=== PATIENT | male | born 1935 | race Caucasian/White ===

== ENCOUNTER 2017-11-11 23:19 | Emergency (ER) | payer MEDICARE, OTHER ==
--- NOTE | 2017-11-12 00:19 | EDM.PDOC ---
ED HPI GENERAL MEDICAL PROBLEM - General Chief Complaint: Abdominal Pain Stated Complaint: LOWER ABDOMINAL PAIN AND CONSTIPATION Time Seen by Provider: 11/11/17 23:34 Source of Information: Reports: Patient, Family () History Limitations: Reports: No Limitations - History of Present Illness INITIAL COMMENTS - FREE TEXT/NARRATIVE: The patient states he has had constipation on and off for several weeks. He used a saline Fleet enema yesterday, producing a small bowel movement, and another Fleet enema today, again producing a small bowel movement, also with some bright red blood per rectum. The patient had a fever and aches around 2016. He says when he developed oral pain, then was seen in early September by Shaun Sweet. The patient' s states that no tests were done, but he was given an oral rinse. It did not help, therefore he followed up with Gloria Wild about a week later. Blood work was ordered, and the patient was prescribed nystatin swish and swallow, and refer the patient to the ENT Dr. Meier. The patient saw Dr. Meier on 10/07/2017. The patient was prescribed Diflucan and clotrimazole troches. On follow-up with Dr. Meier in early October, the clotrimazole was stopped, the Diflucan continued, and the nystatin restarted. The patient's states that the thrush is suspected to have occurred from unsanitary denture cleaning. Because of the patient's constipation, the patient's took the patient off all medications 2 days ago, although the patient still has some thrush symptoms. Review of potential adverse effects of nystatin, Diflucan, and clotrimazole finds that constipation is not a known adverse effect of any of them. Rectal Pain Score (Numeric/FACES): 8 - Related Data Allergies Allergy/AdvReac Type Severity Reaction Status Date / Time Penicillins Allergy Rash Verified 11/11/17 23:34 Home Meds: Home Meds Clotrimazole [Mycelex] 11/11/17 [History] Fluconazole [Diflucan] 11/11/17 [History] Nystatin [Nystatin] 11/11/17 [History] Past Medical History - Past Surgical History HEENT Surgical History: Reports: Tonsillectomy GI Surgical History: Reports: Appendectomy (1968), Cholecystectomy (1968) Social & Family History - Tobacco Use Smoking Status *Q: Former Smoker - Alcohol Use Alcohol Use History: No - Recreational Drug Use Recreational Drug Use: No - Living Situation & Occupation Living situation: Reports: , with Spouse Occupation: Retired ED ROS GENERAL - Review of Systems Review Of Systems: ROS reveals no pertinent complaints other than HPI. ED EXAM, GENERAL - Physical Exam Exam: See Below Exam Limited By: No Limitations General Appearance: Alert, WD/WN, No Apparent Distress Eye Exam: Bilateral Eye: Normal Inspection Ears: Normal External Exam, Hearing Grossly Normal Nose: Normal Inspection, No Blood Throat/Mouth: Normal Inspection, Normal Lips, Normal Teeth, Normal Gums, Normal Oropharynx (no thrush seen), Normal Voice, No Airway Compromise Head: Atraumatic, Normocephalic Neck: Normal Inspection, Full Range of Motion Respiratory/Chest: No Respiratory Distress, Lungs Clear, Normal Breath Sounds, No Accessory Muscle Use Cardiovascular: Normal Peripheral Pulses, Regular Rate, Rhythm, No Edema, No Gallop, No JVD, No Murmur, No Rub Peripheral Pulses: 4+: Radial (L), Radial (R) GI/Abdominal: Normal Bowel Sounds, Soft, Non-Tender, No Organomegaly, No Distention, No Abnormal Bruit, No Mass (Male) Exam: Deferred Rectal (Males) Exam: Deferred Back Exam: Normal Inspection, Full Range of Motion, NT Extremities: Normal Inspection, Normal Range of Motion, No Pedal Edema, Normal Capillary Refill Neurological: Alert, Oriented, Normal Cognition, No Motor/Sensory Deficits Psychiatric: Normal Affect Skin Exam: Warm, Dry, Intact, Normal Color, No Rash Course - Vital Signs Last Recorded V/S: Last Vital Signs Temp 37.0 C 11/11/17 23:30 Pulse 68 11/11/17 23:30 Resp 18 11/11/17 23:30 BP 147/84 H 11/11/17 23:30 Pulse Ox 100 11/11/17 23:30 - Orders/Labs/Meds Orders: Active Orders 24 hr Category Date Time Status Nur Catheter Insertion [Insert Urinary Catheter] [OM. Care 11/12/17 00:30 Ordered PC] Q24H Urinary Catheter Assessment [RC] ASDIRECTED Care 11/12/17 00:18 Active Abdomen 1V Upright [CR] Stat Exams 11/11/17 23:59 Taken Labs: Laboratory Tests 11/12/17 Range/Units 00:06 Urine Color Yellow (Yellow) Urine Appearance Clear (Clear) Urine pH 7.0 (5.0-8.0) Ur Specific [place] 1.015 (1.005-1.030) Urine Protein Negative (Negative) Urine Glucose (UA) Negative (Negative) Urine Ketones 1+ H (Negative) Urine Occult Blood Negative (Negative) Urine Nitrite Negative (Negative) Urine Bilirubin Negative (Negative) Urine Urobilinogen 0.2 (0.2-1.0) Ur Leukocyte Esterase Negative (Negative) Urine RBC 0-5 (0-5) /hpf Urine WBC 0-5 (0-5) /hpf Ur Epithelial Cells Not seen (0-5) /hpf Urine Bacteria Not seen (FEW) /hpf Urine Mucus Few (FEW) /hpf Meds: Medications Discontinued Medications Generic Name Dose Route Start Last Admin Trade Name Yvette PRN Reason Stop Dose Admin Lidocaine HCl Confirm 11/12/17 01:07 11/12/17 01:14 Xylocaine 2% Jelly Administered 11/12/17 01:08 Not Given Dose 10 ml .ROUTE .STK-MED ONE Lidocaine HCl 10 ml 11/12/17 01:10 11/12/17 01:14 Xylocaine 2% Jelly MUCMEM 11/12/17 01:11 10 ml ONETIME STA Administration - Re-Assessments/Exams Free Text/Narrative Re-Assessment/Exam: 11/12/17 00:19 Notified that the post-void bladder scan demonstrated 400 mL of retained urine. I have ordered a Nur catheter to a leg bag, and a urinalysis has already been ordered. 11/12/17 00:57 Upright abdominal radiograph appears to demonstrate a considerable amount of stool in the right colon, but not much distal to the hepatic flexure. Formal read per the Radiologist pending. 11/12/17 01:33 Once the Nur was placed, it drained 800 mL of clear urine, and is still draining. The urinalysis is normal. The patient will be discharged home with a Nur to leg bag and a referral to Dr. June. Departure - Departure Time of Disposition: 01:35 Disposition: Home, Self-Care 01 Condition: Good Clinical Impression: Urinary retention - Discharge Information Referrals: PCP,None [Primary Care Provider] - Kemar June MD [Ordering Only Provider] - Forms: ED Department Discharge Additional Instructions: You were seen in the emergency room for feeling constipated for the past few weeks. Workup in the ER included an x-ray of your abdomen, a bladder scan, and a urinalysis. The bladder scan indicated a large volume of urine. A Nur catheter drained over 800 mL of urine. The x-ray of your abdomen showed some stool in the right colon, but no significant constipation. You MOST LIKELY have an enlarged prostate, preventing you from draining your bladder adequately. Maintain the Nur catheter as instructed by the nurse. When sleeping, make sure that the leg bag is lower than your body, to prevent backflow of urine. To prevent constipation, we recommend that you take [id number] Metamucil or MiraLAX. Follow-up with the Urologist Dr. June at the next available appointment. If any other problems, please do not hesitate to return to the ER. - My Orders Last 24 Hours: My Active Orders 11/11/17 23:59 Abdomen 1V Upright [CR] Stat 11/12/17 00:18 Urinary Catheter Assessment [RC] ASDIRECTED 11/12/17 00:30 Nur Catheter Insertion [Insert Urinary Catheter] [OM.PC] Q24H - Assessment/Plan Last 24 Hours: My Active Orders 11/11/17 23:59 Abdomen 1V Upright [CR] Stat 11/12/17 00:18 Urinary Catheter Assessment [RC] ASDIRECTED 11/12/17 00:30 Nur Catheter Insertion [Insert Urinary Catheter] [OM.PC] Q24H
[2017-11-12] MEDS ORDERED: Lidocaine 2% Jelly 10 ML Urojet ONE (01:07)
[2017-11-12] MEDS ORDERED: Lidocaine 2% Jelly 10 ML Urojet MUCMEM STA (01:10)
--- NOTE | 2017-11-12 07:42 | CR ---
Abdomen: Supine view of the abdomen was obtained. Comparison: No previous study. Slight increased stool is seen throughout the colon. Bowel gas pattern is otherwise unremarkable. Bony structures are within normal limits for age. No abnormal calcifications or soft tissue abnormality is seen. Impression: 1. Mild increased stool throughout the colon. Other incidental findings. Diagnostic code #2
== END 2017-11-12 02:00 | disposition home or self-care (01) ==
LOC: JD.ED 23:19
DX: R33.9 Retention of urine, unspecified (principal); Z88.0 Allergy status to penicillin; Z87.891 Personal history of nicotine dependence
CPT/HCPCS: 51702; 74018; 74018-26; 81001; 99283; 99284-25

== ENCOUNTER 2017-11-12 15:28 | Emergency (ER) | payer MEDICARE, OTHER ==
--- NOTE | 2017-11-12 18:09 | EDM.PDOC ---
ED HPI GENERAL MEDICAL PROBLEM - General Chief Complaint: Genitourinary Problem Stated Complaint: BLEEDING IN CATHETER Time Seen by Provider: 11/12/17 17:55 Source of Information: Reports: Patient, Old Records (ER visit last night) History Limitations: Reports: No Limitations - History of Present Illness INITIAL COMMENTS - FREE TEXT/NARRATIVE: 81-year-old male presents for evaluation treatment hematuria. Reportedly the patient had a Nur catheter placed last night will ER for urinary retention likely due to prostate hypertrophy. He followed up in the clinic today. Patient states he arrived for his clinic appointment early. Made a remark to the nursing staff that he noticed some blood in his Nur catheter. He was instructed to come to us for further management and care. Reports he has some pain associated with the Nur catheter but no other symptoms. No fevers, chills , nausea or vomiting. No abdominal pain. Patient is an appointment with urology, Dr. Hill, scheduled for November 19. Onset: Today Penis Pain Score (Numeric/FACES): 3 - Related Data Allergies Allergy/AdvReac Type Severity Reaction Status Date / Time Penicillins Allergy Rash Verified 11/12/17 15:49 Home Meds: Home Meds Clotrimazole [Mycelex] 11/11/17 [History] Fluconazole [Diflucan] 11/11/17 [History] Nystatin [Nystatin] 11/11/17 [History] Past Medical History - Past Health History Medical/Surgical History: Denies Medical/Surgical History Genitourinary History: Reports: Retention, Urinary Other Genitourinary History: Enlarged prostate? Following up. Nur placed. - Past Surgical History HEENT Surgical History: Reports: Tonsillectomy GI Surgical History: Reports: Appendectomy, Cholecystectomy Social & Family History - Family History Family Medical History: Noncontributory - Tobacco Use Smoking Status *Q: Former Smoker - Recreational Drug Use Recreational Drug Use: No - Living Situation & Occupation Living situation: Reports: , with Spouse Occupation: Retired ED ROS GENERAL - Review of Systems Review Of Systems: See Below Constitutional: Denies: Fever, Chills GI/Abdominal: Denies: Abdominal Pain, Nausea, Vomiting : Reports: Hematuria, Pain (associated with cathater placement). Denies: Dysuria ED EXAM, RENAL/ - Physical Exam Exam: See Below Exam Limited By: No Limitations General Appearance: Alert, WD/WN, No Apparent Distress Throat/Mouth: Normal Inspection, Normal Voice, No Airway Compromise Respiratory/Chest: No Respiratory Distress, Lungs Clear, Normal Breath Sounds Cardiovascular: Normal Peripheral Pulses, Regular Rate, Rhythm, No Murmur GI/Abdominal: Normal Bowel Sounds, Soft, Non-Tender (Male) Exam: Normal Inspection, Other (cathater in place, leg bag has some red urine, urine in tubing is light yellow, no blood at the penile meatus) Neurological: Alert, Oriented, Normal Cognition Psychiatric: Normal Affect, Normal Mood Skin Exam: Warm, Dry, Normal Color Course - Vital Signs Last Recorded V/S: Last Vital Signs Temp 36.5 C 11/12/17 15:44 Pulse 70 11/12/17 15:44 Resp 18 11/12/17 15:44 BP 131/84 11/12/17 15:44 Pulse Ox 98 11/12/17 15:44 - Orders/Labs/Meds Labs: Laboratory Tests 11/12/17 Range/Units 17:39 Urine Color Yellow (Yellow) Urine Appearance Clear (Clear) Urine pH 6.0 (5.0-8.0) Ur Specific [place] 1.010 (1.005-1.030) Urine Protein Negative (Negative) Urine Glucose (UA) Negative (Negative) Urine Ketones 1+ H (Negative) Urine Occult Blood 3+ H (Negative) Urine Nitrite Negative (Negative) Urine Bilirubin Negative (Negative) Urine Urobilinogen 0.2 (0.2-1.0) Ur Leukocyte Esterase Negative (Negative) Urine RBC 20-30 H (0-5) /hpf Urine WBC 0-5 (0-5) /hpf Ur Epithelial Cells Not seen (0-5) /hpf Urine Bacteria Not seen (FEW) /hpf Urine Mucus Not seen (FEW) /hpf - Re-Assessments/Exams Free Text/Narrative Re-Assessment/Exam: 11/12/17 18:23 reviewed urine results with the patient. Will have him follow-up with PCP tomorrow to have the catheter removed. Discharge instructions as documented. Departure - Departure Time of Disposition: 18:30 Disposition: Home, Self-Care 01 Condition: Fair Clinical Impression: Urinary retention, Nur catheter in place - Discharge Information Instructions: Nur Catheter Care, Adult, [id number], Acute Urinary Retention , Male, [id number] Referrals: PCP,Unknown [Ordering Only Provider] - Danisha Almaguer [Physician] - Forms: ED Department Discharge Additional Instructions: Continue with your current plan of care. Follow-up in the clinic tomorrow. Recommend follow-up with either Dr. Barney, Dr. Pelaez or Gloria Garcia. Call [phone] schedule one of these providers. Please return to the ER if your symptoms change or worsen. Tylenol every 4-6 hours as needed for discomfort. Take 650 mg or 2 of the 325 mg capsule every 4-6 hours.
== END 2017-11-12 19:05 | disposition home or self-care (01) ==
LOC: JD.ED 15:28
DX: R33.9 Retention of urine, unspecified (principal); Z96.0 Presence of urogenital implants; Z88.0 Allergy status to penicillin; Z87.891 Personal history of nicotine dependence
CPT/HCPCS: 81001; 99283; 99284

== ENCOUNTER 2017-11-17 00:52 | Emergency (ER) | payer MEDICARE, OTHER ==
--- NOTE | 2017-11-17 01:11 | EDM.PDOC ---
ED HPI GENERAL MEDICAL PROBLEM - General Chief Complaint: Allergic Reaction Stated Complaint: [facility] Time Seen by Provider: 11/17/17 01:00 Source of Information: Reports: Family (spouse) History Limitations: Reports: Altered Mental Status (patient is very drowsy from the Benadryl he recieved IV by paramedics enroute to [place]. ) - History of Present Illness INITIAL COMMENTS - FREE TEXT/NARRATIVE: 81-year-old male primarily presents the ED per ambulance with a very painful sore tongue. He's been taking nystatin on a sporadic basis 5 mils of suspension once or twice a daily for the last 2-3 weeks. He been off of it for the last 3 days took it again tonight and felt that it irritated his tongue to the point of severe sensitivity. Apparently when the paramedics arrived he was very flushed in his head and face suggesting an allergic response but this would be highly unlikely due to the nature of nystatin itself. Laying with stomatitis in particular a painful tongue for several months. He has been seen by ENT in [place] on multiple occasions. No pathology has been identified. Similarly he' s had recent prongs with acute urinary retention with over 800 mils retained in his urinary bladder. Nur catheter was placed in the ED to provide adequate drainage. The following day he returned because of pinkish discharge in the urine which is simply due to Nur catheter irritating the bladder wall. The catheter was subsequently removed the next day and apparently he's been voiding fairly normally since. He has appoint with Dr. Hill urologist on this week. He was prescribed atenolol some of which he took one tablet on Thursday , November 13 and again, really bad headache and therefore he has not taken any further tablets. This could've happened due to the alpha reyna component of the medication. He uses dentures only for eating and then takes them out. They are soaked in an equate brand of cleansing solution. He is on no other medications that would cause severe dryness of his oral cavity. Onset: Sudden (Acute sawn onset of suspect allergic symptoms to nystatin swished in his mouth earlier tonight. It seemed to aggravate his current stomatitis and particularly his tongue was burning and painful. 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 Receive Benadryl 50 mg IV en route to [place] by paramedics.) - Related Data Allergies Allergy/AdvReac Type Severity Reaction Status Date / Time Penicillins Allergy Rash Verified 11/12/17 15:49 Home Meds: Home Meds Nystatin [Nystatin] 5 ml PO TID 11/11/17 [History] Tamsulosin [Flomax] 1 cap PO DAILY 11/17/17 [History] Past Medical History - Past Health History Medical/Surgical History: Denies Medical/Surgical History Genitourinary History: Reports: Retention, Urinary Other Genitourinary History: Enlarged prostate? Following up. Nur placed. - Past Surgical History HEENT Surgical History: Reports: Tonsillectomy GI Surgical History: Reports: Appendectomy, Cholecystectomy Social & Family History - Family History Family Medical History: Noncontributory - Tobacco Use Smoking Status *Q: Former Smoker - Recreational Drug Use Recreational Drug Use: No - Living Situation & Occupation Living situation: Reports: , with Spouse Occupation: Retired ED ROS ALLERGIC REACTION - Review of Systems Review Of Systems: See Below Constitutional: Reports: Malaise, Weakness, Fatigue, Decreased Appetite, Weight Loss. Denies: Fever, Chills HEENT: Reports: Other (Glossitis/painful tongue.) Respiratory: Reports: No Symptoms Cardiovascular: Reports: No Symptoms ( Nothing going on for many months.) Endocrine: Reports: No Symptoms GI/Abdominal: Reports: No Symptoms : Reports: Other (Presented to the ED last week November 12 with acute urinary retention. Nur catheter placed for drainage of over 800 mils of urine. Nur catheter was removed 2 days later. Urinalysis did not grow out any pathogens. For acute urinary retention is unclear although felt to be due to prostatism.) Musculoskeletal: Reports: Back Pain, Joint Pain (Some low back pain and knee pain.) Skin: Reports: No Symptoms Neurological: Reports: No Symptoms Psychiatric: Reports: No Symptoms Hematologic/Lymphatic: Reports: No Symptoms Immunologic: Reports: No Symptoms ED EXAM GENERAL NO PERIP PULSE - Physical Exam Exam: See Below Exam Limited By: Altered Mental Status (Patient is very obtunded and somnolent from having been given Benadryl 50 mg IV. His provides most of the history. ) General Appearance: No Apparent Distress, Thin, Other (Patient has been losing weight gradually over the last several years.) Eye Exam: Bilateral Eye: Normal Inspection Ears: Normal TMs, Other (Seborrheic dermatitis in her upper right ear.) Throat/Mouth: Other (There are oropharynx I found to be very dry particular the soft palate and the tongue itself is slightly yellow in color and coated. Prominence of the taste buds evident on the posterior aspect of the tongue. No pathology in the floor the mouth. There is no sign of oral candidiasis.) Head: Atraumatic, Normocephalic Neck: Normal Inspection, Supple, Non-Tender, Full Range of Motion. No: Carotid Bruit, Lymphadenopathy (L), Lymphadenopathy (R) Respiratory/Chest: No Respiratory Distress, Lungs Clear, Normal Breath Sounds, Chest Non-Tender Cardiovascular: Regular Rate, Rhythm, No Edema, No Gallop, No Murmur, No Rub GI/Abdominal: Normal Bowel Sounds, Soft, Non-Tender, No Organomegaly, Other ( There is a fullness to his lower abdomen. But no dullness to percussion) Back Exam: Normal Inspection, Full Range of Motion. No: CVA Tenderness (L), CVA Tenderness (R) Extremities: Normal Inspection, Normal Range of Motion, Non-Tender, No Pedal Edema Neurological: Other (Hypersomnolent but is able to answer some questions. This is secondary to Benadryl given intravenously en route to [place]) Skin Exam: Warm, Dry, Intact, Normal Color, No Rash Course - Vital Signs Last Recorded V/S: Last Vital Signs Temp 35.8 C 11/17/17 00:57 Pulse 69 11/17/17 00:57 Resp 20 11/17/17 00:57 BP 149/84 H 11/17/17 00:57 Pulse Ox 99 11/17/17 00:57 - Orders/Labs/Meds Orders: Active Orders 24 hr Category Date Time Status CELIAC PANEL, BASIC [REF] Stat Lab 03/06/18 01:25 Received Labs: Laboratory Tests 11/17/17 11/17/1718 Range/Units 01:25 01:25 01:25 WBC 9.80 H (4.23-9.07) K/mm3 RBC 4.97 (4.63-6.08) M/mm3 Hgb 14.2 (13.7-17.5) gm/L Hct 40.1 (40.1-51.0) % MCV 80.7 (79.0-92.2) fl MCH 28.6 (25.7-32.2) pg MCHC 35.4 (32.2-35.5) g/dl RDW Std Deviation 42.0 (35.1-43.9) fL Plt Count 245 (163-337) K/mm3 MPV 10.6 (9.4-12.3) fl Neutrophils % (Manual) 72 H (40-60) % Band Neutrophils % 0 (0-10) % Lymphocytes % (Manual) 21 (20-40) % Atypical Lymphs % 0 % Monocytes % (Manual) 5 (2-10) % Eosinophils % (Manual) 2 (0.8-7.0) % Basophils % (Manual) 0 L (0.2-1.2) Platelet Estimate Adequate RBC Morph Comment Normal ESR (0-15) mm/hr Sodium 131 L (136-145) mEq/L Potassium 3.7 (3.5-5.1) mEq/L Chloride 94 L (98-107) mEq/L Carbon Dioxide 28 (21-32) mEq/L Anion Gap 12.7 (5-15) BUN 9 (7-18) mg/dL Creatinine 0.8 (0.7-1.3) mg/dL Est Cr Clr Drug Dosing 63.14 mL/min Estimated GFR (MDRD) > 60 (>60) mL/min BUN/Creatinine Ratio 11.3 L (14-18) Glucose 102 (83-115) mg/dL Calcium 8.5 (8.5-10.1) mg/dL Total Bilirubin 1.4 H (0.2-1.0) mg/dL AST 23 (15-37) U/L ALT 23 (16-63) U/L Alkaline Phosphatase 50 (46-116) U/L C-Reactive Protein < 0.2 (<1.0) mg/dL Total Protein 6.8 (6.4-8.2) g/dl Albumin 3.9 (3.4-5.0) g/dl Globulin 2.9 gm/dL Albumin/Globulin Ratio 1.3 (1-2) Vitamin B12 427 (193-986) pg/ml Folate 8.5 L (8.6-58.9) ng/mL TSH 3rd Generation 1.918 (0.358-3.74) uIU/mL 11/17/17 Range/Units 01:25 WBC (4.23-9.07) K/mm3 RBC (4.63-6.08) M/mm3 Hgb (13.7-17.5) gm/L Hct (40.1-51.0) % MCV (79.0-92.2) fl MCH (25.7-32.2) pg MCHC (32.2-35.5) g/dl RDW Std Deviation (35.1-43.9) fL Plt Count (163-337) K/mm3 MPV (9.4-12.3) fl Neutrophils % (Manual) (40-60) % Band Neutrophils % (0-10) % Lymphocytes % (Manual) (20-40) % Atypical Lymphs % % Monocytes % (Manual) (2-10) % Eosinophils % (Manual) (0.8-7.0) % Basophils % (Manual) (0.2-1.2) Platelet Estimate RBC Morph Comment ESR 6 (0-15) mm/hr Sodium (136-145) mEq/L Potassium (3.5-5.1) mEq/L Chloride (98-107) mEq/L Carbon Dioxide (21-32) mEq/L Anion Gap (5-15) BUN (7-18) mg/dL Creatinine (0.7-1.3) mg/dL Est Cr Clr Drug Dosing mL/min Estimated GFR (MDRD) (>60) mL/min BUN/Creatinine Ratio (14-18) Glucose (83-115) mg/dL Calcium (8.5-10.1) mg/dL Total Bilirubin (0.2-1.0) mg/dL AST (15-37) U/L ALT (16-63) U/L Alkaline Phosphatase (46-116) U/L C-Reactive Protein (<1.0) mg/dL Total Protein (6.4-8.2) g/dl Albumin (3.4-5.0) g/dl Globulin gm/dL Albumin/Globulin Ratio (1-2) Vitamin B12 (193-986) pg/ml Folate (8.6-58.9) ng/mL TSH 3rd Generation (0.358-3.74) uIU/mL - Radiology Interpretation Free Text/Narrative:: 81-year-old male presents to the ED with apparent reaction or at least irritation of his tongue and mouth with a severe burning quality after using nystatin 5 mils suspension orally. This been used intermittently for stomatitis which was felt to possibly be be due to candidiasis in origin. Patient is not immunocompromised nor does he have HIV. Not receiving any chemotherapy. He's been complaining of burning tongue and dry mouth for greater than 6 months. He has seen multiple providers with no treatment options otherwise available to him. It's unclear how much investigations have been done in terms of vitamin B12 folic acid thyroid function ,celiac disease rule out etc. He has apparently on no medications would dry out his mouth( xerostomia) . He does use dentures only T10 and puts him back in a equally brand of denture shield cleaner. Possibility of developing an allergy to this does exist. On my assessment there is no evidence of oral candidiasis. His oropharynx is extremely dry. Tongue is a slight yellowish coating and is dry. No other oral pathology identified. Plan routine labs to include folic acid B12 and TSH to be done. At present he states the burning is. Will gone there is certainly no evidence of a severe acute allergic reaction going on at this time. Patient be localized irritation of his tongue from the nystatin suspension. Of note is appreciated that the Benadryl given intravenously to relieve his acute oral symptoms may well precipitate acute urinary retention since he just had a Nur catheter placed last week for acute urinary retention of unclear etiology. - Re-Assessments/Exams Free Text/Narrative Re-Assessment/Exam: 11/17/17 02:33 White count is 9.80 with 72% neutrophils and no bands hemoglobin is 14.2 with hematocrit of 40.1. Platelets are normal 245,000. Sodium is mildly low at 131 able leave from excessive take intake of water. Potassium is 3.7 chloride is 94 bicarbonate is 28. Anion gap is 12.7. BUNs 19 creatinine 0.8. Glucose 102. Calcium is 8.5. Total bilirubin is 1.4. AST is 23 with a tip 23. CRP is less than 0.2. Protein is normal at 6.8 with an albumin fraction of 3.9. Vitamin B-12 level is low normal at 427. Serum folic acid is 8.5 i.e. below normal. TSH is normal at 1.91. Patient will be discharged to home in care of his family. 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 Celiac screen will hopefully be available within the next 4-5 days. Departure - Departure Time of Disposition: 02:33 Disposition: Home, Self-Care 01 Condition: Fair Clinical Impression: Atrophic glossitis, Folic acid deficiency (non anemic) Adverse effects of medication Qualifiers: Encounter type: initial encounter Qualified Code(s): T88.7XXA - Unspecified adverse effect of drug or medicament, initial encounter - Discharge Information Instructions: Glossitis Referrals: Zayda Torres PA-C [Primary Care Provider] - Forms: ED Department Discharge Additional Instructions: Evaluation the emergent tonight due to adverse effect to medication taken earlier in the evening. History suggests oral nystatin suspension 5 mils by mouth set off a tremendous amount of inflammation of the tongue with severe burning and inflammation. There is some suggestion that there is inflammation of his face head and neck when paramedics arrived. Concern therefore for a significant allergic response was evident and he was therefore given intravenous dose of Benadryl 50 mg. This created a good deal of sedation and therefore history was obtained mostly through family members. History is that of gradually losing weight for no apparent reason. Difficulty eating due to painful mouth and tongue. Nystatin was being utilized to see if it would make any difference for inflammation of the tongue. Nystatin is used to treat oral candidiasis which I found no evidence of. My investigations in the ED identified one folic acid deficiency. The vitamin B12 level BXII levels came back low normal. It is likely that he is not absorbing his vitamin B's` and out of 20 different vitamin B's nikolai of them if they are deficient could contribute to inflammation of the tongue or glossitis. I also sent away blood for a celiac disease panel as celiac's disease in the adult can cause inflammation of the tongue as well. These results will hopefully be available within the next week. In the meantime I would suggest artificial saliva with the use of biotin directions or on the bottle. This can be used as often as felt needed to try and lubricate the mouth and tongue. No further use of nystatin. Still take a daily vitamin such as Centrum Silver which contains at least 1 mg of folic acid daily. This should start to help the tongue within about 3-4 weeks time. Follow-up with personal care physician in 10-14 days time. Also of note suggest stopping any cinnamon supplements as these are known to cause tongue irritation. - My Orders Last 24 Hours: My Active Orders 11/17/17 01:25 CELIAC PANEL, BASIC [REF] Stat - Assessment/Plan Last 24 Hours: My Active Orders 11/17/17 01:25 CELIAC PANEL, BASIC [REF] Stat
== END 2017-11-17 02:44 | disposition home or self-care (01) ==
LOC: JD.ED 00:52
DX: K14.4 Atrophy of tongue papillae (principal); E53.8 Deficiency of other specified B group vitamins; T36.7X5A Adverse effect of antifungal antibiotics, systemically used, initial encounter; Z88.0 Allergy status to penicillin; Z79.899 Other long term (current) drug therapy; Z87.891 Personal history of nicotine dependence
CPT/HCPCS: 36415; 80053; 82607; 82746; 83516; 84443; 85025; 85652; 86140; 99283; 99284

== ENCOUNTER 2017-11-29 02:00 | Emergency (ER) | payer MEDICARE, OTHER ==
[2017-11-29] MEDS ORDERED: Meperidine PF 50 MG/ML Syringe IVPUSH ONE (02:26)
--- NOTE | 2017-11-29 02:53 | EDM.PDOC ---
<Chuck Haley - Last Filed: 11/29/17 12:06> ED HPI GENERAL MEDICAL PROBLEM - General Chief Complaint: Chest Pain Stated Complaint: [facility] Time Seen by Provider: 11/29/17 02:10 - Related Data Allergies Allergy/AdvReac Type Severity Reaction Status Date / Time Penicillins Allergy Rash Verified 11/29/17 09:38 nystatin Allergy Mouth Sores Uncoded 11/29/17 09:38 Home Meds: Home Meds Tamsulosin [Flomax] 1 cap PO DAILY 11/17/17 [History] Acetaminophen 500 mg PO Q6H PRN 11/29/17 [History] Jfcso-H-Tqqesfwqrycpa [Beano] 2 each PO ASDIRECTED PRN 11/29/17 [History] Cyanocobalamin (Vitamin B-12) [B-12] 1,000 mcg PO DAILY 11/29/17 [History] Dandelion 3 tab PO DAILY 11/29/17 [History] Excedrin Pm 1 tab PO BEDTIME PRN 11/29/17 [History] Folic Acid 1 mg PO DAILY 11/29/17 [History] Glycerin 1 each RC DAILY PRN 11/29/17 [History] L. Acidophilus/Pectin, [place] [Acidophilus Probiotic] 1 each PO DAILY 11/29/17 [ History] Multivitamin [Multivitamins] 1 each PO DAILY 11/29/17 [History] Polyethylene Glycol 3350 [MiraLAX] 17 gm PO BID 11/29/17 [History] Saw [place] 500 mg PO TID 11/29/17 [History] Vitamin B Complex 1 each PO DAILY 11/29/17 [History] Vitamin Code 50 & Wiser Men 1 tab PO DAILY 11/29/17 [History] Zinc 50 mg PO DAILY 11/29/17 [History] ED CENTRAL LINE INSERTION - Central Line Insertion Central Line Indication: IV access, medication administration Site: internal jugular (R) Prep: CDC/MBT Guidelines, Sterile Drapes, Chlorhexidine Lumen: triple Gauge: 14Fr Local Anesthesia - Lidocaine (Xylocaine): 1% with EPI Local Anesthetic Volume: 2cc Ultrasound guided: Yes Guidewire and dilator removed intact: Yes Micropuncture kit used: Yes Complications: No Secured with suture: Yes Post placement confirmation: CXR, all ports aspirated, all ports flushed CXR post-procedure: no pneumothorax, no hemothorax Dressing applied: by provider Course - Vital Signs Last Recorded V/S: Last Vital Signs Temp 40.0 C H 11/29/17 09:25 Pulse 114 H 11/29/17 06:29 Resp 16 11/29/17 05:16 BP 121/57 L 11/29/17 05:16 Pulse Ox 90 L 11/29/17 06:29 - Orders/Labs/Meds Labs: Laboratory Tests 11/29/17 11/29/17 11/29/17 Range/Units 02:15 02:20 02:20 WBC 14.78 H (4.23-9.07) K/mm3 RBC 5.09 (4.63-6.08) M/mm3 Hgb 14.6 (13.7-17.5) gm/L Hct 41.8 (40.1-51.0) % MCV 82.1 (79.0-92.2) fl MCH 28.7 (25.7-32.2) pg MCHC 34.9 (32.2-35.5) g/dl RDW Std Deviation 44.6 H (35.1-43.9) fL Plt Count 270 (163-337) K/mm3 MPV 9.9 (9.4-12.3) fl Neut % (Auto) (34.0-67.9) % Lymph % (Auto) (21.8-53.1) % [place] % (Auto) (5.3-12.2) % Eos % (Auto) (0.8-7.0) Baso % (Auto) (0.1-1.2) % Neut # (Auto) (1.78-5.38) K/mm3 Lymph # (Auto) (1.32-3.57) K/mm3 [place] # (Auto) (0.30-0.82) K/mm3 Eos # (Auto) (0.04-0.54) K/mm3 Baso # (Auto) (0.01-0.08) K/mm3 Neutrophils % (Manual) 88 H (40-60) % Band Neutrophils % 0 (0-10) % Lymphocytes % (Manual) 6 L (20-40) % Atypical Lymphs % 0 % Monocytes % (Manual) 2 (2-10) % Eosinophils % (Manual) 4 (0.8-7.0) % Basophils % (Manual) 0 L (0.2-1.2) Manual Slide Review Platelet Estimate Increased RBC Morph Comment Normal PT 11.2 (8.0-13.0) SECONDS INR 1.05 APTT 32 (22-36) SECONDS D-Dimer, Quantitative 0.43 (0.19-0.59) mg/L Sodium (136-145) mEq/L Potassium (3.5-5.1) mEq/L Chloride (98-107) mEq/L Carbon Dioxide (21-32) mEq/L Anion Gap (5-15) BUN (7-18) mg/dL Creatinine (0.7-1.3) mg/dL Est Cr Clr Drug Dosing mL/min Estimated GFR (MDRD) (>60) mL/min BUN/Creatinine Ratio (14-18) Glucose (83-115) mg/dL Lactic Acid (0.4-2.0) mmol/L Calcium (8.5-10.1) mg/dL Total Bilirubin (0.2-1.0) mg/dL AST (15-37) U/L ALT (16-63) U/L Alkaline Phosphatase (46-116) U/L Troponin I (0.00-0.056) ng/mL NT-Pro-B Natriuret Pep (0-450) pg/mL Total Protein (6.4-8.2) g/dl Albumin (3.4-5.0) g/dl Globulin gm/dL Albumin/Globulin Ratio (1-2) Urine Color Yellow (Yellow) Urine Appearance Clear (Clear) Urine pH 6.5 (5.0-8.0) Ur Specific [place] 1.010 (1.005-1.030) Urine Protein Negative (Negative) Urine Glucose (UA) Negative (Negative) Urine Ketones 1+ H (Negative) Urine Occult Blood Negative (Negative) Urine Nitrite Negative (Negative) Urine Bilirubin Negative (Negative) Urine Urobilinogen 0.2 (0.2-1.0) Ur Leukocyte Esterase 2+ H (Negative) Urine RBC 0-5 (0-5) /hpf Urine WBC 20-30 H (0-5) /hpf Ur Epithelial Cells Not seen (0-5) /hpf Urine Bacteria Many H (FEW) /hpf Urine Mucus Not seen (FEW) /hpf 11/29/17 11/29/17 11/29/17 Range/Units 02:20 02:20 08:45 WBC (4.23-9.07) K/mm3 RBC (4.63-6.08) M/mm3 Hgb (13.7-17.5) gm/L Hct (40.1-51.0) % MCV (79.0-92.2) fl MCH (25.7-32.2) pg MCHC (32.2-35.5) g/dl RDW Std Deviation (35.1-43.9) fL Plt Count (163-337) K/mm3 MPV (9.4-12.3) fl Neut % (Auto) (34.0-67.9) % Lymph % (Auto) (21.8-53.1) % [place] % (Auto) (5.3-12.2) % Eos % (Auto) (0.8-7.0) Baso % (Auto) (0.1-1.2) % Neut # (Auto) (1.78-5.38) K/mm3 Lymph # (Auto) (1.32-3.57) K/mm3 [place] # (Auto) (0.30-0.82) K/mm3 Eos # (Auto) (0.04-0.54) K/mm3 Baso # (Auto) (0.01-0.08) K/mm3 Neutrophils % (Manual) (40-60) % Band Neutrophils % (0-10) % Lymphocytes % (Manual) (20-40) % Atypical Lymphs % % Monocytes % (Manual) (2-10) % Eosinophils % (Manual) (0.8-7.0) % Basophils % (Manual) (0.2-1.2) Manual Slide Review Platelet Estimate RBC Morph Comment PT (8.0-13.0) SECONDS INR APTT (22-36) SECONDS D-Dimer, Quantitative (0.19-0.59) mg/L Sodium 127 L (136-145) mEq/L Potassium 4.6 (3.5-5.1) mEq/L Chloride 93 L (98-107) mEq/L Carbon Dioxide 28 (21-32) mEq/L Anion Gap 10.6 (5-15) BUN 17 (7-18) mg/dL Creatinine 0.9 (0.7-1.3) mg/dL Est Cr Clr Drug Dosing 48.03 mL/min Estimated GFR (MDRD) > 60 (>60) mL/min BUN/Creatinine Ratio 18.9 H (14-18) Glucose 105 (83-115) mg/dL Lactic Acid (0.4-2.0) mmol/L Calcium 8.8 (8.5-10.1) mg/dL Total Bilirubin 1.9 H (0.2-1.0) mg/dL AST 17 (15-37) U/L ALT 26 (16-63) U/L Alkaline Phosphatase 53 (46-116) U/L Troponin I < 0.017 0.565 H* (0.00-0.056) ng/mL NT-Pro-B Natriuret Pep 374 (0-450) pg/mL Total Protein 7.1 (6.4-8.2) g/dl Albumin 3.9 (3.4-5.0) g/dl Globulin 3.2 gm/dL Albumin/Globulin Ratio 1.2 (1-2) Urine Color (Yellow) Urine Appearance (Clear) Urine pH (5.0-8.0) Ur Specific [place] (1.005-1.030) Urine Protein (Negative) Urine Glucose (UA) (Negative) Urine Ketones (Negative) Urine Occult Blood (Negative) Urine Nitrite (Negative) Urine Bilirubin (Negative) Urine Urobilinogen (0.2-1.0) Ur Leukocyte Esterase (Negative) Urine RBC (0-5) /hpf Urine WBC (0-5) /hpf Ur Epithelial Cells (0-5) /hpf Urine Bacteria (FEW) /hpf Urine Mucus (FEW) /hpf 18 11/29/17 Range/Units 08:45 08:45 WBC 13.43 H (4.23-9.07) K/mm3 RBC 4.42 L (4.63-6.08) M/mm3 Hgb 12.8 L (13.7-17.5) gm/L Hct 36.7 L (40.1-51.0) % MCV 83.0 (79.0-92.2) fl MCH 29.0 (25.7-32.2) pg MCHC 34.9 (32.2-35.5) g/dl RDW Std Deviation 44.6 H (35.1-43.9) fL Plt Count 187 (163-337) K/mm3 MPV 10.1 (9.4-12.3) fl Neut % (Auto) 95.5 H (34.0-67.9) % Lymph % (Auto) 1.1 L (21.8-53.1) % [place] % (Auto) 1.2 L (5.3-12.2) % Eos % (Auto) 0.2 L (0.8-7.0) Baso % (Auto) 0.4 (0.1-1.2) % Neut # (Auto) 12.83 H (1.78-5.38) K/mm3 Lymph # (Auto) 0.15 L (1.32-3.57) K/mm3 [place] # (Auto) 0.16 L (0.30-0.82) K/mm3 Eos # (Auto) 0.03 L (0.04-0.54) K/mm3 Baso # (Auto) 0.05 (0.01-0.08) K/mm3 Neutrophils % (Manual) (40-60) % Band Neutrophils % (0-10) % Lymphocytes % (Manual) (20-40) % Atypical Lymphs % % Monocytes % (Manual) (2-10) % Eosinophils % (Manual) (0.8-7.0) % Basophils % (Manual) (0.2-1.2) Manual Slide Review Abnormal smear Platelet Estimate RBC Morph Comment PT (8.0-13.0) SECONDS INR APTT (22-36) SECONDS D-Dimer, Quantitative (0.19-0.59) mg/L Sodium (136-145) mEq/L Potassium (3.5-5.1) mEq/L Chloride (98-107) mEq/L Carbon Dioxide (21-32) mEq/L Anion Gap (5-15) BUN (7-18) mg/dL Creatinine (0.7-1.3) mg/dL Est Cr Clr Drug Dosing mL/min Estimated GFR (MDRD) (>60) mL/min BUN/Creatinine Ratio (14-18) Glucose (83-115) mg/dL Lactic Acid 2.3 H (0.4-2.0) mmol/L Calcium (8.5-10.1) mg/dL Total Bilirubin (0.2-1.0) mg/dL AST (15-37) U/L ALT (16-63) U/L Alkaline Phosphatase (46-116) U/L Troponin I (0.00-0.056) ng/mL NT-Pro-B Natriuret Pep (0-450) pg/mL Total Protein (6.4-8.2) g/dl Albumin (3.4-5.0) g/dl Globulin gm/dL Albumin/Globulin Ratio (1-2) Urine Color (Yellow) Urine Appearance (Clear) Urine pH (5.0-8.0) Ur Specific [place] (1.005-1.030) Urine Protein (Negative) Urine Glucose (UA) (Negative) Urine Ketones (Negative) Urine Occult Blood (Negative) Urine Nitrite (Negative) Urine Bilirubin (Negative) Urine Urobilinogen (0.2-1.0) Ur Leukocyte Esterase (Negative) Urine RBC (0-5) /hpf Urine WBC (0-5) /hpf Ur Epithelial Cells (0-5) /hpf Urine Bacteria (FEW) /hpf Urine Mucus (FEW) /hpf Meds: Medications Discontinued Medications Generic Name Dose Route Start Last Admin Trade Name Freq PRN Reason Stop Dose Admin Acetaminophen 650 mg 11/29/17 08:41 11/29/17 10:52 Tylenol PO 11/29/17 08:42 Not Given NOW ONE Acetaminophen Confirm 11/29/17 09:24 11/29/17 09:26 Tylenol Administered 11/29/17 09:25 Not Given Dose 650 mg .ROUTE .STK-MED ONE Acetaminophen 650 mg 11/29/17 09:25 11/29/17 09:25 Tylenol RECTAL 11/29/17 09:26 650 mg NOW ONE Administration Sodium Chloride 1,000 mls @ 150 mls/hr 11/29/17 03:30 11/29/17 03:44 Normal Saline IV 150 mls/hr ASDIRECTED RAFAT Administration Sodium Chloride 100 mls @ 75 mls/hr 11/29/17 03:45 11/29/17 04:15 Normal Saline IV 75 mls/hr ASDIRECTED RAFAT Administration Cefepime HCl 2 gm/ Premix 50 mls @ 100 mls/hr 11/29/17 08:26 11/29/17 09:05 IV 11/29/17 08:55 100 mls/hr ONETIME ONE Administration Norepinephrine Bitartrate 4 mg 250 mls @ 7.5 mls/hr 11/29/17 09:30 11/29/17 09:50 / Dextrose/Water IV 2 mcg/min TITRATE RAFAT 7.5 mls/hr Protocol Administration 2 MCG/MIN Sodium Chloride Confirm 11/29/17 09:23 11/29/17 10:52 Normal Saline Administered 11/29/17 09:24 Not Given Dose 1,000 mls @ as directed .ROUTE .STK-MED ONE Sodium Chloride Confirm 11/29/17 09:27 11/29/17 10:50 Normal Saline Administered 11/29/17 09:28 Not Given Dose 1,000 mls @ as directed .ROUTE .STK-MED ONE Sodium Chloride Confirm 11/29/17 09:57 11/29/17 10:53 Normal Saline Administered 11/29/17 09:58 Not Given Dose 100 mls @ as directed .ROUTE .STK-MED ONE Vancomycin HCl 1 gm/ Sodium 250 mls @ 250 mls/hr 11/29/17 09:53 11/29/17 10: 57 Chloride IV 11/29/17 10:52 Not Given ONETIME ONE Sodium Chloride Confirm 11/29/17 10:03 11/29/17 11:20 Normal Saline Administered 11/29/17 10:04 Not Given Dose 250 mls @ as directed .ROUTE .STK-MED ONE Epinephrine HCl 1 mg/ Dextrose 100 mls @ 39.73 mls/hr 11/29/17 10:45 /Water IV TITRATE RAFAT Protocol 0.1 MCG/KG/MIN Epinephrine HCl 1 mg/ Dextrose 100 mls @ 39.73 mls/hr 11/29/17 10:45 11:12 /Water IV 0.1 mcg/kg/min TITRATE RAFAT 39.73 mls/hr Protocol Administration 0.1 MCG/KG/MIN Vancomycin HCl 1 gm/ Sodium 250 mls @ 250 mls/hr 11/29/17 11:00 11/29/17 10: 10 Chloride IV 11/29/17 11:59 250 mls/hr ONETIME ONE Administration Sodium Chloride 4,000 mls @ 999 mls/hr 11/29/17 09:15 11/29/17 09:20 Normal Saline IV 11/29/17 13:15 999 mls/hr ONETIME ONE Administration Iopamidol 100 ml 11/29/17 03:45 11/29/17 04:15 Isovue-370 (76%) IVPUSH 11/29/17 03:46 100 ml ONETIME ONE Administration Meperidine HCl 50 mg 11/29/17 02:26 11/29/17 02:41 Demerol IVPUSH 11/29/17 02:27 50 mg ONETIME ONE Administration Ondansetron HCl 4 mg 11/29/17 03:48 11/29/17 03:52 Zofran IVPUSH 11/29/17 03:49 4 mg ONETIME ONE Administration Sodium Chloride 10 ml 11/29/17 03:45 11/29/17 04:15 Saline Flush FLUSH 10 ml ONETIME PRN Administration IV FLUSH Trimethoprim/Sulfamethoxazole 1 tab 11/29/17 03:17 11/29/17 06:35 Septra Ds PO 11/29/17 03:18 1 tab ONETIME ONE Administration Trimethoprim/Sulfamethoxazole Confirm 11/29/17 06:38 11/29/17 06:59 Septra Ds Administered 11/29/17 06:39 Not Given Dose 1 tab .ROUTE .STK-MED ONE Vancomycin HCl 1,000 mg 11/29/17 08:30 11/29/17 09:58 Vancomycin IV Not Given Q12H RAFAT Vancomycin HCl Confirm 11/29/17 09:57 11/29/17 10:52 Vancocin Administered 11/29/17 09:58 Not Given Dose 1 gm .ROUTE .STK-MED ONE - Re-Assessments/Exams Free Text/Narrative Re-Assessment/Exam: 11/29/17 08:35 Patient still awaiting admission for hyponatremia and UTI after negative chest pain workup. Patient was signed out awaiting admission. Nurses notified me that his blood pressure was dropping and he is tachycardic. I reevaluated him. He feels hot to the touch, repeat temp is in progress now. Tachycardic with HR 110's. Appears to be NSR on on the monitor. BP 60's/40's. Requested repeat bolus. Review of workup shows elevated WBC. Patient has nonspecific symptoms - malaise, had rigors upon arrival to ED, initially had chest pain as well. I suspect sepsis. Given worsening condition, will broaden abx. Blood cultures, lactate, and influenza screen ordered. BP now 80's/50's, will closely monitor. Patient may need an ICU bed. We currently have no beds. Will monitor him in the ED and see how he responds to fluids before making decision about whether or not to transfer. Dr. Zhou states we have no ICU beds available and doesn't anticipate any availability today. 11/29/17 10:26 Central line placed. Now on levophed, BP at 83/53, will titrate to keep MAP > 65. Has been given 3L IVF. No hx CHF or serious comorbidities. CXR shows termination of central line near the R atria. No pulmonary edema. Discussed with Dr. Boswell, critical care attending at [facility], who accepts the patient for transfer. CT a/p shows mild sigmoid colitis, otherwise normal study. 11/29/17 11:17 Helicopter crew was unable to fly due to fog. EMS has been at the bedside since around 10:30 but there has been a delay in them leaving due to needing to bring in an extra fire crew worker given how sick our patient is. Meanwhile, still hyoptensive on maxed out levophed so epi drip ordered. This is being initiated now. Current BP is 78/52 ( MAP 61). Patient continues to be alert, oriented, and able to converse. SpO2 in low 90's on NC, no respiratory distress. 11/29/17 12:06 Departure - Departure Time of Disposition: 10:29 Disposition: DC/Tfer to [facility] 02 Clinical Impression: Hyponatremia, Urinary retention, Oral candidiasis, Gilbert syndrome, Sepsis associated hypotension, Elevated troponin, Non-ST elevation [place] (NSTEMI) Urinary tract infection Qualifiers: Urinary tract infection type: acute pyelonephritis Qualified Code(s): N10 - Acute pyelonephritis Sepsis Qualifiers: Sepsis type: sepsis due to unspecified organism Qualified Code(s): A41.9 - Sepsis, unspecified organism - Discharge Information Referrals: Samira Pelaez MD [Primary Care Provider] - Critical Care Note - Critical Care Note Total Time (mins): 75 <Rosalio Flores - Last Filed: 11/30/17 19:27> ED HPI GENERAL MEDICAL PROBLEM - General Source of Information: Reports: Patient, Family () History Limitations: Reports: Other (Neither the patient nor his want to answer any questions, and became angry when I asked too many. The patient's suggested I read the patient's chart.) - History of Present Illness INITIAL COMMENTS - FREE TEXT/NARRATIVE: The patient is brought by EMS for left-sided chest pain that began suddenly around 01:00 this morning. He describes the pain as a throbbing sensation. It is a pain, not a discomfort. It is unclear if the patient has any associated symptoms, such as dyspnea, nausea, diaphoresis, or sense of impending doom. The patient has difficulty discerning his chest pain from his other pains, including his chronic oral pain and bladder pain, and when asking about his chest pain, he repeatedly talks about his oral pain. The patient has an over six-month history of stomatitis/glossitis. He has seen the ENT Dr. Meier on 10/07/2017, 10/13/2017, and 10/22/2017. The patient was initially prescribed Diflucan and clotrimazole oral troches, which he took sporadically, secondary to oral pain and stomach upset. The patient's oral pain initially improved, only to worsen again. According to the patient's , no immunodeficiency workup has been performed, and the patient has never undergone an EGD. The patient also has an approximately one month history of urinary retention, first diagnosed by me on 11/11/2017. At that time, a Nur catheter was placed to a leg bag. This was removed on 11/13/2017 at the office of Zayda Torres. The patient and followed up with Dr. Hill on 11/19/2017, or he was again found to have urinary retention. A cystoscopy was performed, confirming BPH. The Nur catheter was replaced, and the patient started on Flomax. The patient and followed up with Dr. Hill on 11/26/2017. The catheter was removed, and the patient taught how to self catheterize, which he has been doing since then. The patient's is to call Dr. Hill's office this coming 11/30/2017, and the patient is scheduled to follow-up with Dr. Hill on 12/10/2017. When evaluated in the ER [facility], the patient had rigors, which apparently began around the time he arrived to the ED. He denied feeling cold, and did not have a fever. Past Medical History Genitourinary History: Reports: BPH, Retention, Urinary - Infectious Disease History Infectious Disease History: Reports: Other (See Below) (Oral candidiasis) - Past Surgical History HEENT Surgical History: Reports: Tonsillectomy GI Surgical History: Reports: Appendectomy (1968), Cholecystectomy (1968) Social & Family History - Family History Family Medical History: Noncontributory - Tobacco Use Smoking Status *Q: Never Smoker - Caffeine Use Caffeine Use: Reports: Tea - Recreational Drug Use Recreational Drug Use: No - Living Situation & Occupation Living situation: Reports: , with Spouse Occupation: Retired ED ROS GENERAL - Review of Systems Review Of Systems: ROS reveals no pertinent complaints other than HPI. ED EXAM, GENERAL - Physical Exam Exam: See Below Exam Limited By: Physical Impairment General Appearance: Alert, WD/WN, Moderate Distress (rigors, confusion) Eye Exam: Bilateral Eye: Normal Inspection Ears: Normal External Exam, Hearing Grossly Normal Nose: Normal Inspection, No Blood Throat/Mouth: Normal Inspection, Normal Lips, Normal Gums, Normal Voice, No Airway Compromise, Other (Edentulous. The tongue is somewhat dry, but the oral mucosa appears otherwise normal, with only a few spots of (likely) thrush) Head: Atraumatic, Normocephalic Neck: Normal Inspection, Supple, Non-Tender, Full Range of Motion Respiratory/Chest: No Respiratory Distress, Lungs Clear, Normal Breath Sounds, No Accessory Muscle Use, Chest Non-Tender (Including the left chest, where the patient is complaining of pain) Cardiovascular: Normal Peripheral Pulses, Regular Rate, Rhythm, No Edema, No Gallop, No JVD, No Murmur, No Rub Peripheral Pulses: 4+: Radial (L), Radial (R) GI/Abdominal: Normal Bowel Sounds, Soft, Non-Tender, No Organomegaly, No Distention, No Abnormal Bruit, No Mass (Male) Exam: Deferred Rectal (Males) Exam: Deferred Back Exam: Normal Inspection, Full Range of Motion, NT Extremities: Normal Inspection, Normal Range of Motion, No Pedal Edema, Normal Capillary Refill Neurological: Alert, No Motor/Sensory Deficits, Confused Psychiatric: Other (Unable to assess) Skin Exam: Warm, Dry, Intact, Normal Color, No Rash EKG INTERPRETATION EKG Date: 11/29/17 Time: 02:11 Rhythm: NSR Rate (Beats/Min): 77 [place]: Normal P-Wave: Present QRS: Normal ST-T: Normal QT: Normal Comparison: NA - No Prior EKG Course - Re-Assessments/Exams Free Text/Narrative Re-Assessment/Exam: 11/29/17 02:48 I treated the patient's rigors with IV Demerol, and they have now ceased. Notified that the patient's post-void bladder scan revealed approximately 700 mL of retained urine. I have ordered a Nur catheter. 11/29/17 03:18 The patient's urinalysis is consistent with a UTI. I have ordered a urine culture, and will start the patient on oral Bactrim. 11/29/17 03:27 Two-view chest radiograph reviewed. Cardiac silhouette is within normal limits , however, there appears to be a widened mediastinum. This could be due to a tortuous aorta or hiatal hernia, however, an aortic aneurysm cannot be ruled out. No pulmonary vascular congestion. No pleural effusions. No focal infiltrate. No pneumothorax. Formal read per the Radiologist pending. 11/29/17 03:28 Based on the chest x-ray findings, as well as the patient's report of his left- sided chest pain being "throbbing" in character, sudden in onset, and a pain, not a discomfort, I am concerned about an aortic aneurysm or dissection. I therefore ordered a CT angiogram of the chest. The patient's sodium was found to be depressed at 127. Etiology at this time is unclear. The patient's total bilirubin is elevated at 1.9. It was 1.5 on 10/20/2017, and 1.4 on 11/17/2017. The patient likely has Gilbert syndrome. 11/29/17 03:33 Notified by Daily VALENTIN that the patient was unable to stand for the chest x- ray. It was unclear if this was due to confusion or lower extremity weakness. When the patient originally arrived to the ED, he was able to run to the bathroom, however, he since received Demerol. I evaluated the patient. I find that his lower extremities are well-perfused bilaterally, and while he has some confusion and difficulty following commands, he does not appear to have any weakness of the lower extremities, at least on examination in bed. 11/29/17 05:19 CT of the chest with IV contrast is read by virtual radiology as: 1. No acute intrathoracic finding. 2. No thoracic aortic aneurysm or dissection. 11/29/17 06:10 Test results discussed at length with the patient, his , and son. Essentially, there are 3 issues: 1. The patient's stomatitis and glossitis, which appears to be due to oral candidiasis, per Dr. Meier, according to the patient's . According to the patient's , no workup has been done regarding immunodeficiency underpinning the candidiasis. The patient presented today with chest pain which I suspect is due to esophageal candidiasis. 2. Urinary retention and urinary tract infection. As above, the patient has been started on oral Bactrim, and the urine culture will need to be checked. A Nur catheter has been placed. 3. Hyponatremia, etiology unclear. The patient's sodium was 139 on 10/20/2017, 131 on 11/17/2017, and 127 today. This would have to be considered chronic hyponatremia, and therefore cannot be corrected rapidly, and will therefore require hospitalization. The etiology will have to be determined - it could be due to inadequate salt intake/excessive free water intake, secondary to his urinary retention, or related to one of the many vitamins/minerals/supplements that the patient is taking. I strongly recommended to the patient's that she stop giving him these immediately, as the safety and efficacy of them has not been established. I recommended that patient be hospitalized permanently for the hyponatremia, with the other 2 issues being addressed as well. The patient's and son agreed. The above was then discussed with Dr. Zhou, who agreed to admit the patient to the general medical floor. Departure - Departure Time of Disposition: 06:10 Condition: Fair
[2017-11-29] MEDS ORDERED: Sulfamethoxazole/Trimethoprim 800-160 MG Tab PO ONE (03:17)
[2017-11-29] MEDS ORDERED: Sodium Chloride 0.9% 1,000 ML IV SCH (03:30)
[2017-11-29] MEDS ORDERED: Iopamidol 755 Mg/ML 100 ML Bottle IVPUSH ONE (03:45)
[2017-11-29] MEDS ORDERED: Sodium Chloride 0.9% 10 ML Syringe FLUSH PRN (03:45)
[2017-11-29] MEDS ORDERED: Sodium Chloride 0.9% 100 ML IV SCH (03:45)
[2017-11-29] MEDS ORDERED: Ondansetron 4 MG/2 ML SDV IVPUSH ONE (03:48)
[2017-11-29] MEDS ORDERED: Sulfamethoxazole/Trimethoprim 800-160 MG Tab ONE (06:38)
--- NOTE | 2017-11-29 06:54 | PCM.HP ---
H&P History of Present Illness - General Date of Service: 11/29/17 Source of Information: Patient, Family, Old Records, Provider, RN Notes Reviewed History Limitations: Reports: No Limitations - Related Data Allergies/Adverse Reactions: Allergies Allergy/AdvReac Type Severity Reaction Status Date / Time Penicillins Allergy Rash Verified 11/29/17 02:14 nystatin Allergy Mouth Sores Uncoded 11/29/17 02:22 Home Medications: Home Meds Tamsulosin [Flomax] 1 cap PO DAILY 11/17/17 [History] Acetaminophen 500 mg PO Q6H PRN 11/29/17 [History] Xqkmy-R-Lsdywahrxefpb [Beano] 2 each PO ASDIRECTED PRN 11/29/17 [History] Cyanocobalamin (Vitamin B-12) [B-12] 1,000 mcg PO DAILY 11/29/17 [History] Dandelion 3 tab PO DAILY 11/29/17 [History] Excedrin Pm 1 tab PO BEDTIME PRN 11/29/17 [History] Folic Acid 1 mg PO DAILY 11/29/17 [History] Glycerin 1 each RC DAILY PRN 11/29/17 [History] L. Acidophilus/Pectin, [place] [Acidophilus Probiotic] 1 each PO DAILY 11/29/17 [ History] Multivitamin [Multivitamins] 1 each PO DAILY 11/29/17 [History] Polyethylene Glycol 3350 [MiraLAX] 17 gm PO BID 11/29/17 [History] Saw [place] 500 mg PO TID 11/29/17 [History] Vitamin B Complex 1 each PO DAILY 11/29/17 [History] Vitamin Code 50 & Wiser Men 1 tab PO DAILY 11/29/17 [History] Zinc 50 mg PO DAILY 11/29/17 [History] Past Medical History - Past Health History Medical/Surgical History: Denies Medical/Surgical History Gastrointestinal History: Reports: Chronic Constipation Genitourinary History: Reports: BPH, Retention, Urinary Other Genitourinary History: Enlarged prostate? Following up. Nur placed. - Infectious Disease History Infectious Disease History: Reports: Other (See Below) (Oral candidiasis) - Past Surgical History HEENT Surgical History: Reports: Tonsillectomy GI Surgical History: Reports: Appendectomy (1968), Cholecystectomy (1968) Social & Family History - Family History Family Medical History: Noncontributory - Tobacco Use Smoking Status *Q: Never Smoker - Caffeine Use Caffeine Use: Reports: Tea - Recreational Drug Use Recreational Drug Use: No - Living Situation & Occupation Living situation: Reports: , with Spouse Occupation: Retired H&P Review of Systems - Review of Systems: Review Of Systems: See Below Exam - Exam Exam: See Below - Vital Signs Vital Signs: Last Vital Signs Temp 36.3 C 11/29/17 02:10 Pulse 114 H 11/29/17 06:29 Resp 16 11/29/17 05:16 BP 121/57 L 11/29/17 05:16 Pulse Ox 90 L 11/29/17 06:29 Weight: 66.224 kg - Patient Data Lab Results Last 24 hrs: Laboratory Results - last 24 hr 11/29/17 11/29/17 11/29/17 Range/Units 02:15 02:20 02:20 WBC 14.78 H (4.23-9.07) K/mm3 RBC 5.09 (4.63-6.08) M/mm3 Hgb 14.6 (13.7-17.5) gm/L Hct 41.8 (40.1-51.0) % MCV 82.1 (79.0-92.2) fl MCH 28.7 (25.7-32.2) pg MCHC 34.9 (32.2-35.5) g/dl RDW Std Deviation 44.6 H (35.1-43.9) fL Plt Count 270 (163-337) K/mm3 MPV 9.9 (9.4-12.3) fl Neutrophils % (Manual) 88 H (40-60) % Band Neutrophils % 0 (0-10) % Lymphocytes % (Manual) 6 L (20-40) % Atypical Lymphs % 0 % Monocytes % (Manual) 2 (2-10) % Eosinophils % (Manual) 4 (0.8-7.0) % Basophils % (Manual) 0 L (0.2-1.2) Platelet Estimate Increased RBC Morph Comment Normal PT 11.2 (8.0-13.0) SECONDS INR 1.05 APTT 32 (22-36) SECONDS D-Dimer, Quantitative 0.43 (0.19-0.59) mg/L Sodium (136-145) mEq/L Potassium (3.5-5.1) mEq/L Chloride (98-107) mEq/L Carbon Dioxide (21-32) mEq/L Anion Gap (5-15) BUN (7-18) mg/dL Creatinine (0.7-1.3) mg/dL Est Cr Clr Drug Dosing mL/min Estimated GFR (MDRD) (>60) mL/min BUN/Creatinine Ratio (14-18) Glucose (83-115) mg/dL Calcium (8.5-10.1) mg/dL Total Bilirubin (0.2-1.0) mg/dL AST (15-37) U/L ALT (16-63) U/L Alkaline Phosphatase (46-116) U/L Troponin I (0.00-0.056) ng/mL NT-Pro-B Natriuret Pep (0-450) pg/mL Total Protein (6.4-8.2) g/dl Albumin (3.4-5.0) g/dl Globulin gm/dL Albumin/Globulin Ratio (1-2) Urine Color Yellow (Yellow) Urine Appearance Clear (Clear) Urine pH 6.5 (5.0-8.0) Ur Specific [place] 1.010 (1.005-1.030) Urine Protein Negative (Negative) Urine Glucose (UA) Negative (Negative) Urine Ketones 1+ H (Negative) Urine Occult Blood Negative (Negative) Urine Nitrite Negative (Negative) Urine Bilirubin Negative (Negative) Urine Urobilinogen 0.2 (0.2-1.0) Ur Leukocyte Esterase 2+ H (Negative) Urine RBC 0-5 (0-5) /hpf Urine WBC 20-30 H (0-5) /hpf Ur Epithelial Cells Not seen (0-5) /hpf Urine Bacteria Many H (FEW) /hpf Urine Mucus Not seen (FEW) /hpf 11/29/17 11/29/17 Range/Units 02:20 02:20 WBC (4.23-9.07) K/mm3 RBC (4.63-6.08) M/mm3 Hgb (13.7-17.5) gm/L Hct (40.1-51.0) % MCV (79.0-92.2) fl MCH (25.7-32.2) pg MCHC (32.2-35.5) g/dl RDW Std Deviation (35.1-43.9) fL Plt Count (163-337) K/mm3 MPV (9.4-12.3) fl Neutrophils % (Manual) (40-60) % Band Neutrophils % (0-10) % Lymphocytes % (Manual) (20-40) % Atypical Lymphs % % Monocytes % (Manual) (2-10) % Eosinophils % (Manual) (0.8-7.0) % Basophils % (Manual) (0.2-1.2) Platelet Estimate RBC Morph Comment PT (8.0-13.0) SECONDS INR APTT (22-36) SECONDS D-Dimer, Quantitative (0.19-0.59) mg/L Sodium 127 L (136-145) mEq/L Potassium 4.6 (3.5-5.1) mEq/L Chloride 93 L (98-107) mEq/L Carbon Dioxide 28 (21-32) mEq/L Anion Gap 10.6 (5-15) BUN 17 (7-18) mg/dL Creatinine 0.9 (0.7-1.3) mg/dL Est Cr Clr Drug Dosing 48.03 mL/min Estimated GFR (MDRD) > 60 (>60) mL/min BUN/Creatinine Ratio 18.9 H (14-18) Glucose 105 (83-115) mg/dL Calcium 8.8 (8.5-10.1) mg/dL Total Bilirubin 1.9 H (0.2-1.0) mg/dL AST 17 (15-37) U/L ALT 26 (16-63) U/L Alkaline Phosphatase 53 (46-116) U/L Troponin I < 0.017 (0.00-0.056) ng/mL NT-Pro-B Natriuret Pep 374 (0-450) pg/mL Total Protein 7.1 (6.4-8.2) g/dl Albumin 3.9 (3.4-5.0) g/dl Globulin 3.2 gm/dL Albumin/Globulin Ratio 1.2 (1-2) Urine Color (Yellow) Urine Appearance (Clear) Urine pH (5.0-8.0) Ur Specific [place] (1.005-1.030) Urine Protein (Negative) Urine Glucose (UA) (Negative) Urine Ketones (Negative) Urine Occult Blood (Negative) Urine Nitrite (Negative) Urine Bilirubin (Negative) Urine Urobilinogen (0.2-1.0) Ur Leukocyte Esterase (Negative) Urine RBC (0-5) /hpf Urine WBC (0-5) /hpf Ur Epithelial Cells (0-5) /hpf Urine Bacteria (FEW) /hpf Urine Mucus (FEW) /hpf Result Diagrams: 11/29/17 02:20 11/29/17 02:20 *Q Meaningful Use (ADM) - VTE *Q VTE Criteria *Q: - Stroke *Q Stroke Criteria *Q: - AMI *Q AMI Criteria *Q: Problem List Initiated/Reviewed/Updated: Yes Orders Last 24hrs: Active Orders 24 hr Category Date Time Status EKG Documentation Completion [RC] STAT Care 11/29/17 02:05 Active Ang Chest [CT] Stat Exams 11/29/17 03:49 Taken Chest 2V [CR] Stat Exams 11/29/17 02:05 Taken CULTURE URINE [RM] Stat Lab 11/29/17 02:55 Received Sodium Chloride 0.9% [Normal Saline] 1,000 ml Med 11/29/17 03:30 Active IV ASDIRECTED Sodium Chloride 0.9% [Normal Saline] 100 ml Med 11/29/17 03:45 Active IV ASDIRECTED Sodium Chloride 0.9% [Saline Flush] Med 11/29/17 03:45 Active 10 ml FLUSH ONETIME PRN Medication Orders Sodium Chloride (Normal Saline) 1,000 mls @ 150 mls/hr IV ASDIRECTED RAFAT Last Admin: 11/29/17 03:44 Dose: 150 mls/hr Sodium Chloride (Normal Saline) 100 mls @ 75 mls/hr IV ASDIRECTED RAFAT Last Admin: 11/29/17 04:15 Dose: 75 mls/hr Sodium Chloride (Saline Flush) 10 ml FLUSH ONETIME PRN PRN Reason: IV FLUSH Last Admin: 11/29/17 04:15 Dose: 10 ml
[2017-11-29] MEDS ORDERED: Cefepime 2 GM in Premix Bag 1 BAG IV ONE (08:26)
[2017-11-29] MEDS ORDERED: Vancomycin 500 MG SDV IV SCH (08:30)
[2017-11-29] MEDS ORDERED: Acetaminophen 325 MG Tab PO ONE (08:41)
[2017-11-29] MEDS ORDERED: Sodium Chloride 0.9% 1,000 ML ONE ×2 (09:23→09:27)
[2017-11-29] MEDS ORDERED: Acetaminophen 650 MG Supp ONE (09:24)
[2017-11-29] MEDS ORDERED: Acetaminophen 650 MG Supp RECTAL ONE (09:25)
--- NOTE | 2017-11-29 09:25 | CT ---
CT abdomen and pelvis Technique: Multiple axial sections were obtained from above the dome of the diaphragm inferiorly through the pubic symphysis. Intravenous contrast was utilized. No oral contrast has been given which limits details of the study. Comparison: Prior abdominal x-ray of 11/12/17. Findings: Atelectasis is noted within both lung bases. Noncontrast appearance of the liver appears within normal limits. Spleen appears within normal limits. Adrenal glands show no nodule. Pancreas appears within normal limits. Kidneys show symmetric contrast enhancement. Multiple small low-density lesions are seen within the left kidney most likely due to minimal cysts. Small area of calcification most likely due to small calcified cyst is seen within the upper left kidney. These findings all measure less than 1 cm. Aorta shows atherosclerotic change without aneurysmal dilatation. No retroperitoneal adenopathy or mesenteric abnormalities are seen. Increased stool is noted within the descending colon and rectosigmoid regions. Bowel wall thickening is seen within portions of the sigmoid colon and rectum. Appendix not visualized with certainty. No free fluid is seen. Scattered degenerative change is noted within the spine. Nur catheter is noted within the bladder. Impression: 1. Mild bowel wall thickening within the rectosigmoid region presumably due to mild colitis. 2. Increased stool is seen within the left colon and rectosigmoid region particularly within the rectum. 3. Other incidental findings as noted above. Diagnostic code #3
[2017-11-29] MEDS ORDERED: Norepinephrine 4 MG in Dextrose 5% in Water 246 ML IV SCH ×2 (09:30)
[2017-11-29] MEDS ORDERED: Sodium Chloride 0.9% 100 ML ONE (09:57)
[2017-11-29] MEDS ORDERED: Sodium Chloride 0.9% 250 ML ONE (10:03)
[2017-11-29] MEDS: Vancomycin 1 GM AdvVial ONE ×2 (10:05→10:52)
[2017-11-29] MEDS ORDERED: EPINEPHrine 1 MG in Dextrose 5% in Water 99 ML IV SCH ×4 (10:45)
--- NOTE | 2017-11-29 16:52 | CR ---
Chest: Portable view of the chest was obtained. Comparison: Prior chest x-ray 11/29/17. Heart size is normal. Mild tortuosity of the thoracic aorta is seen. Right jugular line appears to be present. Tip lies within the superior vena cava. Lungs are clear. Mild degenerative change is seen within the spine. Impression: 1. Incidental findings. Nothing acute is appreciated. Diagnostic code #2
--- NOTE | 2017-11-29 16:52 | CT ---
CT chest Technique: Multiple axial sections through the chest were obtained. Intravenous contrast was not utilized. Comparison: No previous study. Findings: Visualized pulmonary arteries show no filling defects to indicate pulmonary embolism. Aorta shows no aneurysmal dilatation. No dissection is seen. 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 This involves the superior renal artery and a second more distal left renal artery is seen (2 left renal arteries are present). Single right renal artery is noted. Mediastinum and hilar regions show no adenopathy or mass. Mild coronary artery calcification is seen. Small portion of the visualized upper abdominal structures appear within normal limits. Lungs show no acute parenchymal change. Impression: 1. No findings of pulmonary embolism. No thoracic aorta aneurysm or dissection is seen. 2. 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 Two left renal arteries are seen. 3. Other incidental findings. Diagnostic code #3 Agree with preliminary report issued by [employer] ([employer] preliminary report dictated on 11/29/17, 6:10 AM Central Time)
--- NOTE | 2017-11-29 16:52 | CR ---
Chest: Two views of the chest were obtained. Comparison: No prior study. Heart size is normal. Tortuous thoracic aorta is seen. Lungs are clear. Degenerative spurring is noted within the spine with scattered disc space narrowing. Impression: 1. Incidental findings. Nothing acute is appreciated. Diagnostic code #2
== END 2017-11-29 11:38 ==
LOC: JD.ED 02:00
DX: A41.9 Sepsis, unspecified organism (principal); I95.9 Hypotension, unspecified; I21.4 Non-ST elevation (NSTEMI) myocardial infarction; E80.4 Gilbert syndrome; E87.1 Hypo-osmolality and hyponatremia; N10 Acute pyelonephritis; B37.0 Candidal stomatitis; Z90.49 Acquired absence of other specified parts of digestive tract; Z88.0 Allergy status to penicillin; Z88.8 Allergy status to other drugs, medicaments and biological substances; Z79.899 Other long term (current) drug therapy
CPT/HCPCS: 36415; 36556; 51702; 51798; 71045; 71046; 71275; 74176; 80053; 81001; 83605; 83880; 84484; 85025; 85379; 85610; 85730; 87040; 87077; 87086; 87088; 87186; 87804; 93005; 96361; 96365; 96366; 96367; 96368; 96375; 99285; A9270; J0171; J0692; J2175; J2405; J3370; J7030; J7040; J7050; J7060; Q9967; 99291; 99292

== ENCOUNTER 2017-12-24 11:17 | Emergency (ER) | payer MEDICARE, OTHER ==
[2017-12-24] MEDS ORDERED: Lidocaine 2% Jelly 10 ML Urojet MUCMEM ONE (11:41)
--- NOTE | 2017-12-24 11:52 | EDM.PDOC ---
ED HPI GENERAL MEDICAL PROBLEM - General Chief Complaint: Genitourinary Problem Stated Complaint: CATHETER ISSUES Time Seen by Provider: 12/24/17 11:52 Source of Information: Reports: Old Records (recent ER visits, clinic notes, urology notes) History Limitations: Reports: No Limitations - History of Present Illness INITIAL COMMENTS - FREE TEXT/NARRATIVE: 82-year-old male presents for a Nur catheter insertion. Reportedly patient has a home health nurse who comes and replaces the catheter periodically. She presented to their home today and had difficulty replacing the catheter. Had 3 attempts without success therefore they decided to present to the ER. Patient is currently complaining of pain to the area. No fevers or chills. Review of the patient's ER and clinic records show he's had this catheter placed initially in late October. In mid-November she was seen in the ER and found to be uroseptic. Sent to [facility] in [place]. He since followed up with his primary care provider. He also sees Dr. Hill, urology. Plan is to have a TURP procedure once his strength has returned from his urosepsis. He is not currently on any antibiotics, finished his antibiotic course about one week after his hospitalization. Patient reports today he feels good other than the pain associated with the catheter placement. No fevers or chills. Treatments [employer]: Reports: Other (see below) Other Treatments [employer]IED [employer]: unsure Penis Pain Score (Numeric/FACES): 2 - Related Data Allergies Allergy/AdvReac Type Severity Reaction Status Date / Time biotin Allergy Burning Verified 12/24/17 11:34 Penicillins Allergy Rash Verified 11/29/17 09:38 nystatin Allergy Mouth Sores Uncoded 11/29/17 09:38 Home Meds: Home Meds Tamsulosin [Flomax] 1 cap PO DAILY 11/17/17 [History] Acetaminophen 500 mg PO Q6H PRN 11/29/17 [History] Uxozh-G-Exfxbdqxsczwo [Beano] 2 each PO ASDIRECTED PRN 11/29/17 [History] Cyanocobalamin (Vitamin B-12) [B-12] 1,000 mcg PO DAILY 11/29/17 [History] Dandelion 3 tab PO DAILY 11/29/17 [History] Excedrin Pm 1 tab PO BEDTIME PRN 11/29/17 [History] Folic Acid 1 mg PO DAILY 11/29/17 [History] Glycerin 1 each RC DAILY PRN 11/29/17 [History] L. Acidophilus/Pectin, [place] [Acidophilus Probiotic] 1 each PO DAILY 11/29/17 [ History] Multivitamin [Multivitamins] 1 each PO DAILY 11/29/17 [History] Polyethylene Glycol 3350 [MiraLAX] 17 gm PO BID 11/29/17 [History] Saw [place] 500 mg PO TID 11/29/17 [History] Vitamin B Complex 1 each PO DAILY 11/29/17 [History] Vitamin Code 50 & Wiser Men 1 tab PO DAILY 11/29/17 [History] Zinc 50 mg PO DAILY 11/29/17 [History] Past Medical History - Past Health History Medical/Surgical History: Denies Medical/Surgical History Gastrointestinal History: Reports: Chronic Constipation Genitourinary History: Reports: BPH, Prostate Disorder, Retention, Urinary Other Genitourinary History: Enlarged prostate? Following up. Nur placed. - Infectious Disease History Infectious Disease History: Reports: Other (See Below) - Past Surgical History HEENT Surgical History: Reports: Tonsillectomy GI Surgical History: Reports: Appendectomy, Cholecystectomy Social & Family History - Family History Family Medical History: Noncontributory - Tobacco Use Smoking Status *Q: Never Smoker - Caffeine Use Caffeine Use: Reports: None - Recreational Drug Use Recreational Drug Use: No - Living Situation & Occupation Living situation: Reports: , with Spouse Occupation: Retired ED ROS GENERAL - Review of Systems Review Of Systems: ROS reveals no pertinent complaints other than HPI. Constitutional: Denies: Fever, Chills ED EXAM, RENAL/ - Physical Exam Exam: See Below Exam Limited By: No Limitations General Appearance: Alert, WD/WN, No Apparent Distress Respiratory/Chest: No Respiratory Distress, Lungs Clear, Normal Breath Sounds Cardiovascular: Normal Peripheral Pulses, Regular Rate, Rhythm, No Murmur Neurological: Alert, Oriented, Normal Cognition Psychiatric: Normal Affect, Normal Mood Skin Exam: Warm, Dry, Normal Color Course - Vital Signs Last Recorded V/S: Last Vital Signs Temp 36.7 C 12/24/17 11:27 Pulse 99 12/24/17 11:27 Resp 20 12/24/17 11:27 BP 105/71 12/24/17 11:27 Pulse Ox 100 12/24/17 11:27 - Orders/Labs/Meds Orders: Active Orders 24 hr Category Date Time Status Nur Catheter Insertion [Insert Urinary Catheter] [OM. Care 12/24/17 12:15 Ordered PC] Q24H Urinary Catheter Assessment [RC] ASDIRECTED Care 12/24/17 12:12 Active Meds: Medications Discontinued Medications Generic Name Dose Route Start Last Admin Trade Name Yvette PRN Reason Stop Dose Admin Lidocaine HCl 10 ml 12/24/17 11:41 12/24/17 11:52 Xylocaine 2% Jelly MUCMEM 12/24/17 11:42 10 ml ONETIME ONE Administration - Re-Assessments/Exams Free Text/Narrative Re-Assessment/Exam: 12/24/17 12:30 Nursing staff inserted the Nur catheter without any problems. Clear yellow urine is currently draining. No blood appreciated. Warned him he may have a small amount of blood and possibly small clots due to the traumatic catheters attempts earlier. Discharge instructions as documented. Departure - Departure Time of Disposition: 12:38 Disposition: Home, Self-Care 01 Condition: Good Clinical Impression: Urinary retention, Nur catheter in place - Discharge Information Referrals: Samira Pelaez MD [Primary Care Provider] - Srinath Hill MD [Physician] - Forms: ED Department Discharge Additional Instructions: Continue with your current plan of care and see your family medicine provider and urologist as needed. Please return to the ERif your symptoms change or worsen. - My Orders Last 24 Hours: My Active Orders 12/24/17 12:12 Urinary Catheter Assessment [RC] ASDIRECTED 12/24/17 12:15 Nur Catheter Insertion [Insert Urinary Catheter] [OM.PC] Q24H - Assessment/Plan Last 24 Hours: My Active Orders 12/24/17 12:12 Urinary Catheter Assessment [RC] ASDIRECTED 12/24/17 12:15 Nur Catheter Insertion [Insert Urinary Catheter] [OM.PC] Q24H
== END 2017-12-24 12:51 | disposition home or self-care (01) ==
LOC: JD.ED 11:17
DX: R33.9 Retention of urine, unspecified (principal); Z88.0 Allergy status to penicillin; Z88.8 Allergy status to other drugs, medicaments and biological substances; Z79.899 Other long term (current) drug therapy
CPT/HCPCS: 51702; 99283; 99283-25

== ENCOUNTER 2018-01-22 17:47 | Emergency (ER) | payer MEDICARE, OTHER ==
[2018-01-22] MEDS ORDERED: Lidocaine 2% Jelly 10 ML Urojet ONE (18:11)
--- NOTE | 2018-01-22 18:41 | EDM.PDOC ---
ED HPI GENERAL MEDICAL PROBLEM - General Chief Complaint: Genitourinary Problem Stated Complaint: CATHETER CAME OUT Time Seen by Provider: 01/22/18 18:20 Source of Information: Reports: Patient History Limitations: Reports: No Limitations - History of Present Illness INITIAL COMMENTS - FREE TEXT/NARRATIVE: 82-year-old male presents for management of his urinary catheter. Patient reports that his catheter fell out prior to arrival in the ER. Patient was seen by his primary care provider. You had labs drawn which not show any abnormalities. He did appreciate some pressure in his bladder. They irrigated his catheter and he was sent home. Bedtime here at home from his appointment the catheter had fallen out. He denies any current fevers, chills, nausea or vomiting. Patient reports last time his catheter was changed was January 12. A smaller than normal catheter was reportedly placed. patient has a catheter placed since the end of October due to prostate hypertrophy. His plan is to have a procedure done at [facility] to help with his prostate and hopefully have the catheter removed. At this time he is requesting that we replace the catheter. Right Lower Abdomen Pain Score (Numeric/FACES): 8 - Related Data Allergies Allergy/AdvReac Type Severity Reaction Status Date / Time biotin Allergy Burning Verified 01/22/18 18:58 Penicillins Allergy Rash Verified 01/22/18 18:58 nystatin Allergy Mouth Sores Uncoded 01/22/18 18:58 Home Meds: Home Meds Tamsulosin [Flomax] 1 cap PO DAILY 11/17/17 [History] Acetaminophen 500 mg PO Q6H PRN 11/29/17 [History] Xkxqm-Q-Nnugrznsikzjd [Beano] 2 each PO ASDIRECTED PRN 11/29/17 [History] Cyanocobalamin (Vitamin B-12) [B-12] 1,000 mcg PO DAILY 11/29/17 [History] [place]andel[place] 3 tab PO DAILY 11/29/17 [History] Excedrin Pm 1 tab PO BEDTIME PRN 11/29/17 [History] Folic Acid 1 mg PO DAILY 11/29/17 [History] Glycerin 1 each RC DAILY PRN 11/29/17 [History] L. Acidophilus/Pectin, [place] [Acidophilus Probiotic] 1 each PO DAILY 11/29/17 [ History] Multivitamin [Multivitamins] 1 each PO DAILY 11/29/17 [History] Polyethylene Glycol 3350 [MiraLAX] 17 gm PO BID 11/29/17 [History] Saw [place] 500 mg PO TID 11/29/17 [History] Vitamin B Complex 1 each PO DAILY 11/29/17 [History] Vitamin Code 50 & Wiser Men 1 tab PO DAILY 11/29/17 [History] Zinc 50 mg PO DAILY 11/29/17 [History] Past Medical History - Past Health History Medical/Surgical History: Denies Medical/Surgical History Gastrointestinal History: Reports: Chronic Constipation Genitourinary History: Reports: BPH, Prostate Disorder, Retention, Urinary Other Genitourinary History: Enlarged prostate? Following up. Nur placed. - Infectious Disease History Infectious Disease History: Reports: Other (See Below) - Past Surgical History HEENT Surgical History: Reports: Tonsillectomy GI Surgical History: Reports: Appendectomy, Cholecystectomy Social & Family History - Family History Family Medical History: Noncontributory - Tobacco Use Smoking Status *Q: Former Smoker Used Tobacco, but Quit: Yes Month/Year Tobacco Last Used: 1959 - Caffeine Use Caffeine Use: Reports: None - Living Situation & Occupation Living situation: Reports: , with Spouse Occupation: Retired ED ROS GENERAL - Review of Systems Review Of Systems: See Below Constitutional: Denies: Fever, Chills GI/Abdominal: Denies: Nausea, Vomiting : Denies: Dysuria, Hematuria ED EXAM, RENAL/ - Physical Exam Exam: See Below Exam Limited By: No Limitations General Appearance: Alert, WD/WN, No Apparent Distress Respiratory/Chest: No Respiratory Distress Neurological: Alert, Oriented, Normal Cognition Psychiatric: Normal Affect, Normal Mood Skin Exam: Warm, Dry, Normal Color Course - Vital Signs Last Recorded V/S: Last Vital Signs Temp 37.0 C 01/22/18 18:18 Pulse 62 01/22/18 18:18 Resp 20 01/22/18 18:18 BP 128/76 01/22/18 18:18 Pulse Ox 99 01/22/18 18:18 - Orders/Labs/Meds Orders: Active Orders 24 hr Category Date Time Status Insert Nur Catheter [Insert Urinary Catheter] [OM.PC] Care 01/22/18 19:15 Ordered Q24H Urinary Catheter Assessment [RC] ASDIRECTED Care 01/22/18 19:06 Active Meds: Medications Discontinued Medications Generic Name Dose Route Start Last Admin Trade Name Yvette PRN Reason Stop Dose Admin Lidocaine HCl Confirm 01/22/18 18:11 01/22/18 18:59 Xylocaine 2% Jelly Administered 01/22/18 18:12 Not Given Dose 10 ml .ROUTE .STK-MED ONE Lidocaine HCl 10 ml 01/22/18 18:58 01/22/18 18:15 Xylocaine 2% Jelly MUCMEM 01/22/18 18:59 10 ml ONETIME STA Administration - Re-Assessments/Exams Free Text/Narrative Re-Assessment/Exam: 01/22/18 18:33 Nursing staff successfully changed his catheter with no complications. cathater is draining a clear yellow urine. No blood noted. No sediment or cloudiness noted. liam discharge home at this time. Discharge instructions as documented. Departure - Departure Time of Disposition: 18:40 Disposition: Home, Self-Care 01 Condition: Good Clinical Impression: Nur catheter in place - Discharge Information Instructions: Indwelling Urinary Catheter Care, Adult, [id number] Referrals: Samira Pelaez MD [Primary Care Provider] - Forms: ED Department Discharge Additional Instructions: continue with your current plan of care. Follow-up with your primary care provider as needed. Please return to the ER if your symptoms change or worsen. - My Orders Last 24 Hours: My Active Orders 01/22/18 19:06 Urinary Catheter Assessment [RC] ASDIRECTED 01/22/18 19:15 Insert Nur Catheter [Insert Urinary Catheter] [OM.PC] Q24H - Assessment/Plan Last 24 Hours: My Active Orders 01/22/18 19:06 Urinary Catheter Assessment [RC] ASDIRECTED 01/22/18 19:15 Insert Nur Catheter [Insert Urinary Catheter] [OM.PC] Q24H
[2018-01-22] MEDS ORDERED: Lidocaine 2% Jelly 10 ML Urojet MUCMEM STA (18:58)
== END 2018-01-22 19:00 | disposition home or self-care (01) ==
LOC: JD.ED 17:47
DX: T83.091A Other mechanical complication of indwelling urethral catheter, initial encounter (principal); Z88.0 Allergy status to penicillin; Z88.8 Allergy status to other drugs, medicaments and biological substances; Z79.899 Other long term (current) drug therapy; Z87.891 Personal history of nicotine dependence
CPT/HCPCS: 51702; 99283; 99283-25

== ENCOUNTER 2018-02-24 12:21 | Emergency (ER) | payer MEDICARE, OTHER ==
--- NOTE | 2018-02-24 12:59 | EDM.PDOC ---
ED HPI GENERAL MEDICAL PROBLEM - General Chief Complaint: Genitourinary Problem Stated Complaint: CATHETER ISSUES Time Seen by Provider: 02/24/18 12:59 Source of Information: Reports: Patient - History of Present Illness INITIAL COMMENTS - FREE TEXT/NARRATIVE: Patient is here for evaluation of difficulty with his Nur catheter. Sees Dr June for urology. Patient states that his catheter has come loose feels it has come out and he is having some dripping around it. He is here for requesting catheter change. He presented to the clinic for this earlier today, he was told that they're unable to do that in the clinic. - Related Data Allergies Allergy/AdvReac Type Severity Reaction Status Date / Time biotin Allergy Burning Verified 02/24/18 12:44 Penicillins Allergy Rash Verified 02/24/18 12:44 nystatin Allergy Mouth Sores Uncoded 02/24/18 12:44 Home Meds: Home Meds Tamsulosin [Flomax] 1 cap PO DAILY 11/17/17 [History] Acetaminophen 500 mg PO Q6H PRN 11/29/17 [History] Utasv-V-Kgktgpdwivueo [Beano] 2 each PO ASDIRECTED PRN 11/29/17 [History] Cyanocobalamin (Vitamin B-12) [B-12] 1,000 mcg PO DAILY 11/29/17 [History] Folic Acid 1 mg PO DAILY 11/29/17 [History] Glycerin 1 each RC DAILY PRN 11/29/17 [History] L. Acidophilus/Pectin, [place] [Acidophilus Probiotic] 1 each PO DAILY 11/29/17 [ History] Multivitamin [Multivitamins] 1 each PO DAILY 11/29/17 [History] Polyethylene Glycol 3350 [MiraLAX] 17 gm PO BID 11/29/17 [History] Saw [place] 500 mg PO TID 11/29/17 [History] Vitamin B Complex 1 each PO DAILY 11/29/17 [History] Zinc 50 mg PO DAILY 11/29/17 [History] Past Medical History - Past Health History Medical/Surgical History: Denies Medical/Surgical History Gastrointestinal History: Reports: Chronic Constipation Genitourinary History: Reports: BPH, Prostate Disorder, Retention, Urinary Other Genitourinary History: Enlarged prostate? Following up. Nur placed. - Infectious Disease History Infectious Disease History: Reports: Other (See Below) - Past Surgical History HEENT Surgical History: Reports: Tonsillectomy GI Surgical History: Reports: Appendectomy, Cholecystectomy Social & Family History - Family History Family Medical History: Noncontributory - Caffeine Use Caffeine Use: Reports: None - Living Situation & Occupation Living situation: Reports: , with Spouse Occupation: Retired ED ROS GENERAL - Review of Systems Review Of Systems: See Below Constitutional: Reports: No Symptoms Respiratory: Reports: No Symptoms Cardiovascular: Reports: No Symptoms GI/Abdominal: Reports: No Symptoms : Reports: Other (Leaking around urinary catheter). Denies: Discharge, Dysuria ED EXAM, RENAL/ - Physical Exam Exam: See Below Exam Limited By: No Limitations General Appearance: Alert, WD/WN, No Apparent Distress Respiratory/Chest: No Respiratory Distress, Lungs Clear, Normal Breath Sounds Cardiovascular: Regular Rate, Rhythm, No Murmur GI/Abdominal: Normal Bowel Sounds, Soft, Non-Tender (Male) Exam: Other (Nur catheter in place). No: Urethral Discharge Course - Vital Signs Last Recorded V/S: Last Vital Signs Temp 97.9 F 02/24/18 12:38 Pulse 69 02/24/18 12:38 Resp 18 02/24/18 12:38 BP 109/68 02/24/18 12:38 Pulse Ox 98 02/24/18 12:38 - Orders/Labs/Meds Orders: Active Orders 24 hr Category Date Time Status Nur Catheter Insertion [Insert Urinary Catheter] [OM. Care 02/24/18 13:15 Ordered PC] Q24H Urinary Catheter Assessment [RC] ASDIRECTED Care 02/24/18 13:09 Active Meds: Medications Discontinued Medications Generic Name Dose Route Start Last Admin Trade Name Yvette PRN Reason Stop Dose Admin Lidocaine HCl Confirm 02/24/18 14:48 Xylocaine 2% Jelly Administered 02/24/18 14:49 Dose 10 ml .ROUTE .STK-MED ONE Lidocaine HCl 10 ml 02/24/18 14:51 02/24/18 14:56 Xylocaine 2% Jelly MUCMEM 02/24/18 14:52 10 ml ONETIME ONE Administration - Re-Assessments/Exams Free Text/Narrative Re-Assessment/Exam: Patient's catheter was removed and a 14 [place] Nur catheter inserted by nursing. There is very light urine draining from this. Patient states that it feels much more comfortable and he is not having any leaking or discomfort with a new catheter. Patient will be discharged. He will follow up with his PCP next week and urology as previously scheduled. 02/24/18 20:13 Departure - Departure Time of Disposition: 16:15 Disposition: Home, Self-Care 01 Condition: Good Clinical Impression: Prostate hypertrophy, Urinary catheter (Nur) change required - Discharge Information Instructions: Indwelling Urinary Catheter Care, Adult Referrals: Samira Pelaez MD [Primary Care Provider] - Forms: ED Department Discharge Additional Instructions: Keep your appointment with her PCP on Thursday as scheduled, follow-up with urology as previously scheduled on March 19 or return to emergency room if needed. - My Orders Last 24 Hours: My Active Orders 02/24/18 13:09 Urinary Catheter Assessment [RC] ASDIRECTED 02/24/18 13:15 Nur Catheter Insertion [Insert Urinary Catheter] [OM.PC] Q24H - Assessment/Plan Last 24 Hours: My Active Orders 02/24/18 13:09 Urinary Catheter Assessment [RC] ASDIRECTED 02/24/18 13:15 Nur Catheter Insertion [Insert Urinary Catheter] [OM.PC] Q24H
[2018-02-24] MEDS ORDERED: Lidocaine 2% Jelly 10 ML Urojet ONE (14:48)
[2018-02-24] MEDS ORDERED: Lidocaine 2% Jelly 10 ML Urojet MUCMEM ONE (14:51)
== END 2018-02-24 16:25 | disposition home or self-care (01) ==
LOC: JD.ED 12:21
DX: Z46.6 Encounter for fitting and adjustment of urinary device (principal); N40.0 Benign prostatic hyperplasia without lower urinary tract symptoms; Z88.0 Allergy status to penicillin; Z88.8 Allergy status to other drugs, medicaments and biological substances; Z91.018 Allergy to other foods; Z79.899 Other long term (current) drug therapy
CPT/HCPCS: 51702; 99283-25

== ENCOUNTER 2019-12-21 13:07 | Emergency (ER) | payer MEDICARE, OTHER ==
--- NOTE | 2019-12-21 13:52 | EDM.PDOC ---
ED HPI GENERAL MEDICAL PROBLEM - General Chief Complaint: Gastrointestinal Problem Stated Complaint: SYNCOPE,DIZZY Time Seen by Provider: 12/21/19 13:20 Source of Information: Reports: Patient History Limitations: Reports: No Limitations - History of Present Illness INITIAL COMMENTS - FREE TEXT/NARRATIVE: Patient is an 83-year-old male who presents to the emergency department with complaints of rectal pain and occasional dizziness. He states that the rectal pain has been an ongoing issue for him. He had surgery with Dr. Rankin approximately 1 month ago for an external thrombosed hemorrhoid. He has had a number of follow-up appointments with Dr. Rankin as well as his primary care provider, Dr. Pelaez. His most recent visit with Dr. Pelaez was yesterday for the same complaints that he presents with today. She encouraged to increase his oral fluid intake because he was orthostatic. Patient does state that his dizziness occurs when he goes from a sitting to a standing position. He states "it seems to be a little bit better because I was able to walk to the room without getting dizzy ". He has not had any syncopal episodes. He is a fairly poor historian states that his would know more about the stuff that he does. Rectal Pain Score (Numeric/FACES): 9 - Related Data Allergies Allergy/AdvReac Type Severity Reaction Status Date / Time biotin Allergy Burning Verified 12/21/19 13:26 Penicillins Allergy Rash Verified 12/21/19 13:26 nystatin Allergy Mouth Sores Uncoded 12/21/19 13:26 Home Meds: Home Meds Tamsulosin [Flomax] 1 cap PO DAILY 11/17/17 [History] Acetaminophen 500 mg PO Q6H PRN 11/29/17 [History] Wtdgo-F-Jghxmjwmjbzor [Beano] 2 each PO ASDIRECTED PRN 11/29/17 [History] Cyanocobalamin (Vitamin B-12) [B-12] 1,000 mcg PO DAILY 11/29/17 [History] Folic Acid 1 mg PO DAILY 11/29/17 [History] Glycerin 1 each RC DAILY PRN 11/29/17 [History] L. Acidophilus/Pectin, [place] [Acidophilus Probiotic] 1 each PO DAILY 11/29/17 [ History] Multivitamin [Multivitamins] 1 each PO DAILY 11/29/17 [History] [place] 500 mg PO TID 11/29/17 [History] Vitamin B Complex 1 each PO DAILY 11/29/17 [History] Zinc 50 mg PO DAILY 11/29/17 [History] polyethylene glycoL 3350 [MiraLAX] 17 gm PO BID 11/29/17 [History] Past Medical History - Past Health History Medical/Surgical History: Denies Medical/Surgical History HEENT History: Reports: Cataract Gastrointestinal History: Reports: Chronic Constipation, Hemorrhoids Genitourinary History: Reports: BPH, Prostate Disorder, Retention, Urinary Other Genitourinary History: Enlarged prostate 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 ED EXAM, GENERAL - Physical Exam Exam: See Below Exam Limited By: No Limitations General Appearance: Alert, WD/WN, No Apparent Distress Ears: Normal External Exam, Normal Canal, Hearing Grossly Normal Ear Exam: Bilateral Ear: Other (TM fluid) Throat/Mouth: Normal Inspection, Normal Lips, Normal Teeth, Normal Gums, Normal Oropharynx, Normal Voice, No Airway Compromise Head: Atraumatic, Normocephalic Respiratory/Chest: No Respiratory Distress, Lungs Clear, Normal Breath Sounds, No Accessory Muscle Use, Chest Non-Tender Cardiovascular: Normal Peripheral Pulses, Regular Rate, Rhythm, No Edema, No Gallop, No JVD, No Murmur, No Rub GI/Abdominal: Normal Bowel Sounds, Soft, Non-Tender, No Organomegaly, No Distention, No Abnormal Bruit, No Mass Rectal (Males) Exam: Normal Exam, Normal Rectal Tone, Other (Slight tenderness to internal exam.). No: Decreased Rectal Tone, Fecal Impaction, Hemorrhoids, Perirectal Abscess, Rectal Fissure Neurological: Alert, Oriented, CN II-XII Intact, Normal Cognition, Normal Gait, Normal Reflexes, No Motor/Sensory Deficits Psychiatric: Normal Affect, Normal Mood Skin Exam: Warm, Dry, Intact, Normal Color, No Rash Course - Vital Signs Last Recorded V/S: Last Vital Signs Temp 97.3 F 12/21/19 13:14 Pulse 67 12/21/19 13:14 Resp 16 12/21/19 13:14 BP 137/71 12/21/19 13:14 Pulse Ox 98 12/21/19 13:14 Orthostatic Blood Pressure [ 131/85 Standing] Orthostatic Blood Pressure [ 126/69 Sitting] Orthostatic Blood Pressure [ 126/71 Supine] - Orders/Labs/Meds Orders: Active Orders 24 hr Category Date Time Status Orthostatic Vital Signs [RC] ASDIRECTED Care 12/21/19 13:21 Active Labs: Laboratory Tests 12/21/19 12/21/19 Range/Units 13:58 13:58 WBC 4.55 (4.23-9.07) K/mm3 RBC 4.53 L (4.63-6.08) M/mm3 Hgb 13.2 L D (13.7-17.5) gm/dl Hct 40.4 (40.1-51.0) % MCV 89.2 (79.0-92.2) fl MCH 29.1 (25.7-32.2) pg MCHC 32.7 (32.2-35.5) g/dl RDW Std Deviation 47.4 H (35.1-43.9) fL Plt Count 168 D (163-337) K/mm3 MPV 10.7 (9.4-12.3) fl Neut % (Auto) 65.9 (34.0-67.9) % Lymph % (Auto) 19.8 L (21.8-53.1) % [place] % (Auto) 11.0 (5.3-12.2) % Eos % (Auto) 2.6 (0.8-7.0) Baso % (Auto) 0.7 (0.1-1.2) % Neut # (Auto) 3.00 (1.78-5.38) K/mm3 Lymph # (Auto) 0.90 L (1.32-3.57) K/mm3 [place] # (Auto) 0.50 (0.30-0.82) K/mm3 Eos # (Auto) 0.12 (0.04-0.54) K/mm3 Baso # (Auto) 0.03 (0.01-0.08) K/mm3 Sodium 139 (136-145) mEq/L Potassium 4.3 (3.5-5.1) mEq/L Chloride 103 (98-107) mEq/L Carbon Dioxide 30 (21-32) mEq/L Anion Gap 10.3 (5-15) BUN 21 H (7-18) mg/dL Creatinine 0.8 (0.7-1.3) mg/dL Est Cr Clr Drug Dosing 56.31 mL/min Estimated GFR (MDRD) > 60 (>60) mL/min BUN/Creatinine Ratio 26.3 H (14-18) Glucose 120 H (83-115) mg/dL Calcium 8.1 L (8.5-10.1) mg/dL Total Bilirubin 0.9 (0.2-1.0) mg/dL AST 22 (15-37) U/L ALT 32 (16-63) U/L Alkaline Phosphatase 40 L (46-116) U/L Total Protein 6.4 (6.4-8.2) g/dl Albumin 3.7 (3.4-5.0) g/dl Globulin 2.7 gm/dL Albumin/Globulin Ratio 1.4 (1-2) - Re-Assessments/Exams Free Text/Narrative Re-Assessment/Exam: 12/21/19 1615 Patient's blood work was grossly unremarkable. Rectal exam was negative for any thrombosed hemorrhoids. Patient was not found to be orthostatic in his hydration and electrolytes were normal. Spoke with the patient's who states that he has been using a number of cwlk-ikn-bulnzwr hemorrhoid treatments as well as lidocaine. She states that Preparation H suppositories have been working the best for him. The lidocaine burned so he has not been using that. She states that Tylenol does help his pain, however he has been somewhat hesitant to take it because he is worried that it may damage his liver. She states that he has been told by numerous providers that he would have to take fairly high doses of Tylenol in order to damage his liver but he is still apprehensive. After review of the patient's records, it appears that this is a chronic rectal pain that he has been having and he has seen Dr. Rankin and Dr. Pelaez on numerous occasions with regards to this. We attempted to call to schedule a follow-up appointment with Dr. Rankin and Dr. Pelaez for his ongoing rectal pain. auction clerk was advised that Dr. Pelaez will visit with Dr. Rankin and him tomorrow to discuss subsequent treatment plan. Patient and are in agreement with this plan. I will recommend that he takes Tylenol routinely and continue to use the Preparation H suppositories as they seem to be of the most benefit to him. I also discussed the importance of him making position changes slowly and ensuring that he has adequate fluid intake. Discharge instructions as documented. Departure - Departure Time of Disposition: 16:09 Disposition: Home, Self-Care 01 Condition: Fair Clinical Impression: Rectal pain, Dizziness - Discharge Information *PRESCRIPTION DRUG MONITORING PROGRAM REVIEWED*: No *COPY OF PRESCRIPTION DRUG MONITORING REPORT IN PATIENT DANO: No Instructions: Near-Syncope, Uptb-zb-Oate Referrals: Samira Pelaez MD [Primary Care Provider] - Akash Rankin MD [Physician] - Forms: ED Department Discharge Additional Instructions: You were seen in the emergency department today for chronic rectal pain, as well as intermittent dizziness. Blood work and orthostatic vital signs were completed and found to be normal. As we discussed, you do have some fluid behind your ears which could be contributing to your dizziness. Also, standing up too quickly can also result in dizziness. Recommend that you maintain adequate fluid intake. Use ywms-[id number]-xozgdhd Flonase at least for the next few days to try to help drain the fluid from your ears. Also recommend that you take Tylenol 650 mg every 4 hours as needed for your rectal pain. You may continue to use the rsmu-bml-vvguxxe hemorrhoid medications that you have been using. You should receive a call from Dr. Pelaez's and Dr. Rankin's office tomorrow to discuss further treatment of your chronic rectal pain. If anything should worsen, please do not hesitate to return to the emergency department. Sepsis Event Note - Evaluation Sepsis Screening Result: No Definite Risk - Focused Exam Vital Signs: Vital Signs Temp Pulse Resp BP Pulse Ox 12/21/19 13:14 97.3 F 67 16 137/71 98 Date Exam was Performed: 12/21/19 Time Exam was Performed: 19:40 - My Orders Last 24 Hours: My Active Orders 12/21/19 13:21 Orthostatic Vital Signs [RC] ASDIRECTED - Assessment/Plan Last 24 Hours: My Active Orders 12/21/19 13:21 Orthostatic Vital Signs [RC] ASDIRECTED
== END 2019-12-21 16:30 | disposition home or self-care (01) ==
LOC: JD.ED 13:07
DX: K62.89 Other specified diseases of anus and rectum (principal); R42 Dizziness and giddiness; Z90.49 Acquired absence of other specified parts of digestive tract; Z88.8 Allergy status to other drugs, medicaments and biological substances; Z88.0 Allergy status to penicillin; Z79.899 Other long term (current) drug therapy
CPT/HCPCS: 36415; 80053; 85025; 99282; 99284

== ENCOUNTER 2019-12-27 07:49 | Day surgery (SDC) | payer MEDICARE, OTHER ==
[~2019-12-27 07:49] MED LIST: Lactated Ringers 1,000 ML IV SCH; Lidocaine 1% 6 ML ONE; Lidocaine 1%/Sod Bicarbonate in NS 8.4% 1 ML Syringe IDERM PRN; Propofol 200 MG/20 ML SDV ONE; Sodium Chloride 0.9% 10 ML Syringe FLUSH PRN
[2019-12-27] MEDS ORDERED: Bupivacaine 0.5%/EPINEPHrine 1:200,000 50 ML MDV ONE (08:16)
--- NOTE | 2019-12-27 08:43 | PCM.PREANE ---
Preanesthetic Assessment - Anesthesia/Transfusion/Family Hx Anesthesia History: Prior Anesthesia Without Reaction Type of Anesthesia Reaction: Other (see below) (disorientated) Family History of Anesthesia Reaction: No Transfusion History: No Prior Transfusion(s) Intubation History: Unknown - Review of Systems General: No Symptoms Pulmonary: No Symptoms Cardiovascular: Orthopnea Gastrointestinal: No Symptoms, Constipation, Difficulty Swallowing Neurological: Dizziness (on standing), Numbness (Right sided ischial pain/ bilateral feet.) Other: Reports: None (Renal insufficiency/Thrush on his tongue.), Easy Bruising - Physical Assessment NPO Status Date: 12/27/19 NPO Status Time: 04:30 Vital Signs: HR: 58 BP:118/71 Temp: 97.9 Sat: 98% Resp:16 Height: 1.6 m Weight: 54 kg ASA Class: 2 Mental Status: Alert & Oriented x3 Airway Class: Mallampati = 2 Dentition: Reports: Dentures Thyro-Mental Finger Breadths: 3 Mouth Opening Finger Breadths: 3 ROM/Head Extension: Full Lungs: Clear to Auscultation, Normal Respiratory Effort Cardiovascular: Regular Rate, Regular Rhythm, No Murmurs - Allergies Allergies/Adverse Reactions: Allergies Allergy/AdvReac Type Severity Reaction Status Date / Time Penicillins Allergy Rash Verified 12/26/19 12:08 nystatin Allergy Mouth Sores Uncoded 12/26/19 12:08 - Anesthesia Plan Pre-Op Medication Ordered: None - Acknowledgements Anesthesia Type Planned: MAC Pt an Appropriate Candidate for the Planned Anesthesia: Yes Alternatives and Risks of Anesthesia Discussed w Pt/Guardian: Yes Pt/Guardian Understands and Agrees with Anesthesia Plan: Yes PreAnesthesia Questionnaire - Past Health History Medical/Surgical History: Denies Medical/Surgical History HEENT History: Reports: Cataract, Other (See Below) Other HEENT History: chronic ear pain, geographic tongue, thrush, left ear lesion with freezing x 3, mouth sores/ulcers Cardiovascular History: Reports: None Respiratory History: Reports: None Gastrointestinal History: Reports: Chronic Constipation, Hemorrhoids, Other ( See Below) Other Gastrointestinal History: elevated bilirubin, hemorrhoids, anal fissure, rectal pain, abdominal pain Genitourinary History: Reports: BPH, Prostate Disorder, Retention, Urinary, UTI , Recurrent Other Genitourinary History: Enlarged prostate, epididymitis, flank pain, prostatism, renal insufficiency, scrotal pain RN CARDIOVASCULAR ICU History: Reports: None Musculoskeletal History: Reports: Other (See Below) Other Musculoskeletal History: ischial pain Neurological History: Reports: Other (See Below) Other Neuro History: dizziness Psychiatric History: Reports: Other (See Below) Other Psychiatric History: insomnia Endocrine/Metabolic History: Reports: Vitamin D Deficiency, Other (See Below) Other Endocrine/Metabolic History: ndqcqv-g40-pbmd deficiency Hematologic History: Reports: Other (See Below) Other Hematologic History: hypokalemia Immunologic History: Reports: None Oncologic (Cancer) History: Reports: None 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 Dermatologic History: Reports: Other (See Below) Other Dermatologic History: left ear lesion - Infectious Disease History Infectious Disease History: Reports: Other (See Below) Other Infectious Disease History: sepsis - Past Surgical History Head Surgeries/Procedures: Reports: None HEENT Surgical History: Reports: Tonsillectomy Cardiovascular Surgical History: Reports: None Respiratory Surgical History: Reports: None GI Surgical History: Reports: Appendectomy, Cholecystectomy, Colonoscopy Male Surgical History: Reports: Other (See Below) Other Male Surgeries/Procedures: prostate surgery with steam peformed Endocrine Surgical History: Reports: None Neurological Surgical History: Reports: None Oncologic Surgical History: Reports: None - SUBSTANCE USE Smoking Status *Q: Never Smoker Recreational Drug Use History: No - HOME MEDS Home Medications: Home Meds Acetaminophen [Tylenol Arthritis] 650 mg PO Q4H PRN 12/26/19 [History] Cannabidiol (Cbd) Extract [CBD Oil] 1 dose TOP DAILY 12/26/19 [History] Cantil Oil 1 dose PO DAILY PRN 12/26/19 [History] Coconut Oil 1 dose TOP BID 12/26/19 [History] Cyanocobalamin (Vitamin B-12) [Vitamin B-12] 5,000 mcg PO DAILY 12/26/19 [ History] Docusate Sodium/Sennosides [Senokot-S] 1 tab PO BID 12/26/19 [History] Echinacea 1,200 mg PO TID PRN 12/26/19 [History] Fluticasone Propionate [Flonase] 1 dose NASBOTH DAILY PRN 12/26/19 [History] Frankincense Oil 1 dose TOP DAILY PRN 12/26/19 [History] Magnesium Citrate 400 Mg 1,200 mg PO QPM 12/26/19 [History] Magnesium L-Threonate 3 cap PO QAM 12/26/19 [History] Phenylephrine HCl/[place] Butter [Preparation H Suppository] 1 dose RECTAL DAILY PRN 12/26/19 [History] Pseudoephedrine HCl [Sudafed] 30 mg PO DAILY 12/26/19 [History] Resvertrol 400 Mg 800 mg PO DAILY 12/26/19 [History] Selenium 200 mcg PO DAILY 12/26/19 [History] Ubidecarenone [Coq-10] 100 mg PO DAILY 12/26/19 [History] Vitality 500 Mg 500 mg PO BID 12/26/19 [History] Vitamin A 2500 Unit 2,500 unit PO DAILY 12/26/19 [History] Vitamin B Complex [B Complex] 1 tab PO DAILY 12/26/19 [History] Vitamin D3/Vitamin K2 (Mk4) [K2 Plus D3 Tablet] 1,000 unit PO DAILY 12/26/19 [ History] Vitamin E 400 unit PO DAILY 12/26/19 [History] Zinc Gluconate [Zinc] 50 mg PO DAILY 12/26/19 [History] witch [place] [Witch [place]] 1 dose RECTAL DAILY PRN 12/26/19 [History] - CURRENT (IN HOUSE) MEDS Current Meds: Current Medications Lactated Ringer's (Ringers, Lactated) 1,000 mls @ 125 mls/hr IV ASDIRECTED RAFAT Last Admin: 12/27/19 08:20 Dose: 125 mls/hr Lidocaine/Sodium Bicarbonate (Buffered Lidocaine 1% In Ns 8.4%) 0.25 ml IDERM ONETIME PRN PRN Reason: Prior to IV Start Sodium Chloride (Saline Flush) 10 ml FLUSH ASDIRECTED PRN PRN Reason: Keep Vein Open Discontinued Medications Bupivacaine HCl/Epinephrine Bitart (Marcaine 0.5%/Epinephrine 1:200,000) Confirm Administered Dose 50 ml .ROUTE .STK-MED ONE Stop: 12/27/19 08:17 Lidocaine HCl (Xylocaine-Mpf 1%) Confirm Administered Dose 6 mls @ as directed .ROUTE .STK-MED ONE Stop: 12/27/19 07:33 Propofol (Diprivan 20 Ml) Confirm Administered Dose 200 mg .ROUTE .STK-MED ONE Stop: 12/27/19 07:33
[2019-12-27] MEDS ORDERED: fentaNYL 100 MCG/2 ML SDV ONE (08:59)
[2019-12-27] MEDS ORDERED: Bacitracin Oint 15 GM Tube ONE (08:59)
--- NOTE | 2019-12-27 10:02 | PCM48HPAN ---
Post Anesthesia Note - EVALUATION WITHIN 48HRS OF ANESTHETIC Vital Signs in Normal Range: Yes Patient Participated in Evaluation: Yes Respiratory Function Stable: Yes Airway Patent: Yes Cardiovascular Function Stable: Yes Hydration Status Stable: Yes Pain Control Satisfactory: Yes Nausea and Vomiting Control Satisfactory: Yes Mental Status Recovered: Yes Vital Signs: Last Vital Signs Temp 36.7 C 12/27/19 09:51 Pulse 53 L 12/27/19 09:55 Resp 12 12/27/19 09:55 BP 105/63 12/27/19 09:55 Pulse Ox 96 12/27/19 09:55
--- NOTE | 2019-12-27 10:28 | PCM.PRNOTE ---
- Free Text/Narrative Note: Date: 12/27/2019 Procedure: anorectal examination under anesthesia Surgeon: Akash Rankin MD Findings: copious clear-white mucus in rectum. No palpable mass, no visible mucosal abnormality, no fistulous opening identified at dentate line. Rigid proctoscopy was unrevealing. Detailed Report: The patient was taken to the operating room and placed in supine position. Monitored anesthesia care was initiated, and timeout was performed. With adequate sedation on board, the patient was then positioned in high lithotomy. The perineum was prepped and draped in sterile fashion. A digital rectal exam was performed, which was unremarkable. If anything, the sphincter complex was hypotonic. The anal speculum was then lubricated and inserted. The dentate line was carefully inspected circumferentially, no fistulous opening was identified. No visible mucosal abnormality or mass was visualized. The speculum was then inserted further into the rectum, and on opening, a copious amount of clear white odorless mucus filled the speculum. Did not appear to be any mucosal defect from which the mucus was draining. The patient did administer 2 fleets enemas prior to the exam, and I suspect this may be the source. There was no stool otherwise, and the mucosa was well visualized. Minimal internal hemorrhoidal disease was appreciated. Given the patient's complaint of anal pain, and the mucus seen in the rectum, for completeness sake a rigid proctoscope was then set up and inserted to 15 cm proximal to the verge. The scope was slowly withdrawn and mucosal surfaces inspected, and no abnormality was appreciated. The patient tolerated the procedure well. Akash Rankin MD General Surgery
== END 2019-12-27 11:40 | disposition home or self-care (01) ==
LOC: JD.SDS 07:49
PROVIDERS: ATTEND Surgery
DX: K64.8 Other hemorrhoids (principal); Z88.0 Allergy status to penicillin; Z88.8 Allergy status to other drugs, medicaments and biological substances; Z79.899 Other long term (current) drug therapy
CPT/HCPCS: 45300; J2001; J2704; J3010; J7120; 00811; A9270-GY; J3490

== ENCOUNTER 2019-12-28 07:23 | Emergency (ER) | payer MEDICARE, OTHER | END 2019-12-28 07:36 | disposition left against medical advice (07) | LOC: JD.ED 07:23 | DX: Z53.21 Procedure and treatment not carried out due to patient leaving prior to being seen by health care provider (principal) ==

== ENCOUNTER 2019-12-31 10:57 | Emergency (ER) | payer MEDICARE, OTHER ==
[2019-12-31] MEDS ORDERED: Acetaminophen 325 MG Tab PO ONE (11:33)
--- NOTE | 2019-12-31 11:49 | EDM.PDOC ---
ED HPI GENERAL MEDICAL PROBLEM - General Chief Complaint: ENT Problem Stated Complaint: EAR PAIN, RECTAL PAIN Time Seen by Provider: 12/31/19 11:11 Source of Information: Reports: Patient History Limitations: Reports: No Limitations - History of Present Illness INITIAL COMMENTS - FREE TEXT/NARRATIVE: Patient is an 84-year-old male who presents to the ER with complaints of left ear pain, mouth pain as well as rectal pain. Patient verbalized that these have been chronic issues for him. Patient is a poor historian. He saw Dr. Pelaez, his primary care provider, yesterday with similar complaints. Yesterday he had also complained of possible UTI symptoms. A urinalysis was done and found to be negative. With regard to his rectal pain, patient did see Dr. Rankin on December 22 and had a rectal exam completed under anesthesia with nothing significant found. Patient states that he has been using an a rectal rocket suppository, as well as Preparation H ointment to his rectum. This has been helping, however today he does not feel that it helped as well. With regards to his ear, patient had cryotherapy completed in the past to remove skin lesions, and since that time he has been having pain to the area. He has been using aloe vera gel which she states does help. After calling and speaking with the patient's , she states that he has been taking Tylenol arthritis 650 mg every 4 hours but refuses to take any more than that because reads the insert of warnings with regards to liver damage from Tylenol and becomes anxious. Patient has been using aloe vera gel to his left ear for some time which overall does have states that he drank some cranberry juice last night and after that time started having pain in his mouth , worsening ear pain, and worsening rectal pain. Patient does have an appointment with a holistic doctor, Dr. Roy, on Thursday in [place]. Left Ear Pain Score (Numeric/FACES): 10 - Related Data Allergies Allergy/AdvReac Type Severity Reaction Status Date / Time lidocaine Allergy Burning Verified 12/31/19 11:15 Penicillins Allergy Rash Verified 12/31/19 11:14 nystatin Allergy Mouth Sores Uncoded 12/31/19 11:14 Home Meds: Home Meds Acetaminophen [Tylenol Arthritis] 650 mg PO Q4H PRN 12/26/19 [History] Cannabidiol (Cbd) Extract [CBD Oil] 1 dose TOP DAILY 12/26/19 [History] [place] Oil 1 dose PO DAILY PRN 12/26/19 [History] Coconut Oil 1 dose TOP BID 12/26/19 [History] Cyanocobalamin (Vitamin B-12) [Vitamin B-12] 5,000 mcg PO DAILY 12/26/19 [ History] Docusate Sodium/Sennosides [Senokot-S] 1 tab PO BID 12/26/19 [History] Echinacea 1,200 mg PO TID PRN 12/26/19 [History] Fluticasone Propionate [Flonase] 1 dose NASBOTH DAILY PRN 12/26/19 [History] Frankincense Oil 1 dose TOP DAILY PRN 12/26/19 [History] Magnesium Citrate 400 Mg 1,200 mg PO QPM 12/26/19 [History] Magnesium L-Threonate 3 cap PO QAM 12/26/19 [History] Phenylephrine HCl/[place] Butter [Preparation H Suppository] 1 dose RECTAL DAILY PRN 12/26/19 [History] Pseudoephedrine HCl [Sudafed] 30 mg PO DAILY 12/26/19 [History] Resvertrol 400 Mg 800 mg PO DAILY 12/26/19 [History] Selenium 200 mcg PO DAILY 12/26/19 [History] Ubidecarenone [Coq-10] 100 mg PO DAILY 12/26/19 [History] Vitality 500 Mg 500 mg PO BID 12/26/19 [History] Vitamin A 2500 Unit 2,500 unit PO DAILY 12/26/19 [History] Vitamin B Complex [B Complex] 1 tab PO DAILY 12/26/19 [History] Vitamin D3/Vitamin K2 (Mk4) [K2 Plus D3 Tablet] 1,000 unit PO DAILY 12/26/19 [ History] Vitamin E 400 unit PO DAILY 12/26/19 [History] Zinc Gluconate [Zinc] 50 mg PO DAILY 12/26/19 [History] witch [place] [Witch [place]] 1 dose RECTAL DAILY PRN 12/26/19 [History] [place] Oil 1 applic PO ASDIRECTED PRN 12/27/19 [History] Past Medical History - Past Health History Medical/Surgical History: Denies Medical/Surgical History HEENT History: Reports: Cataract, Other (See Below) Other HEENT History: chronic ear pain, geographic tongue, thrush, left ear lesion with freezing x 3, mouth sores/ulcers Cardiovascular History: Reports: None Respiratory History: Reports: None Gastrointestinal History: Reports: Chronic Constipation, Hemorrhoids, Other ( See Below) Other Gastrointestinal History: elevated bilirubin, hemorrhoids, anal fissure, rectal pain, abdominal pain Genitourinary History: Reports: BPH, Prostate Disorder, Retention, Urinary, UTI , Recurrent Other Genitourinary History: Enlarged prostate, epididymitis, flank pain, prostatism, renal insufficiency, scrotal pain 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 Musculoskeletal History: Reports: Other (See Below) Other Musculoskeletal History: ischial pain Neurological History: Reports: Other (See Below) Other Neuro History: dizziness Psychiatric History: Reports: Other (See Below) Other Psychiatric History: insomnia Endocrine/Metabolic History: Reports: Vitamin D Deficiency, Other (See Below) Other Endocrine/Metabolic History: [id number] deficiency Hematologic History: Reports: Other (See Below) Other Hematologic History: hypokalemia Immunologic History: Reports: None Oncologic (Cancer) History: Reports: None 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 Dermatologic History: Reports: Other (See Below) Other Dermatologic History: left ear lesion - Infectious Disease History Infectious Disease History: Reports: Other (See Below) Other Infectious Disease History: sepsis - Past Surgical History Head Surgeries/Procedures: Reports: None HEENT Surgical History: Reports: Tonsillectomy Cardiovascular Surgical History: Reports: None Respiratory Surgical History: Reports: None GI Surgical History: Reports: Appendectomy, Cholecystectomy, Colonoscopy Male Surgical History: Reports: Other (See Below) Other Male Surgeries/Procedures: prostate surgery with steam peformed Endocrine Surgical History: Reports: None Neurological Surgical History: Reports: None Oncologic Surgical History: Reports: None Social & Family History - Family History Family Medical History: Noncontributory - Tobacco Use Smoking Status *Q: Former Smoker Used Tobacco, but Quit: Yes Month/Year Tobacco Last Used: 1957 - Caffeine Use Caffeine Use: Reports: None - Living Situation & Occupation Living situation: Reports: , with Spouse Occupation: Retired ED ROS GENERAL - Review of Systems Review Of Systems: See Below Constitutional: Reports: Decreased Appetite. Denies: Fever, Chills, Weakness HEENT: Reports: Ear Pain, Other (Mouth pain). Denies: Ear Discharge Respiratory: Reports: No Symptoms. Denies: Shortness of Breath, Wheezing, Cough Cardiovascular: Reports: No Symptoms. Denies: Chest Pain, Lightheadedness, Syncope Endocrine: Reports: Fatigue GI/Abdominal: Reports: Decreased Appetite, Other (Rectal pain). Denies: Abdominal Pain, Black Stool, Bloody Stool, Nausea, Vomiting : Reports: No Symptoms Musculoskeletal: Reports: No Symptoms Skin: Reports: No Symptoms Neurological: Reports: No Symptoms. Denies: Confusion, Dizziness, Headache Psychiatric: Reports: Anxiety. Denies: Confusion, Hallucinations, Suicidal Ideation Hematologic/Lymphatic: Reports: No Symptoms Immunologic: Reports: No Symptoms ED EXAM, GENERAL - Physical Exam Exam: See Below Exam Limited By: No Limitations General Appearance: Alert, WD/WN, No Apparent Distress Throat/Mouth: Normal Inspection, Normal Lips, Normal Teeth, Normal Gums, Normal Oropharynx, Normal Voice, No Airway Compromise Respiratory/Chest: No Respiratory Distress, Lungs Clear, Normal Breath Sounds, No Accessory Muscle Use, Chest Non-Tender Cardiovascular: Normal Peripheral Pulses, Regular Rate, Rhythm, No Edema, No Gallop, No JVD, No Murmur, No Rub GI/Abdominal: Normal Bowel Sounds, Soft, Non-Tender, No Organomegaly, No Distention, No Abnormal Bruit, No Mass Neurological: Alert, Oriented, CN II-XII Intact, Normal Cognition, Normal Gait, Normal Reflexes, No Motor/Sensory Deficits Psychiatric: Normal Affect, Normal Mood Skin Exam: Warm, Dry, Intact, Normal Color, No Rash Course - Vital Signs Last Recorded V/S: Last Vital Signs Temp 97.5 F 12/31/19 11:10 Pulse 64 12/31/19 11:10 Resp 16 12/31/19 11:10 BP 122/65 12/31/19 11:10 Pulse Ox 100 12/31/19 11:10 - Orders/Labs/Meds Labs: Laboratory Tests 12/31/19 12/31/19 Range/Units 11:46 11:46 WBC 5.23 (4.23-9.07) K/mm3 RBC 4.61 L (4.63-6.08) M/mm3 Hgb 13.5 L (13.7-17.5) gm/dl Hct 40.8 (40.1-51.0) % MCV 88.5 (79.0-92.2) fl MCH 29.3 (25.7-32.2) pg MCHC 33.1 (32.2-35.5) g/dl RDW Std Deviation 48.7 H (35.1-43.9) fL Plt Count 215 (163-337) K/mm3 MPV 10.2 (9.4-12.3) fl Neut % (Auto) 71.3 H (34.0-67.9) % Lymph % (Auto) 16.4 L (21.8-53.1) % [place] % (Auto) 8.8 (5.3-12.2) % Eos % (Auto) 2.7 (0.8-7.0) Baso % (Auto) 0.6 (0.1-1.2) % Neut # (Auto) 3.73 (1.78-5.38) K/mm3 Lymph # (Auto) 0.86 L (1.32-3.57) K/mm3 [place] # (Auto) 0.46 (0.30-0.82) K/mm3 Eos # (Auto) 0.14 (0.04-0.54) K/mm3 Baso # (Auto) 0.03 (0.01-0.08) K/mm3 Sodium 139 (136-145) mEq/L Potassium 4.0 (3.5-5.1) mEq/L Chloride 103 (98-107) mEq/L Carbon Dioxide 30 (21-32) mEq/L Anion Gap 10.0 (5-15) BUN 17 (7-18) mg/dL Creatinine 0.8 (0.7-1.3) mg/dL Est Cr Clr Drug Dosing 53.34 mL/min Estimated GFR (MDRD) > 60 (>60) mL/min BUN/Creatinine Ratio 21.3 H (14-18) Glucose 112 (83-115) mg/dL Calcium 8.5 (8.5-10.1) mg/dL Total Bilirubin 1.2 H (0.2-1.0) mg/dL AST 29 (15-37) U/L ALT 35 (16-63) U/L Alkaline Phosphatase 36 L (46-116) U/L Total Protein 6.4 (6.4-8.2) g/dl Albumin 3.7 (3.4-5.0) g/dl Globulin 2.7 gm/dL Albumin/Globulin Ratio 1.4 (1-2) Meds: Medications Discontinued Medications Generic Name Dose Route Start Last Admin Trade Name Yvette PRMihai Reason Stop Dose Admin Acetaminophen 650 mg 12/31/19 11:33 12/31/19 12:00 Tylenol PO 12/31/19 11:34 650 mg NOW ONE Administration - Re-Assessments/Exams Free Text/Narrative Re-Assessment/Exam: 12/31/19 11:52 Patient presents with multiple complaints which have been discussed with his primary care provider and general surgeon on numerous occasions. On exam, there are no lesions, redness, or plaques on his oral mucosa. He does have some slight redness to his left external ear, however the internal exam was normal. I did have a discussion with the patient's and based on what she is relating and what I get from the patient, I feel like anxiety is likely manifesting or exacerbating his symptoms. Patient is hesitant to take more than 650 mg of the extended release Tylenol . I discussed with the and the patient that I would recommend that he begin taking regular Tylenol 650 mg every 4 hours to get the full benefit of the medication immediately as opposed to using the extended release. 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 While awaiting, I will give him a dose of Tylenol and complete some basic blood work including a CBC and a CMP. Discussed with that I would recommend that he keep his appointment with Dr. Roy and then follow-up with Dr. Pelaez after this appointment. Dr. Pelaez does have some notes regarding possibly starting the patient on Remeron to help with anxiety and sleep. I feel that this would likely be beneficial for the patient. Patient's is in agreement with this plan. 12/31/19 12:27 Hematology was found to be normal. Patient's called back and stated that she was only able to find Tylenol 500 mg. I will recommend that he take Tylenol 1000 mg every 6-8 hours as needed. Discharge instructions as documented. Departure - Departure Time of Disposition: 12:27 Disposition: Home, Self-Care 01 Condition: Fair Clinical Impression: Rectal pain, chronic Chronic ear pain Qualifiers: Laterality: left Qualified Code(s): H92.02 - Otalgia, left ear - Discharge Information *PRESCRIPTION DRUG MONITORING PROGRAM REVIEWED*: No *COPY OF PRESCRIPTION DRUG MONITORING REPORT IN PATIENT DANO: No Instructions: Chronic Pain, Adult Referrals: Samira Pelaez MD [Primary Care Provider] - Forms: ED Department Discharge Additional Instructions: You were seen in the emergency department today for chronic rectal pain, mouth pain, and left ear pain. Blood work was completed and found to be normal. I would recommend that you take regular Tylenol 1000 mg every 6-8 hours to treat the pain. Continue to use your rectal suppository and rectal cream as needed. Continue to apply aloe vera ointment to your left ear. Recommend that you avoid spicy or acidic foods as this will aggravate your mouth pain. Keep your appointment with Dr. Roy on Thursday in [place]. Recommend that you follow- up with your primary care provider after this appointment for ongoing management. Return to the ER as needed. Sepsis Event Note - Evaluation Sepsis Screening Result: No Definite Risk - Focused Exam Vital Signs: Vital Signs Temp Pulse Resp BP Pulse Ox 12/31/19 11:10 97.5 F 64 16 122/65 100 Date Exam was Performed: 12/31/19 Time Exam was Performed: 12:55
== END 2019-12-31 13:30 | disposition home or self-care (01) ==
LOC: JD.ED 10:57
DX: H92.02 Otalgia, left ear (principal); K62.89 Other specified diseases of anus and rectum; Z87.891 Personal history of nicotine dependence; Z88.0 Allergy status to penicillin; Z88.8 Allergy status to other drugs, medicaments and biological substances; Z79.899 Other long term (current) drug therapy
CPT/HCPCS: 36415; 80053; 85025; 99283; A9270; 99282

== ENCOUNTER 2020-01-03 06:13 | Emergency (ER) | payer MEDICARE, OTHER ==
--- NOTE | 2020-01-03 06:54 | EDM.PDOC ---
ED HPI GENERAL MEDICAL PROBLEM - General Chief Complaint: General Stated Complaint: [facility] Time Seen by Provider: 01/03/20 06:40 - History of Present Illness INITIAL COMMENTS - FREE TEXT/NARRATIVE: 84-year-old male presents the emergency room left ear pain and rectal pain. The patient has had several procedures on his left ear starting with cryotherapy dating back a couple of years ago and had an excisional biopsy probably a year or slightly more ago. Since that time has had significant discomfort with the pain. The pain seems to be worse first thing in the morning he has a hard time describing the pain. Patient has had rectal pain for some time. They understand that he had several procedures done to his prostate and he developed some external hemorrhoids. He underwent a hemorrhoidectomy and continue to have pain Dr. Rankin, our local surgeon, did look at it and thought everything looked pretty good he is tried multiple topical treatments for this without any success lidocaine did make it worse caused a burning sensation. At present he is on it topical that has 2 medications in it but he is not sure which in the pharmacy is not open at this time. The patient is a poor historian. From what I learned from the patient I also obtained some information from the patient's over the phone. Generalized Pain Score (Numeric/FACES): 10 - Related Data Allergies Allergy/AdvReac Type Severity Reaction Status Date / Time lidocaine Allergy Burning Verified 01/03/20 06:21 Penicillins Allergy Rash Verified 01/03/20 06:21 nystatin Allergy Mouth Sores Uncoded 01/03/20 06:21 Home Meds: Home Meds Acetaminophen [Tylenol Arthritis] 650 mg PO Q4H PRN 12/26/19 [History] Cannabidiol (Cbd) Extract [CBD Oil] 1 dose TOP DAILY 12/26/19 [History] [place] Oil 1 dose PO DAILY PRN 12/26/19 [History] Coconut Oil 1 dose TOP BID 12/26/19 [History] Cyanocobalamin (Vitamin B-12) [Vitamin B-12] 5,000 mcg PO DAILY 12/26/19 [ History] Docusate Sodium/Sennosides [Senokot-S] 1 tab PO BID 12/26/19 [History] Echinacea 1,200 mg PO TID PRN 12/26/19 [History] Fluticasone Propionate [Flonase] 1 dose NASBOTH DAILY PRN 12/26/19 [History] Frankincense Oil 1 dose TOP DAILY PRN 12/26/19 [History] Magnesium Citrate 400 Mg 1,200 mg PO QPM 12/26/19 [History] Magnesium L-Threonate 3 cap PO QAM 12/26/19 [History] Phenylephrine HCl/[place] Butter [Preparation H Suppository] 1 dose RECTAL DAILY PRN 12/26/19 [History] Pseudoephedrine HCl [Sudafed] 30 mg PO DAILY 12/26/19 [History] Resvertrol 400 Mg 800 mg PO DAILY 12/26/19 [History] Selenium 200 mcg PO DAILY 12/26/19 [History] Ubidecarenone [Coq-10] 100 mg PO DAILY 12/26/19 [History] Vitality 500 Mg 500 mg PO BID 12/26/19 [History] Vitamin A 2500 Unit 2,500 unit PO DAILY 12/26/19 [History] Vitamin B Complex [B Complex] 1 tab PO DAILY 12/26/19 [History] Vitamin D3/Vitamin K2 (Mk4) [K2 Plus D3 Tablet] 1,000 unit PO DAILY 12/26/19 [ History] Vitamin E 400 unit PO DAILY 12/26/19 [History] Zinc Gluconate [Zinc] 50 mg PO DAILY 12/26/19 [History] witch [place] [Witch [place]] 1 dose RECTAL DAILY PRN 12/26/19 [History] [place] Oil 1 applic PO ASDIRECTED PRN 12/27/19 [History] Past Medical History - Past Health History Medical/Surgical History: Denies Medical/Surgical History HEENT History: Reports: Cataract, Other (See Below) Other HEENT History: chronic ear pain, geographic tongue, thrush, left ear lesion with freezing x 3, mouth sores/ulcers Cardiovascular History: Reports: None Respiratory History: Reports: None Gastrointestinal History: Reports: Chronic Constipation, Hemorrhoids, Other ( See Below) Other Gastrointestinal History: elevated bilirubin, hemorrhoids, anal fissure, rectal pain, abdominal pain Genitourinary History: Reports: BPH, Prostate Disorder, Retention, Urinary, UTI , Recurrent Other Genitourinary History: Enlarged prostate, epididymitis, flank pain, prostatism, renal insufficiency, scrotal pain 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 Musculoskeletal History: Reports: Other (See Below) Other Musculoskeletal History: ischial pain Neurological History: Reports: Other (See Below) Other Neuro History: dizziness Psychiatric History: Reports: Other (See Below) Other Psychiatric History: insomnia Endocrine/Metabolic History: Reports: Vitamin D Deficiency, Other (See Below) Other Endocrine/Metabolic History: [id number] deficiency Hematologic History: Reports: Other (See Below) Other Hematologic History: hypokalemia Immunologic History: Reports: None Oncologic (Cancer) History: Reports: None 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 Dermatologic History: Reports: Other (See Below) Other Dermatologic History: left ear lesion - Infectious Disease History Infectious Disease History: Reports: None Other Infectious Disease History: sepsis - Past Surgical History Head Surgeries/Procedures: Reports: None HEENT Surgical History: Reports: Tonsillectomy Cardiovascular Surgical History: Reports: None Respiratory Surgical History: Reports: None GI Surgical History: Reports: Appendectomy, Cholecystectomy, Colonoscopy Male Surgical History: Reports: Other (See Below) Other Male Surgeries/Procedures: prostate surgery with steam peformed Endocrine Surgical History: Reports: None Neurological Surgical History: Reports: None Oncologic Surgical History: Reports: None Social & Family History - Family History Family Medical History: Noncontributory - Tobacco Use Smoking Status *Q: Never Smoker - Caffeine Use Caffeine Use: Reports: None - Recreational Drug Use Recreational Drug Use: No - Living Situation & Occupation Living situation: Reports: , with Spouse Occupation: Retired ED ROS GENERAL - Review of Systems Review Of Systems: See Below Constitutional: Reports: No Symptoms HEENT: Reports: Ear Pain Respiratory: Reports: No Symptoms Cardiovascular: Reports: No Symptoms GI/Abdominal: Reports: Other (He has some rectal pain). 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 No: Normal Teeth Head: Atraumatic, Normocephalic Neck: Normal Inspection, Supple, Non-Tender, Full Range of Motion Respiratory/Chest: No Respiratory Distress, Lungs Clear, Normal Breath Sounds Cardiovascular: Regular Rate, Rhythm, No Edema, No Murmur GI/Abdominal: Normal Bowel Sounds, Soft, Non-Tender Rectal (Males) Exam: Normal Rectal Tone. No: Tenderness (No tenderness noted with rectal exam) Back Exam: Normal Inspection, Full Range of Motion. No: CVA Tenderness (L), CVA Tenderness (R) Extremities: Normal Inspection, Normal Range of Motion, Non-Tender Neurological: Alert Psychiatric: Normal Affect, Normal Mood Skin Exam: Warm, Dry, Intact Lymphatic: No Adenopathy Course - Vital Signs Last Recorded V/S: Last Vital Signs Temp 36.9 C 01/03/20 06:16 Pulse 66 01/03/20 06:16 Resp 16 01/03/20 06:16 BP 127/75 01/03/20 06:16 Pulse Ox 95 01/03/20 06:16 - Re-Assessments/Exams Free Text/Narrative Re-Assessment/Exam: 01/03/20 07:45 After I talked to the patient's the patient signed out AMA I did explain to the that I did not have much to offer at this point and I think he should give it some time with regards to his ear for his rectum he needs to follow-up with Dr. Rankin Departure - Departure Time of Disposition: 07:47 Disposition: Against Medical Advice 07 Clinical Impression: Ear pain, left, Proctodynia - Discharge Information Referrals: Samira Pelaez MD [Primary Care Provider] - Sepsis Event Note - Evaluation Sepsis Screening Result: No Definite Risk - Focused Exam Vital Signs: Vital Signs Temp Pulse Resp BP Pulse Ox 01/03/20 06:16 36.9 C 66 16 127/75 95 Date Exam was Performed: 01/03/20 Time Exam was Performed: 06:43
== END 2020-01-03 07:25 | disposition left against medical advice (07) ==
LOC: JD.ED 06:13
DX: H92.02 Otalgia, left ear (principal); K62.89 Other specified diseases of anus and rectum; Z88.0 Allergy status to penicillin; Z88.8 Allergy status to other drugs, medicaments and biological substances; Z79.899 Other long term (current) drug therapy
CPT/HCPCS: 99282; 99284

== ENCOUNTER 2020-01-12 13:14 | Emergency (ER) | payer MEDICARE, OTHER | END 2020-01-12 13:37 | disposition left against medical advice (07) | LOC: JD.ED 13:14 | DX: Z53.21 Procedure and treatment not carried out due to patient leaving prior to being seen by health care provider (principal) ==

== ENCOUNTER 2020-01-24 10:35 | Emergency (ER) | payer MEDICARE, OTHER ==
[2020-01-24] MEDS ORDERED: Dextrose 5%-0.9% NaCl 1,000 ML IV SCH (10:45)
--- NOTE | 2020-01-24 10:48 | EDM.PDOC ---
ED HPI GENERAL MEDICAL PROBLEM - General Chief Complaint: Neurological Problem Stated Complaint: [facility] Time Seen by Provider: 01/24/20 10:35 Source of Information: Reports: EMS History Limitations: Reports: Altered Mental Status (Patient is nonverbal.) - History of Present Illness INITIAL COMMENTS - FREE TEXT/NARRATIVE: 84-year-old male presents to the ED from [place] where he resides. He was last known to be well around 0400 hrs. this morning when he is up to void according to his which was provided secondhand to paramedics. He was found in bed this morning unresponsive to you verbal stimuli and minimally responsive even to painful stimuli. No known history of fall or trauma. Patient does not take any blood thinners. Apparently he is only on medication for glaucoma i.e. eyedrops. There is no history of previous CVA. And is totally unresponsive. He does not open his eyes spontaneously but does not make any eye contact. Pupils are 3 to 4 mm in size and minimally reactive to light. He has no spontaneous movement of any of his extremities. He does appear quite thin as if he is lost some weight recently. His med list does not show any toxic medications he is on a host of [id number] vitamins and supplements. Onset: Today Onset Date: 01/24/20 Onset Time: 09:30 (Unresponsive in his bed by his at 0930 hrs. this morning ) Duration: Hour(s):, Other (Larry is been unchanged since time paramedics arrived on scene.) Location: Reports: Other (Patient is unresponsive to verbal stimuli and minimally responsive to painful stimuli. Spontaneous movement of any of his limbs.) Quality: Reports: Other Severity: Severe (Altered level of consciousness) Improves with: Reports: None Worsens with: Reports: None Context: Reports: Other (Apparently spontaneous occurrence overnight. Found in bed this morning at 0930 hrs. unresponsive to verbal stimuli and minimally responsive to painful stimuli.). 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 (see below) (Her knowledge no medications have been administered.) - Related Data Allergies Allergy/AdvReac Type Severity Reaction Status Date / Time lidocaine Allergy Burning Verified 01/03/20 06:21 Penicillins Allergy Rash Verified 01/03/20 06:21 nystatin Allergy Mouth Sores Uncoded 04/21/20 06:21 Home Meds: Home Meds Acetaminophen [Tylenol Arthritis] 650 mg PO Q4H PRN 12/26/19 [History] Cannabidiol (Cbd) Extract [CBD Oil] 1 dose TOP DAILY 12/26/19 [History] Holman Oil 1 dose PO DAILY PRN 12/26/19 [History] Coconut Oil 1 dose TOP BID 12/26/19 [History] Cyanocobalamin (Vitamin B-12) [Vitamin B-12] 5,000 mcg PO DAILY 12/26/19 [ History] Docusate Sodium/Sennosides [Senokot-S] 1 tab PO BID 12/26/19 [History] Echinacea 1,200 mg PO TID PRN 12/26/19 [History] Fluticasone Propionate [Flonase] 1 dose NASBOTH DAILY PRN 12/26/19 [History] Frankincense Oil 1 dose TOP DAILY PRN 12/26/19 [History] Magnesium Citrate 400 Mg 1,200 mg PO QPM 12/26/19 [History] Magnesium L-Threonate 3 cap PO QAM 12/26/19 [History] Phenylephrine HCl/[place] Butter [Preparation H Suppository] 1 dose RECTAL DAILY PRN 12/26/19 [History] Pseudoephedrine HCl [Sudafed] 30 mg PO DAILY 12/26/19 [History] Resvertrol 400 Mg 800 mg PO DAILY 12/26/19 [History] Selenium 200 mcg PO DAILY 12/26/19 [History] Ubidecarenone [Coq-10] 100 mg PO DAILY 12/26/19 [History] Vitality 500 Mg 500 mg PO BID 12/26/19 [History] Vitamin A 2500 Unit 2,500 unit PO DAILY 12/26/19 [History] Vitamin B Complex [B Complex] 1 tab PO DAILY 12/26/19 [History] Vitamin D3/Vitamin K2 (Mk4) [K2 Plus D3 Tablet] 1,000 unit PO DAILY 12/26/19 [ History] Vitamin E 400 unit PO DAILY 12/26/19 [History] Zinc Gluconate [Zinc] 50 mg PO DAILY 12/26/19 [History] witch Kinsey [Witch Kinsey] 1 dose RECTAL DAILY PRN 12/26/19 [History] Gillespie Oil 1 applic PO ASDIRECTED PRN 12/27/19 [History] Past Medical History - Past Health History Medical/Surgical History: Denies Medical/Surgical History HEENT History: Reports: Cataract, Other (See Below) Other HEENT History: chronic ear pain, geographic tongue, thrush, left ear lesion with freezing x 3, mouth sores/ulcers Cardiovascular History: Reports: None Respiratory History: Reports: None Gastrointestinal History: Reports: Chronic Constipation, Hemorrhoids, Other ( See Below) Other Gastrointestinal History: elevated bilirubin, hemorrhoids, anal fissure, rectal pain, abdominal pain Genitourinary History: Reports: BPH, Prostate Disorder, Retention, Urinary, UTI , Recurrent Other Genitourinary History: Enlarged prostate, epididymitis, flank pain, prostatism, renal insufficiency, scrotal pain 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 Musculoskeletal History: Reports: Other (See Below) Other Musculoskeletal History: ischial pain Neurological History: Reports: Other (See Below) Other Neuro History: dizziness Psychiatric History: Reports: Other (See Below) Other Psychiatric History: insomnia Endocrine/Metabolic History: Reports: Vitamin D Deficiency, Other (See Below) Other Endocrine/Metabolic History: [id number] deficiency Hematologic History: Reports: Other (See Below) Other Hematologic History: hypokalemia Immunologic History: Reports: None Oncologic (Cancer) History: Reports: None 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 Dermatologic History: Reports: Other (See Below) Other Dermatologic History: left ear lesion - Infectious Disease History Infectious Disease History: Reports: None Other Infectious Disease History: sepsis - Past Surgical History Head Surgeries/Procedures: Reports: None HEENT Surgical History: Reports: Tonsillectomy Cardiovascular Surgical History: Reports: None Respiratory Surgical History: Reports: None GI Surgical History: Reports: Appendectomy, Cholecystectomy, Colonoscopy Male Surgical History: Reports: Other (See Below) Other Male Surgeries/Procedures: prostate surgery with steam peformed Endocrine Surgical History: Reports: None Neurological Surgical History: Reports: None Oncologic Surgical History: Reports: None Social & Family History - Family History Family Medical History: Noncontributory - Caffeine Use Caffeine Use: Reports: None - Living Situation & Occupation Living situation: Reports: , with Spouse Occupation: Retired ED ROS GENERAL - Review of Systems Review Of Systems: Unable To Obtain (And is nonverbal and therefore unable to obtain any history from the patient. The little bit of history we did obtain was secondhand through the paramedics from his . His is not present in the ED.) Reason Not Obtained: Is unresponsive ED EXAM, NEURO - Physical Exam Exam: See Below Exam Limited By: Altered Mental Status (Patient has unresponsive. He lies perfectly still with no movement of any of his extremities. His eyes are open but he makes no eye contact. Pupils are 3 to 4 mm in size and minimally react to light. There is no gaze palsy) General Appearance: No Apparent Distress, Thin (Appears thin and rather cachectic.), Other (Signs show temperature of 36.2 which is likely not accurate. Heart rate is 61 respiratory it was 20 and shallow. BP 10/03/1975 O2 sats 99% on room air.) Eye Exam: Right Eye: PERRL (Pupils are 3 to 4 mm in size and minimally responsive to), Bilateral Eye: Normal Inspection Ears: Other (Evidence of previous surgery to left ear pinna apparently resection of basal cell carcinoma) Throat/Mouth: Other (Oropharynx is dry and tongue is shriveled. No active infection) Head Exam: Atraumatic, Normocephalic, Other (There are no outward signs of head or facial trauma.) Neck: No: Lymphadenopathy (L), Lymphadenopathy (R) Respiratory/Chest: No Respiratory Distress, Lungs Clear, Respiratory Distress, Decreased Breath Sounds. No: Rales, Rhonchi, Wheezing (He is experiencing shallow respirations and therefore there is decreased breath sounds of lower 50 % of his lung cabrera posteriorly.) Cardiovascular: Regular Rate, Rhythm, No Edema, No Gallop, No Murmur, No Rub. No: Normal Peripheral Pulses GI/Abdominal: Normal Bowel Sounds, Soft, Non-Tender, No Organomegaly, No Mass, Pelvis Stable, Other (Nodularities appreciated in the right jo ann-abdominal wall likely due to weight loss.) Neurological: Withdraws to Pain, Other. No: Normal Reflexes, Oriented x 3, Babinski, Tremor, Straight Leg Raise (L), Straight Leg Raise (R) DTR: 0: Bicep (R), Bicep (L), Patella (R), Patella (L), Achilles (R), Achilles ( L) Back Exam: Normal Inspection Extremities: Normal Inspection, Other (No spontaneous movement of any of his extremities.) Psychiatric: Other (Unable to ascertain.) Skin Exam: Dry, Intact, Normal Color, No Rash, Cool EKG INTERPRETATION EKG Date: 01/24/20 Time: 10:57 Rhythm: Other (Sinus bradycardia) Rate (Beats/Min): 58 [place]: LAD-Left [place] Deviation (Minimal left axis deviation at -2 degrees) P-Wave: Present QRS: Other (Early R wave transition consider right ventricular hypertrophy versus septal hypertrophy pattern) ST-T: Normal QT: Normal EKG Interpretation Comments: Borderline ECG Course - Vital Signs Last Recorded V/S: Last Vital Signs Temp 36.2 C 01/24/20 10:51 Pulse 61 01/24/20 10:51 Resp 20 01/24/20 10:51 BP 120/76 01/24/20 10:51 Pulse Ox 99 01/24/20 10:51 - Orders/Labs/Meds Orders: Active Orders 24 hr Category Date Time Status EKG Documentation Completion [RC] STAT Care 01/24/20 10:44 Active Insert Nur Catheter [Insert Urinary Catheter] [OM.PC] Care 01/24/20 11:15 Ordered Q24H Insert Nur Catheter [Insert Urinary Catheter] [OM.PC] Care 01/24/20 11:15 Ordered Q24H Urinary Catheter Assessment [RC] ASDIRECTED Care 01/24/20 11:11 Active Urinary Catheter Assessment [RC] ASDIRECTED Care 01/24/20 11:11 Active MAGNESIUM [CHEM] AM Lab 01/25/20 05:11 Ordered MAGNESIUM [CHEM] AM Lab 01/26/20 05:11 Ordered MAGNESIUM [CHEM] AM Lab 01/27/20 05:11 Ordered Dextrose 5%-0.9% NaCl [Dextrose 5%-Normal Saline] 1,000 Med 01/24/20 10:45 Active ml IV ASDIRECTED Medication Orders Dextrose/Sodium Chloride (Dextrose 5%-Normal Saline) 1,000 mls @ 150 mls/hr IV ASDIRECTED RAFAT Last Admin: 01/24/20 11:09 Dose: 150 mls/hr Labs: Laboratory Tests 01/24/20 01/24/20 01/24/20 Range/Units 10:55 10:55 10:55 WBC 5.05 (4.23-9.07) K/mm3 RBC 4.14 L (4.63-6.08) M/mm3 Hgb 12.1 L D (13.7-17.5) gm/dl Hct 37.3 L (40.1-51.0) % MCV 90.1 (79.0-92.2) fl MCH 29.2 (25.7-32.2) pg MCHC 32.4 (32.2-35.5) g/dl RDW Std Deviation 47.4 H (35.1-43.9) fL Plt Count 206 (163-337) K/mm3 MPV 10.4 (9.4-12.3) fl Neutrophils % (Manual) 75 H (40-60) % Band Neutrophils % 2 (0-10) % Lymphocytes % (Manual) 16 L (20-40) % Atypical Lymphs % 0 % Monocytes % (Manual) 6 (2-10) % Eosinophils % (Manual) 1 (0.8-7.0) % Basophils % (Manual) 0 L (0.2-1.2) Platelet Estimate Adequate RBC Morph Comment Normal ESR 9 (0-15) mm/hr PT 11.9 (9.7-12.0) SECONDS INR 1.10 APTT 29 (22-31) SECONDS Puncture Site ABG pH (7.35-7.45) ABG pCO2 (35.0-45.0) mmHg ABG pO2 (80.0-100.0) mmHg ABG HCO3 (22.0-26.0) meq/L ABG O2 Saturation (96.0-97.0) % ABG Base Excess (-2-2.0) A-a Gradient mmHg O2 Delivery Device FiO2 (21.00-100.00) % Sodium (136-145) mEq/L Potassium (3.5-5.1) mEq/L Chloride (98-107) mEq/L Carbon Dioxide (21-32) mEq/L Anion Gap (5-15) BUN (7-18) mg/dL Creatinine (0.7-1.3) mg/dL Est Cr Clr Drug Dosing mL/min Estimated GFR (MDRD) (>60) mL/min BUN/Creatinine Ratio (14-18) Glucose (83-115) mg/dL Calcium (8.5-10.1) mg/dL Total Bilirubin (0.2-1.0) mg/dL AST (15-37) U/L ALT (16-63) U/L Alkaline Phosphatase (46-116) U/L Troponin I (0.00-0.056) ng/mL C-Reactive Protein (<1.0) mg/dL NT-Pro-B Natriuret Pep (0-450) pg/mL Total Protein (6.4-8.2) g/dl Albumin (3.4-5.0) g/dl Globulin gm/dL Albumin/Globulin Ratio (1-2) Urine Color (Yellow) Urine Appearance (Clear) Urine pH (5.0-8.0) Ur Specific Rice (1.005-1.030) Urine Protein (Negative) Urine Glucose (UA) (Negative) Urine Ketones (Negative) Urine Occult Blood (Negative) Urine Nitrite (Negative) Urine Bilirubin (Negative) Urine Urobilinogen (0.2-1.0) Ur Leukocyte Esterase (Negative) Urine RBC (0-5) /hpf Urine WBC (0-5) /hpf Ur Squamous Epith Cells (0-5) /hpf Amorphous Sediment (NOT SEEN) /hpf Urine Bacteria (FEW) /hpf Urine Mucus (FEW) /hpf Urine Opiates Screen (CCCNDT=844) Ur Buprenorphine Scrn (CUTOFF=10) Ur Oxycodone Screen (MWK1FS=958) Urine Methadone Screen (SSR8QU=873) Ur Propoxyphene Screen (KNIXJV=125) Ur Barbiturates Screen (ZLTWAA=498) Ur Tricyclics Screen (THJPGJ=563) Ur Phencyclidine Scrn (CUTOFF=25) Ur Amphetamine Screen (KJPCHL=627) U Methamphetamines Scrn (RLYCMA=364) U Benzodiazepines Scrn (MDGUII=613) U Cocaine Metab Screen (AHHIJY=849) U Marijuana (THC) Screen (CUTOFF=50) Ethyl Alcohol (0.00) gm% 01/24/20 01/24/20 01/24/20 Range/Units 10:55 10:55 11:30 WBC (4.23-9.07) K/mm3 RBC (4.63-6.08) M/mm3 Hgb (13.7-17.5) gm/dl Hct (40.1-51.0) % MCV (79.0-92.2) fl MCH (25.7-32.2) pg MCHC (32.2-35.5) g/dl RDW Std Deviation (35.1-43.9) fL Plt Count (163-337) K/mm3 MPV (9.4-12.3) fl Neutrophils % (Manual) (40-60) % Band Neutrophils % (0-10) % Lymphocytes % (Manual) (20-40) % Atypical Lymphs % % Monocytes % (Manual) (2-10) % Eosinophils % (Manual) (0.8-7.0) % Basophils % (Manual) (0.2-1.2) Platelet Estimate RBC Morph Comment ESR (0-15) mm/hr PT (9.7-12.0) SECONDS INR APTT (22-31) SECONDS Puncture Site ABG pH (7.35-7.45) ABG pCO2 (35.0-45.0) mmHg ABG pO2 (80.0-100.0) mmHg ABG HCO3 (22.0-26.0) meq/L ABG O2 Saturation (96.0-97.0) % ABG Base Excess (-2-2.0) A-a Gradient mmHg O2 Delivery Device FiO2 (21.00-100.00) % Sodium 143 (136-145) mEq/L Potassium 3.3 L (3.5-5.1) mEq/L Chloride 105 (98-107) mEq/L Carbon Dioxide 33 H (21-32) mEq/L Anion Gap 8.3 (5-15) BUN 22 H (7-18) mg/dL Creatinine 0.8 (0.7-1.3) mg/dL Est Cr Clr Drug Dosing 66.28 mL/min Estimated GFR (MDRD) > 60 (>60) mL/min BUN/Creatinine Ratio 27.5 H (14-18) Glucose 111 (83-115) mg/dL Calcium 8.3 L (8.5-10.1) mg/dL Total Bilirubin 1.1 H (0.2-1.0) mg/dL AST 23 (15-37) U/L ALT 38 (16-63) U/L Alkaline Phosphatase 35 L (46-116) U/L Troponin I < 0.017 (0.00-0.056) ng/mL C-Reactive Protein <0.2 (<1.0) mg/dL NT-Pro-B Natriuret Pep 432 (0-450) pg/mL Total Protein 6.1 L (6.4-8.2) g/dl Albumin 3.4 (3.4-5.0) g/dl Globulin 2.7 gm/dL Albumin/Globulin Ratio 1.3 (1-2) Urine Color Yellow (Yellow) Urine Appearance Slt cloudy H (Clear) Urine pH 7.5 (5.0-8.0) Ur Specific Rice 1.025 (1.005-1.030) Urine Protein Negative (Negative) Urine Glucose (UA) Negative (Negative) Urine Ketones Trace H (Negative) Urine Occult Blood Negative (Negative) Urine Nitrite Negative (Negative) Urine Bilirubin Negative (Negative) Urine Urobilinogen 0.2 (0.2-1.0) Ur Leukocyte Esterase Negative (Negative) Urine RBC 0-5 (0-5) /hpf Urine WBC Not seen (0-5) /hpf Ur Squamous Epith Cells Not seen (0-5) /hpf Amorphous Sediment Moderate H (NOT SEEN) /hpf Urine Bacteria Not seen (FEW) /hpf Urine Mucus Not seen (FEW) /hpf Urine Opiates Screen (TZDFYU=379) Ur Buprenorphine Scrn (CUTOFF=10) Ur Oxycodone Screen (XTD5RS=748) Urine Methadone Screen (BJS0YL=335) Ur Propoxyphene Screen (VMWJHV=169) Ur Barbiturates Screen (SCQIBM=724) Ur Tricyclics Screen (BLBZJZ=028) Ur Phencyclidine Scrn (CUTOFF=25) Ur Amphetamine Screen (YMFUEJ=740) U Methamphetamines Scrn (WRFQHI=975) U Benzodiazepines Scrn (FIBNIT=401) U Cocaine Metab Screen (LKUPXF=656) U Marijuana (THC) Screen (CUTOFF=50) Ethyl Alcohol 0.00 (0.00) gm% 01/24/20 01/24/20 Range/Units 11:30 12:24 WBC (4.23-9.07) K/mm3 RBC (4.63-6.08) M/mm3 Hgb (13.7-17.5) gm/dl Hct (40.1-51.0) % MCV (79.0-92.2) fl MCH (25.7-32.2) pg MCHC (32.2-35.5) g/dl RDW Std Deviation (35.1-43.9) fL Plt Count (163-337) K/mm3 MPV (9.4-12.3) fl Neutrophils % (Manual) (40-60) % Band Neutrophils % (0-10) % Lymphocytes % (Manual) (20-40) % Atypical Lymphs % % Monocytes % (Manual) (2-10) % Eosinophils % (Manual) (0.8-7.0) % Basophils % (Manual) (0.2-1.2) Platelet Estimate RBC Morph Comment ESR (0-15) mm/hr PT (9.7-12.0) SECONDS INR APTT (22-31) SECONDS Puncture Site Lt radial ABG pH 7.46 H (7.35-7.45) ABG pCO2 42.2 (35.0-45.0) mmHg ABG pO2 82.0 (80.0-100.0) mmHg ABG HCO3 29.3 H (22.0-26.0) meq/L ABG O2 Saturation 96.9 (96.0-97.0) % ABG Base Excess 5.3 H (-2-2.0) A-a Gradient 16 mmHg O2 Delivery Device Room air FiO2 21.00 (21.00-100.00) % Sodium (136-145) mEq/L Potassium (3.5-5.1) mEq/L Chloride (98-107) mEq/L Carbon Dioxide (21-32) mEq/L Anion Gap (5-15) BUN (7-18) mg/dL Creatinine (0.7-1.3) mg/dL Est Cr Clr Drug Dosing mL/min Estimated GFR (MDRD) (>60) mL/min BUN/Creatinine Ratio (14-18) Glucose (83-115) mg/dL Calcium (8.5-10.1) mg/dL Total Bilirubin (0.2-1.0) mg/dL AST (15-37) U/L ALT (16-63) U/L Alkaline Phosphatase (46-116) U/L Troponin I (0.00-0.056) ng/mL C-Reactive Protein (<1.0) mg/dL NT-Pro-B Natriuret Pep (0-450) pg/mL Total Protein (6.4-8.2) g/dl Albumin (3.4-5.0) g/dl Globulin gm/dL Albumin/Globulin Ratio (1-2) Urine Color (Yellow) Urine Appearance (Clear) Urine pH (5.0-8.0) Ur Specific Rice (1.005-1.030) Urine Protein (Negative) Urine Glucose (UA) (Negative) Urine Ketones (Negative) Urine Occult Blood (Negative) Urine Nitrite (Negative) Urine Bilirubin (Negative) Urine Urobilinogen (0.2-1.0) Ur Leukocyte Esterase (Negative) Urine RBC (0-5) /hpf Urine WBC (0-5) /hpf Ur Squamous Epith Cells (0-5) /hpf Amorphous Sediment (NOT SEEN) /hpf Urine Bacteria (FEW) /hpf Urine Mucus (FEW) /hpf Urine Opiates Screen Negative (JBAEHH=726) Ur Buprenorphine Scrn Negative (CUTOFF=10) Ur Oxycodone Screen Negative (VCQ3LM=057) Urine Methadone Screen Negative (HJZ1ZK=610) Ur Propoxyphene Screen Negative (MAHBQJ=376) Ur Barbiturates Screen Negative (EWOPKO=720) Ur Tricyclics Screen Negative (BBEYVS=160) Ur Phencyclidine Scrn Negative (CUTOFF=25) Ur Amphetamine Screen Negative (NJDVJQ=005) U Methamphetamines Scrn Negative (AFVLMZ=872) U Benzodiazepines Scrn Negative (GBROWU=434) U Cocaine Metab Screen Negative (NOCEVE=152) U Marijuana (THC) Screen Negative (CUTOFF=50) Ethyl Alcohol (0.00) gm% Meds: Medications Generic Name Dose Route Start Last Admin Trade Name Freq PRN Reason Stop Dose Admin Dextrose/Sodium Chloride 1,000 mls @ 150 mls/hr 01/24/20 10:45 01/24/20 11:09 Dextrose 5%-Normal Saline IV 150 mls/hr ASDIRECTED RAFAT Administration - Radiology Interpretation Free Text/Narrative:: 84-year-old male presents to the ED per [place] ambulance. Patient apparently resides in [facility] with his . Was last known to be well around 0400 hrs. this morning when he got up to void. He was found unresponsive in his bed by his this morning at 0930 hrs. He was unresponsive to verbal stimuli and minimally responsive to painful stimuli. Vital signs were otherwise stable. On arrival the patient makes no eye contact. He is eyes are open spontaneously. Pupils are 3 to 4 mm in size and minimally responsive to light. He has no movement of any of his extremities spontaneously. He is completely areflexic. 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 Peers quite thin and cachectic question is whether he suffers from an underlying malignancy. Apparently his only medications are drops for glaucoma. Plan CT head. Routine labs. ECG and portable chest x-ray. - Re-Assessments/Exams Free Text/Narrative Re-Assessment/Exam: 01/24/20 10:58 CT of the brain reveals bilaterally. Prominent dural ventricles with some anterior horn encephalomalacia. Minimal diminished density is noted within portions of the periventricular white matter compatible with small vessel ischemic demyelination change. No obvious intracranial hemorrhage or bleed. No midline shift. No obvious ischemic change. 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 His presentation would suggest a brainstem infarct. Evidence of degenerative changes with prominent sulci. Lateral atherosclerotic changes noted within the vertebral vessels. Will proceed with MRI of the brain without contrast. We will chest x-ray reveals shows thoracic aorta. Cardiac silhouette is normal. There is a lucency seen along the lower left chest wall believed to be artifact. Lungs are otherwise clear. 01/24/20 12:08 It is normal at 5.05 with 75% neutrophils and 2% bands cells. Hemoglobin is 12.1 with hematocrit of 37.3. Platelet count 206,000. Sed rate was 9. PT is 11.9 with an INR elevated at 1.10. PTT is 29. Sodium was 143. Potassium slightly low at 3.3. Chloride 105 with a bicarb elevated at 33. Anion gap is 8.3. BUN is 22 with a creatinine of 0.8. GFR is greater than 60. Glucose is 111 with a calcium of 8.3. Total bilirubin is 1.1 AST is 23 with an ALT of 38. Alk phos stays normal at 35. Troponin I is less than 0.017. C- reactive protein is less than 0.2. BNP is mildly elevated at 432. Total protein low at 6.1 with an albumin fraction of 3.4. Analysis was slightly cloudy trace of ketones appreciated moderate amorphous sediment but no signs of infection. Urine drug screen is completely negative. Blood alcohol is 0.00. 01/24/20 12:42 of the brain has been completed. Ventricles along with basal cisterns and sulci over the convexities are mildly prominent. Mild areas of increased signal are scattered within the periventricular white matter most likely due to small vessel ischemic demyelination changes. No acute diffusion abnormalities are appreciated. No midline shift or mass-effect is appreciated. Normal signal void is seen within the major cerebral arteries within the skull base. 01/24/20 12:46 BG's reveal a pH of 7.46. PCO2 was 42.2. PO2 was 82. O2 sats are 97% on room air. When I went back into check on the patient he is alert oriented and able to express himself completely normally. A indicates that he is got a pass his bowels. Asked him if he took any medication to help sleep last night and he states he does not remember. Will get him up to bedside commode and see how he ambulates. 01/24/20 13:15 relates around the room with no problems. I spoke at length to his and son. It appears that his symptom complex was that of a autonomic nervous system dysfunction. This is most likely related to underlying dementia. Advised the family that this is likely to occur in the future. At this time he will be discharged in care of his family back to [facility]. 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 Apparently he was last known to be well around 0400 hrs. this morning when he got up to void. Is found in bed 0930 hrs. this morning and found to be unresponsive to both verbal and physical stimulation. Paramedics were summoned. They to found him to be relatively unresponsive even to painful stimuli with very minimal withdrawal symptoms. Complete work-up in the ED for stroke in particular was carried out with CT of the brain and MRI of the brain with concerns of possible brainstem infarct. These tests were proved to be normal. Also all of his other lab tests including urinalysis revealed no signs of infection or other abnormalities. At approximately 1250 hrs. he spontaneously awoke and could speak normally and asked if he could use the bathroom. He did get him up to the bedside commode and he can walk and talk normally. Therefore his symptom complex is due to something called autonomic nervous system dysfunction which is a part of her nervous system of which we have no control. It controls things like our heart rate, how fast we breathe, how deep we sleep, opening and closing of blood vessels and blood pressure control etc. It is usually related to age degenerative changes in the brain. It is likely to happen again in the future. Time his nutritional status and fluid status is normal. As we discussed he is reluctant to drink anything other than water but he appears to be adequately hydrated. Time I would not change any of his medications or [id number] meds. With personal care physician if any further problems occur. Sepsis Event Note - Focused Exam Vital Signs: Vital Signs Temp Pulse Resp BP Pulse Ox 01/24/20 10:51 36.2 C 61 20 120/76 99 Date Exam was Performed: 01/24/20 Time Exam was Performed: 13:15 - My Orders Last 24 Hours: My Active Orders 01/24/20 10:44 EKG Documentation Completion [RC] STAT 01/24/20 10:45 Dextrose 5%-0.9% NaCl [Dextrose 5%-Normal Saline] 1,000 ml IV ASDIRECTED 01/24/20 11:11 Urinary Catheter Assessment [RC] ASDIRECTED Urinary Catheter Assessment [RC] ASDIRECTED 01/24/20 11:15 Insert Nur Catheter [Insert Urinary Catheter] [OM.PC] Q24H Insert Nur Catheter [Insert Urinary Catheter] [OM.PC] Q24H 01/25/20 05:11 MAGNESIUM [CHEM] AM 01/26/20 05:11 MAGNESIUM [CHEM] AM 01/27/20 05:11 MAGNESIUM [CHEM] AM - Assessment/Plan Last 24 Hours: My Active Orders 01/24/20 10:44 EKG Documentation Completion [RC] STAT 01/24/20 10:45 Dextrose 5%-0.9% NaCl [Dextrose 5%-Normal Saline] 1,000 ml IV ASDIRECTED 01/24/20 11:11 Urinary Catheter Assessment [RC] ASDIRECTED Urinary Catheter Assessment [RC] ASDIRECTED 01/24/20 11:15 Insert Nur Catheter [Insert Urinary Catheter] [OM.PC] Q24H Insert Nur Catheter [Insert Urinary Catheter] [OM.PC] Q24H 01/25/20 05:11 MAGNESIUM [CHEM] AM 01/26/20 05:11 MAGNESIUM [CHEM] AM 01/27/20 05:11 MAGNESIUM [CHEM] AM
--- NOTE | 2020-01-24 11:03 | CT ---
Head CT Technique: Multiple axial sections through the brain were obtained. Intravenous contrast was not utilized. Comparison: No prior intracranial imaging is available. Findings: Ventricles along with basal cisterns and sulci over the convexities are mildly prominent. Minimal diminished density is noted within portions of the periventricular white matter which is compatible with small vessel ischemic demyelination change. 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 No other abnormal parenchymal densities are seen. No evidence of intracranial hemorrhage. No midline shift or mass-effect is seen. Atherosclerotic change is noted within the vertebral vessels. Visualized mastoid and paranasal sinuses show nothing acute. No acute calvarial abnormality is appreciated. Impression: 1. Mild senescent change. 2. Nothing acute is appreciated on noncontrast head CT exam. Note: Please correlate if patient's symptoms warrant further evaluation by MRI. Diagnostic code #2 This report was dictated in MDT
--- NOTE | 2020-01-24 11:21 | CR ---
Chest: Portable view of the chest was obtained. Comparison: Prior chest x-ray of 11/29/17. Heart size is normal. Tortuous thoracic aorta is noted. Lucency is seen along the lower left chest wall believed to be artifact. No acute parenchymal change is seen. Bony structures are grossly intact. Impression: 1. Lucency along the lateral left chest most likely artifact. Recommend repeat study in 4 hours to confirm. 2. Other findings as noted above. Nothing acute is suspected. Diagnostic code #3 This report was dictated in MDT
--- NOTE | 2020-01-24 12:21 | MR ---
MRI brain Technique: T1 and T2 gradient echo coronal; T1 sagittal; T2, T2 FLAIR, T1 and diffusion axial. Comparison: Prior head CT study performed earlier on the same day (10:42 AM). Findings: Ventricles along with basal cisterns and sulci over the convexities are mildly prominent. Mild areas of increased signal are scattered within the periventricular white matter most likely due to small vessel ischemic demyelination change. No acute diffusion abnormalities are appreciated. No midline shift or mass-effect is appreciated. Normal signal void is seen within the major cerebral arteries within the skull base. Impression: 1. Mild senescent change as noted above. 2. No acute diffusion abnormalities are appreciated. Diagnostic code #2 This report was dictated in MDT
== END 2020-01-24 15:45 | disposition home or self-care (01) ==
LOC: JD.ED 10:35
DX: R55 Syncope and collapse (principal); G30.0 Alzheimer's disease with early onset; F02.80 Dementia in other diseases classified elsewhere, unspecified severity, without behavioral disturbance, psychotic disturbance, mood disturbance, and anxiety; G90.8 Other disorders of autonomic nervous system; Z88.0 Allergy status to penicillin; Z88.8 Allergy status to other drugs, medicaments and biological substances; Z79.899 Other long term (current) drug therapy
CPT/HCPCS: 36415; 36600; 70450; 70551; 71045; 80053; 80306; 80307; 81001; 82803; 82962; 83880; 84484; 85007; 85027; 85610; 85652; 85730; 86140; 93005; 96365; 96366; 99285; J7042; 93010

== ENCOUNTER 2020-01-24 21:32 | Emergency (ER) | payer MEDICARE, OTHER ==
--- NOTE | 2020-01-24 22:17 | EDM.PDOC ---
ED HPI GENERAL MEDICAL PROBLEM - General Chief Complaint: Genitourinary Problem Stated Complaint: CATHED TODAY AND CAN'T URINATE Time Seen by Provider: 01/24/20 22:07 - History of Present Illness INITIAL COMMENTS - FREE TEXT/NARRATIVE: 84-year-old male presents the emergency room unable to void. Apparently the patient was seen here earlier today somewhat unresponsive. He had a catheter placed. And he has not been able to void since that time. Patient denies any abdominal pain and really does not hurt he is just concerned because he cannot void. His labs and urinalysis looked okay this morning. He was thought to have some autonomic dysfunction and early Alzheimer's. Yesterday the patient was seen in [place] to have a skin cancer treated discussed situation with patient's and the patient at this point we will give him oral fluids and see if he voids on his own. He had a normal UA earlier today. Bladder Pain Score (Numeric/FACES): 8 - Related Data Allergies Allergy/AdvReac Type Severity Reaction Status Date / Time lidocaine Allergy Severe Burning Verified 01/24/20 21:49 Penicillins Allergy Severe Rash Verified 01/24/20 21:49 nystatin Allergy Severe Mouth Sores Uncoded 01/24/20 21:49 Home Meds: Home Meds Acetaminophen [Tylenol Arthritis] 650 mg PO Q4H PRN 12/26/19 [History] Cannabidiol (Cbd) Extract [CBD Oil] 1 dose TOP DAILY 12/26/19 [History] [place] Oil 1 dose PO DAILY PRN 12/26/19 [History] Coconut Oil 1 dose TOP BID 12/26/19 [History] Cyanocobalamin (Vitamin B-12) [Vitamin B-12] 5,000 mcg PO DAILY 12/26/19 [ History] Docusate Sodium/Sennosides [Senokot-S] 1 tab PO BID 12/26/19 [History] Echinacea 1,200 mg PO TID PRN 12/26/19 [History] Fluticasone Propionate [Flonase] 1 dose NASBOTH DAILY PRN 12/26/19 [History] Frankincense Oil 1 dose TOP DAILY PRN 12/26/19 [History] Magnesium Citrate 400 Mg 1,200 mg PO QPM 12/26/19 [History] Magnesium L-Threonate 3 cap PO QAM 12/26/19 [History] Phenylephrine HCl/[place] Butter [Preparation H Suppository] 1 dose RECTAL DAILY PRN 12/26/19 [History] Pseudoephedrine HCl [Sudafed] 30 mg PO DAILY 12/26/19 [History] Resvertrol 400 Mg 800 mg PO DAILY 12/26/19 [History] Selenium 200 mcg PO DAILY 12/26/19 [History] Ubidecarenone [Coq-10] 100 mg PO DAILY 12/26/19 [History] Vitality 500 Mg 500 mg PO BID 12/26/19 [History] Vitamin A 2500 Unit 2,500 unit PO DAILY 12/26/19 [History] Vitamin B Complex [B Complex] 1 tab PO DAILY 12/26/19 [History] Vitamin D3/Vitamin K2 (Mk4) [K2 Plus D3 Tablet] 1,000 unit PO DAILY 12/26/19 [ History] Vitamin E 400 unit PO DAILY 12/26/19 [History] Zinc Gluconate [Zinc] 50 mg PO DAILY 12/26/19 [History] witch Belgica [Witch Belgica] 1 dose RECTAL DAILY PRN 12/26/19 [History] [place] Oil 1 applic PO ASDIRECTED PRN 12/27/19 [History] Past Medical History - Past Health History Medical/Surgical History: Denies Medical/Surgical History HEENT History: Reports: Cataract, Other (See Below) Other HEENT History: chronic ear pain, geographic tongue, thrush, left ear lesion with freezing x 3, mouth sores/ulcers Cardiovascular History: Reports: None Respiratory History: Reports: None Gastrointestinal History: Reports: Chronic Constipation, Hemorrhoids, Other ( See Below) Other Gastrointestinal History: elevated bilirubin, hemorrhoids, anal fissure, rectal pain, abdominal pain Genitourinary History: Reports: BPH, Prostate Disorder, Retention, Urinary, UTI , Recurrent Other Genitourinary History: Enlarged prostate, epididymitis, flank pain, prostatism, renal insufficiency, scrotal pain [employer] History: Reports: None Musculoskeletal History: Reports: Other (See Below) Other Musculoskeletal History: ischial pain Neurological History: Reports: Other (See Below) Other Neuro History: dizziness Psychiatric History: Reports: Other (See Below) Other Psychiatric History: insomnia Endocrine/Metabolic History: Reports: Vitamin D Deficiency, Other (See Below) Other Endocrine/Metabolic History: [id number] deficiency Hematologic History: Reports: Other (See Below) Other Hematologic History: hypokalemia Immunologic History: Reports: None Oncologic (Cancer) History: Reports: None 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 Dermatologic History: Reports: Other (See Below) Other Dermatologic History: left ear lesion - Infectious Disease History Infectious Disease History: Reports: None Other Infectious Disease History: sepsis - Past Surgical History Head Surgeries/Procedures: Reports: None HEENT Surgical History: Reports: Tonsillectomy Cardiovascular Surgical History: Reports: None Respiratory Surgical History: Reports: None GI Surgical History: Reports: Appendectomy, Cholecystectomy, Colonoscopy Male Surgical History: Reports: Other (See Below) Other Male Surgeries/Procedures: prostate surgery with steam peformed Endocrine Surgical History: Reports: None Neurological Surgical History: Reports: None Oncologic Surgical History: Reports: None Social & Family History - Family History Family Medical History: Noncontributory - Tobacco Use Smoking Status *Q: Former Smoker Used Tobacco, but Quit: Yes Month/Year Tobacco Last Used: 50 yrs - Caffeine Use Caffeine Use: Reports: None Other Caffeine Use: not responding - Recreational Drug Use Recreational Drug Use: No - Living Situation & Occupation Living situation: Reports: , with Spouse Occupation: Retired ED ROS GENERAL - Review of Systems Review Of Systems: See Below Constitutional: Reports: No Symptoms HEENT: Reports: No Symptoms Respiratory: Reports: No Symptoms Cardiovascular: Reports: No Symptoms : Reports: Other (He cannot void). Denies: Dysuria, Flank Pain, Urgency Musculoskeletal: Reports: No Symptoms Skin: Reports: No Symptoms ED EXAM, RENAL/ - Physical Exam Exam: See Below Exam Limited By: No Limitations General Appearance: Alert, No Apparent Distress Ears: Normal TMs, Other (Left external ear is tender it sounds like he just had recent treatment to this) Throat/Mouth: Normal Inspection, Normal Lips, Normal Gums, Normal Oropharynx, Normal Voice, No Airway Compromise Head: Atraumatic, Normocephalic Neck: Normal Inspection, Supple, Non-Tender, Full Range of Motion Respiratory/Chest: No Respiratory Distress, Lungs Clear, Normal Breath Sounds Cardiovascular: Regular Rate, Rhythm, No Edema, No Murmur GI/Abdominal: Normal Bowel Sounds, Soft, Non-Tender Course - Vital Signs Last Recorded V/S: Last Vital Signs Temp 36.3 C 01/24/20 21:52 Pulse 118 H 01/24/20 21:52 Resp 20 01/24/20 21:52 BP 115/70 01/24/20 21:52 Pulse Ox 98 01/24/20 21:52 - Orders/Labs/Meds Orders: Active Orders 24 hr Category Date Time Status Bladder Scan [RC] ASDIRECTED Care 01/24/20 22:15 Active - Re-Assessments/Exams Free Text/Narrative Re-Assessment/Exam: 01/24/20 23:29 Was seen here this morning had quite extensive work-up. His main complaint is he cannot void we bladder scanned in here multiple times and only find small volumes in the bladder. I do not see much point repeat urine and labs on him at this point we had him drink some water and then he voided 100 cc. At this point he like to go home we will have him increase his fluid intake. Case discussed with his who is in agreement to this. Departure - Departure Time of Disposition: 23:29 Disposition: Home, Self-Care 01 Clinical Impression: Urinary problem in male - Discharge Information Referrals: Samira Pelaez MD [Primary Care Provider] - Forms: ED Department Discharge Additional Instructions: Return to the emergency room with any questions problems or worsening symptoms. Push lots of fluids. Follow-up with your regular healthcare providers as scheduled Sepsis Event Note - Evaluation Sepsis Screening Result: No Definite Risk - Focused Exam Vital Signs: Vital Signs Temp Pulse Resp BP Pulse Ox 01/24/20 21:52 36.3 C 118 H 20 115/70 98 Date Exam was Performed: 01/24/20 Time Exam was Performed: 23:29 - My Orders Last 24 Hours: My Active Orders 01/24/20 22:15 Bladder Scan [RC] ASDIRECTED - Assessment/Plan Last 24 Hours: My Active Orders 01/24/20 22:15 Bladder Scan [RC] ASDIRECTED
== END 2020-01-24 23:36 | disposition home or self-care (01) ==
LOC: JD.ED 21:32
DX: N40.1 Benign prostatic hyperplasia with lower urinary tract symptoms (principal); R33.8 Other retention of urine; G30.0 Alzheimer's disease with early onset; F02.80 Dementia in other diseases classified elsewhere, unspecified severity, without behavioral disturbance, psychotic disturbance, mood disturbance, and anxiety; Z88.6 Allergy status to analgesic agent; Z88.0 Allergy status to penicillin; Z88.1 Allergy status to other antibiotic agents; Z91.09 Other allergy status, other than to drugs and biological substances; Z79.899 Other long term (current) drug therapy; Z87.891 Personal history of nicotine dependence
CPT/HCPCS: 51798; 99282; 99283

== ENCOUNTER 2020-01-26 09:45 | Emergency (ER) | payer MEDICARE, OTHER ==
--- NOTE | 2020-01-26 09:58 | EDM.PDOC ---
ED HPI GENERAL MEDICAL PROBLEM - General Chief Complaint: Neuro Symptoms/Deficits Stated Complaint: [facility] Time Seen by Provider: 01/26/20 09:51 Source of Information: Reports: EMS History Limitations: Reports: Altered Mental Status - History of Present Illness INITIAL COMMENTS - FREE TEXT/NARRATIVE: 84-year-old male who once again presents to the ED per [facility]. He was found once again this morning by his . He is unresponsive to verbal and physical stimuli. No response even to fairly physical stimuli by sternal rub etc. Presented to the ED 2 days ago in a similar fashion and was worked up to rule out a brainstem infarct. He had a normal CT scan per stroke protocol and then had an MRI which did not reveal any abnormalities either. The patient awoke spontaneously about 2 hours after arrival in the ED and spoke to me in a normal fashion. He was aided to the bedside commode because he had to pass his bowels. After this he was able to walk with 2 person assist. The medications that he had received the night before was melatonin 5 mg x 2 tablets as he had not been sleeping well for 2 days prior to that. He once again became quite obtunded and with simply left him rest and sleep in bed as he has normal vital signs. Approximately 2-1/2 hours later he was able to get up walk talk and was discharged back to his home in the care of his and son. Return to the ED yesterday believing that he may be in urinary retention as he knows he has prostatism. We have placed a Nur catheter the yesterday which was removed at the time of his discharge. He had very little urine in his bladder on bladder scan and with oral fluids he finally did void 100 mils and was discharged back home. Apparently had no hypersomnolent episodes yesterday. The etiology of these hypersomnolent events is unclear. There is no evidence of obvious seizure disorder but this remains in the differential. Also been receiving some codeine tablets on a intermittent basis for chronic pain involving his left ear back shoulders and knees but he had not received the medication for 2 days prior to my assessment on January 23. Onset: Today, Unknown/Unsure Onset Date: 01/26/20 (Currently was up once during the night to void but since then apparently has been fast asleep in bed.) Duration: Hour(s):, Constant Location: Reports: Generalized Quality: Reports: Other (Unresponsive to verbal and physical stimuli) Severity: Severe Improves with: Reports: None Worsens with: Reports: None Context: Reports: Other (Tenuous occurrence). Denies: Activity, Exercise, Lifting, Sick Contact, Trauma Associated Symptoms: Reports: Other (Unable to ascertain as he is obtunded. Vital signs are all normal.) Treatments MANAGER WIND: Reports: Other (see below) (None that we can ascertain) - Related Data Allergies Allergy/AdvReac Type Severity Reaction Status Date / Time lidocaine Allergy Severe Burning Verified 01/24/20 21:49 Penicillins Allergy Severe Rash Verified 01/24/20 21:49 nystatin Allergy Severe Mouth Sores Uncoded 01/24/20 21:49 Home Meds: Home Meds Acetaminophen [Tylenol Arthritis] 650 mg PO Q4H PRN 12/26/19 [History] Cannabidiol (Cbd) Extract [CBD Oil] 1 dose TOP DAILY 12/26/19 [History] [place] Oil 1 dose PO DAILY PRN 12/26/19 [History] Coconut Oil 1 dose TOP BID 12/26/19 [History] Cyanocobalamin (Vitamin B-12) [Vitamin B-12] 5,000 mcg PO DAILY 12/26/19 [ History] Docusate Sodium/Sennosides [Senokot-S] 1 tab PO BID 12/26/19 [History] Echinacea 1,200 mg PO TID PRN 12/26/19 [History] Fluticasone Propionate [Flonase] 1 dose NASBOTH DAILY PRN 12/26/19 [History] Frankincense Oil 1 dose TOP DAILY PRN 12/26/19 [History] Magnesium Citrate 400 Mg 1,200 mg PO QPM 12/26/19 [History] Magnesium L-Threonate 3 cap PO QAM 12/26/19 [History] Phenylephrine HCl/[place] Butter [Preparation H Suppository] 1 dose RECTAL DAILY PRN 12/26/19 [History] Pseudoephedrine HCl [Sudafed] 30 mg PO DAILY 12/26/19 [History] Resvertrol 400 Mg 800 mg PO DAILY 12/26/19 [History] Selenium 200 mcg PO DAILY 12/26/19 [History] Ubidecarenone [Coq-10] 100 mg PO DAILY 12/26/19 [History] Vitality 500 Mg 500 mg PO BID 12/26/19 [History] Vitamin A 2500 Unit 2,500 unit PO DAILY 12/26/19 [History] Vitamin B Complex [B Complex] 1 tab PO DAILY 12/26/19 [History] Vitamin D3/Vitamin K2 (Mk4) [K2 Plus D3 Tablet] 1,000 unit PO DAILY 12/26/19 [ History] Vitamin E 400 unit PO DAILY 12/26/19 [History] Zinc Gluconate [Zinc] 50 mg PO DAILY 12/26/19 [History] witch Kinsey [Witch Kinsey] 1 dose RECTAL DAILY PRN 12/26/19 [History] [place] Oil 1 applic PO ASDIRECTED PRN 12/27/19 [History] Fluconazole [Diflucan] 100 mg PO ONETIME #1 tablet 01/26/20 [Rx] levoFLOXacin [Levaquin] 250 mg PO DAILY #5 tab 01/26/20 [Rx] Past Medical History - Past Health History Medical/Surgical History: Denies Medical/Surgical History HEENT History: Reports: Cataract, Other (See Below) Other HEENT History: chronic ear pain, geographic tongue, thrush, left ear lesion with freezing x 3, mouth sores/ulcers Cardiovascular History: Reports: None Respiratory History: Reports: None Gastrointestinal History: Reports: Chronic Constipation, Hemorrhoids, Other ( See Below) Other Gastrointestinal History: elevated bilirubin, hemorrhoids, anal fissure, rectal pain, abdominal pain Genitourinary History: Reports: BPH, Prostate Disorder, Retention, Urinary, UTI , Recurrent Other Genitourinary History: Enlarged prostate, epididymitis, flank pain, prostatism, renal insufficiency, scrotal pain MECHANIC/WELDER History: Reports: None Musculoskeletal History: Reports: Other (See Below) Other Musculoskeletal History: ischial pain Neurological History: Reports: Other (See Below) Other Neuro History: dizziness Psychiatric History: Reports: Other (See Below) Other Psychiatric History: insomnia Endocrine/Metabolic History: Reports: Vitamin D Deficiency, Other (See Below) Other Endocrine/Metabolic History: [id number] deficiency Hematologic History: Reports: Other (See Below) Other Hematologic History: hypokalemia Immunologic History: Reports: None Oncologic (Cancer) History: Reports: None 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 Dermatologic History: Reports: Other (See Below) Other Dermatologic History: left ear lesion - Infectious Disease History Infectious Disease History: Reports: None Other Infectious Disease History: sepsis - Past Surgical History Head Surgeries/Procedures: Reports: None HEENT Surgical History: Reports: Tonsillectomy Cardiovascular Surgical History: Reports: None Respiratory Surgical History: Reports: None GI Surgical History: Reports: Appendectomy, Cholecystectomy, Colonoscopy Male Surgical History: Reports: Other (See Below) Other Male Surgeries/Procedures: prostate surgery with steam peformed Endocrine Surgical History: Reports: None Neurological Surgical History: Reports: None Oncologic Surgical History: Reports: None Social & Family History - Family History Family Medical History: Noncontributory - Caffeine Use Caffeine Use: Reports: None Other Caffeine Use: not responding - Living Situation & Occupation Living situation: Reports: , with Spouse Occupation: Retired ED ROS GENERAL - Review of Systems Review Of Systems: Unable To Obtain Reason Not Obtained: Unable to obtain from the patient due to him being spots of to ve Constitutional: Denies: Fever ED EXAM, NEURO - Physical Exam Exam: See Below Exam Limited By: Altered Mental Status (Completely unresponsive to verbal and physical stimuli.) General Appearance: No Apparent Distress, Thin, Other (Signs show temperature of 37.3. Pulse is 63 and sinus. Respiratory to 16 BP 121/74 with a pulse ox of 96%) Eye Exam: Right Eye: Normal Inspection (No gaze palsy. Pupils are 4 to 5 mm in size and react to light) Ears: Normal TMs Throat/Mouth: Normal Lips, Other (Is coated with candidiasis and thickened also. ) Head Exam: Atraumatic, Normocephalic (Is slightly dry.), Other (Are no outward signs of head or neck or facial trauma). No: Facial Swelling, Facial Tenderness Neck: Normal Inspection Respiratory/Chest: No Respiratory Distress, Lungs Clear, Normal Breath Sounds, No Accessory Muscle Use Cardiovascular: Regular Rate, Rhythm, No Edema, No Gallop, No Murmur, No Rub GI/Abdominal: Normal Bowel Sounds, Soft, Non-Tender, No Organomegaly, No Abnormal Bruit, No Mass, Pelvis Stable, Other (Doug Lawsonyd abdomen. He has several nodules on palpation throughout the right jo ann-abdominal wall which appeared to be due to weight loss. I.e. they appear to be lipoma-like) (Male) Exam: No Hernia, Cremasteric Reflex Neurological: No Response to Pain. No: Babinski (Skis are both downgoing) DTR: 0: Bicep (R), Bicep (L), Patella (R), Patella (L), Achilles (R), Achilles ( L) Back Exam: Normal Inspection, Other (Obvious abrasions or contusions to his thoracic or lumbar spine) Extremities: Other (Right forearm is wrapped with a bandage apparently because he has been scratching this area excessively. There is no skin tear or obvious injury. It is mildly erythematous. Evidence of osteoarthritic changes in both knees with limited internal/external rotation of both hips due to arthritis.) Psychiatric: Other (Unresponsive) Skin Exam: Warm, Dry, Intact, Normal Color, Erythema (Erythema of the skin of the right extensor surface of his forearm.) EKG INTERPRETATION EKG Date: 01/26/20 Time: 10:33 Rhythm: NSR Rate (Beats/Min): 65 (There is no PACs) [place]: Normal P-Wave: Present QRS: Other (Early R wave transition consider septal hypertrophy pattern) ST-T: Normal EKG Interpretation Comments: Borderline ECG Course - Vital Signs Last Recorded V/S: Last Vital Signs Temp 37.3 C 01/26/20 09:54 Pulse 63 01/26/20 09:54 Resp 16 01/26/20 09:54 BP 121/74 01/26/20 09:54 Pulse Ox 96 01/26/20 09:54 - Orders/Labs/Meds Orders: Active Orders 24 hr Category Date Time Status EKG Documentation Completion [RC] STAT Care 01/26/20 09:54 Active EKG Documentation Completion [RC] STAT Care 01/26/20 10:37 Inactive CULTURE URINE [RM] Stat Lab 01/26/20 11:10 Received Labs: Laboratory Tests 01/26/20 01/26/20 01/26/20 Range/Units 10:02 10:02 10:02 WBC 8.23 (4.23-9.07) K/mm3 RBC 4.48 L (4.63-6.08) M/mm3 Hgb 13.1 L (13.7-17.5) gm/dl Hct 39.4 L (40.1-51.0) % MCV 87.9 (79.0-92.2) fl MCH 29.2 (25.7-32.2) pg MCHC 33.2 (32.2-35.5) g/dl RDW Std Deviation 46.1 H (35.1-43.9) fL Plt Count 217 (163-337) K/mm3 MPV 10.4 (9.4-12.3) fl Neut % (Auto) 78.2 H (34.0-67.9) % Lymph % (Auto) 12.0 L (21.8-53.1) % Chaves % (Auto) 6.3 (5.3-12.2) % Eos % (Auto) 2.9 (0.8-7.0) Baso % (Auto) 0.5 (0.1-1.2) % Neut # (Auto) 6.43 H (1.78-5.38) K/mm3 Lymph # (Auto) 0.99 L (1.32-3.57) K/mm3 [place] # (Auto) 0.52 (0.30-0.82) K/mm3 Eos # (Auto) 0.24 (0.04-0.54) K/mm3 Baso # (Auto) 0.04 (0.01-0.08) K/mm3 ESR 11 (0-15) mm/hr Sodium 143 (136-145) mEq/L Potassium 3.2 L (3.5-5.1) mEq/L Chloride 104 (98-107) mEq/L Carbon Dioxide 32 (21-32) mEq/L Anion Gap 10.2 (5-15) BUN 23 H (7-18) mg/dL Creatinine 0.8 (0.7-1.3) mg/dL Est Cr Clr Drug Dosing TNP Estimated GFR (MDRD) > 60 (>60) mL/min BUN/Creatinine Ratio 28.8 H (14-18) Glucose 95 (83-115) mg/dL Lactic Acid (0.4-2.0) mmol/L Calcium 8.2 L (8.5-10.1) mg/dL Magnesium 1.9 (1.8-2.4) mg/dl Total Bilirubin 1.3 H (0.2-1.0) mg/dL AST 20 (15-37) U/L ALT 33 (16-63) U/L Alkaline Phosphatase 37 L (46-116) U/L Creatine Kinase 58 (39-308) U/L Troponin I < 0.017 (0.00-0.056) ng/mL C-Reactive Protein <0.2 (<1.0) mg/dL Total Protein 6.4 (6.4-8.2) g/dl Albumin 3.5 (3.4-5.0) g/dl Globulin 2.9 gm/dL Albumin/Globulin Ratio 1.2 (1-2) TSH 3rd Generation 1.203 (0.358-3.74) uIU/mL Urine Color (Yellow) Urine Appearance (Clear) Urine pH (5.0-8.0) Ur Specific Mccune (1.005-1.030) Urine Protein (Negative) Urine Glucose (UA) (Negative) Urine Ketones (Negative) Urine Occult Blood (Negative) Urine Nitrite (Negative) Urine Bilirubin (Negative) Urine Urobilinogen (0.2-1.0) Ur Leukocyte Esterase (Negative) Urine RBC (0-5) /hpf Urine WBC (0-5) /hpf Ur Squamous Epith Cells (0-5) /hpf Amorphous Sediment (NOT SEEN) /hpf Urine Bacteria (FEW) /hpf Urine Mucus (FEW) /hpf 01/26/20 01/26/20 Range/Units 10:12 11:10 WBC (4.23-9.07) K/mm3 RBC (4.63-6.08) M/mm3 Hgb (13.7-17.5) gm/dl Hct (40.1-51.0) % MCV (79.0-92.2) fl MCH (25.7-32.2) pg MCHC (32.2-35.5) g/dl RDW Std Deviation (35.1-43.9) fL Plt Count (163-337) K/mm3 MPV (9.4-12.3) fl Neut % (Auto) (34.0-67.9) % Lymph % (Auto) (21.8-53.1) % Chaves % (Auto) (5.3-12.2) % Eos % (Auto) (0.8-7.0) Baso % (Auto) (0.1-1.2) % Neut # (Auto) (1.78-5.38) K/mm3 Lymph # (Auto) (1.32-3.57) K/mm3 Chaves # (Auto) (0.30-0.82) K/mm3 Eos # (Auto) (0.04-0.54) K/mm3 Baso # (Auto) (0.01-0.08) K/mm3 ESR (0-15) mm/hr Sodium (136-145) mEq/L Potassium (3.5-5.1) mEq/L Chloride (98-107) mEq/L Carbon Dioxide (21-32) mEq/L Anion Gap (5-15) BUN (7-18) mg/dL Creatinine (0.7-1.3) mg/dL Est Cr Clr Drug Dosing Estimated GFR (MDRD) (>60) mL/min BUN/Creatinine Ratio (14-18) Glucose (83-115) mg/dL Lactic Acid 0.5 (0.4-2.0) mmol/L Calcium (8.5-10.1) mg/dL Magnesium (1.8-2.4) mg/dl Total Bilirubin (0.2-1.0) mg/dL AST (15-37) U/L ALT (16-63) U/L Alkaline Phosphatase (46-116) U/L Creatine Kinase (39-308) U/L Troponin I (0.00-0.056) ng/mL C-Reactive Protein (<1.0) mg/dL Total Protein (6.4-8.2) g/dl Albumin (3.4-5.0) g/dl Globulin gm/dL Albumin/Globulin Ratio (1-2) TSH 3rd Generation (0.358-3.74) uIU/mL Urine Color Yellow (Yellow) Urine Appearance Cloudy H (Clear) Urine pH 7.5 (5.0-8.0) Ur Specific Mccune 1.025 (1.005-1.030) Urine Protein Negative (Negative) Urine Glucose (UA) Negative (Negative) Urine Ketones Trace H (Negative) Urine Occult Blood Negative (Negative) Urine Nitrite Positive H (Negative) Urine Bilirubin Negative (Negative) Urine Urobilinogen 0.2 (0.2-1.0) Ur Leukocyte Esterase 1+ H (Negative) Urine RBC 0-5 (0-5) /hpf Urine WBC 20-30 H (0-5) /hpf Ur Squamous Epith Cells Not seen (0-5) /hpf Amorphous Sediment Moderate H (NOT SEEN) /hpf Urine Bacteria Many H (FEW) /hpf Urine Mucus Not seen (FEW) /hpf Meds: Medications Discontinued Medications Generic Name Dose Route Start Last Admin Trade Name Yvette PRN Reason Stop Dose Admin Dextrose/Lactated Ringer's 1,000 mls @ 150 mls/hr 01/26/20 10:00 01/26/20 10: 29 Dextrose 5%-Lactated Ringers IV 150 mls/hr ASDIRECTED RAFAT Administration Levofloxacin 500 mg 01/26/20 12:17 01/26/20 12:39 Levaquin PO 01/26/20 12:18 500 mg ONETIME ONE Administration - Radiology Interpretation Free Text/Narrative:: 84-year-old male once again presents to the ED per ambulance from [facility] where he resides with his .. She found him once again this morning totally unresponsive to verbal and physical stimuli as if deeply asleep. Note he presented to the ED 2 days ago in a similar fashion and over time he awoke on his own volition could speak normally and eventually could walk normally and was discharged home after about 6 hours stay in the ED. Investigations at that time were normal CT of the brain or age-related changes. He had an MRI to rule out a brainstem infarct as as the way he presented. It too was negative. No metabolic abnormalities were identified. He returned to the ED yesterday due to not being able to void but had less than 75 mils of urine in his bladder. He was given oral fluids and eventually did void on his own. He had had a Nur catheter placed the day prior while he was unresponsive. He was removed at the time of discharge. He has a history of prostatism. 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 He had been receiving some codeine tablets a couple of days prior for chronic pain syndrome but had not received any in for 48 hours prior to his presentation 2 days ago. He had not been sleeping for 2 days and had been given melatonin 5 mg tablets x2 the night prior. Has no history of seizure disorder. Will have to be to have a repeat CT of his head repeat laboratory investigations and I will ask for a neurological consult in [place]. - Re-Assessments/Exams Free Text/Narrative Re-Assessment/Exam: 01/26/20 10:56 CT of the brain is essentially unchanged from one done 2 days ago. It reveals age-appropriate degenerative changes with small vessel ischemic changes in both basal ganglia. 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 Also appears to be one in the left cerebellar hemisphere. There is dilatation of the lateral ventricles and slight encephalomalacia at the anterior horns bilaterally. There is no intracranial bleeding or mass- effect. ECG is sinus rhythm with no signs of ischemia. Patient has awoke well in the ED and is able to speak to me completely normally. He is somewhat frustrated as he had blood draw from his right antecubital fossa and states he is got chronic pain in that arm due to cancer. An IV in his left upper extremity which is the reason the lab delfina blood from the opposite side. He is certainly compos mentis. Appears that he was simply again deeply asleep. He did apparently take melatonin tablets last night again to help sleep. has not yet arrived in the ED. 01/26/20 11:22 x-ray does not reveal any abnormalities. Once again he has a tortuous thoracic aorta lungs are clear with no parenchymal changes. Heart size is normal. 01/26/20 12:15 Otology reveals a white count of 8.23 with auto differential showing 78% neutrophils. Hemoglobin is 13.1 with hematocrit of 39.4. Platelet count 217,000. Sed rate is 11. Chemistry shows a sodium of 143 and a potassium slightly low at 3.2. Chloride 104 with a bicarb of 32. Anion gap is 10.2. BUN is 23 with a creatinine of 0.8. GFR remains greater than 60. Glucose is 95 lactic acid is 0.5. Calcium is 8.2. Magnesium is normal at 1.9. Liver function is normal. Total CPK is 58. Troponin is less than 0.017. C- reactive protein less than 0.2. Total protein 6.4 with an albumin fraction of 3.5. TSH is 1.2 urinalysis now is suggesting a low-grade infection with positive nitrates and 1+ leukocyte esterase. Of note the patient did have Nur catheterization 2 days ago. Urine culture was ordered. Patient will be given Levaquin 250 mg once daily for 5 days to clear up UTI. Departure - Departure Time of Disposition: 14:00 Disposition: Home, Self-Care 01 Condition: Fair Clinical Impression: Hypersomnolence disorder, acute, moderate, Lower urinary tract infection, acute , Oral candidiasis - Discharge Information *PRESCRIPTION DRUG MONITORING PROGRAM REVIEWED*: Not Applicable *COPY OF PRESCRIPTION DRUG MONITORING REPORT IN PATIENT DANO: Not Applicable Prescriptions: Fluconazole [Diflucan] 100 mg PO ONETIME #1 tablet levoFLOXacin [Levaquin] 250 mg PO DAILY #5 tab Instructions: Urinary Tract Infection, Adult, Hypersomnia Referrals: Samira Pelaez MD [Primary Care Provider] - Forms: ED Department Discharge Additional Instructions: Reevaluation in the emergency room today in regards to presentation completely unresponsive to physical and verbal stimuli as he presented similarly 2 days ago. This occasion he awoke within an hour of arrival in the ED and could speak normally and converse normally. He could move all limbs and neurological exam was normal. He is presenting with what we call a hypersomnolence state which means he falls deeply asleep and is not arousable. There is no other abnormalities present other than age appropriate degenerative brain disease. His urine today did test positive for some white blood cells which may be secondary to recent catheterization of the urinary tract. He therefore received a dose of antibiotic called Levaquin 500 mg in the ED and he will need to take 250 mg once daily starting tomorrow morning for the next 5 days to clear up infection. Guards to the oral candidiasis or thrush infection meaning involving his tongue suggest Diflucan tablet 100 mg taken only once to help clear up this infection. It usually takes about 3 days to clear up if this occurs again I would simply wait it out and until he wakes up. We discussed there appears to be some underlying anxiety issues as well. Suggest counseling with local hospital cleaner if available. Alternatively counseling services can be set up through [facility]. You can make an appointment by calling [phone]. Sepsis Event Note - Focused Exam Vital Signs: Vital Signs Temp Pulse Resp BP Pulse Ox 01/26/20 09:54 37.3 C 63 16 121/74 96 Date Exam was Performed: 01/26/20 Time Exam was Performed: 14:46 - My Orders Last 24 Hours: My Active Orders 01/26/20 09:54 EKG Documentation Completion [RC] STAT 01/26/20 10:37 EKG Documentation Completion [RC] STAT 01/26/20 11:10 CULTURE URINE [RM] Stat - Assessment/Plan Last 24 Hours: My Active Orders 01/26/20 09:54 EKG Documentation Completion [RC] STAT 01/26/20 10:37 EKG Documentation Completion [RC] STAT 01/26/20 11:10 CULTURE URINE [RM] Stat
[2020-01-26] MEDS ORDERED: Dextrose 5%-Lactated Ringers 1,000 ML IV SCH (10:00)
--- NOTE | 2020-01-26 10:50 | CT ---
Head CT Technique: Multiple axial sections through the brain were obtained. Intravenous contrast was not utilized. Comparison: Prior head CT study of 01/24/20. Findings: Ventricles along with basal cisterns and sulci over the convexities are mildly prominent. Mild diminished density is noted within the periventricular white matter compatible with small vessel ischemic demyelination change. Similar findings are seen within the basal ganglia. No other abnormal parenchymal densities are seen. No evidence of intracranial hemorrhage. No midline shift or mass-effect is seen. Bone window settings were reviewed. No acute calvarial abnormality is seen. Visualized paranasal sinuses and mastoid sinuses show nothing acute. Impression: 1. Senescent change as noted above. 2. No definite acute intracranial abnormality is appreciated. Diagnostic code #2 This report was dictated in MDT
--- NOTE | 2020-01-26 11:04 | CR ---
Chest: AP view of the chest was obtained. Comparison: Prior chest x-ray of 11/29/17. Heart size is normal. Tortuous thoracic aorta is seen. Lungs are clear with no acute parenchymal change. Bony structures are grossly intact. Impression: 1. Nothing acute is seen on AP chest x-ray. Diagnostic code #2 This report was dictated in MDT
[2020-01-26] MEDS ORDERED: Levofloxacin 250 MG Tab PO ONE (12:17)
== END 2020-01-26 13:41 | disposition home or self-care (01) ==
LOC: JD.ED 09:45
DX: G47.10 Hypersomnia, unspecified (principal); N39.0 Urinary tract infection, site not specified; B37.0 Candidal stomatitis; Z88.6 Allergy status to analgesic agent; Z88.0 Allergy status to penicillin; Z88.1 Allergy status to other antibiotic agents; Z79.899 Other long term (current) drug therapy
CPT/HCPCS: 36415; 70450; 70450-26; 71045; 71045-26; 80053; 81001; 82550; 83605; 83735; 84443; 84484; 85025; 85652; 86140; 87086; 87088; 87184; 87186; 93005; 93010; 96360; 96361; 99283; 99285-25; A9270-GY; J7121

== ENCOUNTER 2020-02-09 09:44 | Emergency (ER) | payer MEDICARE, OTHER ==
--- NOTE | 2020-02-09 10:20 | EDM.PDOC ---
ED HPI GENERAL MEDICAL PROBLEM - General Chief Complaint: General Stated Complaint: [facility] Time Seen by Provider: 02/09/20 10:20 - History of Present Illness INITIAL COMMENTS - FREE TEXT/NARRATIVE: 84-year-old male returns to the emergency room with insomnia and behavior changes. Patient has been here multiple times with similar complaints. He is also been seen in the clinic multiple times with the same complaint. The patient probably has advancing dementia. He has ideas that is here cancer is returning this is been evaluated and has not been the case he is returned multiple times with rectal pain, this is been evaluated and no significant causes been found. He has had multiple extensive work-ups for this. Right now the big problem is he just cannot sleep he is failed Remeron and melatonin as an outpatient. - Related Data Allergies Allergy/AdvReac Type Severity Reaction Status Date / Time lidocaine Allergy Severe Burning Verified 01/24/20 21:49 Penicillins Allergy Severe Rash Verified 01/24/20 21:49 nystatin Allergy Severe Mouth Sores Uncoded 01/24/20 21:49 Home Meds: Home Meds Acetaminophen [Tylenol Arthritis] 650 mg PO Q4H PRN 12/26/19 [History] Cannabidiol (Cbd) Extract [CBD Oil] 1 dose TOP DAILY 12/26/19 [History] Joshua Oil 1 dose PO DAILY PRN 12/26/19 [History] Coconut Oil 1 dose TOP BID 12/26/19 [History] Cyanocobalamin (Vitamin B-12) [Vitamin B-12] 5,000 mcg PO DAILY 12/26/19 [ History] Docusate Sodium/Sennosides [Senokot-S] 1 tab PO BID 12/26/19 [History] Echinacea 1,200 mg PO TID PRN 12/26/19 [History] Fluticasone Propionate [Flonase] 1 dose NASBOTH DAILY PRN 12/26/19 [History] Frankincense Oil 1 dose TOP DAILY PRN 12/26/19 [History] Magnesium Citrate 400 Mg 1,200 mg PO QPM 12/26/19 [History] Magnesium L-Threonate 3 cap PO QAM 12/26/19 [History] Phenylephrine HCl/[place] Butter [Preparation H Suppository] 1 dose RECTAL DAILY PRN 12/26/19 [History] Pseudoephedrine HCl [Sudafed] 30 mg PO DAILY 12/26/19 [History] Resvertrol 400 Mg 800 mg PO DAILY 12/26/19 [History] Selenium 200 mcg PO DAILY 12/26/19 [History] Ubidecarenone [Coq-10] 100 mg PO DAILY 12/26/19 [History] Vitality 500 Mg 500 mg PO BID 12/26/19 [History] Vitamin A 2500 Unit 2,500 unit PO DAILY 12/26/19 [History] Vitamin B Complex [B Complex] 1 tab PO DAILY 12/26/19 [History] Vitamin D3/Vitamin K2 (Mk4) [K2 Plus D3 Tablet] 1,000 unit PO DAILY 12/26/19 [ History] Vitamin E 400 unit PO DAILY 12/26/19 [History] Zinc Gluconate [Zinc] 50 mg PO DAILY 12/26/19 [History] witch Kinsey [Witch Kinsey] 1 dose RECTAL DAILY PRN 12/26/19 [History] [place] Oil 1 applic PO ASDIRECTED PRN 12/27/19 [History] Fluconazole [Diflucan] 100 mg PO ONETIME #1 tablet 01/26/20 [Rx] levoFLOXacin [Levaquin] 250 mg PO DAILY #5 tab 01/26/20 [Rx] Potassium Chloride [Klor-Con M10] 10 meq PO Q24H #7 tab.er.prt 02/09/20 [Rx] QUEtiapine Fumarate [Seroquel] 6.25 mg PO ASDIRECTED #10 tablet 02/09/20 [Rx] Past Medical History - Past Health History Medical/Surgical History: Denies Medical/Surgical History HEENT History: Reports: Cataract, Other (See Below) Other HEENT History: chronic ear pain, geographic tongue, thrush, left ear lesion with freezing x 3, mouth sores/ulcers Cardiovascular History: Reports: None Respiratory History: Reports: None Gastrointestinal History: Reports: Chronic Constipation, Hemorrhoids, Other ( See Below) Other Gastrointestinal History: elevated bilirubin, hemorrhoids, anal fissure, rectal pain, abdominal pain Genitourinary History: Reports: BPH, Prostate Disorder, Retention, Urinary, UTI , Recurrent Other Genitourinary History: Enlarged prostate, epididymitis, flank pain, prostatism, renal insufficiency, scrotal pain YARD PILOT History: Reports: None Musculoskeletal History: Reports: Other (See Below) Other Musculoskeletal History: ischial pain Neurological History: Reports: Other (See Below) Other Neuro History: dizziness Psychiatric History: Reports: Other (See Below) Other Psychiatric History: insomnia Endocrine/Metabolic History: Reports: Vitamin D Deficiency, Other (See Below) Other Endocrine/Metabolic History: [id number] deficiency Hematologic History: Reports: Other (See Below) Other Hematologic History: hypokalemia Immunologic History: Reports: None Oncologic (Cancer) History: Reports: None 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 Dermatologic History: Reports: Other (See Below) Other Dermatologic History: left ear lesion - Infectious Disease History Infectious Disease History: Reports: None Other Infectious Disease History: sepsis - Past Surgical History Head Surgeries/Procedures: Reports: None HEENT Surgical History: Reports: Tonsillectomy Cardiovascular Surgical History: Reports: None Respiratory Surgical History: Reports: None GI Surgical History: Reports: Appendectomy, Cholecystectomy, Colonoscopy Male Surgical History: Reports: Other (See Below) Other Male Surgeries/Procedures: prostate surgery with steam peformed Endocrine Surgical History: Reports: None Neurological Surgical History: Reports: None Oncologic Surgical History: Reports: None Social & Family History - Family History Family Medical History: Noncontributory - Caffeine Use Caffeine Use: Reports: None Other Caffeine Use: not responding - Living Situation & Occupation Living situation: Reports: , with Spouse Occupation: Retired ED ROS GENERAL - Review of Systems Review Of Systems: See Below Constitutional: Reports: No Symptoms HEENT: Reports: No Symptoms Respiratory: Reports: No Symptoms Cardiovascular: Reports: No Symptoms GI/Abdominal: Reports: No Symptoms ED EXAM, GENERAL - Physical Exam Exam: See Below Exam Limited By: Other (Patient is very forgetful he will agree to lab work and then when lab comes and refuses it we went through this several times before finally getting some blood work he adamantly refused a head CT and EKG he has had multiple EKGs and had CTs here that have been unrevealing.) General Appearance: Alert, No Apparent Distress Eye Exam: Bilateral Eye: Normal Inspection Ears: Normal External Exam, Normal Canal, Hearing Grossly Normal, Normal TMs Nose: Normal Inspection, Normal Mucosa, No Blood Throat/Mouth: Normal Inspection, Normal Lips, Normal Gums, Normal Oropharynx, Normal Voice, No Airway Compromise, Other (Does not have his dentures in at this time) Head: Atraumatic, Normocephalic Neck: Normal Inspection, Supple, Non-Tender, Full Range of Motion. No: Lymphadenopathy (L), Lymphadenopathy (R) Respiratory/Chest: No Respiratory Distress, Lungs Clear, Normal Breath Sounds Cardiovascular: Regular Rate, Rhythm, No Edema, No Murmur GI/Abdominal: Normal Bowel Sounds, Soft, Non-Tender Back Exam: Normal Inspection. No: CVA Tenderness (L), CVA Tenderness (R) Extremities: Normal Inspection, No Pedal Edema Neurological: Alert, Oriented, Other (He is oriented to person place and time but he is very forgetful) Course - Vital Signs Last Recorded V/S: Last Vital Signs Temp 36.3 C 02/09/20 10:00 Pulse 84 02/09/20 10:00 Resp 16 02/09/20 10:00 BP 131/68 02/09/20 10:00 Pulse Ox 98 02/09/20 10:00 - Orders/Labs/Meds Orders: Active Orders 24 hr Category Date Time Status EKG Documentation Completion [RC] STAT Care 02/09/20 10:43 Active CULTURE URINE [RM] Stat Lab 02/09/20 12:06 Received Labs: Laboratory Tests 02/09/20 02/09/20 02/09/20 Range/Units 11:20 11:20 12:06 WBC 6.31 (4.23-9.07) K/mm3 RBC 3.85 L (4.63-6.08) M/mm3 Hgb 11.2 L D (13.7-17.5) gm/dl Hct 34.0 L (40.1-51.0) % MCV 88.3 (79.0-92.2) fl MCH 29.1 (25.7-32.2) pg MCHC 32.9 (32.2-35.5) g/dl RDW Std Deviation 44.6 H (35.1-43.9) fL Plt Count 232 (163-337) K/mm3 MPV 10.4 (9.4-12.3) fl Neut % (Auto) 76.2 H (34.0-67.9) % Lymph % (Auto) 14.1 L (21.8-53.1) % Coles % (Auto) 7.3 (5.3-12.2) % Eos % (Auto) 1.6 (0.8-7.0) Baso % (Auto) 0.5 (0.1-1.2) % Neut # (Auto) 4.81 (1.78-5.38) K/mm3 Lymph # (Auto) 0.89 L (1.32-3.57) K/mm3 Coles # (Auto) 0.46 (0.30-0.82) K/mm3 Eos # (Auto) 0.10 (0.04-0.54) K/mm3 Baso # (Auto) 0.03 (0.01-0.08) K/mm3 Sodium 144 (136-145) mEq/L Potassium 2.9 L (3.5-5.1) mEq/L Chloride 106 (98-107) mEq/L Carbon Dioxide 36 H (21-32) mEq/L Anion Gap 4.9 L (5-15) BUN 18 (7-18) mg/dL Creatinine 0.7 (0.7-1.3) mg/dL Est Cr Clr Drug Dosing TNP Estimated GFR (MDRD) > 60 (>60) mL/min BUN/Creatinine Ratio 25.7 H (14-18) Glucose 106 (83-115) mg/dL Calcium 8.2 L (8.5-10.1) mg/dL Total Bilirubin 1.2 H (0.2-1.0) mg/dL AST 18 (15-37) U/L ALT 27 (16-63) U/L Alkaline Phosphatase 36 L (46-116) U/L Total Protein 6.2 L (6.4-8.2) g/dl Albumin 3.5 (3.4-5.0) g/dl Globulin 2.7 gm/dL Albumin/Globulin Ratio 1.3 (1-2) TSH 3rd Generation 1.154 (0.358-3.74) uIU/mL Urine Color Yellow (Yellow) Urine Appearance Slt cloudy H (Clear) Urine pH 7.0 (5.0-8.0) Ur Specific [place] 1.025 (1.005-1.030) Urine Protein Negative (Negative) Urine Glucose (UA) Negative (Negative) Urine Ketones Negative (Negative) Urine Occult Blood Negative (Negative) Urine Nitrite Negative (Negative) Urine Bilirubin Negative (Negative) Urine Urobilinogen 0.2 (0.2-1.0) Ur Leukocyte Esterase 2+ H (Negative) Urine RBC 5-10 H (0-5) /hpf Urine WBC >100 H (0-5) /hpf Ur Epithelial Cells Not seen (0-5) /hpf Urine Bacteria Many H (FEW) /hpf Urine Mucus Not seen (FEW) /hpf Meds: Medications Discontinued Medications Generic Name Dose Route Start Last Admin Trade Name Yvette PRN Reason Stop Dose Admin Potassium Chloride 40 meq 02/09/20 13:27 02/09/20 13:52 Klor-Con M20 PO 02/09/20 13:28 40 meq ONETIME ONE Administration - Re-Assessments/Exams Free Text/Narrative Re-Assessment/Exam: 02/09/20 14:13 Patient has had multiple evaluations for this in the past. It is felt that he has significant degree of dementia. He has failed Remeron and melatonin as an outpatient to help him sleep he is not sleeping very good. From early in his ER course today Lanie from social work is been involved thinking longterm placement is more than overdue. However the family is does not want him placed in a longterm however they are comfortable with him being admitted but he has no purpose to be admitted other than getting him placed in a longterm. I talked to Dr. Pelaez a couple of times about his condition and we both have concerns about his overall situation and both feel that he needs to be in a longterm. Discussed the situation with Dr. Miller, our hospitalist, who recommends Seroquel 12.5 mg at 8:00 every evening to help him sleep. We will start him out with a half a tablet at 8:00 every night. And the patient will follow up with Dr. Pelaez early next week preferably Thursday and if he is tolerating the 6.[address]quel then Dr. Pelaez can advance to 12.5 mg if needed also the patient was found to have a low potassium he will be placed on potassium 10 mEq daily to be rechecked early next week. We have run out of options for sleeping. There is a black box warning with Seroquel in people with dementia. I did discuss this black box warning with the specifically stating that it can cause an increased risk of in people with dementia. And her response is she knows he is going to of something but the risk of the medication cannot be nearly as bad as being placed in a longterm. I again voiced my concerns about starting him on Seroquel however she wishes to pursue this option because nothing else is worked so far. And she fully understands the potential side effects and risks. 6.25 mg is a low dose and she understands she will need to get a pill cutter to do this. Departure - Departure Time of Disposition: 14:16 Disposition: Home, Self-Care 01 Clinical Impression: Insomnia, Dementia - Discharge Information Prescriptions: Potassium Chloride [Klor-Con M10] 10 meq PO Q24H #7 tab.er.prt QUEtiapine Fumarate [Seroquel] 6.25 mg PO ASDIRECTED #10 tablet Instructions: Insomnia, Dementia Referrals: Samira Pelaez MD [Primary Care Provider] - Forms: ED Department Discharge Additional Instructions: Return to the emergency room with any questions problems or worsening symptoms. Start the Seroquel 6.25 mg this is going to be one fourth of a tablet. Follow-up with Dr. Pelaez on Thursday. Take the potassium 1 tablet daily and his level should be rechecked again on Thursday Tylenol 650 mg every 4 hours as needed for discomfort Sepsis Event Note - Focused Exam Vital Signs: Vital Signs Temp Pulse Resp BP Pulse Ox 02/09/20 10:00 36.3 C 84 16 131/68 98 Date Exam was Performed: 02/09/20 Time Exam was Performed: 15:09 - My Orders Last 24 Hours: My Active Orders 02/09/20 10:43 EKG Documentation Completion [RC] STAT 02/09/20 12:06 CULTURE URINE [RM] Stat - Assessment/Plan Last 24 Hours: My Active Orders 02/09/20 10:43 EKG Documentation Completion [RC] STAT 02/09/20 12:06 CULTURE URINE [RM] Stat
[2020-02-09] MEDS ORDERED: Potassium Chloride 20 MEQ Tab.ER PO ONE (13:27)
== END 2020-02-09 16:20 | disposition home or self-care (01) ==
LOC: JD.ED 09:44
DX: G47.00 Insomnia, unspecified (principal); F03.90 Unspecified dementia, unspecified severity, without behavioral disturbance, psychotic disturbance, mood disturbance, and anxiety; Z88.6 Allergy status to analgesic agent; Z88.0 Allergy status to penicillin; Z88.1 Allergy status to other antibiotic agents; Z79.899 Other long term (current) drug therapy
CPT/HCPCS: 36415; 80053; 81001; 84443; 85025; 87086; 87088; 87186; 99284; A9270; 99283

== ENCOUNTER 2020-02-15 04:56 | Inpatient (IN) | payer MEDICARE, OTHER ==
--- NOTE | 2020-02-15 05:22 | EDM.PDOC ---
<Srinath Stoll - Last Filed: 02/15/20 06:41> ED HPI GENERAL MEDICAL PROBLEM - General Chief Complaint: General Stated Complaint: DEMENTIA Time Seen by Provider: 02/15/20 05:11 - History of Present Illness INITIAL COMMENTS - FREE TEXT/NARRATIVE: 84-year-old male brought into the emergency room by his with persistent or worsening dementia. This patient has been seen multiple times with the same complaint in this emergency room. I saw him the of last month. The was insistent on trying a sleeping medication to see if getting him some sleep and help. He was started on Seroquel 6.25 mg nightly after discussing all the black box warnings with the . They did follow-up with Dr. Pelaez on Thursday she started some morphine to see if this would help with some of his discomfort he had 1 dose of morphine and actually made him worse. The says she cannot take him home any longer he is too much to try and handle at home. Generalized Pain Score (Numeric/FACES): 8 - Related Data Allergies Allergy/AdvReac Type Severity Reaction Status Date / Time lidocaine Allergy Severe Burning Verified 02/15/20 05:19 Penicillins Allergy Severe Rash Verified 02/15/20 05:19 nystatin Allergy Severe Mouth Sores Uncoded 01/24/20 21:49 Home Meds: Home Meds Acetaminophen [Tylenol Arthritis] 650 mg PO Q4H PRN 12/26/19 [History] Cannabidiol (Cbd) Extract [CBD Oil] 1 dose TOP DAILY 12/26/19 [History] [place] Oil 1 dose PO DAILY PRN 12/26/19 [History] Coconut Oil 1 dose TOP BID 12/26/19 [History] Cyanocobalamin (Vitamin B-12) [Vitamin B-12] 5,000 mcg PO DAILY 12/26/19 [ History] Docusate Sodium/Sennosides [Senokot-S] 1 tab PO BID 12/26/19 [History] Echinacea 1,200 mg PO TID PRN 12/26/19 [History] Fluticasone Propionate [Flonase] 1 dose NASBOTH DAILY PRN 12/26/19 [History] Frankincense Oil 1 dose TOP DAILY PRN 12/26/19 [History] Magnesium Citrate 400 Mg 1,200 mg PO QPM 12/26/19 [History] Magnesium L-Threonate 3 cap PO QAM 12/26/19 [History] Phenylephrine HCl/[place] Butter [Preparation H Suppository] 1 dose RECTAL DAILY PRN 12/26/19 [History] Pseudoephedrine HCl [Sudafed] 30 mg PO DAILY 12/26/19 [History] Resvertrol 400 Mg 800 mg PO DAILY 12/26/19 [History] Selenium 200 mcg PO DAILY 12/26/19 [History] Ubidecarenone [Coq-10] 100 mg PO DAILY 12/26/19 [History] Vitality 500 Mg 500 mg PO BID 12/26/19 [History] Vitamin A 2500 Unit 2,500 unit PO DAILY 12/26/19 [History] Vitamin B Complex [B Complex] 1 tab PO DAILY 12/26/19 [History] Vitamin D3/Vitamin K2 (Mk4) [K2 Plus D3 Tablet] 1,000 unit PO DAILY 12/26/19 [ History] Vitamin E 400 unit PO DAILY 12/26/19 [History] Zinc Gluconate [Zinc] 50 mg PO DAILY 12/26/19 [History] witch Kinsey [Witch Kinsey] 1 dose RECTAL DAILY PRN 12/26/19 [History] Mif[place] Oil 1 applic PO ASDIRECTED PRN 12/27/19 [History] Fluconazole [Diflucan] 100 mg PO ONETIME #1 tablet 01/26/20 [Rx] Potassium Chloride [Klor-Con M10] 10 meq PO Q24H #7 tab.er.prt 02/09/20 [Rx] QUEtiapine Fumarate [Seroquel] 6.25 mg PO ASDIRECTED #10 tablet 02/09/20 [Rx] Morphine PF [Morphine PURCHASING CLERK 150 MG in 30 ML] 1.25 mg PO BID 02/15/20 [History] Past Medical History - Past Health History Medical/Surgical History: Denies Medical/Surgical History HEENT History: Reports: Cataract, Other (See Below) Other HEENT History: chronic ear pain, geographic tongue, thrush, left ear lesion with freezing x 3, mouth sores/ulcers Cardiovascular History: Reports: None Other Cardiovascular History: PT will not respond to any questions Respiratory History: Reports: None Other Respiratory History: PT will not respond to any questions Gastrointestinal History: Reports: Chronic Constipation, Hemorrhoids, Other ( See Below) Other Gastrointestinal History: elevated bilirubin, hemorrhoids, anal fissure, rectal pain, abdominal pain Genitourinary History: Reports: BPH, Prostate Disorder, Retention, Urinary, UTI , Recurrent Other Genitourinary History: Enlarged prostate, epididymitis, flank pain, prostatism, renal insufficiency, scrotal pain [employer] MEMBER History: Reports: None Musculoskeletal History: Reports: Other (See Below) Other Musculoskeletal History: ischial pain Neurological History: Reports: Other (See Below) Other Neuro History: dizziness Psychiatric History: Reports: Other (See Below) Other Psychiatric History: insomnia Endocrine/Metabolic History: Reports: Vitamin D Deficiency, Other (See Below) Other Endocrine/Metabolic History: [id number] deficiency Hematologic History: Reports: Other (See Below) Other Hematologic History: hypokalemia Immunologic History: Reports: None Other Immunologic History: PT will not respond to any questions Oncologic (Cancer) History: Reports: None 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 Dermatologic History: Reports: Other (See Below) Other Dermatologic History: left ear lesion - Infectious Disease History Infectious Disease History: Reports: None Other Infectious Disease History: sepsis - Past Surgical History Head Surgeries/Procedures: Reports: None HEENT Surgical History: Reports: Tonsillectomy Cardiovascular Surgical History: Reports: None Respiratory Surgical History: Reports: None GI Surgical History: Reports: Appendectomy, Cholecystectomy, Colonoscopy Male Surgical History: Reports: Other (See Below) Other Male Surgeries/Procedures: prostate surgery with steam peformed Endocrine Surgical History: Reports: None Neurological Surgical History: Reports: None Oncologic Surgical History: Reports: None Social & Family History - Family History Family Medical History: Noncontributory Other HEENT Family History: PT will not respond to any questions Other Cardiac Family History: PT will not respond to any questions Other Musculoskeletal Family History: PT will not respond to any questions Other Psychiatric Family History: PT will not respond to any questions Other Hematologic Family History: PT will not respond to any questions Other Dermatologic Family History: PT will not respond to any questions Other Oncologic Family History: PT will not respond to any questions - Caffeine Use Caffeine Use: Reports: None Other Caffeine Use: not responding - Living Situation & Occupation Living situation: Reports: , with Spouse Occupation: Retired ED ROS GENERAL - Review of Systems Review Of Systems: See Below Constitutional: Reports: No Symptoms HEENT: Reports: Other (Ear pain chronic) Respiratory: Reports: No Symptoms Cardiovascular: Reports: No Symptoms Endocrine: Reports: No Symptoms GI/Abdominal: Reports: Other (Rectal pain chronic) : Reports: Other (Urinary retention) Musculoskeletal: Reports: No Symptoms Skin: Reports: No Symptoms Neurological: Reports: Other (Show) Psychiatric: Reports: Mood Lability Hematologic/Lymphatic: Reports: No Symptoms Immunologic: Reports: No Symptoms ED EXAM, GENERAL - Physical Exam Exam: See Below Exam Limited By: Other (Irrational sometimes threatening behavior) General Appearance: Alert, No Apparent Distress Eye Exam: Bilateral Eye: Normal Inspection Ears: Normal External Exam, Normal Canal, Hearing Grossly Normal, Normal TMs, Other (Excessive cerumen in the canals but what is visualized is normal) Nose: Normal Inspection, Normal Mucosa, No Blood Throat/Mouth: Normal Inspection, Normal Lips, Normal Gums, Normal Oropharynx, Normal Voice, No Airway Compromise, Other (Dentures are not in place) Head: Atraumatic, Normocephalic Neck: Normal Inspection, Supple, Non-Tender, Full Range of Motion. No: Lymphadenopathy (L), Lymphadenopathy (R) Respiratory/Chest: No Respiratory Distress, Lungs Clear, Normal Breath Sounds Cardiovascular: Regular Rate, Rhythm, No Edema, No Murmur GI/Abdominal: Normal Bowel Sounds, Soft, Non-Tender Extremities: Normal Inspection, No Pedal Edema Course - Vital Signs Last Recorded V/S: Last Vital Signs Temp 36.5 C 02/15/20 10:59 Pulse 63 02/15/20 10:59 Resp 18 02/15/20 10:59 BP 116/70 02/15/20 10:59 Pulse Ox 94 L 02/15/20 10:59 - Orders/Labs/Meds Orders: Active Orders 24 hr Category Date Time Status Consult to Case Management/Supervisor [place] [CONS] Cons 02/15/20 06:13 Active Routine CULTURE URINE [RM] Stat Lab 02/15/20 07:50 Received Medication Orders Acetaminophen (Tylenol) 650 mg PO Q4H PRN PRN Reason: Pain (Mild 1-3)/fever Gabapentin (Neurontin) 100 mg PO BEDTIME RAFAT Lorazepam (Ativan) 1 mg IV Q4H PRN PRN Reason: Anxiety Oxycodone HCl (Oxycodone) 5 mg PO Q4H PRN PRN Reason: Pain (moderate 4-6) Quetiapine Fumarate (Seroquel) 12.5 mg PO BEDTIME RAFAT Sodium Chloride (Saline Flush) 10 ml FLUSH ASDIRECTED PRN PRN Reason: Keep Vein Open Trimethoprim/Sulfamethoxazole (Septra Ds) 1 tab PO DAILY RAFAT Labs: Laboratory Tests 02/15/20 02/15/20 02/15/20 Range/Units 06:17 06:17 07:50 WBC 5.25 (4.23-9.07) K/mm3 RBC 3.71 L (4.63-6.08) M/mm3 Hgb 10.9 L (13.7-17.5) gm/dl Hct 32.3 L (40.1-51.0) % MCV 87.1 (79.0-92.2) fl MCH 29.4 (25.7-32.2) pg MCHC 33.7 (32.2-35.5) g/dl RDW Std Deviation 44.4 H (35.1-43.9) fL Plt Count 221 (163-337) K/mm3 MPV 10.7 (9.4-12.3) fl Neut % (Auto) 64.1 (34.0-67.9) % Lymph % (Auto) 22.5 (21.8-53.1) % [place] % (Auto) 9.3 (5.3-12.2) % Eos % (Auto) 2.7 (0.8-7.0) Baso % (Auto) 0.6 (0.1-1.2) % Neut # (Auto) 3.37 (1.78-5.38) K/mm3 Lymph # (Auto) 1.18 L (1.32-3.57) K/mm3 [place] # (Auto) 0.49 (0.30-0.82) K/mm3 Eos # (Auto) 0.14 (0.04-0.54) K/mm3 Baso # (Auto) 0.03 (0.01-0.08) K/mm3 Sodium 143 (136-145) mEq/L Potassium 3.8 (3.5-5.1) mEq/L Chloride 105 (98-107) mEq/L Carbon Dioxide 29 (21-32) mEq/L Anion Gap 12.8 (5-15) BUN 20 H (7-18) mg/dL Creatinine 0.9 (0.7-1.3) mg/dL Est Cr Clr Drug Dosing 45.36 mL/min Estimated GFR (MDRD) > 60 (>60) mL/min BUN/Creatinine Ratio 22.2 H (14-18) Glucose 92 (83-115) mg/dL Calcium 8.4 L (8.5-10.1) mg/dL Total Bilirubin 0.9 (0.2-1.0) mg/dL AST 21 (15-37) U/L ALT 31 (16-63) U/L Alkaline Phosphatase 38 L (46-116) U/L Total Protein 5.8 L (6.4-8.2) g/dl Albumin 3.5 (3.4-5.0) g/dl Globulin 2.3 gm/dL Albumin/Globulin Ratio 1.5 (1-2) Urine Color Yellow (Yellow) Urine Appearance Slt cloudy H (Clear) Urine pH 7.0 (5.0-8.0) Ur Specific [place] 1.020 (1.005-1.030) Urine Protein Negative (Negative) Urine Glucose (UA) Negative (Negative) Urine Ketones 1+ H (Negative) Urine Occult Blood Negative (Negative) Urine Nitrite Negative (Negative) Urine Bilirubin Negative (Negative) Urine Urobilinogen 0.2 (0.2-1.0) Ur Leukocyte Esterase 3+ H (Negative) Urine RBC 0-5 (0-5) /hpf Urine WBC 40-50 H (0-5) /hpf Ur Epithelial Cells 0-5 (0-5) /hpf Urine Bacteria Many H (FEW) /hpf Urine Mucus Few (FEW) /hpf Meds: Medications Generic Name Dose Route Start Last Admin Trade Name Freq PRN Reason Stop Dose Admin Acetaminophen 650 mg 02/15/20 11:17 Tylenol PO Q4H PRN Pain (Mild 1-3)/fever Gabapentin 100 mg 02/15/20 21:00 Neurontin PO BEDTIME RAFAT Lorazepam 1 mg 02/15/20 11:22 Ativan IV Q4H PRN Anxiety Oxycodone HCl 5 mg 02/15/20 11:17 Oxycodone PO Q4H PRN Pain (moderate 4-6) Quetiapine Fumarate 12.5 mg 02/15/20 21:00 Seroquel PO BEDTIME RAFAT Sodium Chloride 10 ml 02/15/20 11:17 Saline Flush FLUSH ASDIRECTED PRN Keep Vein Open Trimethoprim/Sulfamethoxazole 1 tab 02/15/20 11:30 Septra Ds PO DAILY RAFAT Discontinued Medications Generic Name Dose Route Start Last Admin Trade Name Yvette PRN Reason Stop Dose Admin Lorazepam 1 mg 02/15/20 05:44 02/15/20 05:49 Ativan IM 02/15/20 05:45 1 mg ONETIME ONE Administration Lorazepam 1 mg 02/15/20 11:17 Ativan IV ONETIME PRN Anxiety - Re-Assessments/Exams Free Text/Narrative Re-Assessment/Exam: 02/15/20 05:57 He is pretty worked up at this point we will give him a milligram of IM Ativan to see if this helps his overall situation 02/15/20 06:41 Awaiting labs at this point. The milligram of Ativan really helped calm him down he is much more pleasant and he says his pain is much better. I discussed the situation with Dr. Almaguer, our hospitalist, he would like social work to get involved prior to working on the 3-day stay. Departure - Departure Disposition: Refer to Observation Clinical Impression: Chronic idiopathic pain syndrome Chronic dementia Qualifiers: Dementia behavioral disturbance: with behavioral disturbance Qualified Code(s) : F03.91 - Unspecified dementia with behavioral disturbance - Discharge Information Sepsis Event Note - Focused Exam Vital Signs: Vital Signs Temp Pulse Resp BP Pulse Ox 02/15/20 10:59 36.5 C 63 18 116/70 94 L 02/15/20 05:15 36.1 C 54 L 16 155/81 H 99 Date Exam was Performed: 02/15/20 Time Exam was Performed: 06:41 <Antonio Rivera - Last Filed: 02/15/20 11:49> Course - Re-Assessments/Exams Free Text/Narrative Re-Assessment/Exam: 02/15/20 09:10 child protective services social worker has seen him in consultation. There will be discussion with hospitalist in regards to disposition. 02/15/20 10:38 he the patient has been accepted by Dr. Goel. Dr. Helen Pelaez his primary care physician agrees with admission. The indicates that she is no longer able to care for him. He seems to be suffering from a chronic pain syndrome which is undefined. Morphine given only 1 time liquid morphine morphine I believe 5 mg/tsp. and he received 1.5 teaspoons or 7.5 mg orally on Thursday which seemed to make him worse. This is debatable. It did not seem to have any effect from what I can gather. Case management is looking at the case now. 02/15/20 11:48 care has now been formally accepted by Dr. Goel. Departure - Departure Time of Disposition: 11:49 Condition: Fair Sepsis Event Note - Focused Exam Date Exam was Performed: 02/15/20 Time Exam was Performed: 11:46
[2020-02-15] MEDS ORDERED: LORazepam 2 MG/ML SDV IM ONE (05:44)
[2020-02-15] MEDS ORDERED: LORazepam 2 MG/ML SDV IV PRN ×2 (11:17→11:22)
[2020-02-15] MEDS ORDERED: Acetaminophen 325 MG Tab PO PRN (11:17)
[2020-02-15] MEDS ORDERED: oxyCODONE 5 MG Tab PO PRN (11:17)
[2020-02-15] MEDS ORDERED: Sodium Chloride 0.9% 10 ML Syringe FLUSH PRN (11:17)
--- NOTE | 2020-02-15 11:34 | PCM.HP.2 ---
H&P History of Present Illness - General Date of Service: 02/15/20 Admit Problem/Dx: Admission Diagnosis/Problem Admission Diagnosis/Problem Failure to thrive Source of Information: Patient, Old Records, Provider, RN, RN Notes Reviewed, Significant Other History Limitations: Reports: Altered Mental Status (Baseline dementia ) - History of Present Illness Initial Comments - Free Text/Narative: Poncho Mauricio is an 84-year-old male who presents to ED on 02/15/2020 accompanied by his for worsening dementia. The patient has been to our facility multiple times for multiple pain and dementia related symptoms. Throughout all this the family maintains that they want him to return home with them. His last visit on 02/09/2020 he was started on 6.25 mg nightly of Seroquel after the patient's was insistent on it. does admit that she has been doubling the dose for the last few days. She does feel the Seroquel has improved his symptoms. On 02/13/2020 patient did have an appointment with his primary care provider, Dr. Pelaez. She reports the patient has had multiple pain issues for quite some time. He did have a skin biopsy performed on his left ear and also reportedly had some hemorrhoids that were treated. Since this time patient has been reporting constant pain. She reports she has tried multiple medications including tramadol, which led to urinary issues and now morphine which has made matters worse as well. She did report to the that his dementia may be making his pain recognition worse, he seems to be fixating on this. He does have an appointment scheduled with Dr. Zambrano, psychiatry, this coming Thursday - 02/21/2020. reports patient has seen Dr. Rankin, general surgeon, for this rectal pain in the past. She reports that he suggested a GI follow-up, however the patient's states she has been unable to get him there. reports within the past couple of weeks they have moved from [place] to their son's house in [place]. She reports the patient has not been sleeping. She denies any violent outbursts, however she does report that at times the patient has "flailed around" but this does not appear to be in malice or anger. ED provider notes patient was quite agitated in ED and was irrational. No physical violence. As noted earlier multiple times it has been brought up to the patient may benefit from placement. Per social work patient's is willing to explore this option if we cannot obtain pain control. When asked by provider if she would entertain the idea of placement she reports she will only consider this if the patient becomes violent. was made aware of visiting restrictions implemented in her hospital at this time. He carries a history of cataracts, chronic left ear pain, geographic tongue, chronic constipation, hemorrhoids, anal fissure, rectal pain, BPH, urinary retention, recurrent UTIs, epididymitis, insomnia, vitamin D deficiency, folate deficiency, B12 deficiency, zinc deficiency, hypokalemia. PCP is Dr. Pelaez Generalized Pain Score (Numeric/FACES): 8 - Related Data Allergies/Adverse Reactions: Allergies Allergy/AdvReac Type Severity Reaction Status Date / Time lidocaine Allergy Severe Burning Verified 02/15/20 05:19 Penicillins Allergy Severe Rash Verified 02/15/20 05:19 nystatin Allergy Severe Mouth Sores Uncoded 01/24/20 21:49 Home Medications: Home Meds Acetaminophen [Tylenol Arthritis] 650 mg PO Q4H PRN 12/26/19 [History] Cannabidiol (Cbd) Extract [CBD Oil] 1 dose TOP DAILY 12/26/19 [History] [place] Oil 1 dose PO DAILY PRN 12/26/19 [History] Coconut Oil 1 dose TOP BID 12/26/19 [History] Cyanocobalamin (Vitamin B-12) [Vitamin B-12] 5,000 mcg PO DAILY 12/26/19 [ History] Docusate Sodium/Sennosides [Senokot-S] 1 tab PO BID 12/26/19 [History] Echinacea 1,200 mg PO TID PRN 12/26/19 [History] Fluticasone Propionate [Flonase] 1 dose NASBOTH DAILY PRN 12/26/19 [History] Frankincense Oil 1 dose TOP DAILY PRN 12/26/19 [History] Magnesium Citrate 400 Mg 1,200 mg PO QPM 12/26/19 [History] Magnesium L-Threonate 3 cap PO QAM 12/26/19 [History] Phenylephrine HCl/[place] Butter [Preparation H Suppository] 1 dose RECTAL DAILY PRN 12/26/19 [History] Pseudoephedrine HCl [Sudafed] 30 mg PO DAILY 12/26/19 [History] Resvertrol 400 Mg 800 mg PO DAILY 12/26/19 [History] Selenium 200 mcg PO DAILY 12/26/19 [History] Ubidecarenone [Coq-10] 100 mg PO DAILY 12/26/19 [History] Vitality 500 Mg 500 mg PO BID 12/26/19 [History] Vitamin A 2500 Unit 2,500 unit PO DAILY 12/26/19 [History] Vitamin B Complex [B Complex] 1 tab PO DAILY 12/26/19 [History] Vitamin D3/Vitamin K2 (Mk4) [K2 Plus D3 Tablet] 1,000 unit PO DAILY 12/26/19 [ History] Vitamin E 400 unit PO DAILY 12/26/19 [History] Zinc Gluconate [Zinc] 50 mg PO DAILY 12/26/19 [History] witch Kinsey [Witch Kinsey] 1 dose RECTAL DAILY PRN 12/26/19 [History] [place] Oil 1 applic PO ASDIRECTED PRN 12/27/19 [History] Fluconazole [Diflucan] 100 mg PO ONETIME #1 tablet 01/26/20 [Rx] Potassium Chloride [Klor-Con M10] 10 meq PO Q24H #7 tab.er.prt 02/09/20 [Rx] QUEtiapine Fumarate [Seroquel] 6.25 mg PO ASDIRECTED #10 tablet 02/09/20 [Rx] Morphine PF [Morphine BALLOON SELLER 150 MG in 30 ML] 1.25 mg PO BID 02/15/20 [History] Past Medical History - Past Health History Medical/Surgical History: Denies Medical/Surgical History HEENT History: Reports: Cataract, Other (See Below) Other HEENT History: chronic ear pain, geographic tongue, thrush, left ear lesion with freezing x 3, mouth sores/ulcers Cardiovascular History: Reports: None Other Cardiovascular History: PT will not respond to any questions Respiratory History: Reports: None Other Respiratory History: PT will not respond to any questions Gastrointestinal History: Reports: Chronic Constipation, Hemorrhoids, Other ( See Below) Other Gastrointestinal History: elevated bilirubin, hemorrhoids, anal fissure, rectal pain, abdominal pain Genitourinary History: Reports: BPH, Prostate Disorder, Retention, Urinary, UTI , Recurrent Other Genitourinary History: Enlarged prostate, epididymitis, flank pain, prostatism, renal insufficiency, scrotal pain JACK PRIZER History: Reports: None Musculoskeletal History: Reports: Other (See Below) Other Musculoskeletal History: ischial pain Neurological History: Reports: Other (See Below) Other Neuro History: dizziness Psychiatric History: Reports: Other (See Below) Other Psychiatric History: insomnia Endocrine/Metabolic History: Reports: Vitamin D Deficiency, Other (See Below) Other Endocrine/Metabolic History: [id number] deficiency Hematologic History: Reports: Other (See Below) Other Hematologic History: hypokalemia Immunologic History: Reports: None Other Immunologic History: PT will not respond to any questions Oncologic (Cancer) History: Reports: None 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 Dermatologic History: Reports: Other (See Below) Other Dermatologic History: left ear lesion - Infectious Disease History Infectious Disease History: Reports: None Other Infectious Disease History: sepsis - Past Surgical History Head Surgeries/Procedures: Reports: None HEENT Surgical History: Reports: Tonsillectomy Cardiovascular Surgical History: Reports: None Respiratory Surgical History: Reports: None GI Surgical History: Reports: Appendectomy, Cholecystectomy, Colonoscopy Male Surgical History: Reports: Other (See Below) Other Male Surgeries/Procedures: prostate surgery with steam peformed Endocrine Surgical History: Reports: None Neurological Surgical History: Reports: None Oncologic Surgical History: Reports: None Social & Family History - Family History Family Medical History: Noncontributory Other HEENT Family History: PT will not respond to any questions Other Cardiac Family History: PT will not respond to any questions Other Musculoskeletal Family History: PT will not respond to any questions Other Psychiatric Family History: PT will not respond to any questions Other Hematologic Family History: PT will not respond to any questions Other Dermatologic Family History: PT will not respond to any questions Other Oncologic Family History: PT will not respond to any questions - Tobacco Use Smoking Status *Q: Current Status Unknown - Caffeine Use Caffeine Use: Reports: None Other Caffeine Use: not responding - Living Situation & Occupation Living situation: Reports: , with Spouse Occupation: Retired H&P Review of Systems - Review of Systems: Review Of Systems: See Below General: Reports: No Symptoms, Malaise, Weakness, Fatigue (minimal sleep recently ). Denies: Fever, Chills HEENT: Reports: No Symptoms, Ear Pain (left auricle ) Pulmonary: Reports: No Symptoms. Denies: Shortness of Breath, Wheezing, Pleuritic Chest Pain, Cough, Sputum Cardiovascular: Reports: No Symptoms. Denies: Chest Pain, Dyspnea on Exertion Gastrointestinal: Reports: No Symptoms, Other (reports chronic rectal pain ). Denies: Abdominal Pain, Constipation, Diarrhea, Hematemesis, Hematochezia, Nausea, Vomiting Genitourinary: Reports: Retention (history of ). Denies: Pain Musculoskeletal: Reports: No Symptoms Skin: Reports: No Symptoms. Denies: Cyanosis Psychiatric: Reports: Confusion (baeline ), Mood Lability. Denies: Anxiety, Agitation, Hallucinations (Auditory), Hallucinations (Visual) Neurological: Reports: No Symptoms. Denies: Numbness, Tingling, Difficulty Walking, Weakness, Gait Disturbance Hematologic/Lymphatic: Reports: No Symptoms. Denies: Anemia Immunologic: Reports: No Symptoms Exam - Exam Exam: See Below - Vital Signs Vital Signs: Last Vital Signs Temp 97.7 F 02/15/20 10:59 Pulse 63 02/15/20 10:59 Resp 18 02/15/20 10:59 BP 116/70 02/15/20 10:59 Pulse Ox 94 L 02/15/20 10:59 Weight: 120 lb - Exam Quality Assessment: DVT Prophylaxis General: Alert, Oriented (mostly ), Cooperative (currently ). No: Mild Distress HEENT: Conjunctiva Clear, EACs Clear, Hearing Intact, Mucosa Moist & [place], Normal Nasal Septum, Posterior Pharynx Clear Neck: Supple, Trachea Midline Lungs: Clear to Auscultation, Normal Respiratory Effort Cardiovascular: Regular Rate, Regular Rhythm GI/Abdominal Exam: Normal Bowel Sounds, Soft, Non-Tender, No Distention (Male) Exam: Deferred Rectal (Males) Exam: Deferred Back Exam: Normal Inspection, Full Range of Motion. No: CVA Tenderness (L), CVA Tenderness (R) Extremities: Normal Inspection, Normal Range of Motion, Non-Tender, No Pedal Edema, Normal Capillary Refill Peripheral Pulses: 3+: Radial (L), Radial (R), Dorsalis Pedis (L), Dorsalis Pedis (R) Skin: Warm, Dry, Intact Neurological: Cranial Nerves Intact (Grossly ) Psychiatric: Alert, Other (Somewhat sedated from ativan given earlier ) - Patient Data Lab Results Last 24 hrs: Laboratory Results - last 24 hr 02/15/20 02/15/20 02/15/20 Range/Units 06:17 06:17 07:50 WBC 5.25 (4.23-9.07) K/mm3 RBC 3.71 L (4.63-6.08) M/mm3 Hgb 10.9 L (13.7-17.5) gm/dl Hct 32.3 L (40.1-51.0) % MCV 87.1 (79.0-92.2) fl MCH 29.4 (25.7-32.2) pg MCHC 33.7 (32.2-35.5) g/dl RDW Std Deviation 44.4 H (35.1-43.9) fL Plt Count 221 (163-337) K/mm3 MPV 10.7 (9.4-12.3) fl Neut % (Auto) 64.1 (34.0-67.9) % Lymph % (Auto) 22.5 (21.8-53.1) % [place] % (Auto) 9.3 (5.3-12.2) % Eos % (Auto) 2.7 (0.8-7.0) Baso % (Auto) 0.6 (0.1-1.2) % Neut # (Auto) 3.37 (1.78-5.38) K/mm3 Lymph # (Auto) 1.18 L (1.32-3.57) K/mm3 [place] # (Auto) 0.49 (0.30-0.82) K/mm3 Eos # (Auto) 0.14 (0.04-0.54) K/mm3 Baso # (Auto) 0.03 (0.01-0.08) K/mm3 Sodium 143 (136-145) mEq/L Potassium 3.8 (3.5-5.1) mEq/L Chloride 105 (98-107) mEq/L Carbon Dioxide 29 (21-32) mEq/L Anion Gap 12.8 (5-15) BUN 20 H (7-18) mg/dL Creatinine 0.9 (0.7-1.3) mg/dL Est Cr Clr Drug Dosing 45.36 mL/min Estimated GFR (MDRD) > 60 (>60) mL/min BUN/Creatinine Ratio 22.2 H (14-18) Glucose 92 (83-115) mg/dL Calcium 8.4 L (8.5-10.1) mg/dL Total Bilirubin 0.9 (0.2-1.0) mg/dL AST 21 (15-37) U/L ALT 31 (16-63) U/L Alkaline Phosphatase 38 L (46-116) U/L Total Protein 5.8 L (6.4-8.2) g/dl Albumin 3.5 (3.4-5.0) g/dl Globulin 2.3 gm/dL Albumin/Globulin Ratio 1.5 (1-2) Urine Color Yellow (Yellow) Urine Appearance Slt cloudy H (Clear) Urine pH 7.0 (5.0-8.0) Ur Specific [place] 1.020 (1.005-1.030) Urine Protein Negative (Negative) Urine Glucose (UA) Negative (Negative) Urine Ketones 1+ H (Negative) Urine Occult Blood Negative (Negative) Urine Nitrite Negative (Negative) Urine Bilirubin Negative (Negative) Urine Urobilinogen 0.2 (0.2-1.0) Ur Leukocyte Esterase 3+ H (Negative) Urine RBC 0-5 (0-5) /hpf Urine WBC 40-50 H (0-5) /hpf Ur Epithelial Cells 0-5 (0-5) /hpf Urine Bacteria Many H (FEW) /hpf Urine Mucus Few (FEW) /hpf Result Diagrams: 02/15/20 06:17 02/15/20 06:17 Sepsis Event Note - Evaluation Sepsis Screening Result: No Definite Risk - Focused Exam Vital Signs: Vital Signs Temp Pulse Resp BP Pulse Ox 02/15/20 10:59 97.7 F 63 18 116/70 94 L 02/15/20 05:15 97.0 F 54 L 16 155/81 H 99 Date Exam was Performed: 02/15/20 Time Exam was Performed: 12:22 - Problem List (1) Failure to thrive SNOMED Code(s): 35373942 ICD Code: [id number] - Status: Acute Priority: High Current Visit: Yes Qualifiers: Failure to thrive age range: in adult Qualified Code(s): R62.7 - Adult failure to thrive (2) Pain SNOMED Code(s): 08875995 ICD Code: R52 - PAIN, UNSPECIFIED Status: Chronic Priority: High Current Visit: Yes (3) History of cataract SNOMED Code(s): 334173777 ICD Code: Z86.69 - PERSONAL HISTORY OF DIS OF THE NERVOUS SYS AND SENSE ORGANS Status: Chronic Priority: Low Current Visit: No (4) Chronic constipation SNOMED Code(s): 170868366 ICD Code: K59.09 - OTHER CONSTIPATION Status: Chronic Priority: Medium Current Visit: No (5) Hemorrhoids SNOMED Code(s): 00144259 ICD Code: K64.9 - UNSPECIFIED HEMORRHOIDS Status: Chronic Priority: Medium Current Visit: No Qualifiers: Hemorrhoid type: unspecified Qualified Code(s): K64.9 - Unspecified hemorrhoids (6) History of anal fissures SNOMED Code(s): 821809884 ICD Code: Z87.19 - PERSONAL HISTORY OF OTHER DISEASES OF THE DIGESTIVE SYSTEM Status: Chronic Priority: Low Current Visit: No (7) Recurrent UTI SNOMED Code(s): 752042000 ICD Code: N39.0 - URINARY TRACT INFECTION, SITE NOT SPECIFIED Status: Acute Priority: High Current Visit: Yes (8) History of hypokalemia SNOMED Code(s): 025407888 ICD Code: Z86.39 - PERSONAL HISTORY OF ENDO, NUTRITIONAL AND METABOLIC DISEASE Status: Chronic Priority: Low Current Visit: No (9) Hospital admission due to social situation SNOMED Code(s): 622095125 ICD Code: Z60.9 - PROBLEM RELATED TO SOCIAL ENVIRONMENT, UNSPECIFIED Status : Acute Priority: High Current Visit: Yes (10) Chronic ear pain SNOMED Code(s): 85735612 ICD Code: H92.09 - OTALGIA, UNSPECIFIED EAR; G89.29 - OTHER CHRONIC PAIN Status: Chronic Priority: Medium Current Visit: Yes Qualifiers: Laterality: left Qualified Code(s): H92.02 - Otalgia, left ear; G89.29 - Other chronic pain (11) Dementia SNOMED Code(s): 69409531 ICD Code: F03.90 - UNSPECIFIED DEMENTIA WITHOUT BEHAVIORAL DISTURBANCE Status: Chronic Priority: Medium Current Visit: Yes Qualifiers: Dementia type: unspecified type Dementia behavioral disturbance: without behavioral disturbance Qualified Code(s): F03.90 - Unspecified dementia without behavioral disturbance (12) Folic acid deficiency (non anemic) SNOMED Code(s): 03005431 ICD Code: E53.8 - DEFICIENCY OF OTHER SPECIFIED B GROUP VITAMINS Status: Chronic Priority: Low Current Visit: No (13) Hyponatremia SNOMED Code(s): 14375938 ICD Code: E87.1 - HYPO-OSMOLALITY AND HYPONATREMIA Status: Chronic Priority: Low Current Visit: No (14) Insomnia SNOMED Code(s): 473236544 ICD Code: G47.00 - INSOMNIA, UNSPECIFIED Status: Chronic Priority: Medium Current Visit: No Qualifiers: Insomnia type: unspecified Qualified Code(s): G47.00 - Insomnia, unspecified (15) Prostate hypertrophy SNOMED Code(s): 442997354 ICD Code: N40.0 - BENIGN PROSTATIC HYPERPLASIA WITHOUT LOWER URINRY TRACT SYMP Status: Chronic Priority: Low Current Visit: No (16) Rectal pain, chronic SNOMED Code(s): 98611868 ICD Code: K62.89 - OTHER SPECIFIED DISEASES OF ANUS AND RECTUM; G89.29 - OTHER CHRONIC PAIN Status: Chronic Priority: Medium Current Visit: Yes (17) Urinary retention SNOMED Code(s): 197524444 ICD Code: R33.9 - RETENTION OF URINE, UNSPECIFIED Status: Chronic Priority: Low Current Visit: No (18) Urinary tract infection SNOMED Code(s): 38660771 ICD Code: N39.0 - URINARY TRACT INFECTION, SITE NOT SPECIFIED Status: Acute Priority: High Current Visit: Yes Qualifiers: Urinary tract infection type: acute cystitis (19) Chronic pain syndrome SNOMED Code(s): 311397730 ICD Code: G89.4 - CHRONIC PAIN SYNDROME Status: Acute Priority: High Current Visit: Yes Problem List Initiated/Reviewed/Updated: Yes Orders Last 24hrs: Active Orders 24 hr Category Date Time Status Patient Status [ADT] Routine ADT 02/15/20 11:17 Active Height and Weight [RC] DAILY Care 02/15/20 11:17 Active Intake and Output [RC] QSHIFT Care 02/15/20 11:18 Active Notify Provider Consults [RC] ASDIRECTED Care 02/15/20 11:19 Active Oxygen Therapy [RC] PRN Care 02/15/20 11:17 Active Pulse Oximetry [RC] PRN Care 02/15/20 11:18 Active Up With Assistance [RC] ASDIRECTED Care 02/15/20 11:17 Active VTE/DVT Education [RC] PER UNIT ROUTINE Care 02/15/20 11:17 Active Vital Signs [RC] Q4H Care 02/15/20 11:17 Active Consult to Case Management/Scheme Technician [CONS] Cons 02/15/20 06:13 Active Routine Consult to Physician [CONS] Routine Cons 02/15/20 11:17 Active Consult to Spiritual Care [CONS] Routine Cons 02/15/20 11:17 Active OT Evaluation and Treatment [CONS] Routine Cons 02/15/20 11:17 Active PT Evaluation and Treatment [CONS] Routine Cons 02/15/20 11:17 Active EXPERIMENTAL MACHINING LAB MANAGER Evaluation and Treatment [CONS] Routine Cons 02/15/20 11:17 Active COMPREHENSIVE METABOLIC PN,CMP [CHEM] AM Lab 02/16/20 05:11 Ordered COMPREHENSIVE METABOLIC PN,CMP [CHEM] AM Lab 02/17/20 05:11 Ordered COMPREHENSIVE METABOLIC PN,CMP [CHEM] AM Lab 02/18/20 05:11 Ordered COMPREHENSIVE METABOLIC PN,CMP [CHEM] AM Lab 02/19/20 05:11 Ordered CULTURE URINE [RM] Stat Lab 02/15/20 07:50 Received MAGNESIUM [CHEM] AM Lab 02/16/20 05:11 Ordered MAGNESIUM [CHEM] AM Lab 02/17/20 05:11 Ordered MAGNESIUM [CHEM] AM Lab 02/18/20 05:11 Ordered MAGNESIUM [CHEM] AM Lab 02/19/20 05:11 Ordered Acetaminophen [Tylenol] Med 02/15/20 11:17 Active 650 mg PO Q4H PRN Gabapentin [Neurontin] Med 02/15/20 21:00 Active 100 mg PO BEDTIME LORazepam [Ativan] Med 02/15/20 11:22 Active 1 mg IV Q4H PRN QUEtiapine [SEROqueL] Med 02/15/20 21:00 Active 12.5 mg PO BEDTIME Sodium Chloride 0.9% [Saline Flush] Med 02/15/20 11:17 Active 10 ml FLUSH ASDIRECTED PRN Sulfamethoxazole/Trimethoprim [Septra DS] Med 02/15/20 11:30 Active 1 tab PO DAILY oxyCODONE Med 02/15/20 11:17 Active 5 mg PO Q4H PRN Saline Lock Insert [OM.PC] Routine Oth 02/15/20 11:17 Ordered Medication Orders Acetaminophen (Tylenol) 650 mg PO Q4H PRN PRN Reason: Pain (Mild 1-3)/fever Gabapentin (Neurontin) 100 mg PO BEDTIME RAFAT Lorazepam (Ativan) 1 mg IV Q4H PRN PRN Reason: Anxiety Oxycodone HCl (Oxycodone) 5 mg PO Q4H PRN PRN Reason: Pain (moderate 4-6) Quetiapine Fumarate (Seroquel) 12.5 mg PO BEDTIME RAFAT Sodium Chloride (Saline Flush) 10 ml FLUSH ASDIRECTED PRN PRN Reason: Keep Vein Open Trimethoprim/Sulfamethoxazole (Septra Ds) 1 tab PO DAILY RAFAT Assessment/Plan Comment:: Assessment: Day of admission - Multiple recent ED visits for dementia symptoms and pain - Patient reports chronic rectal pain s/p hemorrhoidectomy and chronic left ear pain resulting since left ear auricle biopsy. - Lives with - recently moved from [place] to son's house in [place] - reports no agitation or anger at home - Has had liable mood in ED - PCP has been working on pain management - Has Dr. Zambrano, psychiatry outpatient appt on 01/21/20 - Given 1mg ativan IM in ED resulting in patient sleeping - Reports significant insomnia for many days - Started on Seroquel at last ED visit - admits she has been doubling dose lately with what she feels are positive effects. - Urine has 3+ kinga esterase, 30-40 WBC and many bacteria - Family refusing SNF or other placement options Plan: Failure to thrive Hospital admission due to social situation Chronic Pain Syndrome Pain Chronic ear pain Dementia Insomnia Folic acid deficiency (non anemic) Patient lives with at son's house in [place] - recently moved from [place] PCP diagnosed with dementia Chronic ear pain 2/2 skin biopsy and chronic rectal pain s/p hemorrhoidectomy Family refusing placement PCP has prescribed patient multiple pain medications all with negative effects PCP requests gabapentin be started for pain control ED provider stared patient on 6.25mg Seroquel daily - admits she has been doubling seroquel dose and feels like it helps Vitamin B12 2232 on 01/04/2020. Vitamin D 37.9 on 01/04/2020 Free T4 1.15 on 01/04/2020 TSH 5.28 on 02/09/2020 Folate 19.7 on 01/23/2020 PLAN: - CM/SW consult - PT/OT - Continue seroquel at 12.5 mg daily - Start nightly gabapentin 100mg - Start oxycodone PRN - Tylenol PRN - Continue home supplementation - Consult Dr. Zambrano for psychiatry - Ativan as needed for anxiety - EXPERIMENTAL MACHINING LAB MANAGER cognitive eval for baseline assessment Urinary tract infection Recurrent UTI Urinary retention Prostate hypertrophy History of recurrent UTIs with mos recent being klebsiella History of urinary retention with prior forde UA in ED shows cloudy urine, 1+ ketones, 3+ leuk esterase, 40-50 WBC, Moderate bacteria Urine culture ordered in ED No WBC PLAN - Start Bactrim DS - Pending urine C/S - Sepsis screen: Positive UA, No fever, No WBC, No tachycardia, No tachypnea -Does not meed criteria - Monitor for fevers Chronic constipation Hemorrhoids History of anal fissures Rectal pain, chronic Reports chronic rectal pain since hemorrhoidectomy Has seen Dr. Rankin who referred onto GI reports patient has not seen GI due to difficulty in timing PSA 1.3 on 01/04/2020 PLAN - Pain management as above - Follow-up with GI/Dr. Rankin History of hypokalemia History of hyponatremia Sodium 143 in ED Potassium 3.8 in ED PLAN - Monitor labs History of cataract No concerns currently DVT prophylaxis: Lovenox GI prophylaxis: Not indicated PCP: Dr. Pelaez Social: Patient lives with . Both recently moved from [facility] in with their son. Family is refusing placement at this time. Disposition: Patient will be admitted inpatient for failure to thrive, pain control, and UTI. Prognosis: Overall prognosis is poor due to age and rapidly worsening dementia symptoms. - Mortality Measure Prognosis:: Poor
[2020-02-15] MEDS ORDERED: Witch Hazel Medicated Pads 40/Jar TOP PRN (12:53)
[2020-02-15] MEDS: Enoxaparin 40 MG/0.4 ML Syringe SUBCUT SCH (15:21)
[2020-02-15] MEDS: Sulfamethoxazole/Trimethoprim 800-160 MG Tab PO SCH (15:21)
[2020-02-15] MEDS: Gabapentin 100 MG Cap PO SCH ×2 (21:22→21:36)
[2020-02-15] MEDS: QUEtiapine 25 MG Tab PO SCH ×2 (21:22→21:36)
--- NOTE | 2020-02-16 07:37 | PCM.PN ---
- General Info Date of Service: 02/16/20 Admission Dx/Problem (Free Text): Admission Diagnosis/Problem Admission Diagnosis/Problem Failure to thrive Subjective Update: In to see [place]. He is lying in bed. Nursing reports he refused most of his medications last night, including the newly started gabapentin. He was reportedly quite upset. He removed his hospital gown and put his street clothes back on. He refused to use the call light and pulled out his IV. He also refused lab draws this am initially but did ultimately agreed later on. He has had a liable mood. Diet was changed to regular due to the patients very specific very specific requests and reported restrictions. He remains confused. We did discuss why he needs to take his medications and especially why we are going him gabapentin. He reports mouth pain and does appear to have some oral thrush so we will start fluconazole. Urine is growing gram negative bacteria. In reviewing prior labs it appears the patients urine grew out klebsiella but it was never treated. Bactrim was started based on this prior sensitivity yesterday pending c/s of this urine. JOANA reports patients is concerned about the patient having flailing episodes and his knees giving out. She is concerned he is having "mini-strokes." Old records show both a brain MRI and head CT scan performed less than 1 month ago with nothing acute and no signs of prior CVAs. Discussed with Dr. Almaguer and we both agree this is likely not the cause of these symptoms and further imaging is not warranted, given his recent scans. Labs reviewed and patient appears to have had a very thorough work-up by PCP recently for things that could cause neurological symptoms. Dr. Zambrano will consult with the patient this evening. He continues to be forgetful and confused. 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 He was educated that all tests show he in-fact does not have any cancer in his ear and he reports "you never can trust those things." His has been updated by JOANA on our concerns. Plan is for a meeting later today to plan disposition. Likely discharge tomorrow or Thursday if agreement is made for placement. Functional Status: Reports: Pain Controlled, Ambulating, Urinating. Denies: Tolerating Diet (very picky - reporting food is very different than what he usually eats. ), New Symptoms - Review of Systems General: Reports: No Symptoms. Denies: Fever, Weakness, Fatigue, Malaise, Chills HEENT: Reports: Ear Pain (left auricle ), Other (Reports tongue and mouth pain ) Pulmonary: Reports: No Symptoms. Denies: Shortness of Breath, Cough, Sputum, Wheezing Cardiovascular: Reports: No Symptoms. Denies: Chest Pain, Palpitations, Dyspnea on Exertion, Edema Gastrointestinal: Reports: No Symptoms, Other (Reports buttocks pain ). Denies : Abdominal Pain, Constipation, Diarrhea, Nausea, Vomiting Genitourinary: Reports: No Symptoms. Denies: Pain Musculoskeletal: Reports: No Symptoms Skin: Reports: No Symptoms. Denies: Cyanosis Neurological: Reports: Confusion (Baseline ). Denies: Headache, Numbness, Tingling, Difficulty Walking, Weakness, Gait Disturbance Psychiatric: Reports: No Symptoms - Patient Data Vitals - Most Recent: Last Vital Signs Temp 97.5 F 02/15/20 20:26 Pulse 66 02/16/20 00:20 Resp 20 02/16/20 00:20 BP 160/70 H 02/16/20 00:20 Pulse Ox 96 02/16/20 00:20 Weight - Most Recent: 109 lb I&O - Last 24 Hours: Intake & Output 02/15/20 02/16/20 02/16/20 22:59 06:59 14:59 Intake Total 120 1100 Output Total 1150 Balance 120 -50 Lab Results Last 24 Hours: Laboratory Results - last 24 hr 02/15/20 Range/Units 07:50 Urine Color Yellow (Yellow) Urine Appearance Slt cloudy H (Clear) Urine pH 7.0 (5.0-8.0) Ur Specific [place] 1.020 (1.005-1.030) Urine Protein Negative (Negative) Urine Glucose (UA) Negative (Negative) Urine Ketones 1+ H (Negative) Urine Occult Blood Negative (Negative) Urine Nitrite Negative (Negative) Urine Bilirubin Negative (Negative) Urine Urobilinogen 0.2 (0.2-1.0) Ur Leukocyte Esterase 3+ H (Negative) Urine RBC 0-5 (0-5) /hpf Urine WBC 40-50 H (0-5) /hpf Ur Epithelial Cells 0-5 (0-5) /hpf Urine Bacteria Many H (FEW) /hpf Urine Mucus Few (FEW) /hpf Med Orders - Current: Current Medications Acetaminophen (Tylenol) 650 mg PO Q4H PRN PRN Reason: Pain (Mild 1-3)/fever Cholecalciferol (Vitamin D3) 25 mcg PO DAILY [facility] Enoxaparin Sodium (Lovenox) 40 mg SUBCUT Q24H [facility] Last Admin: 02/15/20 15:21 Dose: 40 mg Gabapentin (Neurontin) 100 mg PO BEDTIME [facility] Last Admin: 02/15/20 21:36 Dose: Not Given Lorazepam (Ativan) 1 mg IV Q4H PRN PRN Reason: Anxiety Oxycodone HCl (Oxycodone) 5 mg PO Q4H PRN PRN Reason: Pain (moderate 4-6) Quetiapine Fumarate (Seroquel) 12.5 mg PO BEDTIME [facility] Last Admin: 02/15/20 21:36 Dose: Not Given Senna/Docusate Sodium (Senna Plus) 1 tab PO BID [facility] Last Admin: 02/15/20 21:36 Dose: Not Given Sodium Chloride (Saline Flush) 10 ml FLUSH ASDIRECTED PRN PRN Reason: Keep Vein Open Trimethoprim/Sulfamethoxazole (Septra Ds) 1 tab PO DAILY [facility] Last Admin: 02/15/20 15:21 Dose: 1 tab Witch Kinsey (Tucks) 1 pad TOP DAILY PRN PRN Reason: RECTAL PAIN Discontinued Medications Lorazepam (Ativan) 1 mg IM ONETIME ONE Stop: 02/15/20 05:45 Last Admin: 02/15/20 05:49 Dose: 1 mg Lorazepam (Ativan) 1 mg IV ONETIME PRN PRN Reason: Anxiety - Exam Quality Assessment: DVT Prophylaxis General: Alert, No Acute Distress. No: Oriented, Cooperative (at times but mostly not ) HEENT: Pupils Equal, Pupils Reactive, Mucous Membr. Moist/[place] Neck: Supple, Trachea Midline Lungs: Clear to Auscultation, Normal Respiratory Effort Cardiovascular: Regular Rate, Regular Rhythm GI/Abdominal Exam: Normal Bowel Sounds, Soft, Non-Tender, No Distention (Male) Exam: Deferred Back Exam: Normal Inspection, Decreased Range of Motion Extremities: Normal Inspection, Normal Range of Motion, Non-Tender, No Pedal Edema, Normal Capillary Refill Peripheral Pulses: 2+: Radial (L), Radial (R), Dorsalis Pedis (L), Dorsalis Pedis (R) Skin: Warm, Dry, Intact Neurological: No New Focal Deficit Psy/Mental Status: Alert, Normal Affect, Normal Mood Sepsis Event Note - Evaluation Sepsis Screening Result: No Definite Risk - Focused Exam Vital Signs: Vital Signs Temp Pulse Resp BP Pulse Ox 02/16/20 00:20 66 20 160/70 H 96 02/15/20 20:26 97.5 F 54 L 16 131/68 98 Date Exam was Performed: 02/16/20 Time Exam was Performed: 12:10 - Problem List & Annotations (1) Failure to thrive SNOMED Code(s): 64682996 Code(s): HES8074 - Status: Acute Priority: High Current Visit: Yes Qualifiers: Failure to thrive age range: in adult Qualified Code(s): R62.7 - Adult failure to thrive (2) Pain SNOMED Code(s): 57995898 Code(s): R52 - PAIN, UNSPECIFIED Status: Chronic Priority: High Current Visit: Yes (3) History of cataract SNOMED Code(s): 427029244 Code(s): Z86.69 - PERSONAL HISTORY OF DIS OF THE NERVOUS SYS AND SENSE ORGANS Status: Chronic Priority: Low Current Visit: No (4) Chronic constipation SNOMED Code(s): 770940547 Code(s): K59.09 - OTHER CONSTIPATION Status: Chronic Priority: Medium Current Visit: No (5) Hemorrhoids SNOMED Code(s): 29797566 Code(s): K64.9 - UNSPECIFIED HEMORRHOIDS Status: Chronic Priority: Medium Current Visit: No Qualifiers: Hemorrhoid type: unspecified Qualified Code(s): K64.9 - Unspecified hemorrhoids (6) History of anal fissures SNOMED Code(s): 865571742 Code(s): Z87.19 - PERSONAL HISTORY OF OTHER DISEASES OF THE DIGESTIVE SYSTEM Status: Chronic Priority: Low Current Visit: No (7) Recurrent UTI SNOMED Code(s): 157309645 Code(s): N39.0 - URINARY TRACT INFECTION, SITE NOT SPECIFIED Status: Acute Priority: High Current Visit: Yes (8) History of hypokalemia SNOMED Code(s): 644406537 Code(s): Z86.39 - PERSONAL HISTORY OF ENDO, NUTRITIONAL AND METABOLIC DISEASE Status: Chronic Priority: Low Current Visit: No (9) Hospital admission due to social situation SNOMED Code(s): 862496780 Code(s): Z60.9 - PROBLEM RELATED TO SOCIAL ENVIRONMENT, UNSPECIFIED Status : Acute Priority: High Current Visit: Yes (10) Chronic ear pain SNOMED Code(s): 52595690 Code(s): H92.09 - OTALGIA, UNSPECIFIED EAR; G89.29 - OTHER CHRONIC PAIN Status: Chronic Priority: Medium Current Visit: Yes Qualifiers: Laterality: left Qualified Code(s): H92.02 - Otalgia, left ear; G89.29 - Other chronic pain (11) Dementia SNOMED Code(s): 16762205 Code(s): F03.90 - UNSPECIFIED DEMENTIA WITHOUT BEHAVIORAL DISTURBANCE Status: Chronic Priority: Medium Current Visit: Yes Qualifiers: Dementia type: unspecified type Dementia behavioral disturbance: without behavioral disturbance Qualified Code(s): F03.90 - Unspecified dementia without behavioral disturbance (12) Folic acid deficiency (non anemic) SNOMED Code(s): 74646472 Code(s): E53.8 - DEFICIENCY OF OTHER SPECIFIED B GROUP VITAMINS Status: Chronic Priority: Low Current Visit: No (13) Hyponatremia SNOMED Code(s): 11435284 Code(s): E87.1 - HYPO-OSMOLALITY AND HYPONATREMIA Status: Chronic Priority: Low Current Visit: No (14) Insomnia SNOMED Code(s): 539538527 Code(s): G47.00 - INSOMNIA, UNSPECIFIED Status: Chronic Priority: Medium Current Visit: No Qualifiers: Insomnia type: unspecified Qualified Code(s): G47.00 - Insomnia, unspecified (15) Prostate hypertrophy SNOMED Code(s): 672656751 Code(s): N40.0 - BENIGN PROSTATIC HYPERPLASIA WITHOUT LOWER URINRY TRACT SYMP Status: Chronic Priority: Low Current Visit: No (16) Rectal pain, chronic SNOMED Code(s): 74984568 Code(s): K62.89 - OTHER SPECIFIED DISEASES OF ANUS AND RECTUM; G89.29 - OTHER CHRONIC PAIN Status: Chronic Priority: Medium Current Visit: Yes (17) Urinary retention SNOMED Code(s): 936288850 Code(s): R33.9 - RETENTION OF URINE, UNSPECIFIED Status: Chronic Priority : Low Current Visit: No (18) Urinary tract infection SNOMED Code(s): 01489315 Code(s): N39.0 - URINARY TRACT INFECTION, SITE NOT SPECIFIED Status: Acute Priority: High Current Visit: Yes Qualifiers: Urinary tract infection type: acute cystitis (19) Chronic pain syndrome SNOMED Code(s): 946194485 Code(s): G89.4 - CHRONIC PAIN SYNDROME Status: Acute Priority: High Current Visit: Yes - Problem List Review Problem List Initiated/Reviewed/Updated: Yes - My Orders Last 24 Hours: My Active Orders 02/15/20 11:17 Patient Status [ADT] Routine Height and Weight [RC] 04 Oxygen Therapy [RC] PRN Up With Assistance [RC] ASDIRECTED VTE/DVT Education [RC] QSHIFT Vital Signs [RC] Q4HR Consult to Physician [CONS] Routine Consult to Spiritual Care [CONS] Routine OT Evaluation and Treatment [CONS] Routine PT Evaluation and Treatment [CONS] Routine CORE CARRIER Evaluation and Treatment [CONS] Routine Acetaminophen [Tylenol] 650 mg PO Q4H PRN Sodium Chloride 0.9% [Saline Flush] 10 ml FLUSH ASDIRECTED PRN oxyCODONE 5 mg PO Q4H PRN Saline Lock Insert [OM.PC] Routine 02/15/20 11:18 Intake and Output [RC] 04,16 Pulse Oximetry [RC] PRN 02/15/20 11:19 Notify Provider Consults [RC] ASDIRECTED 02/15/20 11:22 LORazepam [Ativan] 1 mg IV Q4H PRN 02/15/20 11:30 Sulfamethoxazole/Trimethoprim [Septra DS] 1 tab PO DAILY 02/15/20 12:53 witch Kinsey [Tucks] 1 pad TOP DAILY PRN 02/15/20 13:06 Code Status [Resuscitation Status] Routine 02/15/20 13:08 Consult to Executive Candidate Developer [CONS] Routine 02/15/20 14:00 Enoxaparin [Lovenox] 40 mg SUBCUT Q24H 02/15/20 21:00 Docusate Sodium/Sennosides [Senna Plus] 1 tab PO BID Gabapentin [Neurontin] 100 mg PO BEDTIME QUEtiapine [SEROqueL] 12.5 mg PO BEDTIME 02/15/20 Dinner Heart Healthy Diet [DIET] 02/16/20 05:11 COMPREHENSIVE METABOLIC PN,CMP [CHEM] AM MAGNESIUM [CHEM] AM 02/16/20 09:00 Cholecalciferol (Vitamin D3) [Vitamin D3] 25 mcg PO DAILY 02/17/20 05:11 COMPREHENSIVE METABOLIC PN,CMP [CHEM] AM MAGNESIUM [CHEM] AM 02/18/20 05:11 COMPREHENSIVE METABOLIC PN,CMP [CHEM] AM MAGNESIUM [CHEM] AM 02/19/20 05:11 COMPREHENSIVE METABOLIC PN,CMP [CHEM] AM MAGNESIUM [CHEM] AM - Plan Plan:: Assessment: Day of admission - Multiple recent ED visits for dementia symptoms and pain - Patient reports chronic rectal pain s/p hemorrhoidectomy and chronic left ear pain resulting since left ear auricle biopsy. - Lives with - recently moved from [place] to son's house in [place] - reports no agitation or anger at home - Has had liable mood in ED - PCP has been working on pain management - Has Dr. Zambrano, psychiatry outpatient appt on 01/21/20 - Given 1mg Ativan IM in ED resulting in patient sleeping - Reports significant insomnia for many days - Started on Seroquel at last ED visit - admits she has been doubling dose lately with what she feels are positive effects. - Urine has 3+ kinga esterase, 30-40 WBC and many bacteria - Family refusing SNF or other placement options Day 1 - Patient refused pain medications last night - Patient remains very confused - Refusing much of our cares, refusing to use call light, refusing to wear hospital gown, refused AM labs initially, pulled out IV - Urine showing gram negative bacteria - Urine from 02/08 grew out klebsiella with good susceptibility to Bactrim - Reports tongue is painful - started on oral fluconazole - Dr. Zambrano consult tonight - Family meeting this afternoon to discuss disposition Plan: Failure to thrive Hospital admission due to social situation Chronic Pain Syndrome Pain Chronic ear pain Dementia Insomnia Folic acid deficiency (non anemic) Oral candidiasis Patient lives with at son's house in [place] - recently moved from [place] PCP diagnosed with dementia Chronic ear pain 2/2 skin biopsy and chronic rectal pain s/p hemorrhoidectomy Family refusing placement PCP has prescribed patient multiple pain medications all with negative effects PCP requests gabapentin be started for pain control ED provider stared patient on 6.25mg Seroquel daily - admits she has been doubling Seroquel dose and feels like it helps Vitamin B12 2232 on 01/04/2020. Vitamin D 37.9 on 01/04/2020 Free T4 1.15 on 01/04/2020 TSH 5.28 on 02/09/2020 Folate 19.7 on 01/23/2020 PLAN: - CM/SW consult - PT/OT - Continue Seroquel at 12.5 mg daily - Start nightly gabapentin 100mg tonight - patient refused last night - Oxycodone PRN - Tylenol PRN - Continue home supplementation - Consult Dr. Zambrano for psychiatry - Ativan as needed for anxiety - CORE CARRIER cognitive eval for baseline assessment - Start fluconazole for oral thrush Urinary tract infection Recurrent UTI Urinary retention Prostate hypertrophy History of recurrent UTIs with mos recent being klebsiella on 02/09/20 History of urinary retention with prior forde UA in ED shows cloudy urine, 1+ ketones, 3+ leuk esterase, 40-50 WBC, Moderate bacteria Urine culture ordered in ED No WBC PLAN - Continue Bactrim DS BID - Culture growing gram negative rods so far - Pending urine C/S - Sepsis screen: Positive UA, No fever, No WBC, No tachycardia, No tachypnea -Does not meed criteria - Monitor for fevers Chronic constipation Hemorrhoids History of anal fissures Rectal pain, chronic Reports chronic rectal pain since hemorrhoidectomy Has seen Dr. Rankin who referred onto GI reports patient has not seen GI due to difficulty in timing PSA 1.3 on 01/04/2020 PLAN - Pain management as above - Follow-up with GI/Dr. Rankin History of hypokalemia History of hyponatremia Sodium 143 in ED-->139 Potassium 3.8 in ED-->4.9 On home potassium supplements PLAN - Monitor labs - Hold home potassium History of cataract No concerns currently DVT prophylaxis: Lovenox GI prophylaxis: Not indicated PCP: Dr. Pelaez Code status: CRP only Social: Patient lives with . Both recently moved from [facility] in with their son. Family is refusing placement at this time. Disposition: Patient will be admitted inpatient for failure to thrive, pain control, and UTI. Family meeting will be held today to discuss disposition. Prognosis: Overall prognosis is poor due to age and rapidly worsening dementia symptoms.
[2020-02-16] MEDS: Cholecalciferol (Vitamin D3) 25 MCG Tab PO SCH (08:48)
[2020-02-16] MEDS: Sulfamethoxazole/Trimethoprim 800-160 MG Tab PO SCH ×2 (08:48→20:23)
[2020-02-16] MEDS ORDERED: Fluconazole 100 MG Tab PO ONE (11:15)
[2020-02-16] MEDS: Enoxaparin 40 MG/0.4 ML Syringe SUBCUT SCH (14:23)
[2020-02-16] MEDS ORDERED: [UNRECOGNIZED DRUG - OTHER] TOP PRN (16:53)
[2020-02-16] MEDS ORDERED: MAGNESIUM TOP PRN (17:24)
[2020-02-16] MEDS: MAGNESIUM TOP SCH ×3 (19:45→21:12)
[2020-02-16] MEDS: Gabapentin 100 MG Cap PO SCH (20:23)
[2020-02-16] MEDS: QUEtiapine 25 MG Tab PO SCH (20:23)
[2020-02-17] MEDS ORDERED: Magnesium Hydroxide 400 MG/5 ML Susp 30 ML Cup PO PRN (03:08)
--- NOTE | 2020-02-17 07:15 | PCM.PN ---
- General Info Date of Service: 02/17/20 Admission Dx/Problem (Free Text): Admission Diagnosis/Problem Admission Diagnosis/Problem Failure to thrive - Patient Data Vitals - Most Recent: Last Vital Signs Temp 96.9 F 02/17/20 06:44 Pulse 86 02/17/20 06:40 Resp 16 02/17/20 06:44 BP 151/75 H 02/17/20 06:44 Pulse Ox 92 L 02/17/20 06:44 Weight - Most Recent: 107 lb 14.4 oz I&O - Last 24 Hours: Intake & Output 02/16/20 02/17/20 02/17/20 22:59 06:59 14:59 Intake Total 420 500 Output Total 700 Balance 420 -200 Lab Results Last 24 Hours: Laboratory Results - last 24 hr 02/16/20 02/17/20 02/17/20 Range/Units 08:05 05:30 05:30 WBC 6.76 (4.23-9.07) K/mm3 RBC 4.36 L (4.63-6.08) M/mm3 Hgb 12.5 L D (13.7-17.5) gm/dl Hct 37.6 L (40.1-51.0) % MCV 86.2 (79.0-92.2) fl MCH 28.7 (25.7-32.2) pg MCHC 33.2 (32.2-35.5) g/dl RDW Std Deviation 45.3 H (35.1-43.9) fL Plt Count 269 (163-337) K/mm3 MPV 10.8 (9.4-12.3) fl Neut % (Auto) 74.3 H (34.0-67.9) % Lymph % (Auto) 15.8 L (21.8-53.1) % [place] % (Auto) 8.0 (5.3-12.2) % Eos % (Auto) 1.5 (0.8-7.0) Baso % (Auto) 0.3 (0.1-1.2) % Neut # (Auto) 5.02 (1.78-5.38) K/mm3 Lymph # (Auto) 1.07 L (1.32-3.57) K/mm3 [place] # (Auto) 0.54 (0.30-0.82) K/mm3 Eos # (Auto) 0.10 (0.04-0.54) K/mm3 Baso # (Auto) 0.02 (0.01-0.08) K/mm3 Sodium 139 137 (136-145) mEq/L Potassium 4.1 3.7 (3.5-5.1) mEq/L Chloride 101 101 (98-107) mEq/L Carbon Dioxide 28 28 (21-32) mEq/L Anion Gap 14.1 11.7 (5-15) BUN 13 18 (7-18) mg/dL Creatinine 0.8 1.1 (0.7-1.3) mg/dL Est Cr Clr Drug Dosing 46.35 33.37 mL/min Estimated GFR (MDRD) > 60 > 60 (>60) mL/min BUN/Creatinine Ratio 16.3 16.4 (14-18) Glucose 84 88 (83-115) mg/dL Calcium 8.8 8.7 (8.5-10.1) mg/dL Magnesium 2.1 2.1 (1.8-2.4) mg/dl Total Bilirubin 1.2 H 1.1 H (0.2-1.0) mg/dL AST 19 19 (15-37) U/L ALT 25 21 (16-63) U/L Alkaline Phosphatase 44 L 41 L (46-116) U/L Total Protein 6.8 6.3 L (6.4-8.2) g/dl Albumin 3.9 3.6 (3.4-5.0) g/dl Globulin 2.9 2.7 gm/dL Albumin/Globulin Ratio 1.3 1.3 (1-2) Paul Results Last 24 Hours: Microbiology 02/15/20 07:50 Urine Culture - Preliminary Urine, Clean Catch Gram Negative Rods Med Orders - Current: Current Medications Acetaminophen (Tylenol) 650 mg PO Q4H PRN PRN Reason: Pain (Mild 1-3)/fever Last Admin: 02/16/20 09:23 Dose: 650 mg Cholecalciferol (Vitamin D3) 25 mcg PO DAILY [facility] Last Admin: 02/16/20 08:48 Dose: 25 mcg Enoxaparin Sodium (Lovenox) 40 mg SUBCUT Q24H [facility] Last Admin: 02/16/20 14:23 Dose: 40 mg Fluconazole (Diflucan) 100 mg PO DAILY [facility] Gabapentin (Neurontin) 100 mg PO BEDTIME [facility] Last Admin: 02/16/20 20:23 Dose: 100 mg Lorazepam (Ativan) 1 mg IV Q4H PRN PRN Reason: Anxiety Magnesium Hydroxide (Milk Of Magnesia) 30 ml PO ONETIME PRN PRN Reason: Constipation Last Admin: 02/17/20 06:42 Dose: 30 ml Magnesium Topical [place] (Pt's Own Medication) 0 spray TOP BID [facility] Last Admin: 02/16/20 21:12 Dose: Not Given Magnesium Topical [place] (Pt's Own Medication) 0 spray TOP BID PRN PRN Reason: ITCHING Oxycodone HCl (Oxycodone) 5 mg PO Q4H PRN PRN Reason: Pain (moderate 4-6) Last Admin: 02/16/20 22:54 Dose: 5 mg Quetiapine Fumarate (Seroquel) 12.5 mg PO BEDTIME [facility] Last Admin: 02/16/20 20:23 Dose: 12.5 mg Senna/Docusate Sodium (Senna Plus) 1 tab PO BID [facility] Last Admin: 02/16/20 20:23 Dose: 1 tab Sodium Chloride (Saline Flush) 10 ml FLUSH ASDIRECTED PRN PRN Reason: Keep Vein Open Trimethoprim/Sulfamethoxazole (Septra Ds) 1 tab PO BID [facility] Last Admin: 02/16/20 20:23 Dose: 1 tab [place] (T[place]) 1 pad TOP DAILY PRN PRN Reason: RECTAL PAIN Discontinued Medications Fluconazole (Diflucan) 200 mg PO ONETIME ONE Stop: 02/16/20 11:16 Last Admin: 02/16/20 12:13 Dose: 200 mg Lorazepam (Ativan) 1 mg IM ONETIME ONE Stop: 02/15/20 05:45 Last Admin: 02/15/20 05:49 Dose: 1 mg Lorazepam (Ativan) 1 mg IV ONETIME PRN PRN Reason: Anxiety Non-Formulary Medication (Non-Formulary Medication [Nf Drug]) 2 spray TOP BID PRN PRN Reason: leg pain Trimethoprim/Sulfamethoxazole (Septra Ds) 1 tab PO DAILY [facility] Last Admin: 02/16/20 08:48 Dose: 1 tab Sepsis Event Note - Evaluation Sepsis Screening Result: No Definite Risk - Focused Exam Vital Signs: Vital Signs Temp Temp Pulse Resp BP BP Pulse Ox 02/17/20 06:44 96.9 F 16 151/75 H 92 L 02/17/20 06:40 97.0 F 86 16 151/75 H 92 L 02/16/20 20:50 97.0 F 38 L 91 L Date Exam was Performed: 02/17/20 Time Exam was Performed: 07:15 - Problem List & Annotations (1) Failure to thrive SNOMED Code(s): 92489321 Code(s): GKH6060 - Status: Acute Priority: High Current Visit: Yes Qualifiers: Failure to thrive age range: in adult Qualified Code(s): R62.7 - Adult failure to thrive (2) Pain SNOMED Code(s): 78262466 Code(s): R52 - PAIN, UNSPECIFIED Status: Chronic Priority: High Current Visit: Yes (3) History of cataract SNOMED Code(s): 085547373 Code(s): Z86.69 - PERSONAL HISTORY OF DIS OF THE NERVOUS SYS AND SENSE ORGANS Status: Chronic Priority: Low Current Visit: No (4) Chronic constipation SNOMED Code(s): 269134407 Code(s): K59.09 - OTHER CONSTIPATION Status: Chronic Priority: Medium Current Visit: No (5) Hemorrhoids SNOMED Code(s): 52192196 Code(s): K64.9 - UNSPECIFIED HEMORRHOIDS Status: Chronic Priority: Medium Current Visit: No Qualifiers: Hemorrhoid type: unspecified Qualified Code(s): K64.9 - Unspecified hemorrhoids (6) History of anal fissures SNOMED Code(s): 846815984 Code(s): Z87.19 - PERSONAL HISTORY OF OTHER DISEASES OF THE DIGESTIVE SYSTEM Status: Chronic Priority: Low Current Visit: No (7) Recurrent UTI SNOMED Code(s): 978329181 Code(s): N39.0 - URINARY TRACT INFECTION, SITE NOT SPECIFIED Status: Acute Priority: High Current Visit: Yes (8) History of hypokalemia SNOMED Code(s): 386805156 Code(s): Z86.39 - PERSONAL HISTORY OF ENDO, NUTRITIONAL AND METABOLIC DISEASE Status: Chronic Priority: Low Current Visit: No (9) Hospital admission due to social situation SNOMED Code(s): 182857506 Code(s): Z60.9 - PROBLEM RELATED TO SOCIAL ENVIRONMENT, UNSPECIFIED Status : Acute Priority: High Current Visit: Yes (10) Chronic ear pain SNOMED Code(s): 48804083 Code(s): H92.09 - OTALGIA, UNSPECIFIED EAR; G89.29 - OTHER CHRONIC PAIN Status: Chronic Priority: Medium Current Visit: Yes Qualifiers: Laterality: left Qualified Code(s): H92.02 - Otalgia, left ear; G89.29 - Other chronic pain (11) Dementia SNOMED Code(s): 85997113 Code(s): F03.90 - UNSPECIFIED DEMENTIA WITHOUT BEHAVIORAL DISTURBANCE Status: Chronic Priority: Medium Current Visit: Yes Qualifiers: Dementia type: unspecified type Dementia behavioral disturbance: without behavioral disturbance Qualified Code(s): F03.90 - Unspecified dementia without behavioral disturbance (12) Folic acid deficiency (non anemic) SNOMED Code(s): 02136329 Code(s): E53.8 - DEFICIENCY OF OTHER SPECIFIED B GROUP VITAMINS Status: Chronic Priority: Low Current Visit: No (13) Hyponatremia SNOMED Code(s): 17629174 Code(s): E87.1 - HYPO-OSMOLALITY AND HYPONATREMIA Status: Chronic Priority: Low Current Visit: No (14) Insomnia SNOMED Code(s): 553291434 Code(s): G47.00 - INSOMNIA, UNSPECIFIED Status: Chronic Priority: Medium Current Visit: No Qualifiers: Insomnia type: unspecified Qualified Code(s): G47.00 - Insomnia, unspecified (15) Prostate hypertrophy SNOMED Code(s): 145757064 Code(s): N40.0 - BENIGN PROSTATIC HYPERPLASIA WITHOUT LOWER URINRY TRACT SYMP Status: Chronic Priority: Low Current Visit: No (16) Rectal pain, chronic SNOMED Code(s): 46434357 Code(s): K62.89 - OTHER SPECIFIED DISEASES OF ANUS AND RECTUM; G89.29 - OTHER CHRONIC PAIN Status: Chronic Priority: Medium Current Visit: Yes (17) Urinary retention SNOMED Code(s): 677983070 Code(s): R33.9 - RETENTION OF URINE, UNSPECIFIED Status: Chronic Priority : Low Current Visit: No (18) Urinary tract infection SNOMED Code(s): 03094890 Code(s): N39.0 - URINARY TRACT INFECTION, SITE NOT SPECIFIED Status: Acute Priority: High Current Visit: Yes Qualifiers: Urinary tract infection type: acute cystitis (19) Chronic pain syndrome SNOMED Code(s): 940461080 Code(s): G89.4 - CHRONIC PAIN SYNDROME Status: Acute Priority: High Current Visit: Yes - My Orders Last 24 Hours: My Active Orders 02/16/20 09:00 Cholecalciferol (Vitamin D3) [Vitamin D3] 25 mcg PO DAILY 02/16/20 11:04 Communication Order [RC] BID 02/16/20 17:00 Non-Formulary Medication [NF Drug] 0 spray TOP BID 02/16/20 17:24 Non-Formulary Medication [NF Drug] 0 spray TOP BID PRN 02/16/20 21:00 Sulfamethoxazole/Trimethoprim [Septra DS] 1 tab PO BID 02/16/20 Lunch Regular Diet [DIET] 02/17/20 09:00 Fluconazole [Diflucan] 100 mg PO DAILY 02/18/20 05:11 CBC WITH AUTO DIFF [HEME] AM COMPREHENSIVE METABOLIC PN,CMP [CHEM] AM MAGNESIUM [CHEM] AM 02/19/20 05:11 CBC WITH AUTO DIFF [HEME] AM COMPREHENSIVE METABOLIC PN,CMP [CHEM] AM MAGNESIUM [CHEM] AM 02/20/20 05:11 CBC WITH AUTO DIFF [HEME] AM - Plan Plan:: Assessment: Day of admission - Multiple recent ED visits for dementia symptoms and pain - Patient reports chronic rectal pain s/p hemorrhoidectomy and chronic left ear pain resulting since left ear auricle biopsy. - Lives with - recently moved from [place] to son's house in [place] - reports no agitation or anger at home - Has had liable mood in ED - PCP has been working on pain management - Has Dr. Zambrano, psychiatry outpatient appt on 01/21/20 - Given 1mg Ativan IM in ED resulting in patient sleeping - Reports significant insomnia for many days - Started on Seroquel at last ED visit - admits she has been doubling dose lately with what she feels are positive effects. - Urine has 3+ kinga esterase, 30-40 WBC and many bacteria - Family refusing SNF or other placement options Day 1 - Patient refused pain medications last night - Patient remains very confused - Refusing much of our cares, refusing to use call light, refusing to wear hospital gown, refused AM labs initially, pulled out IV - Urine showing gram negative bacteria - Urine from 02/08 grew out klebsiella with good susceptibility to Bactrim - Reports tongue is painful - started on oral fluconazole - Dr. Zambrano consult tonight - Family meeting this afternoon to discuss disposition Plan: Failure to thrive Hospital admission due to social situation Chronic Pain Syndrome Pain Chronic ear pain Dementia Insomnia Folic acid deficiency (non anemic) Oral candidiasis Patient lives with at son's house in [place] - recently moved [place] PCP diagnosed with dementia Chronic ear pain 2/2 skin biopsy and chronic rectal pain s/p hemorrhoidectomy Family refusing placement PCP has prescribed patient multiple pain medications all with negative effects PCP requests gabapentin be started for pain control ED provider stared patient on 6.25mg Seroquel daily - admits she has been doubling Seroquel dose and feels like it helps Vitamin B12 2232 on 01/04/2020. Vitamin D 37.9 on 01/04/2020 Free T4 1.15 on 01/04/2020 TSH 5.28 on 02/09/2020 Folate 19.7 on 01/23/2020 PLAN: - CM/SW consult - PT/OT - Continue Seroquel at 12.5 mg daily - Start nightly gabapentin 100mg tonight - patient refused last night - Oxycodone PRN - Tylenol PRN - Continue home supplementation - Consult Dr. 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 - Start fluconazole for oral thrush Urinary tract infection Recurrent UTI Urinary retention Prostate hypertrophy History of recurrent UTIs with mos recent being klebsiella on 02/09/20 History of urinary retention with prior forde UA in ED shows cloudy urine, 1+ ketones, 3+ leuk esterase, 40-50 WBC, Moderate bacteria Urine culture ordered in ED No WBC PLAN - Continue Bactrim DS BID - Culture growing gram negative rods so far - Pending urine C/S - Sepsis screen: Positive UA, No fever, No WBC, No tachycardia, No tachypnea -Does not meed criteria - Monitor for fevers Chronic constipation Hemorrhoids History of anal fissures Rectal pain, chronic Reports chronic rectal pain since hemorrhoidectomy Has seen Dr. Rankin who referred onto GI reports patient has not seen GI due to difficulty in timing PSA 1.3 on 01/04/2020 PLAN - Pain management as above - Follow-up with GI/Dr. Rankin History of hypokalemia History of hyponatremia Sodium 143 in ED-->139 Potassium 3.8 in ED-->4.9 On home potassium supplements PLAN - Monitor labs - Hold home potassium History of cataract No concerns currently DVT prophylaxis: Lovenox GI prophylaxis: Not indicated PCP: Dr. Pelaez Code status: CRP only Social: Patient lives with . Both recently moved from [facility] in with their son. Family is refusing placement at this time. Disposition: Patient will be admitted inpatient for failure to thrive, pain control, and UTI. Family meeting will be held today to discuss disposition. Prognosis: Overall prognosis is poor due to age and rapidly worsening dementia symptoms.
[2020-02-17] MEDS ORDERED: FLUoxetine 20 MG Cap PO SCH (09:00)
[2020-02-17] MEDS ORDERED: Fluconazole 100 MG Tab PO SCH (09:00)
[2020-02-17] MEDS: Cholecalciferol (Vitamin D3) 25 MCG Tab PO SCH (09:47)
[2020-02-17] MEDS: Sulfamethoxazole/Trimethoprim 800-160 MG Tab PO SCH (09:48)
[2020-02-17] MEDS: MAGNESIUM TOP SCH (09:52)
--- NOTE | 2020-02-17 11:53 | PCM.DCSUM1 ---
Discharge Summary - Hospital Course HPI Initial Comments: Poncho Mauricio is an 84-year-old male who presents to ED on 02/15/2020 accompanied by his for worsening dementia. The patient has been to our facility multiple times for multiple pain and dementia related symptoms. Throughout all this the family maintains that they want him to return home with them. His last visit on 02/09/2020 he was started on 6.25 mg nightly of Seroquel after the patient's was insistent on it. does admit that she has been doubling the dose for the last few days. She does feel the Seroquel has improved his symptoms. On 02/13/2020 patient did have an appointment with his primary care provider, Dr. Pelaez. She reports the patient has had multiple pain issues for quite some time. He did have a skin biopsy performed on his left ear and also reportedly had some hemorrhoids that were treated. Since this time patient has been reporting constant pain. She reports she has tried multiple medications including tramadol, which led to urinary issues and now morphine which has made matters worse as well. She did report to the that his dementia may be making his pain recognition worse, he seems to be fixating on this. He does have an appointment scheduled with Dr. Zambrano, psychiatry, this coming Thursday - 02/21/2020. reports patient has seen Dr. Rankin, general surgeon, for this rectal pain in the past. She reports that he suggested a GI follow-up, however the patient's states she has been unable to get him there. reports within the past couple of weeks they have moved from [place] to their son's house in [place]. She reports the patient has not been sleeping. She denies any violent outbursts, however she does report that at times the patient has "flailed around" but this does not appear to be in malice or anger. ED provider notes patient was quite agitated in ED and was irrational. No physical violence. As noted earlier multiple times it has been brought up to the patient may benefit from placement. Per social work patient's is willing to explore this option if we cannot obtain pain control. When asked by provider if she would entertain the idea of placement she reports she will only consider this if the patient becomes violent. was made aware of visiting restrictions implemented in her hospital at this time. He carries a history of cataracts, chronic left ear pain, geographic tongue, chronic constipation, hemorrhoids, anal fissure, rectal pain, BPH, urinary retention, recurrent UTIs, epididymitis, insomnia, vitamin D deficiency, folate deficiency, B12 deficiency, zinc deficiency, hypokalemia. PCP is Dr. Pelaez Diagnosis: Stroke: No - Discharge Data Discharge Date: 02/17/20 (Admit date: 02/15/2020) Discharge Disposition: Home, W Home Health Agency 06 Condition: Fair - Referral to Home Health Date of Face to Face Encounter: 02/17/20 Reason for Homebound Status: See discharge summary Primary Care Physician: Samira Pelaez MD Skilled Need: See discharge summary - Discharge Diagnosis/Problem(s) (1) Failure to thrive SNOMED Code(s): 75131624 ICD Code: [id number] - Status: Acute Priority: High Current Visit: Yes Qualifiers: Failure to thrive age range: in adult Qualified Code(s): R62.7 - Adult failure to thrive (2) Pain SNOMED Code(s): 40472348 ICD Code: R52 - PAIN, UNSPECIFIED Status: Chronic Priority: High Current Visit: Yes (3) History of cataract SNOMED Code(s): 371100605 ICD Code: Z86.69 - PERSONAL HISTORY OF DIS OF THE NERVOUS SYS AND SENSE ORGANS Status: Chronic Priority: Low Current Visit: No (4) Chronic constipation SNOMED Code(s): 792945556 ICD Code: K59.09 - OTHER CONSTIPATION Status: Chronic Priority: Medium Current Visit: No (5) Hemorrhoids SNOMED Code(s): 65723903 ICD Code: K64.9 - UNSPECIFIED HEMORRHOIDS Status: Chronic Priority: Medium Current Visit: No Qualifiers: Hemorrhoid type: unspecified Qualified Code(s): K64.9 - Unspecified hemorrhoids (6) History of anal fissures SNOMED Code(s): 910798751 ICD Code: Z87.19 - PERSONAL HISTORY OF OTHER DISEASES OF THE DIGESTIVE SYSTEM Status: Chronic Priority: Low Current Visit: No (7) Recurrent UTI SNOMED Code(s): 896467015 ICD Code: N39.0 - URINARY TRACT INFECTION, SITE NOT SPECIFIED Status: Acute Priority: High Current Visit: Yes (8) History of hypokalemia SNOMED Code(s): 731159156 ICD Code: Z86.39 - PERSONAL HISTORY OF ENDO, NUTRITIONAL AND METABOLIC DISEASE Status: Chronic Priority: Low Current Visit: No (9) Hospital admission due to social situation SNOMED Code(s): 907392181 ICD Code: Z60.9 - PROBLEM RELATED TO SOCIAL ENVIRONMENT, UNSPECIFIED Status : Acute Priority: High Current Visit: Yes (10) Chronic ear pain SNOMED Code(s): 37102337 ICD Code: H92.09 - OTALGIA, UNSPECIFIED EAR; G89.29 - OTHER CHRONIC PAIN Status: Chronic Priority: Medium Current Visit: Yes Qualifiers: Laterality: left Qualified Code(s): H92.02 - Otalgia, left ear; G89.29 - Other chronic pain (11) Dementia SNOMED Code(s): 07937378 ICD Code: F03.90 - UNSPECIFIED DEMENTIA WITHOUT BEHAVIORAL DISTURBANCE Status: Chronic Priority: Medium Current Visit: Yes Qualifiers: Dementia type: unspecified type Dementia behavioral disturbance: without behavioral disturbance Qualified Code(s): F03.90 - Unspecified dementia without behavioral disturbance (12) Folic acid deficiency (non anemic) SNOMED Code(s): 11051883 ICD Code: E53.8 - DEFICIENCY OF OTHER SPECIFIED B GROUP VITAMINS Status: Chronic Priority: Low Current Visit: No (13) Hyponatremia SNOMED Code(s): 86757872 ICD Code: E87.1 - HYPO-OSMOLALITY AND HYPONATREMIA Status: Chronic Priority: Low Current Visit: No (14) Insomnia SNOMED Code(s): 127373744 ICD Code: G47.00 - INSOMNIA, UNSPECIFIED Status: Chronic Priority: Medium Current Visit: No Qualifiers: Insomnia type: unspecified Qualified Code(s): G47.00 - Insomnia, unspecified (15) Prostate hypertrophy SNOMED Code(s): 397548008 ICD Code: N40.0 - BENIGN PROSTATIC HYPERPLASIA WITHOUT LOWER URINRY TRACT SYMP Status: Chronic Priority: Low Current Visit: No (16) Rectal pain, chronic SNOMED Code(s): 87695779 ICD Code: K62.89 - OTHER SPECIFIED DISEASES OF ANUS AND RECTUM; G89.29 - OTHER CHRONIC PAIN Status: Chronic Priority: Medium Current Visit: Yes (17) Urinary retention SNOMED Code(s): 438266653 ICD Code: R33.9 - RETENTION OF URINE, UNSPECIFIED Status: Chronic Priority: Low Current Visit: No (18) Urinary tract infection SNOMED Code(s): 35816498 ICD Code: N39.0 - URINARY TRACT INFECTION, SITE NOT SPECIFIED Status: Acute Priority: High Current Visit: Yes Qualifiers: Urinary tract infection type: acute cystitis (19) Chronic pain syndrome SNOMED Code(s): 688106548 ICD Code: G89.4 - CHRONIC PAIN SYNDROME Status: Acute Priority: High Current Visit: Yes (20) Malnutrition SNOMED Code(s): 48721718 ICD Code: E46 - UNSPECIFIED PROTEIN-CALORIE MALNUTRITION Status: Chronic Priority: High Current Visit: Yes Qualifiers: Malnutrition type: unspecified type Qualified Code(s): E46 - Unspecified protein-calorie malnutrition - Patient Summary/Data Consults: Consultations 02/15/20 06:13 Consult to Case Management/Lumber Mover [CONS] Routine 02/15/20 11:17 Consult to Physician [CONS] Routine Consult to Spiritual Care [CONS] Routine OT Evaluation and Treatment [CONS] Routine PT Evaluation and Treatment [CONS] Routine BAND SAW OPERATOR CAKE CUTTING Evaluation and Treatment [CONS] Routine 02/15/20 13:08 Consult to Hospice Art Therapist [CONS] Routine Labs Pending at D/C: None Recommended Follow-up Testing/Procedures: Follow-up with Dr. Pelaez within 5-7 days of discharge. Follow-up with Dr. Zambrano, psychiatry, as scheduled next week. Hospital Course: Poncho Mauricio is an 84 yo male who was admitted to the hospital floor for treatment and work-up of his urinary tract infection, failure to thrive, and chronic pain. Initially patient's was willing to explore possible SNF placement however ultimately both her and her backed out of this plan. Patient reported fairly constant 5-6 out of 10 pain however it was noted that he never appeared to be in pain. Questioning possibility of somatic symptoms related to this pain. Nonetheless he was started on gabapentin 100 mg at nighttime. This was discussed with patient's primary care provider as she reports she is tried multiple things with him and he either has adverse effects of the medication or it does not help. Unfortunately the patient initially refused the first dose but did begin taking it thereafter. During discussion with the family it was noted that the patient will often ice his ear in an attempt to decrease the pain. Patient's notes that the patient's ear will become red and appears swollen while icing. We did have a discussion about the risk of this due to low blood flow to the ear and how the patient may actually be causing frostbite. Patient's did note that she was not aware of this and she will address this further. Patient's noted that the patient was having some neurologic symptoms as she stated that he will sometimes become too weak to stand or will have episodes where he flails his arms. Prior work-up from PCP was reviewed including multiple labs and imaging modalities. CT scan and MRI along with multiple labs were obtained within the last month and it is felt that it would not be beneficial to repeat these. Symptoms are likely result of advancing dementia. He does have a long list of supplements that he is taking currently. reports that the patient is very concerned about organic, natural, and homeopathic remedies. We did discuss the risk of interaction with these meds amongst themselves and prescription medications. Patient's reported that she frequently has to lie to the patient and tell him that things are organic or natural to get him to take them. He was started on 5 mg p.o. oxycodone as needed for severe pain and he did take this once while here with good results and no adverse events. Patient was started on 6.25 mg of Seroquel in the ED and the patient's admitted that she has been doubling this dose for several days with what she thinks are good results. Because of this order was placed here for 12.5 mg daily and this will be continued on discharge. Of note discussion was had with both the patient and his about the importance of taking prescription medications as prescribed as increasing the dose on your own may lead to adverse effects or even . Patient did see Dr. Zambrano, psychiatry, via telemedicine while here and was started on 20 mg of Prozac daily. This will be continued at discharge. Patient does have an appointment already scheduled on Thursday to follow-up with Dr. Zambrano and importance of attending this appointment was stressed to the patient and his . BAND SAW OPERATOR CAKE CUTTING did do a cognitive evaluation on him and although the patient was unable to complete the evaluation and requested the examiner leave, she did note a moderate cognitive impairment. Recommend follow-up with Dr. Pelaez within 5 to 7 days of discharge. Recommend discussing patient's supplementation at that appointment. Dietary did see the patient and diagnosed him with malnourishment. He is quite frail and weak. He is very specific on what he will eat but he was willing to take an Ensure shake while here and this was recommended at discharge. He does note occasional faculty eating due to tongue pain and he is noted to have thrush on his tongue currently. PCP reports that they have been battling this for some time. He was started on a one-time 200 mg dose of fluconazole with 100 mg dosing for 2 weeks thereafter. He did work with PT/OT who are recommending SNF placement versus home with home health care. As noted family and patient are refusing SNF placement, however they were given the contact information for [facility] as they noted earlier in the stay that that would be a possibility for placement. Primary care provider, Dr. Pelaez, was involved in decision-making during the patient's stay. She was updated on the patient's progress prior to discharge. He discharged on 5 mg as needed oxycodone as mentioned prior along with 100 mg p.o. gabapentin at bedtime. Home morphine was discontinued. Home Seroquel dose was increased from 6.25 to 12.5 mg daily. Prescription was sent for 20 mg p.o. Prozac as mentioned, along with 100 mg fluconazole as noted. Other home meds were resumed. He was discharged home today. I personally met with Poncho Mauricio and his prior to discharge to discuss his homebound status and need for home health care services. Patient has chronic pain and dementia. He is unable to drive. He has cognitive deficits and is homebound. He cannot leave home without assistance. At this time we are requesting home health services nursing at 2-3 times a week for assistance with pain management, disease management and monitoring of progression, medication education, and vital signs. We are recommending physical therapy for balance training, gait training, neuromuscular reeducation, and therapeutic exercises. We are recommending [facility] services at 2-3 times per week for shower and respite care, and we are also recommending occupational therapy for home safety evaluation to monitor the patient's home for safety. Patient was diagnosed with failure to thrive and malnutrition, chronic pain, and recurrent UTI. He also has dementia with moderate cognitive impairment demonstrated. These services can be monitored by the patient's primary care provider, Dr. Pelaez, and adjusted as she sees fit. - Patient Instructions Diet: Usual Diet as Tolerated Activity: As Tolerated Driving: Do Not Drive Showering/Bathing: May Shower Notify Provider of: Fever, Increased Pain, Nausea and/or Vomiting Other/Special Instructions: Follow-up with primary care provider within 5-7 days of discharge, sooner if needed. Recommend you discuss your supplement use during this appointment. Follow-up with Dr. Zambrano, psychiatry, as scheduled this coming thursday. You were prescribed several new medications. Be sure you take these as directed. All prescription medications should be taken as directed. DO NOT SELF ADJUST THE DOSING OF THESE MEDICATIONS. Doing so without discussing with your medical provider can lead to serious complications or even . Use the oxycodone spairingly and with caution. This is intened for more severe pain. It is an opiate and can lead to addiction, worsening constipation, increased sleepiness, and it can impare your ability to drive or operate machinery. Resume home medications as directed. Again, as we discussed, just because a supplement is natural does not mean it will not interact with other supplements or prescription medications. Recommend you supplement your diet with ensure as noted. As discussed, should you have more difficulty at home you may contact [facility] at the number provider for admission to their facility. Should symptoms return or worsen, contact your primary care provider , Dr. Pelaez, or return to the emergency department. - Discharge Plan *PRESCRIPTION DRUG MONITORING PROGRAM REVIEWED*: No *COPY OF PRESCRIPTION DRUG MONITORING REPORT IN PATIENT DANO: No Prescriptions/Med Rec: Fluconazole [Diflucan] 100 mg PO DAILY #12 tablet FLUoxetine [PROzac] 20 mg PO DAILY #40 tab RX: Gabapentin [Neurontin] 100 mg PO BEDTIME #20 cap RX: oxyCODONE 5 mg PO Q6H PRN #12 tablet PRN Reason: Pain (Moderate 4-6) RX: QUEtiapine [SEROquel] 12.5 mg PO BEDTIME #20 tablet RX: Sulfamethoxazole/Trimethoprim [Septra DS] 1 tab PO BID #7 tablet Home Medications: Home Meds Frankincense Oil 1 dose TOP DAILY PRN 12/26/19 [History] RX: Acetaminophen [Tylenol Arthritis] 650 mg PO Q4H PRN 12/26/19 [History] RX: Cyanocobalamin (Vitamin B-12) [Vitamin B-12] 5,000 mcg PO DAILY 12/26/19 [ History] RX: Docusate Sodium/Sennosides [Senokot-S] 1 tab PO BID 12/26/19 [History] RX: Phenylephrine HCl/[place] Butter [Preparation H Suppository] 1 dose RECTAL DAILY PRN 12/26/19 [History] RX: Pseudoephedrine HCl [Sudafed] 30 mg PO DAILY 12/26/19 [History] RX: Selenium 200 mcg PO DAILY 12/26/19 [History] RX: Ubidecarenone [Coq-10] 100 mg PO DAILY 12/26/19 [History] RX: Vitamin B Complex [B Complex] 1 tab PO DAILY 12/26/19 [History] RX: Vitamin D3/Vitamin K2 (Mk4) [K2 Plus D3 Tablet] 1,000 unit PO DAILY [History] RX: Vitamin E 400 unit PO DAILY 12/26/19 [History] RX: Zinc Gluconate [Zinc] 50 mg PO DAILY 12/26/19 [History] RX: witch Kinsey [Witch Kinsey] 1 dose RECTAL DAILY PRN 12/26/19 [History] Resvertrol 400 Mg 800 mg PO DAILY 12/26/19 [History] Vitality 500 Mg 500 mg PO BID 12/26/19 [History] Vitamin A 2500 Unit 2,500 unit PO DAILY 12/26/19 [History] RX: [place] Oil 1 applic PO ASDIRECTED PRN 12/27/19 [History] RX: Potassium Chloride [Klor-Con M10] 10 meq PO Q24H #7 tab.er.prt 02/09/20 [Rx] [place] Perforatum 4 tab SL Q4H PRN 02/15/20 [History] RX: Ascorbic Acid [Vitamin C] 1,000 mg PO DAILY 02/16/20 [History] RX: Magnesium Oxide 500 mg PO DAILY 02/16/20 [History] RX: Non-Formulary Medication [NF Drug] 2 spray TOP BID PRN 02/16/20 [History] FLUoxetine [PROzac] 20 mg PO DAILY #40 tab 02/17/20 [Rx] Fluconazole [Diflucan] 100 mg PO DAILY #12 tablet 02/17/20 [Rx] RX: Gabapentin [Neurontin] 100 mg PO BEDTIME #20 cap 02/17/20 [Rx] RX: QUEtiapine [SEROquel] 12.5 mg PO BEDTIME #20 tablet 02/17/20 [Rx] RX: Sulfamethoxazole/Trimethoprim [Septra DS] 1 tab PO BID #7 tablet 02/17/20 [ Rx] RX: oxyCODONE 5 mg PO Q6H PRN #12 tablet 02/17/20 [Rx] Oxygen Therapy Mode: Room Air Patient Handouts: Sepsis, Diagnosis, Adult Forms: ED Department Discharge Referrals: Samira Pelaez MD [Primary Care Provider] - 02/23/20 8:45 am (please attend the scheduled follow up appointment with your primary care provider as listed) - Discharge Summary/Plan Comment DC Time >30 min.: Yes (45 mins ) - General Info Date of Service: 02/17/20 Functional Status: Reports: Tolerating Diet (minimal intake), Ambulating, Urinating. Denies: New Symptoms - Review of Systems General: Reports: No Symptoms, Weakness, Fatigue. Denies: Fever, Malaise, Chills HEENT: Reports: No Symptoms, Ear Pain (chronic left ear ), Other (Tongue/mouth pain ). Denies: Headaches, Sore Throat Pulmonary: Reports: No Symptoms. Denies: Shortness of Breath, Cough, Sputum, Wheezing Cardiovascular: Reports: No Symptoms. Denies: Chest Pain, Palpitations, Edema Gastrointestinal: Reports: Other (Buttock pain ). Denies: Abdominal Pain, Constipation, Diarrhea, Nausea, Vomiting Genitourinary: Reports: No Symptoms. Denies: Pain Musculoskeletal: Reports: No Symptoms Skin: Reports: No Symptoms, Cyanosis Neurological: Reports: No Symptoms, Confusion, Difficulty Walking (improving ), Gait Disturbance. Denies: Dizziness, Headache, Numbness, Pre-Existing Deficit, Tingling, Trouble Speaking Psychiatric: Reports: No Symptoms - Patient Data Vitals - Most Recent: Last Vital Signs Temp 97.3 F 02/17/20 11:43 Pulse 70 02/17/20 11:43 Resp 16 02/17/20 11:43 BP 124/77 02/17/20 11:43 Pulse Ox 96 02/17/20 11:43 Weight - Most Recent: 107 lb 14.4 oz I&O - Last 24 hours: Intake & Output 02/16/20 02/17/20 02/17/20 22:59 06:59 14:59 Intake Total 420 500 Output Total 700 Balance 420 -200 Lab Results - Last 24 hrs: Laboratory Results - last 24 hr 02/17/20 02/17/20 Range/Units 05:30 05:30 WBC 6.76 (4.23-9.07) K/mm3 RBC 4.36 L (4.63-6.08) M/mm3 Hgb 12.5 L D (13.7-17.5) gm/dl Hct 37.6 L (40.1-51.0) % MCV 86.2 (79.0-92.2) fl MCH 28.7 (25.7-32.2) pg MCHC 33.2 (32.2-35.5) g/dl RDW Std Deviation 45.3 H (35.1-43.9) fL Plt Count 269 (163-337) K/mm3 MPV 10.8 (9.4-12.3) fl Neut % (Auto) 74.3 H (34.0-67.9) % Lymph % (Auto) 15.8 L (21.8-53.1) % Jack % (Auto) 8.0 (5.3-12.2) % Eos % (Auto) 1.5 (0.8-7.0) Baso % (Auto) 0.3 (0.1-1.2) % Neut # (Auto) 5.02 (1.78-5.38) K/mm3 Lymph # (Auto) 1.07 L (1.32-3.57) K/mm3 Jack # (Auto) 0.54 (0.30-0.82) K/mm3 Eos # (Auto) 0.10 (0.04-0.54) K/mm3 Baso # (Auto) 0.02 (0.01-0.08) K/mm3 Sodium 137 (136-145) mEq/L Potassium 3.7 (3.5-5.1) mEq/L Chloride 101 (98-107) mEq/L Carbon Dioxide 28 (21-32) mEq/L Anion Gap 11.7 (5-15) BUN 18 (7-18) mg/dL Creatinine 1.1 (0.7-1.3) mg/dL Est Cr Clr Drug Dosing 33.37 mL/min Estimated GFR (MDRD) > 60 (>60) mL/min BUN/Creatinine Ratio 16.4 (14-18) Glucose 88 (83-115) mg/dL Calcium 8.7 (8.5-10.1) mg/dL Magnesium 2.1 (1.8-2.4) mg/dl Total Bilirubin 1.1 H (0.2-1.0) mg/dL AST 19 (15-37) U/L ALT 21 (16-63) U/L Alkaline Phosphatase 41 L (46-116) U/L Total Protein 6.3 L (6.4-8.2) g/dl Albumin 3.6 (3.4-5.0) g/dl Globulin 2.7 gm/dL Albumin/Globulin Ratio 1.3 (1-2) FAITH Results - Last 24 hrs: Microbiology 02/15/20 07:50 Urine Culture - Final Urine, Clean Catch Klebsiella Oxytoca Med Orders - Current: Current Medications Acetaminophen (Tylenol) 650 mg PO Q4H PRN PRN Reason: Pain (Mild 1-3)/fever Last Admin: 02/16/20 09:23 Dose: 650 mg Cholecalciferol (Vitamin D3) 25 mcg PO DAILY [facility] Last Admin: 02/17/20 09:47 Dose: 25 mcg Enoxaparin Sodium (Lovenox) 40 mg SUBCUT Q24H [facility] Last Admin: 02/16/20 14:23 Dose: 40 mg Fluconazole (Diflucan) 100 mg PO DAILY [facility] Last Admin: 02/17/20 09:48 Dose: 100 mg Fluoxetine HCl (Prozac) 20 mg PO DAILY [facility] Last Admin: 02/17/20 09:47 Dose: 20 mg Gabapentin (Neurontin) 100 mg PO BEDTIME [facility] Last Admin: 02/16/20 20:23 Dose: 100 mg Lorazepam (Ativan) 1 mg IV Q4H PRN PRN Reason: Anxiety Magnesium Hydroxide (Milk Of Magnesia) 30 ml PO ONETIME PRN PRN Reason: Constipation Last Admin: 02/17/20 06:42 Dose: 30 ml Magnesium Topical [place] (Pt's Own Medication) 0 spray TOP BID [facility] Last Admin: 02/17/20 09:52 Dose: Not Given Magnesium Topical [place] (Pt's Own Medication) 0 spray TOP BID PRN PRN Reason: ITCHING Oxycodone HCl (Oxycodone) 5 mg PO Q4H PRN PRN Reason: Pain (moderate 4-6) Last Admin: 02/16/20 22:54 Dose: 5 mg Quetiapine Fumarate (Seroquel) 12.5 mg PO BEDTIME [facility] Last Admin: 02/16/20 20:23 Dose: 12.5 mg Senna/Docusate Sodium (Senna Plus) 1 tab PO BID [facility] Last Admin: 02/17/20 09:48 Dose: 1 tab Sodium Chloride (Saline Flush) 10 ml FLUSH ASDIRECTED PRN PRN Reason: Keep Vein Open Trimethoprim/Sulfamethoxazole (Septra Ds) 1 tab PO BID [facility] Last Admin: 02/17/20 09:48 Dose: 1 tab Witch Kinsey (Tucks) 1 pad TOP DAILY PRN PRN Reason: RECTAL PAIN Discontinued Medications Fluconazole (Diflucan) 200 mg PO ONETIME ONE Stop: 02/16/20 11:16 Last Admin: 02/16/20 12:13 Dose: 200 mg Lorazepam (Ativan) 1 mg IM ONETIME ONE Stop: 02/15/20 05:45 Last Admin: 02/15/20 05:49 Dose: 1 mg Lorazepam (Ativan) 1 mg IV ONETIME PRN PRN Reason: Anxiety Non-Formulary Medication (Non-Formulary Medication [Nf Drug]) 2 spray TOP BID PRN PRN Reason: leg pain Trimethoprim/Sulfamethoxazole (Septra Ds) 1 tab PO DAILY [facility] Last Admin: 02/16/20 08:48 Dose: 1 tab - Exam Quality Assessment: Reports: DVT Prophylaxis General: Reports: Alert, Cooperative, No Acute Distress. Denies: Oriented HEENT: Reports: Pupils Equal, Pupils Reactive, Mucous Membr. Moist/[place], Other ( Tongue has white coating insistent with Tessa) Neck: Reports: Supple, Trachea Midline Lungs: Reports: Clear to Auscultation, Normal Respiratory Effort Cardiovascular: Reports: Regular Rate, Regular Rhythm GI/Abdominal Exam: Normal Bowel Sounds, Soft, Non-Tender, No Distention (Male) Exam: Deferred Rectal (Males) Exam: Deferred Back Exam: Reports: Normal Inspection, Decreased Range of Motion Extremities: Normal Inspection, Normal Range of Motion, Non-Tender, No Pedal Edema, Normal Capillary Refill Skin: Reports: Warm, Dry, Intact Neurological: Reports: No New Focal Deficit Psy/Mental Status: Reports: Alert
--- NOTE | 2020-02-20 10:26 | CONS ---
CONSULTING PHYSICIAN: Philip Zambrano MD DATE OF CONSULTATION: 02/17/2020 Site where the services are provided are [facility] in [place], [place]. Site where the services are provided from our offices in [facility]. IDENTIFICATION: The patient is an 84-year-old male who was admitted to the Inpatient Med/Surg Unit at [facility] in [place], [place]. He is seen for psychiatric evaluation and consultation per the request of staff attending, Dr. Almaguer, and his treatment team. CHIEF COMPLAINT: "I have a lot of pain. Cancer." HISTORY OF PRESENT ILLNESS: The patient is an 84-year-old male who is admitted to the Med/Surg Unit at [facility] on 02/15/2020, for problems with failure to thrive and possible increased dementia as well as complications from possible skin cancer. The patient is apparently displaying some confusion. On admission, staff is concerned that his dementia may be worsening. On interview, the patient is alert and oriented x2 to person and place, but not to date nor does he know the date of his . He does know his age, however. He endorses symptoms of depression. He also endorses symptoms of insomnia and he has lack of appetite, although staff is reporting that the patient has been eating okay on the unit. The patient is open to trying medication adjustments to see if that will help improve his mood and apparently the treatment team was wanting to send the patient to a structured living situation, but the patient's wants to bring the patient back home when he is medically stabilized. MEDICATIONS: On admission, the patient was takin. Seroquel 6.25 mg at bedtime. 2. Selenium supplements. On the unit, the patient has been gettin. Seroquel 12.5 mg at bedtime. 2. Morphine. 3. OxyContin. 4. Neurontin 100 mg at bedtime. 5. Ativan q.4 hours p.r.n., although the patient has not gotten any doses of the Ativan while on the unit. ALLERGIES: 1. Lidocaine. 2. Penicillin. 3. Nystatin. PAST MEDICAL HISTORY: 1. History of skin cancer. 2. History of migraines. 3. History of BPH. 4. History of chronic renal insufficiency. 5. History of bradycardia. REVIEW OF SYSTEMS: Aside from neuro, genitourinary, dermatologic, renal, and cardiovascular, all other major organ systems are negative at this point in time for acute difficulties or complications. FAMILY PSYCHIATRIC AND CD HISTORY: None reported. PAST PSYCHIATRIC AND CD HISTORY: The patient had been taking Seroquel prior to admission. SOCIAL HISTORY: The patient reports he is born and raised in [place], [place]. 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 MENTAL STATUS EXAM: The patient is an 84-year-old white male, lying in bed, in no apparent distress. Speech is of increased latency of response. In general, shortened duration of utterance. Psychomotor activity is within normal limits. There are no abnormal motor movements or tics observed. Gait and station are not observed as the patient is lying in bed. Mood is depressed. Affect is consistent with stated mood, pretty restricted, but cooperative overall for the purposes of the inpatient consult. There is no behavioral or stated evidence of acute suicidal or homicidal ideation or acute psychotic, delusional, or paranoid symptoms. Thought processes are significant for some possible thought blocking. There are no acute manic symptoms or loose associations evident. Judgment and insight do appear somewhat impaired secondary to the patient's cognitive deficits. Motivation for help appears fair to good. VITAL SIGNS: 160/70, 66, 20, 97.5 degrees. IMPRESSION: [place] I: 1. Major depressive disorder, F32.2. 2. Dementia, not otherwise specified. 3. Rule out pseudodementia. [place] II: None. [place] III: 1. History of skin cancer. 2. History of migraines. 3. History of benign prostatic hyperplasia. 4. History of chronic renal insufficiency. 5. History of bradycardia. [place] IV: Severe. [place] V: 50 to 55. PLAN: 1. Begin trial of Prozac 20 mg q.a.m. for symptoms of depression. 2. Continue Seroquel 12.5 mg at bedtime as currently dosed by the patient's primary inpatient medical treatment team. 3. Other medications as dosed by the patient's primary inpatient medical treatment team. 4. Recommend that the patient follow up with Outpatient Psychiatry when medically stabilized and discharged back to the community to assess his overall function and efficacy of his newly initiated and adjusted psychiatric medication regimen. 5. We will continue to follow up with the patient on an as-needed basis while he remains on the inpatient Med/Surg Unit at [facility] in [place], [place]. 6. We will follow up with the patient sooner if any complications in the interim. 7. Crisis plan is in place. SUAD /[id number]
== END 2020-02-17 12:30 | disposition home health service (06) | DRG 884 ==
LOC: JD.ED 04:56 → JD.MS 11:17
PROVIDERS: ADMIT Family Medicine; ATTEND Family Medicine
DX: F03.90 Unspecified dementia, unspecified severity, without behavioral disturbance, psychotic disturbance, mood disturbance, and anxiety (principal); T33.0 Superficial frostbite of head; N30.00 Acute cystitis without hematuria; E46 Unspecified protein-calorie malnutrition; R62.7 Adult failure to thrive; F03.91 Unspecified dementia, unspecified severity, with behavioral disturbance; Z60.9 Problem related to social environment, unspecified; E53.8 Deficiency of other specified B group vitamins; G89.4 Chronic pain syndrome; N40.0 Benign prostatic hyperplasia without lower urinary tract symptoms; K62.89 Other specified diseases of anus and rectum; R33.9 Retention of urine, unspecified; K59.09 Other constipation; H92.09 Otalgia, unspecified ear; B96.1 Klebsiella pneumoniae [K. pneumoniae] as the cause of diseases classified elsewhere; Z86.69 Personal history of other diseases of the nervous system and sense organs; Z87.19 Personal history of other diseases of the digestive system; Z86.39 Personal history of other endocrine, nutritional and metabolic disease; N40.1 Benign prostatic hyperplasia with lower urinary tract symptoms; R33.8 Other retention of urine; Z87.440 Personal history of urinary (tract) infections; G47.00 Insomnia, unspecified; E55.9 Vitamin D deficiency, unspecified; Z85.828 Personal history of other malignant neoplasm of skin; Z90.49 Acquired absence of other specified parts of digestive tract; Z88.4 Allergy status to anesthetic agent; Z88.0 Allergy status to penicillin; Z88.8 Allergy status to other drugs, medicaments and biological substances; Z79.899 Other long term (current) drug therapy
CPT/HCPCS: 36415; 80053; 81001; 83735; 85025; 87086; 87088; 87186; 96125-GN; 96372; 97110-GP; 97112-GP; 97116-GP; 97129-GN; 97130-GN; 97162-GP; 97165-GO; 97530-GO; 99284; 99285; A9270-GY; J1650; J2060; Q3014

== ENCOUNTER 2020-02-22 05:42 | Emergency (ER) | payer MEDICARE, OTHER ==
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
[2020-02-22] MEDS ORDERED: LORazepam 2 MG/ML SDV IM ONE (08:57)
== END 2020-02-22 15:35 ==
LOC: JD.ED 05:42
DX: G30.1 Alzheimer's disease with late onset (principal); F02.81 Dementia in other diseases classified elsewhere, unspecified severity, with behavioral disturbance; N18.9 Chronic kidney disease, unspecified; G43.909 Migraine, unspecified, not intractable, without status migrainosus; F41.9 Anxiety disorder, unspecified; Z88.0 Allergy status to penicillin; Z88.4 Allergy status to anesthetic agent; Z88.1 Allergy status to other antibiotic agents; Z79.899 Other long term (current) drug therapy
CPT/HCPCS: 36415; 80053; 80306; 80307; 81003; 85007; 85027; 93005; 96372; 99285; J2060; 99283

== ENCOUNTER 2020-03-28 22:59 | Emergency (ER) | payer MEDICARE, OTHER ==
[2020-03-28] MEDS ORDERED: diphenhydrAMINE 50 MG/ML SDV IM ONE (23:26)
--- NOTE | 2020-03-29 00:24 | EDM.PDOC ---
ED HPI GENERAL MEDICAL PROBLEM - General Chief Complaint: Laceration Stated Complaint: EAR LACERATION Time Seen by Provider: 03/28/20 23:11 Source of Information: Reports: Patient, Family History Limitations: Reports: No Limitations - History of Present Illness INITIAL COMMENTS - FREE TEXT/NARRATIVE: The patient presents with a left ear laceration. He lost his balance by the e dge of his bed and slid down and hit his head on the night stand. He cut his left ear. He has no headache and he did not hit his head that hard. He has no neck pain, chest pain, abdominal pain or hip pain. His tetanus is believed to be up to date. Onset: Sudden Duration: Minutes: Location: Reports: Face (left ear) Quality: Reports: Sharp Severity: Mild Improves with: Reports: None Worsens with: Reports: None Associated Symptoms: Reports: No Other Symptoms Left Ear Pain Score (Numeric/FACES): 4 - Related Data Allergies Allergy/AdvReac Type Severity Reaction Status Date / Time lidocaine Allergy Intermediate Burning Verified 03/28/20 23:18 Penicillins Allergy Mild Rash Verified 03/28/20 23:18 nystatin Allergy Intermediate Mouth Sores Uncoded 02/22/20 05:51 Home Meds: Home Meds Acetaminophen [Tylenol Arthritis] 650 mg PO Q4H PRN 12/26/19 [History] Cyanocobalamin (Vitamin B-12) [Vitamin B-12] 5,000 mcg PO DAILY 12/26/19 [History] Docusate Sodium/Sennosides [Senokot-S] 1 tab PO BID 12/26/19 [History] Frankincense Oil 1 dose TOP DAILY PRN 12/26/19 [History] Phenylephrine HCl/[place] Butter [Preparation H Suppository] 1 dose RECTAL DAILY PRN 12/26/19 [History] Pseudoephedrine HCl [Sudafed] 30 mg PO DAILY 12/26/19 [History] Resvertrol 400 Mg 800 mg PO DAILY 12/26/19 [History] Selenium 200 mcg PO DAILY 12/26/19 [History] Ubidecarenone [Coq-10] 100 mg PO DAILY 12/26/19 [History] Vitality 500 Mg 500 mg PO BID 12/26/19 [History] Vitamin A 2500 Unit 2,500 unit PO DAILY 12/26/19 [History] Vitamin B Complex [B Complex] 1 tab PO DAILY 12/26/19 [History] Vitamin D3/Vitamin K2 (Mk4) [K2 Plus D3 Tablet] 1,000 unit PO DAILY 12/26/19 [History] Vitamin E 400 unit PO DAILY 12/26/19 [History] Zinc Gluconate [Zinc] 50 mg PO DAILY 12/26/19 [History] witch Belgica [Witch Belgica] 1 dose RECTAL DAILY PRN 12/26/19 [History] Raphine Oil 1 applic PO ASDIRECTED PRN 12/27/19 [History] Potassium Chloride [Klor-Con M10] 10 meq PO Q24H #7 tab.er.prt 02/09/20 [Rx] [place] Perforatum 4 tab SL Q4H PRN 02/15/20 [History] Ascorbic Acid [Vitamin C] 1,000 mg PO DAILY 02/16/20 [History] Magnesium Oxide 500 mg PO DAILY 02/16/20 [History] Non-Formulary Medication [NF Drug] 2 spray TOP BID PRN 02/16/20 [History] FLUoxetine [PROzac] 20 mg PO DAILY #40 tab 02/17/20 [Rx] Fluconazole [Diflucan] 100 mg PO DAILY #12 tablet 02/17/20 [Rx] Gabapentin [Neurontin] 100 mg PO BEDTIME #20 cap 02/17/20 [Rx] QUEtiapine [SEROquel] 12.5 mg PO BEDTIME #20 tablet 02/17/20 [Rx] Sulfamethoxazole/Trimethoprim [Septra DS] 1 tab PO BID #7 tablet 02/17/20 [Rx] oxyCODONE 5 mg PO Q6H PRN #12 tablet 02/17/20 [Rx] Past Medical History - Past Health History Medical/Surgical History: Denies Medical/Surgical History HEENT History: Reports: Cataract, Other (See Below) Other HEENT History: chronic ear pain, geographic tongue, tongue pain, thrush, left ear lesion with freezing x 3, mouth sores/ulcers Cardiovascular History: Reports: Other (See Below) Other Cardiovascular History: sinus bradycardia Respiratory History: Reports: None Other Respiratory History: PT will not respond to any questions Gastrointestinal History: Reports: Chronic Constipation, Hemorrhoids, Other (See Below) Other Gastrointestinal History: elevated bilirubin, anal fissure, rectal pain, abdominal pain Genitourinary History: Reports: BPH, Chronic Renal Insuffiency, Retention, Urinary, UTI, Recurrent Other Genitourinary History: epididymitis, flank pain, prostatism, scrotal pain [employer]IST History: Reports: None Musculoskeletal History: Reports: Other (See Below) Other Musculoskeletal History: ischial pain, weakness Neurological History: Reports: Concussion, Migraines, Other (See Below) Other Neuro History: dizziness Psychiatric History: Reports: Aggressive/Hostile Behaviors, Anxiety, Dementia, Other (See Below) Other Psychiatric History: age-related cognitive decline, insomnia Endocrine/Metabolic History: Reports: Hypokalemia, Vitamin D Deficiency, Other (See Below) Other Endocrine/Metabolic History: [id number] deficiency, hypoalbuminemia, hypocalcemia Hematologic History: Reports: Other (See Below) Other Hematologic History: sepsis Immunologic History: Reports: None Other Immunologic History: PT will not respond to any questions Oncologic (Cancer) History: Reports: Other (See Below) 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 Dermatologic History: Reports: Other (See Below) Other Dermatologic History: left ear lesion, rash, skin tag - Infectious Disease History Infectious Disease History: Reports: None Other Infectious Disease History: sepsis - Past Surgical History Head Surgeries/Procedures: Reports: None Respiratory Surgical History: Reports: None GI Surgical History: Reports: Appendectomy, Cholecystectomy, Colonoscopy, Other (See Below) Other Male Surgeries/Procedures: rezum prostate ablation Social & Family History - Family History Family Medical History: Noncontributory Other HEENT Family History: PT will not respond to any questions Other Cardiac Family History: PT will not respond to any questions Other Musculoskeletal Family History: PT will not respond to any questions Other Psychiatric Family History: PT will not respond to any questions Other Hematologic Family History: PT will not respond to any questions Other Dermatologic Family History: PT will not respond to any questions Other Oncologic Family History: PT will not respond to any questions - Tobacco Use Smoking Status *Q: Never Smoker - Caffeine Use Caffeine Use: Reports: None Other Caffeine Use: not responding - Living Situation & Occupation Living situation: Reports: , with Spouse Occupation: Retired ED ROS GENERAL - Review of Systems Review Of Systems: See Below Constitutional: Reports: No Symptoms HEENT: Reports: Other (Left ear lacration) Respiratory: Reports: No Symptoms Cardiovascular: Reports: No Symptoms Endocrine: Reports: No Symptoms GI/Abdominal: Reports: No Symptoms ED EXAM, SKIN/RASH Exam: See Below Exam Limited By: No Limitations General Appearance: Alert, No Apparent Distress Ears: Other (0.5cm laceration to the outer ear) Nose: Normal Inspection Throat/Mouth: Normal Inspection Head: Normocephalic Neck: Normal Inspection Respiratory/Chest: No Respiratory Distress ED SKIN PROCEDURES - Laceration/Wound Repair Left Ear Appearance: Superficial Distal NVT: Neuro & Vascular Intact Anesthetic Type: Local Local Anesthesia - Lidocaine (Xylocaine): Other (benadryl) Skin Prep: Saline Exploration/Debridement/Repair: Wound Explored, In a Bloodless Field, Explored to Base Closed with: Sutures Lac/Wound length In cm: 0.5 Suture Size: 5-0 # of Sutures: 3 Suture Type: Nylon, Interrupted, Simple Tetanus Status Addressed: Yes Complications: No Course - Vital Signs Last Recorded V/S: Last Vital Signs Temp 98.1 F 03/28/20 23:15 Pulse 86 03/28/20 23:15 Resp 16 03/28/20 23:15 BP 103/76 03/28/20 23:15 Pulse Ox 98 03/28/20 23:15 - Orders/Labs/Meds Meds: Medications Discontinued Medications Generic Name Dose Route Start Last Admin Trade Name Freq PRN Reason Stop Dose Admin Diphenhydramine HCl 25 mg 03/28/20 23:26 Benadryl IM 03/28/20 23:27 ONETIME ONE - Re-Assessments/Exams Free Text/Narrative Re-Assessment/Exam: 03/29/20 00:22 I sutured the laceration. I will discharge him home. Departure - Departure Time of Disposition: 00:25 Disposition: Home, Self-Care 01 Condition: Good Clinical Impression: Laceration of left ear Qualifiers: Encounter type: initial encounter Qualified Code(s): S01.312A - Laceration without foreign body of left ear, initial encounter - Discharge Information *PRESCRIPTION DRUG MONITORING PROGRAM REVIEWED*: Not Applicable *COPY OF PRESCRIPTION DRUG MONITORING REPORT IN PATIENT DANO: Not Applicable Additional Instructions: Clean the wound with warm soapy water 2 times per day and apply antibiotics after. Have the sutures removed in 7 days. Look for any signs of infection such as redness, swelling, pain or drainage. If you see any of these signs please return or see your doctor. You may need oral antibiotics. Sepsis Event Note (ED) - Evaluation Sepsis Screening Result: No Definite Risk - Focused Exam Vital Signs: Vital Signs Temp Pulse Resp BP Pulse Ox 03/28/20 23:15 98.1 F 86 16 103/76 98
== END 2020-03-29 01:16 | disposition home or self-care (01) ==
LOC: JD.ED 22:59
DX: S01.312A Laceration without foreign body of left ear, initial encounter (principal); F03.90 Unspecified dementia, unspecified severity, without behavioral disturbance, psychotic disturbance, mood disturbance, and anxiety; F41.9 Anxiety disorder, unspecified; Z88.6 Allergy status to analgesic agent; Z88.0 Allergy status to penicillin; Z88.1 Allergy status to other antibiotic agents; Z79.899 Other long term (current) drug therapy; W01.198A Fall on same level from slipping, tripping and stumbling with subsequent striking against other object, initial encounter; F03.91 Unspecified dementia, unspecified severity, with behavioral disturbance; R41.81 Age-related cognitive decline; H92.09 Otalgia, unspecified ear
CPT/HCPCS: 12011; 96372; 99215; 99282; J1200

== ENCOUNTER 2020-04-09 14:17 | Emergency (ER) | payer MEDICARE, OTHER ==
[2020-04-09] MEDS ORDERED: Sodium Chloride 0.9% 10 ML Syringe FLUSH PRN (15:16)
[2020-04-09] MEDS ORDERED: Sodium Chloride 0.9% 1,000 ML IV ONE (15:17)
--- NOTE | 2020-04-09 15:37 | EDM.PDOC ---
ED HPI GENERAL MEDICAL PROBLEM - General Chief Complaint: General Stated Complaint: UNCONTROLLABLE BOWEL MOVEMENT/NEED SUTURE REMOVED Time Seen by Provider: 04/09/20 14:34 Source of Information: Reports: Patient, RN Notes Reviewed History Limitations: Reports: No Limitations, Altered Mental Status (Pt has dementia, most of the history is provided by .) - History of Present Illness INITIAL COMMENTS - FREE TEXT/NARRATIVE: Patient is a 84-year-old male who presents to the ED for the evaluation of his generalized weakness, and uncontrolled bowel movements. notes that she has been having increased difficulties taking care of her at home, as he has been having increased weakness, increased falls, and he has not been able to hold his bowels, she states that he has been soiling himself regularly at home. states that the patient has not been taking his prescribed medications at home, as he refuses to do such. does note that they do have home health nursing staff; and have also been doctoring for this, but it is not noted to be red or inflamed. He did have a fall recently, and does have sutures to his left ear that need to be removed. The also characterizes that he has a small bedsore on his tailbone area, that the home health nurse has been watching. The denies any fever/chills, cough/shortness of breath, nausea/vomiting/diar tarik, but she states that he is losing weight, is not eating or drinking much, and she appreciates that his urine is cloudy and more concentrated or foul- smelling than it normally is. Patient does have a Nur catheter indwelling in place for kidney issues. The patient's primary care provider is Dr. Pelaez, but the patient does have a referral to Dr. Santana for possible snf placement into [facility], and this appointment is April 16. The states that she does not think that she could be able to take care of the patient until then. The patient himself states that he has generalized pain all over, but he is demented, and does not offer a lot for exam or history otherwise. Generalized Pain Score (Numeric/FACES): 5 - Related Data Allergies Allergy/AdvReac Type Severity Reaction Status Date / Time lidocaine Allergy Intermediate Burning Verified 04/09/20 14:32 Penicillins Allergy Mild Rash Verified 04/09/20 14:32 nystatin Allergy Intermediate Mouth Sores Uncoded 04/09/20 14:32 Home Meds: Home Meds Acetaminophen [Tylenol Arthritis] 650 mg PO Q4H PRN 12/26/19 [History] Cyanocobalamin (Vitamin B-12) [Vitamin B-12] 5,000 mcg PO DAILY 12/26/19 [History] Docusate Sodium/Sennosides [Senokot-S] 1 tab PO BID 12/26/19 [History] Frankincense Oil 1 dose TOP DAILY PRN 12/26/19 [History] Phenylephrine HCl/[place] Butter [Preparation H Suppository] 1 dose RECTAL DAILY PRN 12/26/19 [History] Pseudoephedrine HCl [Sudafed] 30 mg PO DAILY 12/26/19 [History] Resvertrol 400 Mg 800 mg PO DAILY 12/26/19 [History] Selenium 100 mcg PO DAILY 12/26/19 [History] Ubidecarenone [Coq-10] 100 mg PO DAILY 12/26/19 [History] Vitality 500 Mg 500 mg PO BID 12/26/19 [History] Vitamin A 2500 Unit 2,500 unit PO DAILY 12/26/19 [History] Vitamin B Complex [B Complex] 1 tab PO BID 12/26/19 [History] Vitamin D3/Vitamin K2 (Mk4) [K2 Plus D3 Tablet] 1,000 unit PO DAILY 12/26/19 [History] Vitamin E 400 unit PO DAILY 12/26/19 [History] Zinc Gluconate [Zinc] 25 mg PO DAILY 12/26/19 [History] witch Kinsey [Witch Kinsey] 1 dose RECTAL DAILY PRN 12/26/19 [History] Logan Oil 1 applic PO ASDIRECTED PRN 12/27/19 [History] Potassium Chloride [Klor-Con M10] 10 meq PO Q24H #7 tab.er.prt 02/09/20 [Rx] Dequincy Perforatum 4 tab SL Q4H PRN 02/15/20 [History] Ascorbic Acid [Vitamin C] 1,000 mg PO DAILY 02/16/20 [History] Magnesium Oxide 500 mg PO BID 02/16/20 [History] Non-Formulary Medication [NF Drug] 2 spray TOP BID PRN 02/16/20 [History] Fluconazole [Diflucan] 100 mg PO DAILY #12 tablet 02/17/20 [Rx] Gabapentin [Neurontin] 100 mg PO BEDTIME #20 cap 02/17/20 [Rx] Sulfamethoxazole/Trimethoprim [Septra DS] 1 tab PO BID #7 tablet 02/17/20 [Rx] oxyCODONE 5 mg PO Q6H PRN #12 tablet 02/17/20 [Rx] Bisacodyl [Laxative Suppository] 1 supp RECTAL DAILY PRN 04/09/20 [History] Cannabidiol (Cbd) Extract [CBD Oil] 1 drop PO ASDIRECTED 04/09/20 [History] Carboxymethylcellulose Sodium [Artificial Tears] 1 drop EYEBOTH ASDIRECTED 04/09/20 [History] Cholecalciferol (Vitamin D3) [Vitamin D3] 2,000 units PO DAILY 04/09/20 [History] FLUoxetine [PROzac] 40 mg PO DAILY 04/09/20 [History] LORazepam [Ativan] 1 mg PO BID PRN #20 tab 04/09/20 [Rx] LORazepam [Ativan] 1 mg PO Q4H PRN 04/09/20 [History] Mag Hydrox/Aluminum Hyd/Simeth [Mylanta Maximum Strength Liq] 1 dose PO ASDIRECTED 04/09/20 [History] Mirtazapine [Remeron] 15 mg PO BEDTIME 04/09/20 [History] Multivitamin [Multivitamins] 1 cap PO DAILY 04/09/20 [History] QUEtiapine [SEROquel] 50 mg PO BEDTIME 04/09/20 [History] Tamsulosin [Flomax] 0.4 mg PO DAILY 04/09/20 [History] Triamcinolone Acetonide [Triamcinolone Acetonide 0.1% Crm] 1 gm TOP BID 04/09/20 [History] oxyCODONE HCl/Acetaminophen [Oxycodone-Acetaminophen 5-325] 1 tab PO Q6H PRN 04/09/20 [History] polyethylene glycoL 3350 [Miralax] 17 gm PO BID 04/09/20 [History] Past Medical History HEENT History: Reports: Cataract, Other (See Below) Other HEENT History: chronic ear pain, geographic tongue, tongue pain, thrush, left ear lesion with freezing x 3, mouth sores/ulcers Cardiovascular History: Reports: Other (See Below) Other Cardiovascular History: sinus bradycardia, dizziness with standing Gastrointestinal History: Reports: Chronic Constipation, Hemorrhoids, Other (See Below) Other Gastrointestinal History: elevated bilirubin, anal fissure, rectal pain, abdominal pain, poor appetite Genitourinary History: Reports: BPH, Chronic Renal Insuffiency, Retention, Urinary, UTI, Recurrent Other Genitourinary History: epididymitis, flank pain, prostatism, scrotal pain, dysuria Musculoskeletal History: Reports: Other (See Below) Other Musculoskeletal History: ischial pain, weakness Neurological History: Reports: Concussion, Migraines, Other (See Below) Other Neuro History: dizziness, neuropathic pain Psychiatric History: Reports: Aggressive/Hostile Behaviors, Anxiety, Dementia, Other (See Below) Other Psychiatric History: age-related cognitive decline, insomnia, hypersomnolence Endocrine/Metabolic History: Reports: Hypokalemia, Vitamin D Deficiency, Other (See Below) Other Endocrine/Metabolic History: [id number] deficiency, hypoalbuminemia, hypocalcemia, low zinc level Immunologic History: Reports: Other (See Below) Other Immunologic History: immune disorder Oncologic (Cancer) History: Reports: Other (See Below) 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 Dermatologic History: Reports: Other (See Below) Other Dermatologic History: left ear lesion, rash, skin tag - Infectious Disease History Other Infectious Disease History: sepsis - Past Surgical History GI Surgical History: Reports: Appendectomy, Cholecystectomy, Colonoscopy Male Surgical History: Reports: Other (See Below) Other Male Surgeries/Procedures: rezum prostate ablation Social & Family History - Family History Family Medical History: Noncontributory Other HEENT Family History: PT will not respond to any questions Other Cardiac Family History: PT will not respond to any questions Other Musculoskeletal Family History: PT will not respond to any questions Other Psychiatric Family History: PT will not respond to any questions Other Hematologic Family History: PT will not respond to any questions Other Dermatologic Family History: PT will not respond to any questions Other Oncologic Family History: PT will not respond to any questions - Tobacco Use Smoking Status *Q: Never Smoker - Caffeine Use Caffeine Use: Reports: None Other Caffeine Use: not responding - Recreational Drug Use Recreational Drug Use: No - Living Situation & Occupation Living situation: Reports: , with Spouse Occupation: Retired ED ROS GENERAL - Review of Systems Review Of Systems: See Below Constitutional: Reports: Malaise (generalized), Weakness (generalized), Decreased Appetite, Weight Loss. Denies: Fever, Chills Respiratory: Denies: Shortness of Breath, Cough Cardiovascular: Denies: Chest Pain GI/Abdominal: Reports: Stool Incontinence. Denies: Abdominal Pain, Black Stool, Bloody Stool, Constipation, Diarrhea, Nausea : Denies: Dysuria Psychiatric: Reports: Agitation (pt does get hostile from time to time), Other (dementia) ED EXAM, GENERAL - Physical Exam Exam: See Below Exam Limited By: No Limitations General Appearance: Alert, WD/WN, No Apparent Distress Eye Exam: Bilateral Eye: Normal Inspection, PERRL Head: Atraumatic, Normocephalic Neck: Normal Inspection Respiratory/Chest: No Respiratory Distress, Lungs Clear, Normal Breath Sounds, No Accessory Muscle Use, Chest Non-Tender Cardiovascular: Normal Peripheral Pulses, Regular Rate, Rhythm, No Murmur GI/Abdominal: Normal Bowel Sounds, Soft, Non-Tender, No Distention, No Mass Extremities: Normal Inspection, Normal Capillary Refill Neurological: Alert, Oriented, No Motor/Sensory Deficits Psychiatric: Normal Affect, Normal Mood Skin Exam: Warm, Dry, Intact, Normal Color, No Rash EKG INTERPRETATION EKG Date: 04/09/20 Time: 17:37 Rhythm: NSR Rate (Beats/Min): 61 [place]: Normal P-Wave: Present QRS: Normal ST-T: Normal QT: Normal Comparison: No Change EKG Interpretation Comments: No obvious ischemia or acute ST changes noted, reviewed by myself and Dr. Rivera. Course - Vital Signs Last Recorded V/S: Last Vital Signs Temp 97.3 F 04/09/20 14:27 Pulse 71 04/09/20 14:27 Resp 18 04/09/20 14:27 BP 107/56 L 04/09/20 14:27 Pulse Ox 99 04/09/20 14:27 - Orders/Labs/Meds Orders: Active Orders 24 hr Category Date Time Status EKG Documentation Completion [RC] STAT Care 04/09/20 15:16 Active Insert Urinary Catheter [OM.PC] Q24H Care 04/09/20 20:15 Ordered Peripheral IV Care [RC] . DIRECTED Care 04/09/20 15:16 Active Urinary Catheter Assessment [RC] ASDIRECTED Care 04/09/20 20:05 Active CULTURE URINE [RM] Routine Lab 04/09/20 16:50 Received Peripheral IV Insertion Adult [OM.PC] Routine Oth 04/09/20 15:16 Ordered [place] Sutures Removal [RC] Click to Edit Oth 04/09/20 20:04 Active Labs: Laboratory Tests 04/09/20 04/09/20 04/09/20 Range/Units 16:40 16:40 16:40 WBC 4.55 (4.23-9.07) K/mm3 RBC 3.79 L (4.63-6.08) M/mm3 Hgb 11.5 L (13.7-17.5) gm/dl Hct 35.7 L (40.1-51.0) % MCV 94.2 H D (79.0-92.2) fl MCH 30.3 (25.7-32.2) pg MCHC 32.2 (32.2-35.5) g/dl RDW Std Deviation 55.4 H (35.1-43.9) fL Plt Count 175 (163-337) K/mm3 MPV 10.7 (9.4-12.3) fl Neut % (Auto) 76.0 H (34.0-67.9) % Lymph % (Auto) 16.3 L (21.8-53.1) % Alcorn % (Auto) 5.7 (5.3-12.2) % Eos % (Auto) 0.9 (0.8-7.0) Baso % (Auto) 0.9 (0.1-1.2) % Neut # (Auto) 3.46 (1.78-5.38) K/mm3 Lymph # (Auto) 0.74 L (1.32-3.57) K/mm3 [place] # (Auto) 0.26 L (0.30-0.82) K/mm3 Eos # (Auto) 0.04 (0.04-0.54) K/mm3 Baso # (Auto) 0.04 (0.01-0.08) K/mm3 Sodium 142 (136-145) mEq/L Potassium 3.9 (3.5-5.1) mEq/L Chloride 105 (98-107) mEq/L Carbon Dioxide 33 H (21-32) mEq/L Anion Gap 7.9 (5-15) BUN 38 H (7-18) mg/dL Creatinine 0.8 (0.7-1.3) mg/dL Est Cr Clr Drug Dosing 41.67 mL/min Estimated GFR (MDRD) > 60 (>60) mL/min BUN/Creatinine Ratio 47.5 H (14-18) Glucose 113 (83-115) mg/dL Calcium 8.3 L (8.5-10.1) mg/dL Magnesium 2.1 (1.8-2.4) mg/dl Total Bilirubin 0.9 (0.2-1.0) mg/dL AST 20 (15-37) U/L ALT 29 (16-63) U/L Alkaline Phosphatase 30 L (46-116) U/L Troponin I < 0.017 (0.00-0.056) ng/mL NT-Pro-B Natriuret Pep 640 H (0-450) pg/mL Total Protein 5.9 L (6.4-8.2) g/dl Albumin 3.2 L (3.4-5.0) g/dl Globulin 2.7 gm/dL Albumin/Globulin Ratio 1.2 (1-2) Urine Color (Yellow) Urine Appearance (Clear) Urine pH (5.0-8.0) Ur Specific [place] (1.005-1.030) Urine Protein (Negative) Urine Glucose (UA) (Negative) Urine Ketones (Negative) Urine Occult Blood (Negative) Urine Nitrite (Negative) Urine Bilirubin (Negative) Urine Urobilinogen (0.2-1.0) Ur Leukocyte Esterase (Negative) Urine RBC (0-5) /hpf Urine WBC (0-5) /hpf Urine WBC Clumps (NOT SEEN) /hpf Ur Squamous Epith Cells (0-5) /hpf Urine Bacteria (FEW) /hpf Urine Mucus (FEW) /hpf COVID-19 (KATELIN) (NEGATIVE) 04/09/20 04/09/20 Range/Units 16:50 18:00 WBC (4.23-9.07) K/mm3 RBC (4.63-6.08) M/mm3 Hgb (13.7-17.5) gm/dl Hct (40.1-51.0) % MCV (79.0-92.2) fl MCH (25.7-32.2) pg MCHC (32.2-35.5) g/dl RDW Std Deviation (35.1-43.9) fL Plt Count (163-337) K/mm3 MPV (9.4-12.3) fl Neut % (Auto) (34.0-67.9) % Lymph % (Auto) (21.8-53.1) % [place] % (Auto) (5.3-12.2) % Eos % (Auto) (0.8-7.0) Baso % (Auto) (0.1-1.2) % Neut # (Auto) (1.78-5.38) K/mm3 Lymph # (Auto) (1.32-3.57) K/mm3 [place] # (Auto) (0.30-0.82) K/mm3 Eos # (Auto) (0.04-0.54) K/mm3 Baso # (Auto) (0.01-0.08) K/mm3 Sodium (136-145) mEq/L Potassium (3.5-5.1) mEq/L Chloride (98-107) mEq/L Carbon Dioxide (21-32) mEq/L Anion Gap (5-15) BUN (7-18) mg/dL Creatinine (0.7-1.3) mg/dL Est Cr Clr Drug Dosing mL/min Estimated GFR (MDRD) (>60) mL/min BUN/Creatinine Ratio (14-18) Glucose (83-115) mg/dL Calcium (8.5-10.1) mg/dL Magnesium (1.8-2.4) mg/dl Total Bilirubin (0.2-1.0) mg/dL AST (15-37) U/L ALT (16-63) U/L Alkaline Phosphatase (46-116) U/L Troponin I (0.00-0.056) ng/mL NT-Pro-B Natriuret Pep (0-450) pg/mL Total Protein (6.4-8.2) g/dl Albumin (3.4-5.0) g/dl Globulin gm/dL Albumin/Globulin Ratio (1-2) Urine Color Yellow (Yellow) Urine Appearance Cloudy H (Clear) Urine pH 6.5 (5.0-8.0) Ur Specific [place] 1.025 (1.005-1.030) Urine Protein 1+ H (Negative) Urine Glucose (UA) Negative (Negative) Urine Ketones Negative (Negative) Urine Occult Blood 2+ H (Negative) Urine Nitrite Positive H (Negative) Urine Bilirubin Negative (Negative) Urine Urobilinogen 0.2 (0.2-1.0) Ur Leukocyte Esterase 3+ H (Negative) Urine RBC 10-20 H (0-5) /hpf Urine WBC 40-50 H (0-5) /hpf Urine WBC Clumps Few (NOT SEEN) /hpf Ur Squamous Epith Cells 0-5 (0-5) /hpf Urine Bacteria Many H (FEW) /hpf Urine Mucus Few (FEW) /hpf COVID-19 (KATELIN) Negative (NEGATIVE) Meds: Medications Discontinued Medications Generic Name Dose Route Start Last Admin Trade Name Freq PRN Reason Stop Dose Admin Sodium Chloride 1,000 mls @ 150 mls/hr 04/09/20 15:17 04/09/20 17:18 Normal Saline IV 04/09/20 21:56 150 mls/hr ONETIME ONE Administration Ceftriaxone Sodium 1 gm/ 100 mls @ 200 mls/hr 04/09/20 17:56 04/09/20 18:17 Sodium Chloride IV 04/09/20 18:25 200 mls/hr ONETIME ONE Administration Lorazepam 1 mg 04/09/20 15:48 04/09/20 16:11 Ativan IM 04/09/20 15:49 1 mg ONETIME ONE Administration Sodium Chloride 10 ml 04/09/20 15:16 04/09/20 17:19 Saline Flush FLUSH 10 ml ASDIRECTED PRN Administration Keep Vein Open - Re-Assessments/Exams Free Text/Narrative Re-Assessment/Exam: 04/09/20 15:39 Patient presents to the ED for the evaluation of his general well-being. Have ordered basic labs at this time to check for any obvious abnormalities, however I do believe that the patient does meet failure to thrive criteria at this time. The does have an application for [facility], and is supposed to have an evaluation with Dr. Santana on April 16 for further management, but the can just not take care of her at home any longer. I have been in contact with Lanie Hill our social services analyst, she states that if the patient does need admission, that they can work on getting him into the snf. We will see what labs show, to determine disposition and further management. 04/09/20 16:50 Patient was slightly combative with staff, I did order 1 mg IM Ativan to help calm him down, we were able to get some labs at this time. These are still pen ding at this time. 04/09/20 17:39 Patient's laboratory evaluation has returned, white blood cell count is within normal limits, patient is not anemic by our lab standards today. Metabolic panel is essentially unremarkable, chest x-ray is negative for any acute findings. Urinalysis is impressive for positive nitrites, 3+ leukocyte Estrace, 10-20 red blood cells/hpf, and 40-50 white blood cells/hpf, BNP is elevated at 640. Patient will be screened for coronavirus, for tentative hospital admission for UTI and failure to thrive. Not been able to talk with hospitalist at this point in time, but will likely start the patient on Rocephin, and try to get him admitted for the above afflictions. 04/09/20 18:58 I was able to talk with Dr. Miller, our hospitalist, and she does not believe he is fit for admission at this time, she does not deny that he probably needs admission to the snf, but believes that the urinalysis due to the Nur in nature, and she suggest waiting for the culture results. However due to his foul-smelling urine, with it being cloudy we did give him 1 g Rocephin in the ER. Patient did do well with the 1 mg Ativan he was given in the ER, he did eat a pretty good meal, and seems to be much more calm, and follows directions better with this. I did offer to give the a few tablets of this, so she can crush it up into his food so that she can work with him at home, until she can get him into the snf, she is okay with this plan at this time. I did however tell her if it anytime he becomes aggressive, or things worsen that she should bring him straight back to the ER, as he would be a danger to her and her wellbeing. She does agree, and will do as such if he becomes unruly. Otherwise she will try to wait until the third, so they can get him placed into the snf. The coronavirus test was negative. Departure - Departure Time of Disposition: 18:51 Disposition: Home, Self-Care 01 Condition: Good Clinical Impression: Encounter for removal of sutures, Weakness Dementia Qualifiers: Dementia type: unspecified type Dementia behavioral disturbance: with behavioral disturbance Qualified Code(s): F03.91 - Unspecified dementia with behavioral disturbance - Discharge Information *PRESCRIPTION DRUG MONITORING PROGRAM REVIEWED*: Yes *COPY OF PRESCRIPTION DRUG MONITORING REPORT IN PATIENT DANO: No Prescriptions: LORazepam [Ativan] 1 mg PO BID PRN #20 tab PRN Reason: Anxiety Instructions: Dementia, [id number] Referrals: Samira Pelaez MD [Primary Care Provider] - Forms: ED Department Discharge Additional Instructions: Your was evaluated in the ER today regarding his weakness, and the need to have his suture removed. He did have laboratory evaluation done at today's visit, and does demonstrate a possible UTI, but he does have a Nur placed, so this could be normal emiliana for the Nur, urine culture was sent for analysis, he was given 1 dose of Rocephin in the ER for this, if you should require further antibiotics, you will get a prescription for these, in roughly 48 to 72 hours when culture results have been obtained. His behaviors were slightly aggressive in the ER, he did receive 1 mg Ativan, which seemed to help calm him down quite a bit, and he was very amenable or more calm after this medication, he ate a pretty good meal, and seemed to do fairly well on this medication. Unfortunately he does not meet hospital admission criteria at this time, you were given a prescription for Ativan, please use 1 tablet in the morning, crushed with oatmeal and his first bite, and another tablet crushed up closer to bedtime with oatmeal, juice, or food of choice. If he gets agitated in the afternoon, you can do one more tablet, to equate to 3 times daily as needed. If you are having any sort of issues with him, if he becomes unruly, or starts to become aggressive with you, please do not hesitate him to return to the ER for further psychiatric management or otherwise. Please work with your current social services analyst/snf personnel, to try to get him into the snf, please attend that appointment with Dr. Santana on April 16. Please return to the ER at any time if symptoms change or worsen. Sepsis Event Note (ED) - Evaluation Sepsis Screening Result: No Definite Risk - Focused Exam Vital Signs: Vital Signs Temp Pulse Resp BP Pulse Ox 04/09/20 14:27 97.3 F 71 18 107/56 L 99 - My Orders Last 24 Hours: My Active Orders 04/09/20 15:16 EKG Documentation Completion [RC] STAT Peripheral IV Care [RC] . DIRECTED Peripheral IV Insertion Adult [OM.PC] Routine 04/09/20 16:50 CULTURE URINE [RM] Routine 04/09/20 20:04 [place] Sutures Removal [RC] Click to Edit 04/09/20 20:05 Urinary Catheter Assessment [RC] ASDIRECTED 04/09/20 20:15 Insert Urinary Catheter [OM.PC] Q24H - Assessment/Plan Last 24 Hours: My Active Orders 04/09/20 15:16 EKG Documentation Completion [RC] STAT Peripheral IV Care [RC] . DIRECTED Peripheral IV Insertion Adult [OM.PC] Routine 04/09/20 16:50 CULTURE URINE [RM] Routine 04/09/20 20:04 [place] Sutures Removal [RC] Click to Edit 04/09/20 20:05 Urinary Catheter Assessment [RC] ASDIRECTED 04/09/20 20:15 Insert Urinary Catheter [OM.PC] Q24H
[2020-04-09] MEDS ORDERED: LORazepam 2 MG/ML SDV IM ONE (15:48)
--- NOTE | 2020-04-09 17:07 | CR ---
Chest: AP view of the chest was obtained. Comparison: Prior chest x-ray of 01/26/20. Heart size is normal. Tortuous thoracic aorta is seen. Lungs show no acute parenchymal change. Bony structures are grossly intact. Impression: 1. Nothing acute is appreciated. Diagnostic code #2 This report was dictated in MDT
[2020-04-09] MEDS ORDERED: cefTRIAXone 1 GM in Sodium Chloride 0.9% 100 ML IV ONE (17:56)
== END 2020-04-09 19:52 | disposition home or self-care (01) ==
LOC: JD.ED 14:17
DX: F03.91 Unspecified dementia, unspecified severity, with behavioral disturbance (principal); R53.1 Weakness; N18.9 Chronic kidney disease, unspecified; N40.1 Benign prostatic hyperplasia with lower urinary tract symptoms; R33.8 Other retention of urine; F41.9 Anxiety disorder, unspecified; Z90.49 Acquired absence of other specified parts of digestive tract; Z20.828 Contact with and (suspected) exposure to other viral communicable diseases; Z88.8 Allergy status to other drugs, medicaments and biological substances; Z88.0 Allergy status to penicillin; Z79.899 Other long term (current) drug therapy
CPT/HCPCS: 36415; 51702; 71045; 80053; 81001; 83735; 83880; 84484; 85025; 87086; 87088; 87184; 87186; 93005; 96361; 96365; 96372; 99285; J0696; J2060; J7030; J7050; U0002; 93010; 99284

== ENCOUNTER 2020-09-24 09:36 | Emergency (ER) | payer MEDICARE, OTHER ==
[2020-09-24] MEDS ORDERED: Sodium Chloride 0.9% 10 ML Syringe FLUSH PRN (10:12)
--- NOTE | 2020-09-24 10:26 | EDM.PDOC ---
ED HPI GENERAL MEDICAL PROBLEM - General Chief Complaint: Chest Pain Stated Complaint: CHEST PAIN YESTERDAY AND LAST NIGHT Time Seen by Provider: 09/24/20 10:05 Source of Information: Reports: Patient, Family History Limitations: Reports: Other (History of dementia) - History of Present Illness INITIAL COMMENTS - FREE TEXT/NARRATIVE: 84-year-old male presents to the emergency department with complaints of right lateral chest pain that radiates to the left chest. Patient states this started yesterday afternoon when he was folding laundry. States that the pain has been fairly constant and feels like a pressure. Patient's states that he reported this chest pain is similar to when he was having a heart attack years back. Onset: Gradual Right Chest Pain Score (Numeric/FACES): 9 - Related Data Allergies Allergy/AdvReac Type Severity Reaction Status Date / Time glucose oxidase Allergy Severe Burning Verified 09/24/20 09:58 [From Biotene Dry Mouth] lactoperoxidase Allergy Severe Burning Verified 09/24/20 09:58 [From Biotene Dry Mouth] lidocaine Allergy Severe Burning Verified 09/24/20 09:58 Penicillins Allergy Severe Rash Verified 09/24/20 09:58 potassium thiocyanate Allergy Severe Burning Verified 09/24/20 09:58 [From Biotene Dry Mouth] tramadol Allergy Severe Change Verified 09/24/20 10:00 Mental Status nystatin AdvReac Severe Mouth Sores Verified 09/24/20 09:58 Home Meds: Home Meds Docusate Sodium/Sennosides [Senokot-S] 1 tab PO DAILY PRN 12/26/19 [History] Selenium 200 mcg PO DAILY 12/26/19 [History] Ubidecarenone [Coq-10] 100 mg PO DAILY 12/26/19 [History] Vitamin B Complex [B Complex] 1 tab PO BID 12/26/19 [History] Vitamin E 400 unit PO DAILY 12/26/19 [History] Zinc Gluconate [Zinc] 50 mg PO DAILY 12/26/19 [History] Ascorbic Acid [Vitamin C] 1,000 mg PO DAILY 02/16/20 [History] Cefdinir [Omnicef] 300 mg PO BID #15 cap 09/24/20 [Rx] Cranberry 400 mg PO DAILY 09/24/20 [History] Cyanocobalamin (Vitamin B12) [Vitamin B12] 1,000 mg PO DAILY 09/24/20 [History] Ferrous Sulfate [Iron] 325 mg PO BID 09/24/20 [History] Furosemide [Lasix] 20 mg PO DAILY 09/24/20 [History] Ginkgo Biloba 120 mg PO DAILY 09/24/20 [History] LORazepam [Ativan] 0.5 mg PO BID 09/24/20 [History] Lactobacillus Acidophilus/Fos [Acidophilus Probiotic Tablet] 1 tab PO DAILY 09/24/20 [History] Lidocaine 5% 1 applic RECTAL TID PRN 09/24/20 [History] Magnesium Oxide [Magnesium] 400 mg PO BID 09/24/20 [History] Melatonin 10 mg PO BEDTIME PRN 09/24/20 [History] Multivit-Min/Folic/Vit K/Lycop [Men's 50 Plus Multivitamin Tab] 2 tab PO DAILY 09/24/20 [History] Potassium Gluconate [Potassium] 99 mg PO BID 09/24/20 [History] Peter's Wort 300 mg PO DAILY 09/24/20 [History] Vitamin A Palmitate [Vitamin A] 10,000 unit PO DAILY 09/24/20 [History] Vitamins A and D [Vitamin A and D] 2 cap PO DAILY 09/24/20 [History] traZODone HCl [Trazodone HCl] 50 mg PO BEDTIME PRN 09/24/20 [History] Past Medical History - Past Health History Medical/Surgical History: Denies Medical/Surgical History HEENT History: Reports: Cataract, Other (See Below) Other HEENT History: chronic ear pain, geographic tongue, tongue pain, thrush, left ear lesion with freezing x 3, mouth sores/ulcers Cardiovascular History: Reports: Other (See Below) Other Cardiovascular History: sinus bradycardia, dizziness with standing Respiratory History: Reports: None Gastrointestinal History: Reports: Chronic Constipation, Hemorrhoids, Other (See Below) Other Gastrointestinal History: elevated bilirubin, anal fissure, rectal pain, abdominal pain, poor appetite Genitourinary History: Reports: BPH, Chronic Renal Insuffiency, Retention, Urinary, UTI, Recurrent Other Genitourinary History: epididymitis, flank pain, prostatism, scrotal pain, dysuria Musculoskeletal History: Reports: Other (See Below) Other Musculoskeletal History: ischial pain, weakness Neurological History: Reports: Concussion, Migraines, Other (See Below) Other Neuro History: dizziness, neuropathic pain Psychiatric History: Reports: Aggressive/Hostile Behaviors, Anxiety, Dementia, Other (See Below) Other Psychiatric History: age-related cognitive decline, insomnia, hypersomnolence Endocrine/Metabolic History: Reports: Hypokalemia, Vitamin D Deficiency, Other (See Below) Other Endocrine/Metabolic History: [id number] deficiency, hypoalbuminemia, hypocalcemia, low zinc level Hematologic History: Reports: Other (See Below) Other Hematologic History: sepsis Immunologic History: Reports: Other (See Below) Other Immunologic History: immune disorder Oncologic (Cancer) History: Reports: Other (See Below) 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 Dermatologic History: Reports: Other (See Below) Other Dermatologic History: left ear lesion, rash, skin tag - Infectious Disease History Other Infectious Disease History: sepsis - Past Surgical History HEENT Surgical History: Reports: Tonsillectomy Other HEENT Surgeries/Procedures: PT will not respond to any questions Cardiovascular Surgical History: Reports: None Other Cardiovascular Surgeries/Procedures: PT will not respond to any questions GI Surgical History: Reports: Appendectomy, Cholecystectomy, Colonoscopy Other GI Surgeries/Procedures: hemorrhoidectomy Male Surgical History: Reports: Other (See Below) Other Male Surgeries/Procedures: rezum prostate ablation, Holips surgery Social & Family History - Family History Family Medical History: No Pertinent Family History Other HEENT Family History: PT will not respond to any questions Other Cardiac Family History: PT will not respond to any questions Other Musculoskeletal Family History: PT will not respond to any questions Other Psychiatric Family History: PT will not respond to any questions Other Hematologic Family History: PT will not respond to any questions Other Dermatologic Family History: PT will not respond to any questions Other Oncologic Family History: PT will not respond to any questions - Tobacco Use Tobacco Use Status *Q: Never Tobacco User - Caffeine Use Caffeine Use: Reports: None Other Caffeine Use: not responding - Recreational Drug Use Recreational Drug Use: No - Living Situation & Occupation Living situation: Reports: , with Spouse Occupation: Retired ED ROS GENERAL - Review of Systems Review Of Systems: See Below Constitutional: Reports: Chills. Denies: Fever, Diaphoresis HEENT: Reports: No Symptoms Respiratory: Reports: No Symptoms Cardiovascular: Reports: Chest Pain, Edema (1+ bilateral lower extremities). Denies: Lightheadedness, Orthopnea Endocrine: Reports: No Symptoms GI/Abdominal: Reports: No Symptoms, Decreased Appetite. Denies: Constipation, Diarrhea, Nausea, Vomiting : Reports: Dysuria, Hematuria (Patient does have a history of TURP mid August) Musculoskeletal: Reports: No Symptoms Skin: Reports: No Symptoms Neurological: Reports: Confusion (History of dementia) Psychiatric: Reports: Agitation, Confusion Hematologic/Lymphatic: Reports: No Symptoms Immunologic: Reports: No Symptoms ED EXAM, GENERAL - Physical Exam Exam: See Below Exam Limited By: Altered Mental Status (History of dementia patient is easily agitated.) General Appearance: Alert, WD/WN, No Apparent Distress Eye Exam: Bilateral Eye: PERRL Ears: Hearing Grossly Normal Nose: Normal Inspection Throat/Mouth: Normal Voice, No Airway Compromise Head: Atraumatic, Normocephalic Neck: Normal Inspection, Supple, Non-Tender, Full Range of Motion Respiratory/Chest: No Respiratory Distress, No Accessory Muscle Use, Chest Non- Tender (Right chest wall tenderness with palpation), Crackles (Fine crackles noted to bilateral bases) Cardiovascular: Normal Peripheral Pulses, Regular Rate, Rhythm, No Murmur. No: No Edema (1Plus pitting edema noted to bilateral lower extremities) Peripheral Pulses: 2+: Radial (L), Radial (R), Dorsalis Pedis (L), Dorsalis Pedis (R) GI/Abdominal: Normal Bowel Sounds, No Distention, No Mass. No: Soft (Slightly firm), Non-Tender (Right upper and lower quadrant tenderness as well as suprapubic tenderness with palpation) (Male) Exam: Deferred Rectal (Males) Exam: Deferred Back Exam: Normal Inspection, Full Range of Motion Extremities: Normal Inspection, Normal Range of Motion, Non-Tender, Normal Capillary Refill, Pedal Edema Neurological: Alert, Confused, Memory Loss Recent Events. No: Normal Cognition (History of dementia with agitation) Psychiatric: Other (Agitated) Skin Exam: Warm, Dry, Intact, Normal Color, No Rash Lymphatic: No Adenopathy #1 Interpretation EKG Date: 09/24/20 Time: 09:53 Rhythm: NSR Rate (Beats/Min): 61 [place]: Normal P-Wave: Present QRS: Normal ST-T: Normal QT: Normal Comparison: NA - No Prior EKG EKG Interpretation Comments: EKG interpretation per Dr. Nicole: Sinus rhythm at 61 bpm, early R wave transitionconsider right ventricular hypertrophy/septal hypertrophy, decreased voltage in the limb leads, borderline EKG. Course - Vital Signs Text/Narrative:: 84-year-old with complaints of right-sided chest pain that started yesterday while he was folding laundry. Patient states that the pain does radiate to the left chest. He states that this is a fairly constant type of pressure. Denies increased chest pain with cough or deep breathing however pain is reproducible with palpation. Patient denies nausea, vomiting, diaphoresis associated with this pain. He has not had any recent fever or chills. Of note, patient recently had prostate surgery in mid August. Him and his both report that he had been doing well and that his urine had cleared up and he had no difficulty voiding but of recent, he has reported blood in his urine and does have some burning when he attempts to void. Patient also has 1+ pedal edema noted bilateral lower extremities and his reports this is new since the surgery. I have ordered a CBC, CMP, CRP, magnesium, BNP, troponin, EKG, portable chest x-ray, and urinalysis. Last Recorded V/S: Last Vital Signs Temp 97.0 F 09/24/20 09:49 Pulse 65 09/24/20 09:49 Resp 18 09/24/20 09:49 BP 140/80 09/24/20 09:49 Pulse Ox - Orders/Labs/Meds Orders: Active Orders 24 hr Category Date Time Status Bladder Scan [RC] ASDIRECTED Care 09/24/20 10:29 Active EKG Documentation Completion [RC] STAT Care 09/24/20 10:12 Active CULTURE URINE [RM] Stat Lab 09/24/20 10:47 Received Sodium Chloride 0.9% [Saline Flush] Med 09/24/20 10:12 Active 10 ml FLUSH ASDIRECTED PRN Saline Lock Insert [OM.PC] Stat Oth 09/24/20 10:12 Ordered Medication Orders Sodium Chloride (Saline Flush) 10 ml FLUSH ASDIRECTED PRN PRN Reason: Keep Vein Open Labs: Laboratory Tests 09/24/20 09/24/20 09/24/20 Range/Units 10:47 11:16 11:16 WBC 3.86 L (4.23-9.07) K/mm3 RBC 3.39 L (4.63-6.08) M/mm3 Hgb 10.2 L D (13.7-17.5) gm/dl Hct 32.4 L (40.1-51.0) % MCV 95.6 H D (79.0-92.2) fl MCH 30.1 (25.7-32.2) pg MCHC 31.5 L (32.2-35.5) g/dl RDW Std Deviation 57.8 H (35.1-43.9) fL Plt Count 238 (163-337) K/mm3 MPV 9.7 (9.4-12.3) fl Neut % (Auto) 64.2 (34.0-67.9) % Lymph % (Auto) 17.4 L (21.8-53.1) % Rains % (Auto) 10.1 (5.3-12.2) % Eos % (Auto) 7.3 H (0.8-7.0) Baso % (Auto) 1.0 (0.1-1.2) % Neut # (Auto) 2.48 (1.78-5.38) K/mm3 Lymph # (Auto) 0.67 L (1.32-3.57) K/mm3 Rains # (Auto) 0.39 (0.30-0.82) K/mm3 Eos # (Auto) 0.28 (0.04-0.54) K/mm3 Baso # (Auto) 0.04 (0.01-0.08) K/mm3 Sodium 141 (136-145) mEq/L Potassium 4.0 (3.5-5.1) mEq/L Chloride 104 (98-107) mEq/L Carbon Dioxide 29 (21-32) mEq/L Anion Gap 12.0 (5-15) BUN 21 H (7-18) mg/dL Creatinine 0.7 (0.7-1.3) mg/dL Est Cr Clr Drug Dosing 58.32 mL/min Estimated GFR (MDRD) > 60 (>60) mL/min BUN/Creatinine Ratio 30.0 H (14-18) Glucose 106 (83-115) mg/dL Calcium 8.3 L (8.5-10.1) mg/dL Magnesium 2.7 H (1.8-2.4) mg/dl Total Bilirubin 0.6 (0.2-1.0) mg/dL AST 18 (15-37) U/L ALT 17 (16-63) U/L Alkaline Phosphatase 38 L (46-116) U/L Troponin I < 0.017 (0.00-0.056) ng/mL C-Reactive Protein < 0.2 (<1.0) mg/dL NT-Pro-B Natriuret Pep (0-450) pg/mL Total Protein 6.2 L (6.4-8.2) g/dl Albumin 3.2 L (3.4-5.0) g/dl Globulin 3.0 gm/dL Albumin/Globulin Ratio 1.1 (1-2) Urine Color Yellow (Yellow) Urine Appearance Clear (Clear) Urine pH 8.0 (5.0-8.0) Ur Specific [place] 1.025 (1.005-1.030) Urine Protein 1+ H (Negative) Urine Glucose (UA) Negative (Negative) Urine Ketones Negative (Negative) Urine Occult Blood 2+ H (Negative) Urine Nitrite Negative (Negative) Urine Bilirubin Negative (Negative) Urine Urobilinogen 0.2 (0.2-1.0) Ur Leukocyte Esterase 1+ H (Negative) Urine RBC 10-20 H (0-5) /hpf Urine WBC 10-20 H (0-5) /hpf Ur Epithelial Cells Not seen (0-5) /hpf Urine Bacteria Few (FEW) /hpf Urine Mucus Rare (FEW) /hpf 09/24/20 Range/Units 11:16 WBC (4.23-9.07) K/mm3 RBC (4.63-6.08) M/mm3 Hgb (13.7-17.5) gm/dl Hct (40.1-51.0) % MCV (79.0-92.2) fl MCH (25.7-32.2) pg MCHC (32.2-35.5) g/dl RDW Std Deviation (35.1-43.9) fL Plt Count (163-337) K/mm3 MPV (9.4-12.3) fl Neut % (Auto) (34.0-67.9) % Lymph % (Auto) (21.8-53.1) % Rains % (Auto) (5.3-12.2) % Eos % (Auto) (0.8-7.0) Baso % (Auto) (0.1-1.2) % Neut # (Auto) (1.78-5.38) K/mm3 Lymph # (Auto) (1.32-3.57) K/mm3 Rains # (Auto) (0.30-0.82) K/mm3 Eos # (Auto) (0.04-0.54) K/mm3 Baso # (Auto) (0.01-0.08) K/mm3 Sodium (136-145) mEq/L Potassium (3.5-5.1) mEq/L Chloride (98-107) mEq/L Carbon Dioxide (21-32) mEq/L Anion Gap (5-15) BUN (7-18) mg/dL Creatinine (0.7-1.3) mg/dL Est Cr Clr Drug Dosing mL/min Estimated GFR (MDRD) (>60) mL/min BUN/Creatinine Ratio (14-18) Glucose (83-115) mg/dL Calcium (8.5-10.1) mg/dL Magnesium (1.8-2.4) mg/dl Total Bilirubin (0.2-1.0) mg/dL AST (15-37) U/L ALT (16-63) U/L Alkaline Phosphatase (46-116) U/L Troponin I (0.00-0.056) ng/mL C-Reactive Protein (<1.0) mg/dL NT-Pro-B Natriuret Pep 486 H (0-450) pg/mL Total Protein (6.4-8.2) g/dl Albumin (3.4-5.0) g/dl Globulin gm/dL Albumin/Globulin Ratio (1-2) Urine Color (Yellow) Urine Appearance (Clear) Urine pH (5.0-8.0) Ur Specific [place] (1.005-1.030) Urine Protein (Negative) Urine Glucose (UA) (Negative) Urine Ketones (Negative) Urine Occult Blood (Negative) Urine Nitrite (Negative) Urine Bilirubin (Negative) Urine Urobilinogen (0.2-1.0) Ur Leukocyte Esterase (Negative) Urine RBC (0-5) /hpf Urine WBC (0-5) /hpf Ur Epithelial Cells (0-5) /hpf Urine Bacteria (FEW) /hpf Urine Mucus (FEW) /hpf Meds: Medications Generic Name Dose Route Start Last Admin Trade Name Freq PRN Reason Stop Dose Admin Sodium Chloride 10 ml 09/24/20 10:12 Saline Flush FLUSH ASDIRECTED PRN Keep Vein Open Discontinued Medications Generic Name Dose Route Start Last Admin Trade Name Freq PRN Reason Stop Dose Admin Cefdinir 300 mg 09/24/20 11:48 09/24/20 12:07 Omnicef PO 09/24/20 11:49 300 mg ONETIME ONE Administration - Radiology Interpretation Free Text/Narrative:: Portable chest x-ray radiology impression: Nothing acute is appreciated - Re-Assessments/Exams Free Text/Narrative Re-Assessment/Exam: 09/24/20 10:31 Patient is becoming very agitated with nursing staff attempting to start IVs and draw blood work. Patient's states she did not give him his morning dose of Ativan. She states she did bring it with them to the hospital. She will give him his morning dose. 09/24/20 11:12 Per nursing staff, post void residual bladder scan shows 70 mL of urine. 09/24/20 12:30 Labs reveal a WBC of 3.86, hemoglobin 10.2, hematocrit 32.4, MCV 95.6, BUN 21, creatinine 0.7, GFR greater than 60, troponin less than 0.017, C-reactive protein less than 0.2,proBNP 486, urinalysis reveals urine protein 1+, urine occult blood 2+, urine leuk esterase 1+, urine RBCs 10-20, urine WBCs 10-20 Patient does have a history of chronic anemia. Chest pain is unlikely cardiac in origin as troponin was unremarkable and there is no acute changes noted on the EKG. Patient however is positive for urinary tract infection I have given h im 1 dose of Omnicef and I will give him a prescription for a total of 8 days. Patient blood noted in urine likely due to surgery on his prostate in mid August. Patient will need to follow-up with his primary care physician, Dr. Santana, once he has completed his antibiotic treatment. 09/24/20 12:53 Departure - Departure Time of Disposition: 12:33 Disposition: Home, Self-Care 01 Condition: Fair Clinical Impression: Atypical chest pain Urinary tract infection Qualifiers: Urinary tract infection type: acute cystitis Hematuria presence: with hematuria Qualified Code(s): N30.01 - Acute cystitis with hematuria Prescriptions: Cefdinir [Omnicef] 300 mg PO BID #15 cap Referrals: Tapan Sawyer MD [Primary Care Provider] - Forms: ED Department Discharge Additional Instructions: You were seen in the emergency department with complaints of pain to your right chest. This started after you had been folding clothes yesterday afternoon. Full cardiac work-up was unremarkable, however your lab work does reveal that you have an infection in your bladder. You were given your first dose in the emergency department. You will need to take this twice a day until it is gone. You will need to follow-up with Dr. Santana in the clinic once you have completed your course of antibiotics. You may take Tylenol 650 mg every 4 hours as needed for the pain to your right chest. You can also try using ice or heat to that area for comfort. Should your condition worsen or change please return to the emergency department. Sepsis Event Note (ED) - Evaluation Sepsis Screening Result: No Definite Risk - Focused Exam Vital Signs: Vital Signs Temp Pulse Resp BP 09/24/20 09:49 97.0 F 65 18 140/80 - My Orders Last 24 Hours: My Active Orders 09/24/20 10:12 EKG Documentation Completion [RC] STAT Sodium Chloride 0.9% [Saline Flush] 10 ml FLUSH ASDIRECTED PRN Saline Lock Insert [OM.PC] Stat 09/24/20 10:29 Bladder Scan [RC] ASDIRECTED 09/24/20 10:47 CULTURE URINE [RM] Stat - Assessment/Plan Last 24 Hours: My Active Orders 09/24/20 10:12 EKG Documentation Completion [RC] STAT Sodium Chloride 0.9% [Saline Flush] 10 ml FLUSH ASDIRECTED PRN Saline Lock Insert [OM.PC] Stat 09/24/20 10:29 Bladder Scan [RC] ASDIRECTED 09/24/20 10:47 CULTURE URINE [RM] Stat
--- NOTE | 2020-09-24 10:53 | CR ---
Chest: Portable view of the chest was obtained. Comparison: Prior chest x-ray of 08/17/20. Heart size is normal. Tortuous thoracic aorta is seen. Lungs are clear with no acute parenchymal change. Bony structures are grossly intact. Impression: 1. Nothing acute is seen on portable chest x-ray. Diagnostic code #1
[2020-09-24] MEDS ORDERED: Cefdinir 300 MG Cap PO ONE (11:48)
== END 2020-09-24 13:11 | disposition home or self-care (01) ==
LOC: JD.ED 09:36
DX: R07.89 Other chest pain (principal); N30.01 Acute cystitis with hematuria; N18.9 Chronic kidney disease, unspecified; Z88.8 Allergy status to other drugs, medicaments and biological substances; Z88.4 Allergy status to anesthetic agent; Z88.0 Allergy status to penicillin; Z88.5 Allergy status to narcotic agent; Z79.899 Other long term (current) drug therapy
CPT/HCPCS: 36415; 51798; 71045; 80053; 81001; 83735; 83880; 84484; 85025; 86140; 87086; 93005; 99285; A9270; 93010; 99284

== ENCOUNTER 2020-09-26 08:56 | Emergency (ER) | payer MEDICARE, OTHER ==
[2020-09-26] MEDS ORDERED: diphenhydrAMINE 25 MG Cap PO ONE (09:22)
--- NOTE | 2020-09-26 09:30 | EDM.PDOC ---
ED HPI GENERAL MEDICAL PROBLEM - General Chief Complaint: Genitourinary Problem Stated Complaint: REACTION TO MEDICATION Time Seen by Provider: 09/26/20 09:15 Source of Information: Reports: Patient, Family History Limitations: Reports: No Limitations - History of Present Illness INITIAL COMMENTS - FREE TEXT/NARRATIVE: 84-year-old male presents to the emergency department complaints of a swollen penis. Per patient and family this started this morning. Patient was seen in the emergency department 2 days ago and was prescribed Omnicef for an UTI. Taken 3 doses of the Omnicef. It appears the patient did have an allergic reaction to the Omnicef as he no longer has a swollen penis however he does have a macular papular rash noted to his abdomen and right thigh. Patient denies urticaria or pruritus. Denies any shortness of breath, cough. Onset: Gradual Penis Pain Score (Numeric/FACES): 9 - Related Data Allergies Allergy/AdvReac Type Severity Reaction Status Date / Time glucose oxidase Allergy Severe Burning Verified 09/26/20 09:05 [From Biotene Dry Mouth] lactoperoxidase Allergy Severe Burning Verified 09/26/20 09:05 [From Biotene Dry Mouth] lidocaine Allergy Severe Burning Verified 09/26/20 09:05 Penicillins Allergy Severe Rash Verified 09/26/20 09:05 potassium thiocyanate Allergy Severe Burning Verified 09/26/20 09:05 [From Biotene Dry Mouth] tramadol Allergy Severe Change Verified 09/26/20 09:05 Mental Status cefdinir [From Omnicef] Allergy Rash Verified 09/26/20 09:27 nystatin AdvReac Severe Mouth Sores Verified 09/26/20 09:05 Home Meds: Home Meds Docusate Sodium/Sennosides [Senokot-S] 1 tab PO DAILY PRN 12/26/19 [History] Selenium 200 mcg PO DAILY 12/26/19 [History] Ubidecarenone [Coq-10] 100 mg PO DAILY 12/26/19 [History] Vitamin B Complex [B Complex] 1 tab PO BID 12/26/19 [History] Vitamin E 400 unit PO DAILY 12/26/19 [History] Zinc Gluconate [Zinc] 50 mg PO DAILY 12/26/19 [History] Ascorbic Acid [Vitamin C] 1,000 mg PO DAILY 02/16/20 [History] Cefdinir [Omnicef] 300 mg PO BID #15 cap 09/24/20 [Rx] Cranberry 400 mg PO DAILY 09/24/20 [History] Cyanocobalamin (Vitamin B12) [Vitamin B12] 1,000 mg PO DAILY 09/24/20 [History] Ferrous Sulfate [Iron] 325 mg PO BID 09/24/20 [History] Furosemide [Lasix] 20 mg PO DAILY 09/24/20 [History] Ginkgo Biloba 120 mg PO DAILY 09/24/20 [History] LORazepam [Ativan] 0.5 mg PO BID 09/24/20 [History] Lactobacillus Acidophilus/Fos [Acidophilus Probiotic Tablet] 1 tab PO DAILY 09/24/20 [History] Lidocaine 5% 1 applic RECTAL TID PRN 09/24/20 [History] Magnesium Oxide [Magnesium] 400 mg PO BID 09/24/20 [History] Melatonin 10 mg PO BEDTIME PRN 09/24/20 [History] Multivit-Min/Folic/Vit K/Lycop [Men's 50 Plus Multivitamin Tab] 2 tab PO DAILY 09/24/20 [History] Potassium Gluconate [Potassium] 99 mg PO BID 09/24/20 [History] Peter's Wort 300 mg PO DAILY 09/24/20 [History] Vitamin A Palmitate [Vitamin A] 10,000 unit PO DAILY 09/24/20 [History] Vitamins A and D [Vitamin A and D] 2 cap PO DAILY 09/24/20 [History] traZODone HCl [Trazodone HCl] 50 mg PO BEDTIME PRN 09/24/20 [History] Sulfamethoxazole/Trimethoprim [Bactrim Ds Tablet] 1 each PO BID #10 tablet 09/26/20 [Rx] Past Medical History - Past Health History Medical/Surgical History: Denies Medical/Surgical History HEENT History: Reports: Cataract, Other (See Below) Other HEENT History: chronic ear pain, geographic tongue, tongue pain, thrush, left ear lesion with freezing x 3, mouth sores/ulcers Cardiovascular History: Reports: Other (See Below) Other Cardiovascular History: sinus bradycardia, dizziness with standing Respiratory History: Reports: None Gastrointestinal History: Reports: Chronic Constipation, Hemorrhoids, Other (See Below) Other Gastrointestinal History: elevated bilirubin, anal fissure, rectal pain, abdominal pain, poor appetite Genitourinary History: Reports: BPH, Chronic Renal Insuffiency, Retention, Urinary, UTI, Recurrent Other Genitourinary History: epididymitis, flank pain, prostatism, scrotal pain, dysuria Musculoskeletal History: Reports: Other (See Below) Other Musculoskeletal History: ischial pain, weakness Neurological History: Reports: Concussion, Migraines, Other (See Below) Other Neuro History: dizziness, neuropathic pain Psychiatric History: Reports: Aggressive/Hostile Behaviors, Anxiety, Dementia, Other (See Below) Other Psychiatric History: age-related cognitive decline, insomnia, hypersomnolence Endocrine/Metabolic History: Reports: Hypokalemia, Vitamin D Deficiency, Other (See Below) Other Endocrine/Metabolic History: [id number] deficiency, hypoalbuminemia, hypocalcemia, low zinc level Hematologic History: Reports: Other (See Below) Other Hematologic History: sepsis Immunologic History: Reports: Other (See Below) Other Immunologic History: immune disorder Oncologic (Cancer) History: Reports: Other (See Below) 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 Dermatologic History: Reports: Other (See Below) Other Dermatologic History: left ear lesion, rash, skin tag - Infectious Disease History Other Infectious Disease History: sepsis - Past Surgical History Head Surgeries/Procedures: Reports: None HEENT Surgical History: Reports: Tonsillectomy Other HEENT Surgeries/Procedures: PT will not respond to any questions Cardiovascular Surgical History: Reports: None GI Surgical History: Reports: Appendectomy, Cholecystectomy, Colonoscopy Other GI Surgeries/Procedures: hemorrhoidectomy Male Surgical History: Reports: Other (See Below) Other Male Surgeries/Procedures: rezum prostate ablation, Holips surgery Endocrine Surgical History: Reports: None Neurological Surgical History: Reports: None Oncologic Surgical History: Reports: None Social & Family History - Family History Family Medical History: No Pertinent Family History Other HEENT Family History: PT will not respond to any questions Other Cardiac Family History: PT will not respond to any questions Other Musculoskeletal Family History: PT will not respond to any questions Other Psychiatric Family History: PT will not respond to any questions Other Hematologic Family History: PT will not respond to any questions Other Dermatologic Family History: PT will not respond to any questions Other Oncologic Family History: PT will not respond to any questions - Tobacco Use Tobacco Use Status *Q: Never Tobacco User - Caffeine Use Caffeine Use: Reports: None Other Caffeine Use: not responding - Recreational Drug Use Recreational Drug Use: No - Living Situation & Occupation Living situation: Reports: , with Spouse Occupation: Retired ED ROS GENERAL - Review of Systems Review Of Systems: See Below Constitutional: Reports: No Symptoms. Denies: Fever, Chills HEENT: Reports: No Symptoms. Denies: Throat Swelling Respiratory: Reports: No Symptoms. Denies: Shortness of Breath, Wheezing, Cough Cardiovascular: Reports: No Symptoms Endocrine: Reports: No Symptoms GI/Abdominal: Reports: No Symptoms : Reports: Other Musculoskeletal: Reports: No Symptoms Skin: Reports: Rash. Denies: Pruritis, Urticaria Neurological: Reports: No Symptoms Psychiatric: Reports: No Symptoms Hematologic/Lymphatic: Reports: No Symptoms Immunologic: Reports: No Symptoms ED EXAM, SKIN/RASH Exam: See Below Exam Limited By: No Limitations General Appearance: Alert, WD/WN, No Apparent Distress Eye Exam: Bilateral Eye: PERRL Ears: Normal External Exam, Hearing Grossly Normal Nose: Normal Inspection Throat/Mouth: Normal Inspection, Normal Voice, No Airway Compromise Head: Atraumatic, Normocephalic. No: Facial Swelling Neck: Normal Inspection, Supple, Non-Tender, Full Range of Motion Respiratory/Chest: No Respiratory Distress, Lungs Clear, Normal Breath Sounds, No Accessory Muscle Use, Chest Non-Tender Cardiovascular: Normal Peripheral Pulses, Regular Rate, Rhythm, No Edema, No Murmur GI/Abdominal: Normal Bowel Sounds, Soft, Non-Tender, No Distention (Male) Exam: Normal Inspection. No: Scrotal Swelling Rectal (Males) Exam: Deferred Back Exam: Normal Inspection, Full Range of Motion Extremities: Normal Inspection, Normal Range of Motion, Non-Tender, No Pedal Edema, Normal Capillary Refill, Other (right upper thigh with erythema from mid anterior to medial thigh midway down thigh) Neurological: Alert, Oriented, No Motor/Sensory Deficits Psychiatric: Normal Affect, Normal Mood Skin: Warm, Dry Location, Skin: Abdomen, Lower Extremity, Right (erythema from mid thigh proximal to groin, medial inner thigh). No: Head, Face, Neck, Chest, Back, Genital, Palms, Groin Characteristics: Maculopapular (abdomen) Associated features: No: Warmth, Tenderness, Swelling, Induration Lymphatic: No Adenopathy Course - Vital Signs Text/Narrative:: 84-year-old male presents to the emergency department with complaints of a swollen penis. Upon presentation to the emergency department swelling has resolved however he does have a macular papular rash noted to his abdomen and right thigh. Patient denies pruritus, shortness of breath or cough. They spoke with her pharmacy and they believe this is due to the Omnicef. Patient will be given 25 mg of Benadryl p.o. recommend that they stop taking the Omnicef will send a prescription for Bactrim DS x5 days. Patient will be discharged to home. Last Recorded V/S: Last Vital Signs Temp 97.1 F 09/26/20 09:06 Pulse 63 09/26/20 09:06 Resp 17 09/26/20 09:06 BP 128/83 09/26/20 09:06 Pulse Ox 96 09/26/20 09:06 - Orders/Labs/Meds Meds: Medications Discontinued Medications Generic Name Dose Route Start Last Admin Trade Name Freq PRN Reason Stop Dose Admin Diphenhydramine HCl 25 mg 09/26/20 09:22 09/26/20 09:27 Benadryl PO 09/26/20 09:23 25 mg ONETIME ONE Administration Departure - Departure Time of Disposition: : Disposition: Home, Self-Care 01 Condition: Fair Clinical Impression: Allergic drug reaction Qualifiers: Encounter type: initial encounter Qualified Code(s): T78.40XA - Allergy, unspecified, initial encounter - Discharge Information Prescriptions: Sulfamethoxazole/Trimethoprim [Bactrim Ds Tablet] 1 each PO BID #10 tablet Instructions: Allergies, Adult, [id number] Referrals: Tapan Sawyer MD [Primary Care Provider] - Forms: ED Department Discharge Additional Instructions: You were seen in the emergency department with complaints of a swollen penis. At the time of assessment the swelling had resolved however it was discovered you do have a rash to your abdomen and right thigh. This is likely due to the Omnicef antibiotic that was prescribed. You were given Benadryl 25 mg tab in the emergency department. You can take Benadryl 25 mg every 6-8 hours as needed for rash and itching. Keep in mind that this will make you drowsy. You will be given a's prescription for Bactrim DS. Take 1 tab twice daily for the next 5 days. Be sure to take this medication with food as it can cause some stomach upset. Should your condition worsen or change please return to the emergency department Sepsis Event Note (ED) - Evaluation Sepsis Screening Result: No Definite Risk - Focused Exam Vital Signs: Vital Signs Temp Pulse Resp BP Pulse Ox 09/26/20 09:06 97.1 F 63 17 128/83 96
== END 2020-09-26 09:41 | disposition home or self-care (01) ==
LOC: JD.ED 08:56
DX: N48.89 Other specified disorders of penis (principal); N18.9 Chronic kidney disease, unspecified; Z88.8 Allergy status to other drugs, medicaments and biological substances; Z88.6 Allergy status to analgesic agent; Z88.0 Allergy status to penicillin; Z88.5 Allergy status to narcotic agent; Z88.1 Allergy status to other antibiotic agents; Z79.899 Other long term (current) drug therapy; T36.1X5A Adverse effect of cephalosporins and other beta-lactam antibiotics, initial encounter
CPT/HCPCS: 99283; A9270

== ENCOUNTER 2020-12-10 13:28 | Emergency (ER) | payer MEDICARE, OTHER ==
[2020-12-10] MEDS ORDERED: Sodium Chloride 0.9% 10 ML Syringe FLUSH PRN (14:13)
--- NOTE | 2020-12-10 14:46 | CR ---
Chest: Portable view of the chest was obtained. Comparison: Prior chest x-ray of 09/24/20. Heart size is within normal limits. Tortuous thoracic aorta is noted. Thick linear density is noted within the right mid to lower lung. Smaller lesion is seen on the left. Lungs otherwise are clear. Impression: 1. Thick linear densities within both mid to lower lungs, worse on the right side. These are most likely due to external densities or skin folds. 2. Nothing acute is otherwise seen. Diagnostic code #2
--- NOTE | 2020-12-10 14:48 | CT ---
Head CT Technique: Multiple axial sections through the brain were obtained. Intravenous contrast was not utilized. Reconstructed coronal and sagittal images were obtained. Comparison: Prior head CT study of 01/26/20. Findings: Ventricles along with basal cisterns and sulci over the convexities are mildly prominent. Diminished density is noted within the periventricular white matter which is compatible with small vessel ischemic demyelination change. Similar finding is seen within both basal ganglia. No other abnormal parenchymal densities are seen. No evidence of intracranial hemorrhage. No midline shift or mass-effect is seen. Atherosclerotic calcification is seen within the vertebral vessels and carotid siphon. Visualized mastoid sinuses and paranasal sinuses show nothing acute. No acute calvarial finding is appreciated. Impression: 1. Senescent change as noted above. 2. Nothing acute is appreciated on noncontrast head CT study. Diagnostic code #2
--- NOTE | 2020-12-10 15:44 | EDM.PDOC ---
ED HPI GENERAL MEDICAL PROBLEM - General Chief Complaint: General Stated Complaint: [facility] Time Seen by Provider: 12/10/20 13:39 Source of Information: Reports: Patient History Limitations: Reports: No Limitations - History of Present Illness INITIAL COMMENTS - FREE TEXT/NARRATIVE: 84-year-old male with a history of dementia presents to the emergency department today by way of [facility]. Per the patient's report, the patient is normally ambulatory and independent however today he was standing in the kitchen beside the cupboard when he had a blank stare in his eyes. The patient's asked him if he was okay and he said no when his legs appeared to start to give out from under him. His asked him if he was ok and he said that he was not. The patient's assisted him to the kitchen table where he sat down. States then he appeared to slump over and have a blank look in his eyes and was unresponsive for approximately a minute. She states she then called 911 and by time the ambulance arrived the patient was back to baseline and ambulating. The patient went to the bathroom while the ambulance crew was there and then ambulated to the cot to be transported to the hospital. Of note, the patient's states that he was recently started on medicinal marijuana for pain and that he also takes up to 18 kratom daily. He was recently taking off all of his narcotic pain medication. Denies any recent fever, chills, nausea, vomiting, diarrhea, sore throat or headache. States that he normally eats well however she has to strongly encourage him to take p.o. fluids. - Related Data Allergies Allergy/AdvReac Type Severity Reaction Status Date / Time glucose oxidase Allergy Severe Burning Verified 12/10/20 13:46 [From Biotene Dry Mouth] lactoperoxidase Allergy Severe Burning Verified 12/10/20 13:46 [From Biotene Dry Mouth] lidocaine Allergy Severe Burning Verified 12/10/20 13:46 Penicillins Allergy Severe Rash Verified 12/10/20 13:46 potassium thiocyanate Allergy Severe Burning Verified 12/10/20 13:46 [From Biotene Dry Mouth] tramadol Allergy Severe Change Verified 12/10/20 13:46 Mental Status cefdinir [From Omnicef] Allergy Rash Verified 12/10/20 13:46 nystatin AdvReac Severe Mouth Sores Verified 12/10/20 13:46 Home Meds: Home Meds Docusate Sodium/Sennosides [Senokot-S] 1 tab PO DAILY PRN 12/26/19 [History] Selenium 200 mcg PO DAILY 12/26/19 [History] Ubidecarenone [Coq-10] 100 mg PO DAILY 12/26/19 [History] Vitamin B Complex [B Complex] 1 tab PO BID 12/26/19 [History] Vitamin E 400 unit PO DAILY 12/26/19 [History] Zinc Gluconate [Zinc] 50 mg PO DAILY 12/26/19 [History] Ascorbic Acid [Vitamin C] 1,000 mg PO DAILY 02/16/20 [History] Cefdinir [Omnicef] 300 mg PO BID #15 cap 09/24/20 [Rx] Cranberry 400 mg PO DAILY 09/24/20 [History] Cyanocobalamin (Vitamin B12) [Vitamin B12] 1,000 mg PO DAILY 09/24/20 [History] Ferrous Sulfate [Iron] 325 mg PO BID 09/24/20 [History] Furosemide [Lasix] 20 mg PO DAILY 09/24/20 [History] Ginkgo Biloba 120 mg PO DAILY 09/24/20 [History] LORazepam [Ativan] 0.5 mg PO BID 09/24/20 [History] Lactobacillus Acidophilus/Fos [Acidophilus Probiotic Tablet] 1 tab PO DAILY 09/24/20 [History] Lidocaine 5% 1 applic RECTAL TID PRN 09/24/20 [History] Magnesium Oxide [Magnesium] 400 mg PO BID 09/24/20 [History] Melatonin 10 mg PO BEDTIME PRN 09/24/20 [History] Multivit-Min/Folic/Vit K/Lycop [Men's 50 Plus Multivitamin Tab] 2 tab PO DAILY 09/24/20 [History] Potassium Gluconate [Potassium] 99 mg PO BID 09/24/20 [History] John Day's Wort 300 mg PO DAILY 09/24/20 [History] Vitamin A Palmitate [Vitamin A] 10,000 unit PO DAILY 09/24/20 [History] Vitamins A and D [Vitamin A and D] 2 cap PO DAILY 09/24/20 [History] traZODone HCl [Trazodone HCl] 50 mg PO BEDTIME PRN 09/24/20 [History] Sulfamethoxazole/Trimethoprim [Bactrim Ds Tablet] 1 each PO BID #10 tablet [Rx] Past Medical History - Past Health History Medical/Surgical History: Denies Medical/Surgical History HEENT History: Reports: Cataract, Other (See Below) Other HEENT History: chronic ear pain, geographic tongue, tongue pain, thrush, left ear lesion with freezing x 3, mouth sores/ulcers Cardiovascular History: Reports: Other (See Below) Other Cardiovascular History: sinus bradycardia, dizziness with standing Respiratory History: Reports: None Gastrointestinal History: Reports: Chronic Constipation, Hemorrhoids, Other (See Below) Other Gastrointestinal History: elevated bilirubin, anal fissure, rectal pain, abdominal pain, poor appetite Genitourinary History: Reports: BPH, Chronic Renal Insuffiency, Retention, Uri nary, UTI, Recurrent Other Genitourinary History: epididymitis, flank pain, prostatism, scrotal pain, dysuria Musculoskeletal History: Reports: Other (See Below) Other Musculoskeletal History: ischial pain, weakness Neurological History: Reports: Concussion, Migraines, Other (See Below) Other Neuro History: dizziness, neuropathic pain Psychiatric History: Reports: Aggressive/Hostile Behaviors, Anxiety, Dementia, Other (See Below) Other Psychiatric History: age-related cognitive decline, insomnia, hypersomnolence Endocrine/Metabolic History: Reports: Hypokalemia, Vitamin D Deficiency, Other (See Below) Other Endocrine/Metabolic History: [id number] deficiency, hypoalbuminemia, hypocalcemia, low zinc level Hematologic History: Reports: Other (See Below) Other Hematologic History: sepsis Immunologic History: Reports: Other (See Below) Other Immunologic History: immune disorder Oncologic (Cancer) History: Reports: Other (See Below) 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 Dermatologic History: Reports: Other (See Below) Other Dermatologic History: left ear lesion, rash, skin tag - Infectious Disease History Other Infectious Disease History: sepsis - Past Surgical History Head Surgeries/Procedures: Reports: None HEENT Surgical History: Reports: Tonsillectomy Other HEENT Surgeries/Procedures: PT will not respond to any questions Cardiovascular Surgical History: Reports: None Other Cardiovascular Surgeries/Procedures: PT will not respond to any questions Respiratory Surgical History: Reports: None Other Respiratory Surgeries/Procedures: PT will not respond to any questions GI Surgical History: Reports: Appendectomy, Cholecystectomy, Colonoscopy Other GI Surgeries/Procedures: hemorrhoidectomy Male Surgical History: Reports: Other (See Below) Other Male Surgeries/Procedures: rezum prostate ablation, Holips surgery Endocrine Surgical History: Reports: None Other Endocrine Surgeries/Procedures: PT will not respond to any questions Neurological Surgical History: Reports: None Other Neurological Surgeries/Procedures: PT will not respond to any questions Other Musculoskeletal Surgeries/Procedures:: PT will not respond to any questions Oncologic Surgical History: Reports: None Other Oncologic Surgeries/Procedures: PT will not respond to any questions Social & Family History - Family History Family Medical History: No Pertinent Family History Other HEENT Family History: PT will not respond to any questions Other Cardiac Family History: PT will not respond to any questions Other Musculoskeletal Family History: PT will not respond to any questions Other Psychiatric Family History: PT will not respond to any questions Other Hematologic Family History: PT will not respond to any questions Other Dermatologic Family History: PT will not respond to any questions Other Oncologic Family History: PT will not respond to any questions - Tobacco Use Tobacco Use Status *Q: Never Tobacco User - Caffeine Use Caffeine Use: Reports: Coffee Other Caffeine Use: not responding - Recreational Drug Use Recreational Drug Use: No - Living Situation & Occupation Living situation: Reports: , with Spouse Occupation: Retired ED ROS GENERAL - Review of Systems Review Of Systems: See Below Constitutional: Reports: No Symptoms. Denies: Fever, Chills HEENT: Reports: No Symptoms Respiratory: Reports: No Symptoms. Denies: Shortness of Breath, Cough, Sputum Cardiovascular: Reports: No Symptoms. Denies: Chest Pain, Dyspnea on Exertion, Syncope (near syncope ) Endocrine: Reports: No Symptoms GI/Abdominal: Reports: No Symptoms : Reports: No Symptoms Musculoskeletal: Reports: No Symptoms Skin: Reports: No Symptoms Neurological: Denies: Syncope (near syncope) Psychiatric: Reports: No Symptoms, Confusion (history of dementia) Hematologic/Lymphatic: Reports: No Symptoms Immunologic: Reports: No Symptoms ED EXAM, GENERAL - Physical Exam Exam: See Below Exam Limited By: Other (Patient is a poor historian due to his history of dementia however his is at the bedside.) General Appearance: Alert, WD/WN, No Apparent Distress Eye Exam: Bilateral Eye: PERRL Ears: Normal External Exam, Hearing Grossly Normal Nose: Normal Inspection Throat/Mouth: Normal Inspection, Normal Lips, Normal Voice, No Airway Compromise Head: Atraumatic, Normocephalic Neck: Normal Inspection, Supple, Non-Tender, Full Range of Motion Respiratory/Chest: No Respiratory Distress, Lungs Clear, Normal Breath Sounds, No Accessory Muscle Use, Chest Non-Tender Cardiovascular: Normal Peripheral Pulses, Regular Rate, Rhythm, No Edema, No Murmur Peripheral Pulses: 2+: Radial (L), Radial (R) GI/Abdominal: Normal Bowel Sounds, Soft, Non-Tender, No Distention (Male) Exam: Deferred Rectal (Males) Exam: Deferred Back Exam: Normal Inspection, Full Range of Motion Extremities: Normal Inspection, Normal Range of Motion, Non-Tender, No Pedal Edema, Normal Capillary Refill Neurological: Alert, Oriented, Normal Cognition Psychiatric: Normal Affect, Normal Mood Skin Exam: Warm, Dry, Intact, Normal Color, No Rash Lymphatic: No Adenopathy #1 Interpretation EKG Date: 12/10/20 Time: 14:38 Rhythm: NSR Rate (Beats/Min): 55 [place]: Normal P-Wave: Present QRS: Normal ST-T: Normal QT: Normal EKG Interpretation Comments: Per Dr. Yee interpretation: Sinus rhythm at 55; borderline low voltage, extremity leads. Course - Vital Signs Text/Narrative:: 84-year-old male who presents to the emergency department by [facility] with a near syncopal episode. Denies any recent illness, fever, chills, nausea, vomiting, diarrhea, cough, or shortness of breath. Patient was recently taken off all of his narcotic pain medications and takes 18 kratom daily as well as starting medicinal marijuana. At the time of my assessment, the patient's states that he is back to his normal baseline level of consciousness. I have ordered labs, a CT of the head, EKG, and a urinalysis for this patient. Last Recorded V/S: Last Vital Signs Temp 97.5 F 12/10/20 13:34 Pulse 61 12/10/20 13:34 Resp 18 12/10/20 13:34 BP 95/70 12/10/20 13:34 Pulse Ox 95 12/10/20 13:34 - Orders/Labs/Meds Orders: Active Orders 24 hr Category Date Time Status EKG Documentation Completion [RC] STAT Care 12/10/20 14:13 Active UA W/MICROSCOPIC [URIN] Stat Lab 12/10/20 16:50 Results Sodium Chloride 0.9% [Saline Flush] Med 12/10/20 14:13 Active 10 ml FLUSH ASDIRECTED PRN Saline Lock Insert [OM.PC] Stat Oth 12/10/20 14:13 Ordered Medication Orders Sodium Chloride (Sodium Chloride 0.9% 10 Ml Syringe) 10 ml FLUSH ASDIRECTED PRN PRN Reason: Keep Vein Open Last Admin: 12/10/20 14:31 Dose: 10 ml Documented by: VICTORINO Labs: Laboratory Tests 12/10/20 12/10/20 12/10/20 Range/Units 14:30 14:30 16:50 WBC 4.45 (4.23-9.07) K/mm3 RBC 4.06 L (4.63-6.08) M/mm3 Hgb 12.0 L (13.7-17.5) gm/dl Hct 37.7 L (40.1-51.0) % MCV 92.9 H (79.0-92.2) fl MCH 29.6 (25.7-32.2) pg MCHC 31.8 L (32.2-35.5) g/dl RDW Std Deviation 48.3 H (35.1-43.9) fL Plt Count 199 (163-337) K/mm3 MPV 10.1 (9.4-12.3) fl Neut % (Auto) 73.8 H (34.0-67.9) % Lymph % (Auto) 16.6 L (21.8-53.1) % [place] % (Auto) 7.2 (5.3-12.2) % Eos % (Auto) 2.0 (0.8-7.0) Baso % (Auto) 0.4 (0.1-1.2) % Neut # (Auto) 3.28 (1.78-5.38) K/mm3 Lymph # (Auto) 0.74 L (1.32-3.57) K/mm3 [place] # (Auto) 0.32 (0.30-0.82) K/mm3 Eos # (Auto) 0.09 (0.04-0.54) K/mm3 Baso # (Auto) 0.02 (0.01-0.08) K/mm3 Sodium 140 (136-145) mEq/L Potassium 4.1 (3.5-5.1) mEq/L Chloride 102 (98-107) mEq/L Carbon Dioxide 31 (21-32) mEq/L Anion Gap 11.1 (5-15) BUN 17 (7-18) mg/dL Creatinine 0.9 (0.7-1.3) mg/dL Est Cr Clr Drug Dosing 51.25 mL/min Estimated GFR (MDRD) > 60 (>60) mL/min BUN/Creatinine Ratio 18.9 H (14-18) Glucose 160 H (83-115) mg/dL Calcium 8.4 L (8.5-10.1) mg/dL Magnesium 2.3 (1.8-2.4) mg/dl Total Bilirubin 0.6 (0.2-1.0) mg/dL AST 15 (15-37) U/L ALT 18 (16-63) U/L Alkaline Phosphatase 29 L (46-116) U/L Troponin I < 0.017 (0.00-0.056) ng/mL C-Reactive Protein <0.2 (<1.0) mg/dL Total Protein 6.2 L (6.4-8.2) g/dl Albumin 3.3 L (3.4-5.0) g/dl Globulin 2.9 gm/dL Albumin/Globulin Ratio 1.1 (1-2) Urine Color Yellow (Yellow) Urine Appearance Clear (Clear) Urine pH 7.0 (5.0-8.0) Ur Specific [place] 1.020 (1.005-1.030) Urine Protein 1+ H (Negative) Urine Glucose (UA) Negative (Negative) Urine Ketones Trace H (Negative) Urine Occult Blood Trace-intact H (Negative) Urine Nitrite Negative (Negative) Urine Bilirubin Negative (Negative) Urine Urobilinogen 0.2 (0.2-1.0) Ur Leukocyte Esterase Negative (Negative) Meds: Medications Generic Name Dose Route Start Last Admin Trade Name Freq PRN Reason Stop Dose Admin Sodium Chloride 10 ml 12/10/20 14:13 12/10/20 14:31 Sodium Chloride 0.9% 10 Ml Syringe FLUSH 10 ml ASDIRECTED PRN Administration Keep Vein Open - Re-Assessments/Exams Free Text/Narrative Re-Assessment/Exam: 12/10/20 17:28 Portable view of the chest radiologist impression: 1. Thick linear densities within both mid to lower lungs, worse on the right side. These are most likely due to external densities or skin folds. 2. Nothing acute is otherwise seen. Radiologist impression CT of the head comparison to prior head CT study of 01/26/20: 1.Senescent changes 2. Nothing acute is appreciated on noncontrast head CT study. 12/10/20 17:36 Labs reveal a WBC of 4.45, hemoglobin 12.0, hematocrit 37.7 chemistry reveals a sodium of 140, potassium 4.1, carbon dioxide 31, anion gap 11.1, BUN 17, creatinine 0.9, glucose 160, calcium 8.4, alk phos 29, troponin less than 0.017, C-reactive protein less than 0.2 Urinalysis reveals 1+ protein, trace of ketones, trace of intact occult blood, nitrite negative, leukocyte Estrace negative Nothing acute is appreciated on this ER visit. We will discharged patient to home with recommendations that he follow-up with his primary care physician within the next week. I did speak with the patient's regarding the dangers of him taking the kratom and she states that it is working so she is going to continue to give this to the patient. Departure - Departure Time of Disposition: 17:37 Disposition: Home, Self-Care 01 Condition: Good Clinical Impression: Syncope, near - Discharge Information Instructions: Near-Syncope, [id number] Referrals: Tapan Sawyer MD [Primary Care Provider] - Forms: ED Department Discharge Additional Instructions: Poncho was seen in the emergency department today after having an unresponsive episode and weakness. CT scan of the head was completed and this was u nremarkable, chest x-ray was unremarkable, and lab work was essentially unremarkable. He did not have a heart attack and there is no signs of infection in his body. Continue to encourage p.o. fluids to keep his hydration status up. Recommend discontinuing kratom as this drug has been known to have deleterious effects on people. Recommend you follow-up with your primary care physician within the next week. Sepsis Event Note (ED) - Evaluation Sepsis Screening Result: No Definite Risk - Focused Exam Vital Signs: Vital Signs Temp Pulse Resp BP Pulse Ox 12/10/20 13:34 97.5 F 61 18 95/70 95 - My Orders Last 24 Hours: My Active Orders 12/10/20 14:13 EKG Documentation Completion [RC] STAT Sodium Chloride 0.9% [Saline Flush] 10 ml FLUSH ASDIRECTED PRN Saline Lock Insert [OM.PC] Stat 12/10/20 16:50 UA W/MICROSCOPIC [URIN] Stat - Assessment/Plan Last 24 Hours: My Active Orders 12/10/20 14:13 EKG Documentation Completion [RC] STAT Sodium Chloride 0.9% [Saline Flush] 10 ml FLUSH ASDIRECTED PRN Saline Lock Insert [OM.PC] Stat 12/10/20 16:50 UA W/MICROSCOPIC [URIN] Stat
== END 2020-12-10 18:02 | disposition home or self-care (01) ==
LOC: JD.ED 13:28
DX: R55 Syncope and collapse (principal); N18.9 Chronic kidney disease, unspecified; N40.0 Benign prostatic hyperplasia without lower urinary tract symptoms; F03.90 Unspecified dementia, unspecified severity, without behavioral disturbance, psychotic disturbance, mood disturbance, and anxiety; Z88.8 Allergy status to other drugs, medicaments and biological substances; Z88.4 Allergy status to anesthetic agent; Z88.0 Allergy status to penicillin; Z88.5 Allergy status to narcotic agent; Z88.1 Allergy status to other antibiotic agents; Z79.899 Other long term (current) drug therapy
CPT/HCPCS: 36415; 70450; 70450-26; 71045; 71045-26; 80053; 81001; 83735; 84484; 85025; 86140; 93005; 93010; 99284; 99285-25

== ENCOUNTER 2021-11-21 22:09 | Emergency (ER) | payer MEDICARE, OTHER ==
[2021-11-21] MEDS ORDERED: Sodium Chloride 0.9% 1,000 ML IV STA (22:31)
[2021-11-21] MEDS ORDERED: Sodium Chloride 0.9% 10 ML Syringe FLUSH PRN (22:31)
[2021-11-21] MEDS ORDERED: Loperamide 2 MG Cap PO ONE (23:19)
[2021-11-22] MEDS ORDERED: HYDROmorphone 0.5 MG/0.5 ML Syringe IVPUSH ONE (00:20)
[2021-11-22] MEDS ORDERED: Loperamide 2 MG Cap PO ONE (01:07)
== END 2021-11-22 00:15 | disposition home or self-care (01) ==
LOC: JD.ED 22:09
DX: T78.1XXA Other adverse food reactions, not elsewhere classified, initial encounter (principal); R19.7 Diarrhea, unspecified; E86.0 Dehydration; K62.89 Other specified diseases of anus and rectum; N18.9 Chronic kidney disease, unspecified; Z88.1 Allergy status to other antibiotic agents; Z88.5 Allergy status to narcotic agent; Z88.0 Allergy status to penicillin; Z88.8 Allergy status to other drugs, medicaments and biological substances
CPT/HCPCS: 36415; 80053; 83690; 85025; 96374; 99284; A9270; J1170; J7030

== ENCOUNTER 2021-12-04 10:21 | Emergency (ER) | payer MEDICARE, OTHER ==
[2021-12-04] MEDS ORDERED: Magnesium Citrate Solution 296 ML Bottle PO ONE (14:17)
[2021-12-04] MEDS ORDERED: LORazepam 0.5 MG Tab PO ONE (14:18)
== END 2021-12-04 14:55 | disposition home or self-care (01) ==
LOC: JD.ED 10:21
DX: K59.00 Constipation, unspecified (principal); N18.9 Chronic kidney disease, unspecified; N40.0 Benign prostatic hyperplasia without lower urinary tract symptoms; Z88.4 Allergy status to anesthetic agent; Z88.8 Allergy status to other drugs, medicaments and biological substances; Z88.0 Allergy status to penicillin; Z88.1 Allergy status to other antibiotic agents
CPT/HCPCS: 74018; 99283; A9270

== ENCOUNTER 2023-05-09 18:57 | Emergency (ER) | payer MEDICARE, OTHER ==
[2023-05-09 19:17] LABS: BASOPHILS ABSOLUTE AUTO 0.1 K/mm3 (0.0-0.2); BASOPHILS PERCENT AUTO 0.7 % (0.0-1.0); EOSINOPHILS ABSOLUTE AUTO 0.3 K/mm3 (0.0-0.4); EOSINOPHILS PERCENT AUTO 2.7 % (0.0-6.0); HEMOGLOBIN 13.4 gm/dl (14.0-18.0); IMMATURE GRAN ABSOLUTE AUTO 0.13 K/mm3 (0.00-0.05); IMMATURE GRAN PERCENT AUTO 1.4 % (0.0-0.4); LYMPHOCYTES PERCENT AUTO 21.4 % (24.0-44.0); MEAN CORPUSCULAR HEMOGLOBIN 29.1 pg (28.0-32.0); MEAN CORPUSCULAR HGB CONC 31.2 g/dl (32.0-36.0); MEAN CORPUSCULAR VOLUME 93.3 fl (83.0-99.0); MEAN PLATELET VOLUME 9.3 fl (9.4-12.4); MONOCYTES ABSOLUTE AUTO 0.7 K/mm3 (0.0-0.8); MONOCYTES PERCENT AUTO 7.6 % (0.0-8.0); NEUTROPHILS ABSOLUTE AUTO 6.1 K/mm3 (1.8-7.7); NEUTROPHILS PERCENT AUTO 66.2 % (41.0-71.0); PLATELET COUNT,PLT 258 K/mm3 (150-400); RED BLOOD CELL COUNT 4.61 M/mm3 (4.52-5.90); WHITE BLOOD CELL COUNT,WBC 9.22 K/mm3 (3.9-11.3)
[2023-05-09] MEDS ORDERED: LORazepam 2 MG/ML SDV IM ONE (19:29)
[2023-05-09] MEDS ORDERED: LORazepam 2 MG/ML SDV ONE (19:30)
[2023-05-09] MEDS ORDERED: LORazepam 2 MG/ML SDV IVPUSH ONE (19:30)
[2023-05-09 19:34] LABS: INR 1.05; PROTHROMBIN TIME 11.2 SECONDS (9.7-12.0)
[2023-05-09] MEDS ORDERED: Sodium Chloride 0.9% 1,000 ML IV ONE ×3 (19:40→23:18)
[2023-05-09 19:42] LABS: A/G RATIO 1.1 (1-2); ALANINE AMINOTRANSFERASE,ALT 29 U/L (16-63); ALBUMIN 3.9 g/dl (3.4-5.0); ALKALINE PHOSPHATASE 63 U/L (46-116); ANION GAP 28.1 (5-15); ASPARTATE AMNIOTRANSFERASE,AST 24 U/L (15-37); BILIRUBIN TOTAL 0.9 mg/dL (0.2-1.0); BLOOD UREA NITROGEN,BUN 36 mg/dL (7-18); BUN/CREATININE RATIO 27.7 (14-18); CALCIUM 8.5 mg/dL (8.5-10.1); CHLORIDE,CL 99 mEq/L (98-107); CREATININE 1.3 mg/dL (0.7-1.3); ESTIMATED GFR 53 mL/min (>60); GLUCOSE RANDOM 125 mg/dL (70-99); POTASSIUM,K 3.1 mEq/L (3.5-5.1); PROTEIN TOTAL,TP 7.5 g/dl (6.4-8.2); SODIUM,NA 141 mEq/L (136-145)
[2023-05-09 19:43] LABS: CARBON DIOXIDE,CO2 17 mEq/L (21-32)
[2023-05-09] MEDS ORDERED: NS + KCl 20mEq/L 1,000 ML IV SCH (19:45)
[2023-05-09 19:54] LABS: BASE EXCESS VENOUS -13.5 (-4.0-2.0); BICARBONATE,VENOUS 16.6 meq/L (22-26); O2 SATURATION VENOUS 56.5; PCO2 VENOUS 56.7 mmHg (41-51); PH,VENOUS 7.09 (7.30-7.40)
[2023-05-09 19:55] LABS: LACTIC ACID 18.1 mmol/L (0.4-2.0)
[2023-05-09] MEDS ORDERED: Piperacillin/Tazobactam 4.5 GM in Sodium Chloride 0.9% 100 ML IV ONE (19:57)
[2023-05-09] MEDS ORDERED: Sodium Bicarbonate 8.4% 50 MEQ/50 ML Syringe IVPUSH ONE ×2 (20:02→20:03)
[2023-05-09 20:27] LABS: BASE EXCESS ARTERIAL -7.5 (-2-2.0); O2 SATURATION ARTERIAL 92.6 % (96.0-97.0); PCO2 ARTERIAL 43.9 mmHg (35.0-45.0)
[2023-05-09 21:34] LABS: APPEARANCE,URINE CLEAR (Clear); BILIRUBIN,URINE NEGATIVE (Negative); COLOR,URINE YELLOW (Yellow); GLUCOSE,URINE NEGATIVE (Negative); KETONES,URINE NEGATIVE (Negative); LEUKOCYTE ESTERASE,URINE NEGATIVE (Negative); NITRITE,URINE NEGATIVE (Negative); OCCULT BLOOD,URINE 2+ (Negative); PH,URINE 5.5 (5.0-8.0); PROTEIN,URINE 2+ (Negative); UROBILINOGEN,URINE 0.2 (0.2-1.0)
[2023-05-09 21:54] LABS: AMORPHOUS SEDIMENT,URINE FEW /hpf (NOT SEEN); BACTERIA,URINE FEW /hpf (FEW); EPITHELIAL CELLS,URINE NOT SEEN /hpf (0-5); HYALINE CASTS,URINE 0-5 /lpf (0-5); MUCUS,URINE FEW /hpf (FEW); WBC,URINE 0-5 /hpf (0-5)
== END 2023-05-10 01:29 ==
LOC: JD.ED 18:57
DX: R41.82 Altered mental status, unspecified (principal); S72.001A Fracture of unspecified part of neck of right femur, initial encounter for closed fracture; R56.9 Unspecified convulsions; R09.02 Hypoxemia; N18.9 Chronic kidney disease, unspecified; Z88.5 Allergy status to narcotic agent; Z79.4 Long term (current) use of insulin; Z88.1 Allergy status to other antibiotic agents; Z88.8 Allergy status to other drugs, medicaments and biological substances
CPT/HCPCS: 36415; 36600; 70450; 71045; 74176; 80053; 81001; 82803; 83605; 83735; 84484; 85025; 85610; 87040; 93005; 96365; 96366; 96367; 96375; 99285; J2060; J2543; J3480; J3490; J7030; Q2009; 93010